=== PATIENT | female | born 1950 | race African-American/Black ===

== ENCOUNTER 2025-05-08 13:59 | Observation (INO) | payer MEDICARE, MEDICAID, SELFPAY ==
--- OUTSIDE RECORDS SUMMARY | 2025-05-04 16:00 | XMS_ITS | Encounter Summary ---
Author Organization [facility] Address [facility] [place] [address] Care Team Providers Care Supervisor Pipe Joints Name Role Phone Neymar Mari MD Unavailable Kyra Shipley MD Primary Care Provider [phone] Reason for Referral * Imaging (Urgent) - New Request Specialty Diagnoses / Procedures Referred By Contac t Referred To Contact RADIOLOGY Procedures CTA CHEST PE PROTOCOL Kenrick Suarez MD [facility] [place] [address] Phone: tel: [phone] fax: Referral ID Status Reason Start Date Expiration Date V isits Requested Visits Authorized [id number] New Request 05/06/2025 05/06/2026 1 1 * Imaging (Urgent) - New Request Specialty Diagnoses / Procedures Referred By Contac t Referred To Contact RADIOLOGY Procedures USE ECHOCARDIOGRAM W CON Peggy Swartz FNP [address] [facility] [address] [facility] [place] [address] Phone: tel: fax: Referral ID Status Reason Start Date Expiration Date V isits Requested Visits Authorized [id number] New Request 05/05/2025 05/05/2026 1 1 Reason for Visit * Reason Comments Hyperglycemia * Auth/Cert Specialty Diagnoses / Procedures Referred By Contac t Referred To Contact Diagnoses Hyperglycemia [place] [address] Phone: tel: [phone] fax: Referral ID Status Reason Start Date Expiration Date Visits Re quested Visits Authorized [id number] 1 1 Encounter Details Date Type Department Care Team (Late st Contact Info) Description 05/04/2025 4:00 PM CDT - 05/07/2025 12:52 PM CDT Hospital Encounter [facility] Telemetry [address] [place], [place] [id number] Josesito Low, ORTHOTIC PRACTITIONER [address] [place] [address] Lio Kearney MD [address] [place] [address] [phone] Mag Sloan [place], [place] [address]139 [phone] (Work) Reba Lara MD [address] [place] [address] [phone] Kenrick Suarez MD [place], [place] [phone] (Work) Hyperglycemia Discharge Disposition: Home or Self Care (Routine Discharge) Social History Tobacco Use Types Packs/Day Years Used Date Smoking Tobacco: Never Passive Smoke Exposure: Past Smokeless Tobacco: Never Alcohol Use Standard Drinks/Week Comments No 0 (1 standard drink = 0.6 oz pur e alcohol) [facility] Utilities Answer Date Recorded In the past 12 months has th e Active [employer], gas, oil, or water [employer] threatened to shut off services in your home? No 05/05/2025 Humiliation, Afraid, Rape, and Kick questionnair e Answer Date Recorded Within the last year, have y ou been afraid of your partner or ex-partner? No 05/05/2025 Within the last year, have y ou been humiliated or emotionally abused in other ways by your partner or ex-partner? No Within the last year, have y ou been kicked, hit, slapped, or otherwise physically hurt by your partner or ex-partner? No 05/05/2025 Within the last year, have y ou been raped or forced to have any kind of sexual activity by your partner or ex-partner? No 05/05/2025 Overall Financial Resource Strain (CARDIA) Answe r Date Recorded How hard is it for you to pa y for the very basics like food, housing, medical care, and heating? Somewhat hard 05/05/2025 PHQ-2 Answer Date Recorded Patient Health Questionnaire-2 Score 0 08/21/2024 Hunger Vital Sign Answer Date Recorded Within the past 12 months, y ou worried that your food would run out before you got the money to buy more. Never true 05/05/20 25 Within the past 12 months, t he food you bought just didn't last and you didn't have money to get more. Never true 05/05/2025 PRAPARE - Transportation Answer Date Re corded In the past 12 months, has l ack of transportation kept you from medical appointments or from getting medications? No 04/14 In the past 12 months, has l ack of transportation kept you from meetings, work, or from getting things needed for daily living? No 05/05/2025 Housing Stability Vital Sign Answer Kevin e Recorded In the last 12 months, was t here a time when you were not able to pay the mortgage or rent on time? No 05/05/2025 In the past 12 months, how m any times have you moved where you were living? 0 05/05/2025 At any time in the past 12 m [facility], were you homeless or living in a care home (including now)? 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 Not on file Not on file Not on file documented as of this encounter Last Filed Vital Signs Vital Sign Reading Time Taken Comments Blood Pressure 125/68 05/07/2025 11:45 AM CDT Pulse 71 05/07/2025 11:45 AM CDT Temperature 36.8 C (98.3 F) 05/07/2025 11:45 AM CDT Respiratory Rate 17 05/07/2025 11:45 AM CDT Oxygen Saturation 97% 05/07/2025 11:45 AM CDT Inhaled Oxygen Concentration - - Weight 84.4 kg (186 lb) 05/07/2025 4:38 AM CDT Height 167.6 cm (5' 6) 05/04/2025 3:35 PM CDT Body Mass Index 30.02 05/04/2025 3:35 PM CDT documented in this encounter Functional Status * Question Answer Date of Assessment Author Status Do you have serious difficulty walking or climbing stairs? No 05/05/2025 3:23 AM CDT Jose Covington RN Act jagruti * Question Answer Date of Assessment Author Status Do you have difficulty dressing or bathing? No 05/05/2025 3:23 AM YOMIT Jose Covington RN Active Because of a physical, mental, or emotional condition, do you have difficulty doing errands alone such as visiting a doctor's office or shopping? No 05/05/2025 7:18 AM CDT Petros Plasencia RN Active * Are you deaf or do you have serious difficulty hearing Answer Date of Assessment Author Status No 05/05/2025 3:23 AM YOMIT Jose Covington RN Active * Are you blind or do you have serious difficulty seeing, even when wearing glasses? Answer Date of Assessment Author Status No 05/05/2025 3:23 AM YOMIT Jose Covington RN Active * Do you have serious difficulty walking or climbing stairs? Answer Date of Assessment Author Status No 05/05/2025 3:23 AM CDT Jose Covington RN Active * Do you have difficulty dressing or bathing? Answer Date of Assessment Author Status No 05/05/2025 3:23 AM Jose Sorto RN Active * Because of a physical, mental, or emotional condition, do you have difficulty doing errands alone such as visiting a doctor's office or shopping? Answer Date of Assessment Author Status No 05/05/2025 7:18 AM YOMIT Petros Plasencia RN Active * Question Answer Date of Assessment Author Status Are you deaf or do you have serious difficulty hearing No 05/05/2025 3:23 AM Jose Sorto RN Active Are you blind or do you have serious difficulty seeing, even when wearing glasses? No 05/05/2025 3:23 AM Jose Sorto RN Acti ve * Calculated C-SSRS Risk Score (Lifetime/Recent) Answer Date of Assessment Author Status No Risk Indicated 05/04/2025 3:54 PM CDT Adele Yin RN Active * [place] Suicide Severity Rating Scale (Screener/Recent Self-Report) Question Answer Date of Assessment Author Status 1. Wish to be (Past 1 Month) No 05/04/2025 3:54 PM Adele Ratliff RN Active 2. Non-Specific Active Suicidal Thoughts (Past 1 Month) No 05/04/2025 3:54 PM Adele Ratliff RN Active 6. Suicidal Behavior (Lifetime) No 05/04/2025 3:54 PM Adele Ratliff RN Active documented as of this encounter Mental Status * Question Answer Entry Date Author Status Because of a physical, mental, or emotional condition, do you have serious difficulty concentrating, remembering, or making decisions? No 05/05/2025 7:18 AM YOMIT Petros Plasencia RN A ctive * Because of a physical, mental, or emotional condition, do you have serious difficulty concentrating, remembering, or making decisions? Answer Entry Date Author Status No 05/05/2025 7:18 AM Petros Rankin RN Active documented in this encounter Discharge Summaries * Kenrick Suarez MD - 05/07/2025 9:24 AM CDT Images from the original note were not included. Hospitalist Discharge Summary Patient ID: Natali To. female. 1950. Admit date: 05/04/2025 4:00 PM Discharge date and time: 05/07/25 Admitting Physician: Mag Sloan MD Attending Physician: Kenrick Suarez MD Primary Care Physician: KYRA SHIPLEY MD Discharge Physician: KENRICK SUAREZ MD Hospital Diagnosis: CHF (congestive heart failure) ([facility]) Hyperglycemia Procedures: None Discharged Condition: Stable Code Status: POLST Indication for Admission: Chief Complaint Patient presents with Hyperglycemia History of Present Illness: Natali To is a 74-year-old female with past medical history of CHF, IDDM, presents to the ERwith leg edema, shortness of breath, hyperglycemia. Patient stated her glucose had been high since yesterday. She has noticed increased urine output and increased thirst. She noted some chills and a dry cough and sore throat that started on the day prior to admission. She has had dyspnea on exertion and some dysuria. No chest pain, abdominal pain, nausea, vomiting, diarrhea etc. Her legs had been swollen for an unknown period of time. She has been taking all of her medications regularly. Workup in the ER showed a glucose of 653 without DKA. UA was positive for UTI. Creatinine was elevated at 2.87. Risk of Unplanned Readmission Score Predictive Model Details 12 (Medium) Factor Value Calculated 05/07/2025 08:01 9% Latest BUN in last 72 hrs 37 MG/DL Risk of Unplanned Readmission Model 8% Number of active outpatient medication orders 24 7% Number of hospitalizations in last year 0 7% Latest creatinine in last 72 hrs 1.43 MG/DL 6% Latest RDW in last 72 hrs 12.4 % 6% Kevin score 20 5% Number of appointments in last 90 days 0 5% Number of ED visits in last 90 days 1 5% Diagnosis of acute renal failure present 4% Antiasthmatics administration present 3% Financial class Medicare 3% Latest hemoglobin in last 72 hrs 10.7 G/DL 2% Diagnosis of diabetes w/o complications present 2% Active outpatient diuretic Rx present 2% BMI 30.04 2% Tobacco use status never 1% Patient age [age] years old 1% Active outpatient beta sol Rx not present 1% Latest neutrophil count in last 72 hrs not abnormal (3.77 x10'3/uL) 1% Latest RBC count in last 72 hrs not abnormal (4.26 x10'6/uL) 1% Diagnosis of renal failure not present 1% Latest lymphocyte count in last 72 hrs 1.19 x10'3/uL 1% Latest MCV in last 72 hrs 77 FL 1% Beta blockers administration not present 1% Latest albumin in last 72 hrs not abnormal (3.7 G/DL) 1% Active outpatient hematopoietic agent Rx not present 1% Alcohol use status no 1% Diagnosis of cardio-respiratory failure or shock not present 1% Latest alkaline phosphatase in last 72 hrs abnormal (157 U/L) 1% Latest glucose in last 72 hrs not abnormal (95 mg/dL) 1% Active outpatient antihypertensive Rx not present 1% Relationship status 1% Diagnosis of specified heart arrhythmias not present 1% Latest total protein in last 72 hrs 7 G/DL 1% Drug use status no 1% Latest CO2 in last 72 hrs not abnormal (26.6 MMOL/L) 1% Active outpatient anticoagulant Rx not present 1% Active outpatient vitamin Rx present 1% Latest INR in last 72 hrs not abnormal (not present) 1% Laxatives administration present 1% Ulcer drugs administration present 0% Active outpatient antihyperlimidemic Rx present 0% Latest monocyte count in last 72 hrs .65 x10'3/uL 0% Latest calcium in last 72 hrs not abnormal (8.9 MG/DL) 0% Active outpatient antidepressant Rx not present 0% Diagnosis of cancer not present 0% Active outpatient ulcer drug Rx present 0% Latest lactate in last 72 hrs not present 0% Analgesic narcotics administration not present 0% Antirheumatics administration not present 0% Latest AST in last 72 hrs 32 U/L 0% Latest basophil count in last 72 hrs .01 x10'3/uL 0% Active outpatient antidiabetic Rx present 0% Diagnosis of fluid or electrolyte disorder not present 0% Admission type urgent 0% Antihyperlipidemics administration present 0% Corticosteroids administration not present 0% Latest total bilirubin in last 72 hrs not abnormal (.4 MG/DL) 0% Active outpatient antirheumatic Rx not present 0% Diagnosis of cerebrovascular disease not present 0% Active outpatient multivitamin Rx not present 0% Latest phosphorous in last 72 hrs 2.9 MG/DL 0% Latest platelet count in last 72 hrs not abnormal (154 x10'3/uL) 0% Antipsychotics administration not present 0% Legal sex female Hospital Course: Dyspnea Cause uncertain No hypoxia with ambulation. CXR wnl. D dimer elevated, but CTA chest neg for PE, only atelectasis noted. Consider stress testing as OP. Near syncope Orthostatic hypotension Pt had near syncopal episode after using the restroom Likely orthostatic hypotension from overdiuresis. CTA chest neg for PE. Cardiac monitoring. Diuretics held. IV fluids given. Orthostatics now neg. Resume chlorthalidone on dc per cards recs. Lasix PRN. Chronic HFpEF Initial concern for acute CHF ruled out. ProBNP minimally elevated at 391 CXR wnl. Echo 10/02/2023: EF 45 to 40%, grade 1 DD Repeat echo with EF of 55-60% IV Lasix given on admission, however caused drop in BP. Further diuresis held. Per cardiology, ok to resume Lasix PRN on dc. Type II IDDM Hyperglycemia without DKA A1c 11.8 Glucose 653 in ER 1 L NS given in ER 10 units IV insulin given in ER Mid dose sliding scale Hypoglycemic protocol Monitor and adjust treatment as needed Hold oral medicines Fasting glucose well controlled on Lantus 20 units, but the rest of the values throughout the day are elevated in the 200-400 range. May need to increase premeal insulin at home, however given that patient has not had her PO medications, will defer to PCP to adjust. Instructed to monitor glucose levels ACHS at home. CORBIN on CKD stage III Creatinine 2.87 Cr was 1.19 in october 2024 Given IV fluids in ER but then had concerns for fluid overload IV Lasix given as above. Subsequently with near syncopal episode concerning for orthostatic hypotension. H IV fluids again given. Cr down to 1.43. Pyuria Asymptomatic Urine culture with polymicrobial growth c/w normal genital edgard IV Rocephin dc'd. Hypertension BP up to 135/111 in ER Improved without treatment BPs now well controlled. Chronic Microcytic anemia Hgb 10.7 This was 10.5 in october 2024 Monitor, transfuse prn Dyslipidemia Statin Code status Okay with CPR, no intubation Medical surrogates are patient's children. Findings that require further workup: Keep BP/HR log BID Monitor daily weights. Consults: cardiology Significant Diagnostic Studies: Recent Results (from the past 24 hours) D-DIMER, QUANTITATIVE Collection Time: 05/06/25 10:08 AM Result Value Ref Range D-DIMER 4,197 (HH) 0 - 500 ng[FEU]/mL POCT glucose Collection Time: 05/06/25 11:42 AM Result Value Ref Range GLUCOSE POC 402 (HH) 70 - 99 mg/dL FERRITIN Collection Time: 05/06/25 12:01 PM Result Value Ref Range FERRITIN 227.8 8.0 - 388.0 NG/ML IRON SAT PANEL (IRON,IBC,%SAT) Collection Time: 05/06/25 12:01 PM Result Value Ref Range IRON 35 (L) 50.0 - 170.0 MCG/DL IRON BINDING CAPACITY 236 (L) 250 - 450 MCG/DL IRON SATURATION 15 (L) 20 - 55 % CBC, AUTO, NO DIFF Collection Time: 05/06/25 12:01 PM Result Value Ref Range WBC 5.63 4.5 - 11.0 x10'3/uL RBC 4.26 4.20 - 5.40 x10'6/uL HGB 10.7 (L) 12.0 - 16.0 G/DL HCT 32.8 (L) 38.0 - 48.0 % MCV 77.0 (L) 81.0 - 99.0 FL MCH 25.1 (L) 27.0 - 31.0 PG MCHC 32.6 32.0 - 36.0 G/DL RDW 12.4 11.5 - 14.5 % PLT 154 130 - 400 x10'3/uL MPV 11.3 9.3 - 12.2 FL POCT glucose Collection Time: 05/06/25 12:17 PM Result Value Ref Range GLUCOSE POC 451 (HH) 70 - 99 mg/dL POCT glucose Collection Time: 05/06/25 4:33 PM Result Value Ref Range GLUCOSE POC 289 (H) 70 - 99 mg/dL POCT glucose Collection Time: 05/06/25 6:10 PM Result Value Ref Range GLUCOSE POC 313 (H) 70 - 99 mg/dL POCT glucose Collection Time: 05/06/25 7:22 PM Result Value Ref Range GLUCOSE POC 337 (H) 70 - 99 mg/dL POCT glucose Collection Time: 05/07/25 6:06 AM Result Value Ref Range GLUCOSE POC 95 70 - 99 mg/dL Radiology Reports : CTA CHEST PE PROTOCOL: 05/06/2025 1. No CTA imaging findings for pulmonary embolism. 2. Decreased lung volumes with bilateral lower lung field moderate subsegmental atelectasis. 3. Left coronary artery calcifications 4. No other convincing acute or significant cardiopulmonary finding. USE ECHOCARDIOGRAM W CON: 05/06/2025 Left ventricle is normal in size and systolic function Estimated EF of 55-60% Mild to moderate LVH Diastolic dysfunction Right ventricle is normal in size and systolic function Mild tricuspid regurgitation Normal estimated pulmonary pressures. XR CHEST PORTABLE: 05/05/2025 1. 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1950 Requested By: REBA LARA Order Number: [id number] Reading MD: Suresh Kitchen Measurements Intervals [place] Rate: 75 P: 47 [place]: 134 QRS: -23 QRSD: 83 T: -58 QT: 394 QTc: 442 Interpretive Statements SINUS RHYTHM BORDERLINE LEFT AXIS DEVIATION [QRS AXIS < -20] MODERATE T-WAVE ABNORMALITY, CONSIDER ANTERIOR ISCHEMIA [-0.1+ mV T WAVE IN V3/V4] No previous ECG available for comparison Discharge Exam: Filed Vitals: 05/07/25 0435 05/07/25 0437 05/07/25 0438 05/07/25 0730 BP: 130/72 121/71 102/48 139/73 Pulse: 79 86 93 75 Resp: 20 20 20 18 Temp: 99 ??F (37.2 ??C) 99 ??F (37.2 ??C) 99 ??F (37.2 ??C) 98.2 ??F (36.8 ??C) TempSrc: Oral Oral SpO2: 94% 96% 98% 96% Weight: 84.4 kg (186 lb) Height: Physical Exam Vitals reviewed. Cardiovascular: Rate and Rhythm: Normal rate and regular rhythm. Heart sounds: Normal heart sounds. No murmur heard. Pulmonary: Effort: Pulmonary effort is normal. Breath sounds: Normal breath sounds. Abdominal: General: There is no distension. Palpations: Abdomen is soft. Tenderness: There is no abdominal tenderness. Musculoskeletal: General: No swelling. Skin: Findings: No rash. Neurological: Mental Status: She is alert. Discharge Medications: Medication List START taking these medications Morning Around Noon Evening Bedtime As Needed aspirin EC 81 MG tablet Commonly known as: ECOTRIN Take 1 tablet (81 mg total) by mouth daily. Last time this was given: 81 mg on May 07, 2025 8:44 AM You were not taking this medication. You should start taking this medication. Last time this was given: May 07, 2025 8:44 AM 1 tablet nystatin [id number] UNIT/ML suspension Commonly known as: MYCOSTATIN Take 5 mLs by mouth 4 (four) times daily for 8 days. Last time this was given: 5 mLs on May 06, 2025 8:11 PM Signed by: Dr. Kenrick Suarez Last time this was given: May 06, 2025 8:11 PM 5 mLs 5 mLs 5 mLs 5 mLs CHANGE how you take these medications Morning Around Noon Evening Bedtime As Needed fluticasone propionate 50 MCG/ACT nasal spray Commonly known as: FLONASE 1 spray by Nasal route 2 (two) times daily. Last time this was given: 1 spray on May 07, 2025 8:45 AM You were taking this medication differently than prescribed. Signed by: Dr. Kyra Shipley Last time this was given: May 07, 2025 8:45 AM 1 spray 1 spray furosemide 20 MG tablet Commonly known as: LASIX Take 1 tablet (20 mg total) by mouth every other day as needed (swelling). Last time this was given: Ask your nurse or doctor Signed by: Dr. Kenrick Suarez Last time this was given: Ask your nurse or doctor What changed: when to take this reasons to take this 1 tablet insulin glargine 100 UNIT/ML injection (VIAL) Commonly known as: Lantus Inject 24 Units into the skin every morning. Last time this was given: 20 Units on May 06, 2025 8:12 PM Signed by: Dr. Kenrick Suarez Last time this was given: May 06, 2025 8:12 PM What changed: medication strength See the new instructions. 24 Units CONTINUE taking these medications Morning Around Noon Evening Bedtime As Needed * Accu-Chek Guide test strip 1 strip by Other route daily. Signed by: Dr. Kyra Shipley Generic drug: Glucose Blood 1 strip * BLOOD GLUCOSE TEST STRIPS [facility] Check blood glucose before all meals and 2 hours after last meal Signed by: Dr. Kyra Shipley Check blood glucose before all meals and 2 hours after last meal * Accu-Chek Guide Test test strip 1 strip by Other route as needed. Use as instructed Signed by: Dr. Kyra Shipley Generic drug: Glucose Blood 1 strip albuterol sulfate HFA 108 (90 Base) MCG/ACT inhaler TAKE 2 PUFFS BY MOUTH EVERY 6 HOURS NEEDED FOR WHEEZE OR SHORTNESS OF BREATH Signed by: Dr. Kyra Shipley TAKE 2 PUFFS BY MOUTH EVERY 6 HOURS NEEDED FOR WHEEZE OR SHORTNESS OF BREATH ammonium lactate 12 % lotion Commonly known as: LAC-HYDRIN Apply topically daily as needed for Dry skin. Blood Glucose Monitoring Suppl w/Device Kit Check blood sugars twice daily. Signed by: Dr. Kyra Shipley Check blood sugars twice daily. budesonide-formoterol 80-4.5 MCG/ACT inhaler Commonly known as: Symbicort Inhale 2 puffs into the lungs 2 (two) times daily. Inhale 2 puffs into the lungs 2 (two) times daily. Signed by: Dr. Kyra Shipley 2 puffs 2 puffs chlorthalidone 25 MG tablet Commonly known as: HYGROTEN TAKE 1 TABLET BY MOUTH DAILY Signed by: Dr. Kyra Shipley 1 tablet diclofenac sodium 1 % gel Commonly known as: VOLTAREN APPLY 2 GRAMS TOPICALLY 3 TIMES DAILY NEEDED TO SHOULDERS AND KNEES FOR PAIN. Signed by: Dr. Kyra Shipley APPLY 2 GRAMS TOPICALLY 3 TIMES DAILY NEEDED TO SHOULDERS AND KNEES FOR PAIN. docusate sodium 100 MG capsule Commonly known as: COLACE Take 1 capsule (100 mg total) by mouth nightly at bedtime. Last time this was given: 100 mg on May 07, 2025 8:44 AM Last time this was given: May 07, 2025 8:44 AM 1 capsule glimepiride 4 MG tablet Commonly known as: AMARYL TAKE 1 TABLET (4 MG TOTAL) BY MOUTH DAILY. TAKE BEFORE LARGEST MEAL Signed by: Dr. Kyra Shipley 1 tablet insulin lispro (1 Unit Dial) 100 UNIT/ML injection (PEN) Commonly known as: HUMALOG Inject 7 Units into the skin 3 (three) times daily before meals. Last time this was given: Ask your nurse or doctor Last time this was given: Ask your nurse or doctor 7 Units 7 Units 7 Units Insulin Syringe-Needle U-100 30G X 1/2 1 ML Misc 1 each by Does not apply route daily. Signed by: Dr. Kyra Shipley 1 each by Does not apply route daily. nitroglycerin 0.4 MG SL tablet Commonly known as: NITROSTAT DISSOLVE 1 TABLET UNDER THE TONGUE EVERY 5 MINUTES NEEDED FOR CHEST PAIN. MAX OF 3 TABLETS IN 15MINUTES. CALL 911 IF PAIN PERSISTS. Signed by: Sherron Mtz DISSOLVE 1 TABLET UNDER THE TONGUE EVERY 5 MINUTES NEEDED FOR CHEST PAIN. MAX OF 3 TABLETS IN 15MINUTES. CALL 911 IF PAIN PERSISTS. omeprazole 20 MG capsule Commonly known as: PriLOSEC TAKE 1 CAPSULE BY MOUTH DAILY Signed by: Dr. Kyra Shipley 1 capsule Pen [place] 31G X 8 MM Misc 1 each by Does not apply route 4 (four) times daily. Signed by: Dr. Kyra Shipley 1 each by Does not apply route 4 (four) times daily. rosuvastatin 20 MG tablet Commonly known as: CRESTOR TAKE 1 TABLET BY MOUTH DAILY Signed by: Dr. Kyra Shipley 1 tablet SOFTCLIX LANCETS [facility] [place] Inst[place] Vitamin D3 50 mcg tablet Commonly known as: cholecalciferol Take 1 tablet (50 mcg total) by mouth daily. Last time this was given: 50 mcg on May 07, 2025 8:44 AM Last time this was given: May 07, 2025 8:44 AM 1 tablet * This list has 3 medication(s) that are the same as other medications prescribed for you. Read thedirections carefully, and ask your doctor or other care provider to review them with you. Disposition: Home with self care Time Spent on Discharge: Greater than 30 minutes Signed: KENRICK SUAREZ MD documented in this encounter Discharge Instructions * Discharge Instructions* Trina Gutierrez RN - 05/07/2025 8:44 AM CDT Monitor daily weights. If weight increases by greater than 2 lbs in 24-48 hours, call web page designer. If weight increased by greater than 5 lbs in less than one week, call web page designer. Keep a BP/HR log BID * Attachments The following attachments cannot be sent through Care Everywhere. 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 200 strip 2 4 albuterol sulfate HFA 108 (90 Base) MCG/ACT inhalerIndications:Ac zabrina cough TAKE 2 PUFFS BY MOUTH EVERY 6 HOURS NEEDED FOR WHEEZE OR SHORTNESS OF BREATH 18 g 3 5 ammonium lactate (LAC-HYDRIN) 12 % lotion Apply topically daily as needed for Dry skin. aspirin EC (ASPIRIN EC) 81 MG tablet Take 1 tablet (81 mg total) by mouth daily. 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 1 kit 4 budesonide-formoterol (SYMBICORT) 80-4.5 MCG/ACT inhalerIndications:Mi ld intermittent asthma without complication ([facility]) Inhale 2 puffs into the lungs 2 (two) times daily. Inhale 2 puffs into the lungs 2 (two) times daily. 30.6 g 3 5 chlorthalidone (HYGROTEN) 25 MG tabletIndications:Ess ential hypertension TAKE 1 TABLET BY MOUTH DAILY 100 tablet 2 5 Cholecalciferol (VITAMIN D) 2000 units Tab Take 1 tablet (50 mcg total) by mouth daily. 8 diclofenac sodium (VOLTAREN) 1 % gelIndications:Arthri tis APPLY 2 GRAMS TOPICALLY 3 TIMES DAILY NEEDED TO SHOULDERS AND KNEES FOR PAIN. 300 g 4 docusate sodium 100 MG capsule Take 1 capsule (100 mg total) by mouth nightly at bedtime. 8 fluticasone propionate (FLONASE) 50 MCG/ACT nasal sprayIndications:Seas onal allergies 1 spray by Nasal route 2 (two) times daily. 16 g 5 5 furosemide (LASIX) 20 MG tablet Take 1 tablet (20 mg total) by mouth every other day as needed (swelling). 30 tablet 5 glimepiride (AMARYL) 4 MG tabletIndications:Typ e 2 diabetes mellitus with both eyes affected by severe nonproliferative retinopathy without macular edema, with long-term current use of insulin ([facility] HHS/HCC) TAKE 1 TABLET (4 MG TOTAL) BY MOUTH DAILY. 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 10 mL 5 insulin lispro, 1 Unit Dial, (HUMALOG) 100 UNIT/ML injection (PEN) Inject 7 Units into the skin 3 (three) times daily before meals. 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 90 each 3 4 nitroglycerin (NITROSTAT) 0.4 MG SL tablet DISSOLVE 1 TABLET UNDER THE TONGUE EVERY 5 MINUTES NEEDED FOR CHEST PAIN. MAX OF 3 TABLETS IN 15 MINUTES. CALL 911 IF PAIN PERSISTS. 125 tablet 1 5 nystatin (MYCOSTATIN) 957347 UNIT/ML suspension Take 5 mLs by mouth 4 (four) times daily for 8 days. 160 mL 5 05/15/20 25 omeprazole (PRILOSEC) 20 MG capsuleIndications:Ga stroesophageal reflux disease, unspecified whether esophagitis present TAKE 1 CAPSULE BY MOUTH DAILY 100 capsule 2 5 rosuvastatin (CRESTOR) 20 MG tabletIndications:Hyp erlipidemia, mixed TAKE 1 TABLET BY MOUTH DAILY 100 tablet 2 5 SOFTCLIX LANCETS Misc 3 documented as of this encounter Progress Notes * Tamica Collado RN - 05/07/2025 12:52 PM CDT 05/07/25 1253 Discharge Planning Living Arrangements Children Support Systems Children Type of Residence Private residence Assistance Needed No Patient expects to be discharged to: Home or Self care no new needs Insurance Authorization needed No Does the patient need discharge transport arranged? No DME Needed at Discharge No Patient discharged home with daughter to transport when she gets off work at 2pm. Declines home health at this time. Patient agreeable to dc plan. * MITCH Shelby - 05/07/2025 11:30 AM CDT Images from the original note were not included. [place], [place] [address] Cardiology Progress Note Primary Truck Driver Teamster: Dr. Mair Primary Air Traffic Supervisor: Cosigner:Dr. Mari Interval History Feels better today. SOB sore throat resolved. Reports mild dry cough. No dizziness. Denies CP. Edema is better. Feels ready to go home. CTA chest no PE, Left coronary artery calcification, no CHF, some atelectasis present. History Reason for consult: CHF Requested by: Hospitalist Natali To is a 74-year-old female with a past medical history significant for HFpEF/HFmrEF, IDDM, CKD, HTN, HLD, anemia, obesity. Patient presents to the ED from urgent care for hyperglycemia. She went to urgent care she had developed some chills, dry cough sore throat that started Sunday. She endorses 15 pound weight gain in the month of March as well as some increasing bilateral lower extremity edema, shortness of breath and a dry cough in the last week. She has occasional orthopnea in the last week or so. She denies anychest pain, palpitations, abdominal pain, nausea vomiting diarrhea, appetite changes. She does endorse polydipsia and polyuria no increase in appetite. She states she checks her blood pressure at home twice a day and typically gets consistent readings 120s/80s with heart rates in the 70s. She takes20 mg of Lasix every other day and chlorthalidone 25 mg daily. Workup in the ER showed a glucose of 653 without DKA. UA was positive for UTI. Creatinine was elevated at 2.87. She was given IV fluids, IV insulin and Rocephin and then lan started on lasix 40 mgBID. Cardiology was consulted for assistance in CHF management. The last weights are: Wt Readings from Last 20 Encounters: 05/07/25 84.4 kg (186 lb) 05/04/25 85.3 kg (188 lb) 11/19/24 85.3 kg (188 lb) 11/18/24 84.7 kg (186 lb 12.8 oz) 09/22/24 90.3 kg (199 lb) 08/21/24 87 kg (191 lb 12.8 oz) 07/04/24 85.3 kg (188 lb) 05/21/24 85.7 kg (188 lb 14.4 oz) 03/24/24 88 kg (194 lb) 03/19/24 88 kg (194 lb) 12/12/23 91.6 kg (202 lb) 10/17/23 94.3 kg (208 lb) 09/26/23 95.3 kg (210 lb) 09/19/23 95.2 kg (209 lb 12.8 oz) 09/05/23 97.5 kg (215 lb) 06/11/23 97.9 kg (215 lb 14.4 oz) 03/21/23 99.3 kg (219 lb) 01/15/23 99.4 kg (219 lb 3.2 oz) 12/18/22 98.2 kg (216 lb 9.6 oz) 12/11/22 98.4 kg (217 lb) . Past Medical History[1] Past Surgical History[2] Social History[3] Family History[4] aspirin EC 81 mg Oral Daily atorvastatin 40 mg Oral Daily docusate sodium 100 mg Oral Q24H ferrous sulfate EC 324 mg Oral Daily with breakfast fluticasone propionate 1 spray Each Nostril BID heparin (porcine) 5,000 Units Subcutaneous 2 times per day insulin glargine 20 Units Subcutaneous Nightly at bedtime insulin lispro 0-16 Units Subcutaneous TID AC And insulin lispro 0-8 Units Subcutaneous Nightly at bedtime mometasone-formoterol 1 puff Inhalation 2 times daily RT nystatin 5 mL Oral 4x Daily pantoprazole EC 20 mg Oral Daily Vitamin D3 50 mcg Oral Daily acetaminophen, albuterol sulfate HFA, dextrose 10 % bolus, glucagon, glucose, HYDROcodone-acetaminophen, HYDROmorphone, iopamidol, naLOXone, ondansetron, polyethylene glycol Prior to Admission medications Medication Sig Start Date End Date Taking? Authorizing Provider budesonide-formoterol (SYMBICORT) 80-4.5 MCG/ACT inhaler Inhale 2 puffs into the lungs 2 (two) times daily. Inhale 2 puffs into the lungs 2 (two) times daily. 11/19/24 Yes Kyra Shipley MD chlorthalidone (HYGROTEN) 25 MG tablet TAKE 1 TABLET BY MOUTH DAILY 08/26/24 Yes Kyra Shipley MD Cholecalciferol (VITAMIN D) 2000 units Tab Take 1 tablet (50 mcg total) by mouth daily. 09/04/17 YesDonathanael [facility] Abstract docusate sodium 100 MG capsule Take 1 capsule (100 mg total) by mouth nightly at bedtime. 10/09/17 Yes Doc [facility] Abstract fluticasone propionate (FLONASE) 50 MCG/ACT nasal spray 1 spray by Nasal route 2 (two) times daily.11/19/24 Yes Kyra Shipley MD furosemide (LASIX) 20 MG tablet Take 1 tablet (20 mg total) by mouth every other day as needed (swelling). 05/06/25 Yes Kenrick Suarez MD glimepiride (AMARYL) 4 MG tablet TAKE 1 TABLET (4 MG TOTAL) BY MOUTH DAILY. TAKE BEFORE LARGEST MEAL 11/03/24 Yes Kyra Shipley MD insulin glargine (LANTUS) 100 UNIT/ML injection (VIAL) Inject 24 Units into the skin every morning.05/06/25 Yes Kenrick Suarez MD insulin lispro, 1 Unit Dial, (HUMALOG) 100 UNIT/ML injection (PEN) Inject 7 Units into the skin 3 (three) times daily before meals. 03/30/25 Yes Default History Genericprovider nystatin (MYCOSTATIN) 828508 UNIT/ML suspension Take 5 mLs by mouth 4 (four) times daily for 8 days. 05/07/25 05/15/25 Yes Kenrick Suarez MD omeprazole (PRILOSEC) 20 MG capsule TAKE 1 CAPSULE BY MOUTH DAILY 12/15/24 Yes Kyra Shipley MD rosuvastatin (CRESTOR) 20 MG tablet TAKE 1 TABLET BY MOUTH DAILY 08/26/24 Yes Kyra Shipley MD ACCU-CHEK GUIDE test strip 1 strip by Other route daily. 02/15/24 Kyra Shipley MD albuterol sulfate HFA 108 (90 Base) MCG/ACT inhaler TAKE 2 PUFFS BY MOUTH EVERY 6 HOURS NEEDED FOR WHEEZE OR SHORTNESS OF BREATH Patient taking differently: Inhale 2 puffs into the lungs every 6 (six) hours as needed for Shortness of breath or Wheezing. 01/22/25 Kyra Shipley MD ammonium lactate (LAC-HYDRIN) 12 % lotion Apply topically daily as needed for Dry skin. Default History Genericprovider aspirin EC (ASPIRIN EC) 81 MG tablet Take 1 tablet (81 mg total) by mouth daily. 06/23/14 Doc [facility] Abstract Blood Glucose Monitoring Suppl w/Device Kit Check blood sugars twice daily. 12/12/23 Kyra Shipley MD diclofenac sodium (VOLTAREN) 1 % gel APPLY 2 GRAMS TOPICALLY 3 TIMES DAILY NEEDED TO SHOULDERS AND KNEES FOR PAIN. Patient taking differently: Apply 2 g topically 3 (three) times daily as needed (pain). Apply to shoulders and knees 10/09/23 Kyra Shipley MD Glucose Blood (ACCU-CHEK GUIDE TEST) test strip 1 strip by Other route as needed. Use as instructed04/03/25 Kyra Shipley MD Glucose Blood (BLOOD GLUCOSE TEST STRIPS) Strip Check blood glucose before all meals and 2 hours after last meal 08/21/24 Kyra Shipley MD Insulin Pen Needle (PEN NEEDLES) 31G X 8 MM Misc 1 each by Does not apply route 4 (four) times daily. 03/28/24 Kyra Shipley MD Insulin Syringe-Needle U-100 30G X 1/2 1 ML Misc 1 each by Does not apply route daily. 04/16/24 Kyra Shipley MD nitroglycerin (NITROSTAT) 0.4 MG SL tablet DISSOLVE 1 TABLET UNDER THE TONGUE EVERY 5 MINUTES NEEDED FOR CHEST PAIN. MAX OF 3 TABLETS IN 15 MINUTES. CALL 911 IF PAIN PERSISTS. Patient taking differently: Place 1 tablet (0.4 mg total) under the tongue every 5 (five) minutes as needed for Chest Pain. 11/10/24 MITCH Jade SOFTCLIX LANCETS [facility] [place] Default History Genericprovider Review of patient's allergies indicates: Allergen Reactions Dulaglutide Shortness of Breath Mounjaro [Tirzepatide] Anaphylaxis, GI Upset and Headache Pneumococcal Vaccines Shortness of Breath and Swelling Second dose brought on symptoms Metformin Rash and GI Upset Penicillins Rash Canagliflozin Other (see comment) and Unknown Pains in legs and arms and headache Eggs Unknown Aspirin Rash and Itching Lisinopril Rash Review of Systems HENT: Negative for sore throat. Respiratory: Positive for cough. Negative for sputum production and shortness of breath. Cardiovascular: Negative for chest pain, palpitations, orthopnea and leg swelling. Neurological: Negative for dizziness and headaches. see HPI Physical Exam Filed Vitals: 05/07/25 0437 05/07/25 0438 05/07/25 0730 05/07/25 1145 BP: 121/71 102/48 139/73 125/68 Pulse: 86 93 75 71 Resp: 20 18 17 Temp: 99 ??F (37.2 ??C) 99 ??F (37.2 ??C) 98.2 ??F (36.8 ??C) 98.3 ??F (36.8 ??C) TempSrc: Oral Oral SpO2: 96% 98% 96% 97% Weight: 84.4 kg (186 lb) Height: Telemetry: SR 70s occ PVC Physical Exam: Physical Exam Vitals and nursing note reviewed. Constitutional: General: She is not in acute distress. Appearance: She is obese. She is not diaphoretic. HENT: Head: Normocephalic and atraumatic. Comments: Purple hair Mouth/Throat: Mouth: Mucous membranes are moist. Eyes: Extraocular Movements: Extraocular movements intact. Neck: Vascular: No hepatojugular reflux or JVD. Cardiovascular: Rate and Rhythm: Normal rate and regular rhythm. Pulses: Radial pulses are 2+ on the right side and 2+ on the left side. Dorsalis pedis pulses are 2+ on the right side and 2+ on the left side. Heart sounds: No murmur heard. Pulmonary: Effort: Pulmonary effort is normal. No respiratory distress. Breath sounds: No wheezing or rales. Abdominal: General: Bowel sounds are normal. There is no distension. Palpations: Abdomen is soft. Tenderness: There is no abdominal tenderness. Musculoskeletal: Right lower leg: No edema. Left lower leg: No edema. Comments: Non pitting BLE edema Skin: General: Skin is warm and dry. Neurological: Mental Status: She is alert and oriented to person, place, and time. Psychiatric: Behavior: Behavior normal. Behavior is cooperative. Recent Labs Lab 05/04/25 1609 05/05/25 0640 05/06/25 1201 WBC 7.27 5.72 5.63 HGB 10.7* 9.9* 10.7* HCT 31.3* 29.9* 32.8* MCV 75.2* 75.1* 77.0* PLT 186 165 154 Recent Labs Lab 05/04/25 1609 05/05/25 0640 05/06/25 0753 NA 134* 144 141 K 3.7 3.2* 3.6 CL 100 112 110 CO2 26.1 26.5 26.6 AGAP 7.9 5.5 4.4 BUN 61* 47* 37* CR 2.87* 1.82* 1.43* BUNCREATININ 21.3 25.8 25.9 GLU 653* 79 140* CA 9.0 8.8 8.9 TP 7.0 -- -- ALB 3.7 -- -- TBIL 0.4 -- -- ALKP 157* -- -- AST 32 -- -- ALT 36 -- -- No results for input(s): APTT, INR, PTT in the last 168 hours. Recent Labs Lab 05/04/25 1609 05/05/25 0640 05/06/25 0753 05/06/25 1201 NA 134* < > 141 -- K 3.7 < > 3.6 -- CL 100 < > 110 -- CO2 26.1 < > 26.6 -- BUN 61* < > 37* -- CR 2.87* < > 1.43* -- CA 9.0 < > 8.9 -- GLU 653* < > 140* -- AGAP 7.9 < > 4.4 -- TP 7.0 -- -- -- ALB 3.7 -- -- -- ALT 36 -- -- -- WBC 7.27 < > -- 5.63 HGB 10.7* < > -- 10.7* PLT 186 < > -- 154 HGBA1C 11.8* -- -- -- < > = values in this interval not displayed. Results for orders placed or performed during the hospital encounter of 05/04/25 (from the past 52 weeks) CULTURE URINE Collection Time: 05/04/25 4:22 PM Specimen: URINE, CLEAN CATCH Result Value Ref Range SPEC DESCRIPTION URINE CLEAN CATCH SPECIAL REQUESTS NO SPECIAL REQUEST CULTURE RESULT POLYMICROBIAL GROWTH CONSISTENT WITH NORMAL GENITAL EDGARD. SUSCEPTIBILITIES NOT ROUTINELY PERFORMED. No results found for this visit on 05/04/25 (from the past 52 weeks). 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 Imaging/Testing this admission: CTA CHEST PE PROTOCOL Result Date: 05/06/[address] [address] Exam: CT angiography chest Exam Date/Time: 05/06/2025 1:01 PM Indication: 74 female. Evaluation for pulmonary embolism. Syncope. Comparison: Chest x-ray 05/05/2025 and 09/22/2024. Technique: Computed tomography angiography of the chest was performed no protocol following uneventful intravenous administration of 80 mL Isovue-370 contrast. 3-D reconstructions and postprocessing performed on a separate dedicated 3-D workstation.. A dose lowering technique was used for this procedure, which may include, but is not limited to, dose reduction technique, automated exposure control, the use of iterative reconstruction, and ALARA (As Low As Reasonably Achievable) / Image Gently techniques. CTA Findings: VASCULATURE Adequate opacification of pulmonary arterial tree. No intraluminal filling defects suggestive of pulmonary thromboembolism first identified within study limits. No findings of right heart strain. No central pulmonary arterial enlargement. Unremarkable thoracic aorta MEDIASTINUM Support tubes and lines: None. Base of neck/thyroid: Negative. Heart: Borderline cardiac size. Left coronary artery calcification. No pericardial effusion. No pericardial effusion. Lymph nodes: No supraclavicular, axillary, internal mammary, mediastinal, or hilar adenopathy. LUNGS AND PLEURALungs: Decreased lung volumes particularly right middle and lower lobes with with bilateral lower lobe both dependent and streaky moderate subsegmental atelectasis. Mild lingular and right middle lobe subsegmental atelectasis. No concerning pulmonary nodule mass or consolidation. No significant chronic airspace disease seen. Airways unremarkable. No bronchiectasis, wall thickening or mucous plugging. Pleura: No pleural effusion, thickening, or calcification. UPPER ABDOMEN Nonspecific central hepatic calcifications. Prominent splenic artery vascular wall calcification. No acute finding. BONES/SOFT TISSUES No concerning musculoskeletal finding Impression: 1. No CTA imaging findings for pulmonary embolism. 2. Decreased lung volumes with bilateral lower lung field moderate subsegmental atelectasis. 3. Left coronary artery calcifications 4. No other convincing acute or significant cardiopulmonary finding. Ordered By: KENRICK SUAREZ Interpreted By: Karlo Bland MD, 05/06/2025 3:13 PM USE ECHOCARDIOGRAM W CON Result Date: 05/06/2025 Echocardiography Report Pat.Name: NATALI TO Pat.ID: [id number] St.Date: 05/06/2025 Exam Time: 9:13:00 AM Study Type:ECHO WITH CARDIAC DOPPLER COMP Height: 66 in Weight: 188 lb BSA: 1.95 m2 Age: 1 1950,74Y Sex: F BP: 113/62 HR: 84 bpm Sonogrphr: [place] Aguirre [facility], [facility] Pat. Stat.:Inpatient Room: [facility] Reason for Study:Congestive heart failure History / Clinical:Diabetes, Dyslipidemia, Hypertension, Congestive heart failure, Family history CAD, GERD Procedures: 2D, M-mode, Doppler, Color Flow, Definity was used to enhance endocardial definition. The study quality is technically difficult . Race: B ++++++++++++++++++++++++++++++++++++ SUMMARY: ++++++++++++++++++++++++++++++++++++ Left ventricle is normal in size and systolic function Estimated EF of 55-60% Mild to moderate LVH Diastolic dysfunction Right ventricle is normal in size and systolic function Mild tricuspid regurgitation Normal estimated pulmonary pressures. ++++++++++++++++++++++++++++++++++++ FINDINGS: ++++++++++ ++++++++++++++++++++++++++ LV: The left ventricular size is normal. The left ventricular systolic function is normal. Estimated left ventricular ejection fraction is 55-60%. Mild to moderate concentric left ventricular hypertrophy. Left ventricular diastolic function is abnormal (grade 1 - impairedrelaxation). WM: Wall motion appears normal in all segments. RV: The right ventricular size is normal. Right ventricular systolic function is normal. Right ventricular systolic pressure is normal at 25-30 mmHg. IVS: No evidence of ventricular septal defect. LA: The left atrial volume is normal ( less than 34 ml/M2). RA: Right atrial size is normal. IAS: Atrial septum appears intact. CASE: No evide nce of pericardial effusion. AO: Normal aortic root. SVn: Inferior vena cava is normal. Inferior vena cava shows >50% collapse with respiration consistent with normal right atrial pressure. AV: The aortic valve is trileaflet. No evidence of aortic valve stenosis. No evidence of aortic valve regurgitation. MV: Structurally normal mitral valve. Trace mitral regurgitation. No evidence of mitral stenosis. PV: No evidence of pulmonic valve stenosis. No evidence of pulmonic regurgitation. TV: Structurally normal tricuspid valve. Mild tricuspid regurgitation. No evidence of tricuspid valve stenosis. ++++++++++++++++++++++++++++++++++++ MEASUREMENTS: ++++++++++++++++++++++++++++++++++++ DOPPLER LVOT LVOTpkPG 5 mmHg LVOTmnPG 3 mmHg LVOTpkVel 107 cm/s (70-110)+ LVOT SV 62 ml LVOT TVI 17.9 cm Pulmonary Veins PVnpkVeld 35.3 cm/s PVnVs/Vd 2.6 PVnpkVels 92.8 cm/s PVn A Dur 116 msec AV Forward Flow AV TVI 21.9 cm AV pkPG 5 mmHg AV pkVel 115 cm/s (100-170)+ Area (TVI) 2.83 cm2 (3-5)* AV mnPG 4 mmHg Area (Pete) 3.22 cm2 (3-5) MV Forward Flow MV DeTm 185 msec MV pkE 60.3 cm/s (60-130) MV E/A 0.6 MV pkA 96.9 cm/s PV Forward Flow PV pkVel 82.8 cm/s (60-90)+ PV AC 93 msec PV pkPG 3 mmHg TV Regurg Flow TV pkPG 21 mmHg TV pkVel 227 cm/s (30-70)* Lat E' Lat e 7.62 cm/s Lat E/E' Lat E/e 7.9 Med E' Med e 5.66 cm/s Med E/E' Med E/e 10.7 Aortic Valve Aortic Valve Ar 1.45 Aortic Valve Ve 0.93 AV DI Value 0.82 Lat MA LV Pk Sys Tissu 9.9 cm/s Left Ventricle LV IVRT 104 msec Mitral Valve MV A dur 0.135 sec PV A- MV A Value -0.019 sec PV Antegrade Flow Acceleration Sl 641 cm/s2 Right Atrium Luciano'sDisk 20 2D Left Ventricle LVIDd 3.79 cm (3.6-5.2) LV ESV 52.4 ml LVIDs 2.41 cm (2.3-3.9) LV ESV 39.2 ml LngAxd 7.76 cm LVESV BP 47.3 ml LngAxd 7.8 cm LV EF 48.1 % LV EDV 101 ml LV EF 69.8 % LV EDV 130 ml LV EF BP 58.5 % LVEDV BP 114 ml LV SV 48.6 ml LngAxs 6.49 cm LV SV 90.8 ml LngAxs 5.95 cm LV SV BP 66.7 ml LVPW LVPWd 1.21 cm Ventricular Septum IVSd 1.3 cm Left Atrium LA a-p 3.1 cm (2.8-3.4) LA VOLBP 54.3 ml Aorta Ao Rtd 3.6 cm (zsc 2.4)* Ao Asc 3.7 cm (zsc 4.2)* LVOT LVOT 2.1 cm LVOTArea 3.46 cm2 Ratios IVS LA Biplane LAVol I BP 27.8 ml/m2 RA Single Plane Right Atrium MO 13.6 mm Right Atrium Sy 32.1 ml Right Atrium Sy 38 mm Right Atrium Sy 16.5 ml/m2 Right Atrium Sy 12.1 cm2 MMODE TA Tri cuspid Annul 14.3 mm <Electronic Signature> 05/06/2025 11:22 AM Neymar Mari M.D. 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 : 1950 Requested By: REBA LARA Order Number: [id number] Reading MD: Suresh Kitchen Measurements Intervals [place] Rate: 75 P: 47 OH: 134 QRS: -23 QRSD: 83 T: -58 QT: 394 QTc: 442 Interpretive Statements SINUS RHYTHM BORDERLINE LEFT AXIS DEVIATION [QRS AXIS < -20] MODERATE T-WAVE ABNORMALITY, CONSIDER ANTERIOR ISCHEMIA [-0.1+ mV T WAVE IN V3/V4] No previous ECG available for comparison XR CHEST PORTABLE Result Date: 05/05/[address] [address] Examination: Chest x-ray 1 view Exam Date/Time: 05/05/2025 12:41 AM Reason For Exam: sob Hyperglycemia, shortness of breath Comparison: Chest radiograph 09/22/2024 Technique: Single AP view of the chest was obtained. Findings: Heart size within normal limits for AP technique. No large effusion. No pneumothorax. No consolidation. Degenerative changes in both shoulders. Pulmonary vascularity within normal limits. ======== IMPRESSION: ======== 1. No acute cardiopulmonary findings within limitations of exam Referred By: Interpreted By: Tre Huerta MD, 05/05/2025 12:53 AM 05/05/25 Echo: LV: The left ventricular size is normal. The left ventricular systolic function is normal. Estimated left ventricular ejection fraction is 55-60%. Mild to moderate concentric left ventricular hypertrophy. Left ventricular diastolic function is abnormal (grade 1 - impaired relaxation). WM: Wall motion appears normal in all segments. RV: The right ventricular size is normal. Right ventricular systolic function is normal. Right ventricular systolic pressure is normal at 25-30 mmHg. IVS: No evidence of ventricular septal defect. LA: The left atrial volume is normal ( less than 34 ml/M2). RA: Right atrial size is normal. IAS: Atrial septum appears intact. CASE: No evidence of pericardial effusion. AO: Normal aortic root. SVn: Inferior vena cava is normal. Inferior vena cava shows >50% collapse with respiration consistent with normal right atrial pressure. AV: The aortic valve is trileaflet. No evidence of aortic valve stenosis. No evidence of aortic valve regurgitation. MV: Structurally normal mitral valve. Trace mitral regurgitation. No evidence of mitral stenosis. PV: No evidence of pulmonic valve stenosis. No evidence of pulmonic regurgitation. TV: Structurally normal tricuspid valve. Mild tricuspid regurgitation. No evidence of tricuspid valve stenosis. Prior Diagnostic Review: Cardia cath (2006) - No coronary disease, normal heart function. Echocardiogram from 06/2014 showed normal biventricular size and function, EF 55-60% , grade I diastolic dysfunction and normal pulmonic regurgitation and aortic root mildly dilated. Stress (2017) - EF normal, normal perfusion. Stress (08/2021) - EF normal, normal perfusion Echo (09/2023) - EF 45-50%, possible bicuspid AoV. No /AI Assessment Principal Problem: CHF (congestive heart failure) ([facility]) SNOMED CT(R): CONGESTIVE HEART FAILURE Active Problems: Hyperglycemia SNOMED CT(R): HYPERGLYCEMIA SOB: proBNP minimally elevated 391 (no prior comparison) not c/w acute CHF though Lungs clear. EKG no acute ischemic findings some nonspecific STT abnormalities. Troponin normal. Getting CTA chest for elevated ddimer. If negative consider ischemic eval. No significant echo findings EF 55-60% with gr sharon I DD, normal wall motion and RVR, mild TR no other sig findings. CTA negative for PE or CHF. Left coronary artery calcification on CTA chest 05/06.. Will discuss OP stress test as symptoms resolved. Now on Aspirin as well as statin. Chronic HFmrEF: no acute cxray findings. Appears euvolemic at this time got 2 doses of IV lasix on 05/05 and was held given orthostatic dizziness. she also received 1L NS bolus on admission. She was on 20 mg lasix EOD and 25 mg chlorthalidone at home. Dizziness: improved today. Orthostatics were negative. CORBIN on CKD: Cr 2.87 on admission. Down to 1.43 yesterday. Hypokalemia: replaced and 3.6 yesterday. Uncontrolled DM/hyperglycemia: A1c 11.8% Glucose 653 on arrival then dropped to 79. Per others. UTI: on atbx, per others. HTN: BP quite labile intially, overall appears better. Holding meds for now and monitor. Orthostatics negative. Does have mild to moderate LVH on echo. Microcytic Anemia: 10.7 which is near baseline. Iron low, ferritin normal. added iron supplement. Plan Dispo per others. Will check BMP and CBC in 1 week. She will keep 05/26/[address] Mari unless otherwise needed sooner to discuss ischemic work up/stress testing. Given lack of CHF findings. Would not d/c with EOD lasix and can just use PRN. Can resume hoem chlorthalidone. She will keep BP/HR log BID and AM weight log and bring to her appt. She will call sooner with worsening symptoms or issues. Patient verbalized understanding and is agreeable to the plan of care. I have discussed with hospitalist and Dr. Mari. Thank you for allowing me to participate in the care of this patient. Please contact me with any questions/concerns. MITCH [place] [1] Past Medical History: Diagnosis Date Arthritis Chronic diastolic (congestive) heart failure (CMS/HCC HHS/HCC) Diabetes mellitus (CMS/HCC HHS/HCC) Essential hypertension Hyperlipidemia, mixed Obesity [2] Past Surgical History: Procedure Laterality Date CHOLECYSTECTOMY HYSTERECTOMY SCREENING COLONOSCOPY 2016, nl per patient, repeat 2025 [3] Social History Tobacco Use Smoking status: Never Passive exposure: Past Smokeless tobacco: Never Vaping Use Vaping status: Never Used Substance Use Topics Alcohol use: No Drug use: No [4] Family History Problem Relation Name Age of Onset Diabetes Mother Coronary artery disease Mother Coronary artery disease Father Diabetes Sister Diabetes Brother Cosigned by Neymar Mari MD at 05/07/2025 3:47 PM CDT * Tamica Collado RN - 05/07/2025 10:48 AM CDT 05/07/25 1047 Forms Reinforcement Important Message from Medicare (Subsequent IMM) Signed Copy delivered * Kenrick Suarez MD - 05/06/2025 8:11 PM CDT Hospitalist Daily Progress Note Subjective This is a 74-year-old y/o female who presents with CHF (congestive heart failure) ([facility]/HCC HHS/HCC). Patient states SOB overall better. No dizziness or lightheadedness. No other new issues. Objective Filed Vitals: 05/06/25 17305/06/25 17305/06/25173505/06/25 192 BP: 133/75 117/80 119/71 131/67 Pulse: 80 91 91 79 Resp: 18 18 18 22 Temp: 98.2 ??F (36.8 ??C) TempSrc: Oral SpO2: 99% 99% 95% 100% Weight: Height: Physical Exam: Physical Exam Vitals reviewed. Constitutional: Appearance: She is well-developed. Cardiovascular: Rate and Rhythm: Normal rate and regular rhythm. Heart sounds: No murmur heard. Pulmonary: Effort: Pulmonary effort is normal. No respiratory distress. Breath sounds: Normal breath sounds. No wheezing. Abdominal: General: There is no distension. Palpations: Abdomen is soft. Tenderness: There is no abdominal tenderness. Musculoskeletal: General: No swelling. Skin: Findings: No rash. Neurological: Mental Status: She is alert. Intake/Output 24H Total: Intake/Output Summary (Last 24 hours) at 05/06/20252010 Last data filed at 05/06/2025 1831 Gross per 24 hour Intake 440 ml Output -- Net 440 ml Medication aspirin EC 81 mg Oral Daily atorvastatin 40 mg Oral Daily docusate sodium 100 mg Oral Q24H [START ON 05/07/2025] ferrous sulfate EC 324 mg Oral Daily with breakfast fluticasone propionate 1 spray Each Nostril BID heparin (porcine) 5,000 Units Subcutaneous 2 times per day insulin glargine 20 Units Subcutaneous Nightly at bedtime insulin lispro 0-16 Units Subcutaneous TID AC And insulin lispro 0-8 Units Subcutaneous Nightly at bedtime mometasone-formoterol 1 puff Inhalation 2 times daily RT nystatin 5 mL Oral 4x Daily pantoprazole EC 20 mg Oral Daily Vitamin D3 50 mcg Oral Daily PRN Meds: acetaminophen, albuterol sulfate HFA, dextrose 10 % bolus, glucagon, glucose, HYDROcodone-acetaminophen, HYDROmorphone, iopamidol, naLOXone, ondansetron, polyethylene glycol Labs: Recent Results (from the past 24 hours) POCT glucose Collection Time: 05/05/25 8:13 PM Result Value Ref Range GLUCOSE POC 219 (H) 70 - 99 mg/dL POCT glucose Collection Time: 05/06/25 6:31 AM Result Value Ref Range GLUCOSE POC 122 (H) 70 - 99 mg/dL BASIC METABOLIC PANEL Collection Time: 05/06/25 7:53 AM Result Value Ref Range GLUCOSE 140 (H) 70 - 99 MG/DL BUN 37 (H) 7 - 18 MG/DL CREATININE S/P/B 1.43 (H) 0.55 - 1.02 MG/DL SODIUM S/P/B 141 136 - 145 MMOL/L POTASSIUM S/P/B 3.6 3.5 - 5.1 MMOL/L CHLORIDE S/P/B 110 97 - 115 MMOL/L CO2 26.6 21 - 32 MMOL/L CALCIUM S/P/B 8.9 8.5 - 10.1 MG/DL ANION GAP 4.4 2 - 10 MMOL/L BUN CREATININE RATIO 25.9 6 - 26 GFR ESTIMATE 39 (L) >90 ML/MIN/1.73 M2 D-DIMER, QUANTITATIVE Collection Time: 05/06/25 10:08 AM Result Value Ref Range D-DIMER 4,197 (HH) 0 - 500 ng[FEU]/mL POCT glucose Collection Time: 05/06/25 11:42 AM Result Value Ref Range GLUCOSE POC 402 (HH) 70 - 99 mg/dL FERRITIN Collection Time: 05/06/25 12:01 PM Result Value Ref Range FERRITIN 227.8 8.0 - 388.0 NG/ML IRON SAT PANEL (IRON,IBC,%SAT) Collection Time: 05/06/25 12:01 PM Result Value Ref Range IRON 35 (L) 50.0 - 170.0 MCG/DL IRON BINDING CAPACITY 236 (L) 250 - 450 MCG/DL IRON SATURATION 15 (L) 20 - 55 % CBC, AUTO, NO DIFF Collection Time: 05/06/25 12:01 PM Result Value Ref Range WBC 5.63 4.5 - 11.0 x10'3/uL RBC 4.26 4.20 - 5.40 x10'6/uL HGB 10.7 (L) 12.0 - 16.0 G/DL HCT 32.8 (L) 38.0 - 48.0 % MCV 77.0 (L) 81.0 - 99.0 FL MCH 25.1 (L) 27.0 - 31.0 PG MCHC 32.6 32.0 - 36.0 G/DL RDW 12.4 11.5 - 14.5 % PLT 154 130 - 400 x10'3/uL MPV 11.3 9.3 - 12.2 FL POCT glucose Collection Time: 05/06/25 12:17 PM Result Value Ref Range GLUCOSE POC 451 (HH) 70 - 99 mg/dL POCT glucose Collection Time: 05/06/25 4:33 PM Result Value Ref Range GLUCOSE POC 289 (H) 70 - 99 mg/dL POCT glucose Collection Time: 05/06/25 6:10 PM Result Value Ref Range GLUCOSE POC 313 (H) 70 - 99 mg/dL POCT glucose Collection Time: 05/06/25 7:22 PM Result Value Ref Range GLUCOSE POC 337 (H) 70 - 99 mg/dL X-Ray CTA CHEST PE PROTOCOL: 05/06/2025 1. No CTA imaging findings for pulmonary embolism. 2. Decreased lung volumes with bilateral lower lung field moderate subsegmental atelectasis. 3. Left coronary artery calcifications 4. No other convincing acute or significant cardiopulmonary finding. USE ECHOCARDIOGRAM W CON: 05/06/2025 Left ventricle is normal in size and systolic function Estimated EF of 55-60% Mild to moderate LVH Diastolic dysfunction Right ventricle is normal in size and systolic function Mild tricuspid regurgitation Normal estimated pulmonary pressures. XR CHEST PORTABLE: 05/05/2025 1. No acute cardiopulmonary findings within limitations of exam Results for orders placed or performed during the hospital encounter of 05/04/25 [address] [facility] 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 D dimer elevated, but CTA chest neg for PE, only atelectasis noted. Consider stress testing as OP. Medically stable for dc, however patient does not have a ride this evening. Plan for dc in am. Near syncope Orthostatic hypotension Pt had near syncopal episode after using the restroom Likely orthostatic hypotension from overdiuresis. CTA chest neg for PE. Cardiac monitoring. Diuretics held. IV fluids given. Orthostatics now neg. Cardiology following Chronic HFpEF Initial concern for acute CHF ruled out. ProBNP minimally elevated at 391 CXR wnl. Echo 10/02/2023: EF 45 to 40%, grade 1 DD Repeat echo with EF of 55-60% IV Lasix given on admission, however caused drop in BP. Further diuresis held. Type II IDDM Hyperglycemia without DKA A1c 11.8 Glucose 653 in ER 1 L NS given in ER 10 units IV insulin given in ER Mid dose sliding scale Hypoglycemic protocol Monitor and adjust treatment as needed Hold oral medicines Glucose labile this morning. Resume Lantus tonight. Continue SSI CORBIN on CKD stage III Creatinine 2.87 Cr was 1.19 in october 2024 Given IV fluids in ER but then had concerns for fluid overload IV Lasix given as above. Subsequently with near syncopal episode concerning for orthostatic hypotension. H IV fluids again given. Cr now down to 1.43. Pyuria Asymptomatic Urine culture with polymicrobial growth c/w normal genital edgard IV Rocephin dc'd. Hypertension BP up to 135/111 in ER Improved without treatment BPs now well controlled. Chronic Microcytic anemia Hgb 10.7 This was 10.5 in october 2024 Monitor, transfuse prn Dyslipidemia Statin DVT prophylaxis Heparin Code status Okay with CPR, no intubation Medical surrogates are patient's children. KENRICK SUAREZ MD 05/06/2025 8:11 PM * Reba Lara MD - 05/06/2025 2:22 PM CDT Request for Documentation Clarification Natali Del Real ; VISIT [id number] Query Response Sent: 05/06/25 14:22 CDT From: Reba Lara MD Query question: Based on medical judgment and consideration of these clinical indicators, the following condition was evaluated, monitored and/or treated during this episode of care Provider response: Acute on Chronic HFmrEF Original Query Sent: 05/06/25 14:21 CDT From: Jen Caicedo MBBS, CCDS To: Reba Lara MD By submitting this query, we are seeking further clarification of documentation to accurately reflect all conditions that you monitored, evaluated, treated, or that may have extended the hospitalization or utilization of additional resources for care. Chart review has indicated your clinical opinion is needed regarding the following diagnosis. Your response serves as your authenticated entry to the Legal Medical Record. The fact that a question isasked does not imply that any particular diagnosis is desired or expected. Based on medical judgment and consideration of these clinical indicators, the following condition was evaluated, monitored and/or treated during this episode of care * Acute on chronic HFpEF * Chronic HFmrEF * Acute on Chronic HFmrEF * Other Clinical Information PROGRESS by Reba Lara at 05/05/2025 08:28 CORBIN Creatinine 2.87 Cr was 1.19 in october 2024 Given IV fluids in ER but now appears fluid overloaded IV Lasix as below Monitor weight/intake/output/labs Cr improved to 1.82. Had near syncope episode with concern for orthostatic hypotension. Hold any further lasix. Encourage oral hydration. Consider gentle IVF based on PO intake Acute on chronic HFpEF Echo 10/02/2023: EF 45 to 40%, grade 1 DD With edema, dyspnea on exertion at home O2 sat stable at rest on room air Given IV lasix on admission. Does not appear overtly fluid overloaded. Hold additional lasix Echo per cardiology PROGRESS by Peggy Swartz at 05/06/2025 09:36 Chronic HFmrEF: no acute cxray findings. Appears euvolemic at this time got 2 doses of IV lasix on05/05 and was held given orthostatic dizziness. she also received 1L NS bolus on admission. She was on 20 mg lasix EOD and 25 mg chlorthalidone at home. CONSULT by Peggy Swartz at 05/05/2025 08:46 Acute on Chronic HFmrEF: no acute cxray findings. O2 [id number]% on room air on my assessment. Had some BLE edema otherwise no significant PE signs of CHF. IV lasix 40 mg BID (already received 2 doses since 2 am), will be held given orthostatic dizziness. she also received 1L NS bolus on admission. USE ECHOCARDIOGRAM W CON by Peggy Swartz at 05/06/2025 11:22 Left ventricle is normal in size and systolic function Estimated EF of 55-60% Mild to moderate LVH Diastolic dysfunction Right ventricle is normal in size and systolic function Mild tricuspid regurgitation Normal estimated pulmonary pressures. * Tamica Collado RN - 05/06/2025 1:19 PM CDT 05/06/25 1318 Interdisciplinary Group Conference Team Members Present Physician;Nursing;Case/Care management;PT/OT;Pharmacy Physician present for group conference Marian Patient Current Status Paient current status Inpatient Barriers to Discharge Inpatient Review Barriers to Discharge Inpatient Pending Labs;Pending Radiology (DC pending cardiology recs, echo and D-dimer results, continues on IV abx) Patient expects to be discharged to Patient expects to be discharged to: Home or Self care no new needs * Akosua Bermudez RN - 05/05/2025 3:00 PM CDT Problem: Reduced risk for falls/injury Goal: Reduced Risk for Falls/Injury Outcome: Progressing Goal: Reduced Risk of Confusion (Acute vs Chronic) Outcome: Progressing Goal: Reduced Risk of Symptomatic Depression Outcome: Progressing Goal: Reduced Risk of Altered Elimination Outcome: Progressing Goal: Reduced Risk of Dizziness/Vertigo/Balance Outcome: Progressing Goal: Reduced Risk of Polypharmacy Outcome: Progressing Problem: Pain Goal: Patient's pain/discomfort is manageable Description: Assess and monitor patient's pain using appropriate pain scale. Collaborate with interdisciplinary team and initiate plan and interventions as ordered. Re-assess patient's pain level 30 - 60 minutes after pain management intervention. Outcome: Progressing Problem: Safety Goal: Patient will be injury free during hospitalization Description: Assess and monitor vitals signs, neurological status including level of consciousness and orientation. Assess patient's risk for falls and implement fall prevention plan of care and interventions per hospital policy.Ensure arm band on, uncluttered walking paths in room, adequate room li ghting, call light and overbed table within reach, bed in low position, wheels locked, side rails up per policy, and non-skid footwear provided. Outcome: Progressing Problem: Daily Care Goal: Daily care needs are met Description: Assess and monitor ability to perform self care and identify potential discharge needs. Outcome: Progressing Problem: Psychosocial Needs Goal: Demonstrates ability to cope with hospitalization/illness Description: Assess and monitor patients ability to cope with his/her illness. Outcome: Progressing Goal: Collaborate with patient/family/caregiver to identify patient specific goals for this hospitalization Outcome: Progressing Problem: Discharge Barriers Goal: Patient's discharge needs are met Description: Collaborate with interdisciplinary team and initiate plans and interventions as needed. Outcome: Progressing * Natasha Fairbanks LCSW - 05/05/2025 11:50 AM CDT CM performed bedside assessment Support: shana Gonzales Home: 2nd floor apt with elevator access Ambulation: Reports independent prior to admission. DME products: none Medical Devices: none ADLs: Reports independent prior to admission. Transport Home: family/friend Skin/Bladder/Bowel: No deficits reported A/O: Patient is alert, oriented to person, place, time, and situation Communication: Patient can communicate without deficits. Home Health: not current Occupation: Retired [facility]acy: [facility] Financial Concerns: No financial concerns reported SDOH: Some financial concerns at times with resources placed in the AVS but denied the impact on return home PCP/Insurance Plan: Dr Shipley/[facility] and Medicaid Discharge needs: RNCM will follow case daily and will continuously evaluate discharge needs based on recommendations and treatment course. 05/05/25 1149 Asssesment Completed Type of Case Management assessment completed Adult Referral Data Source of Information Patient Patient Information Primary Caregiver Self Current living Situation Alone Type of Residence Private residence Support System Immediate family Are you employed? Retired Recent Hospitalization Recent Hospitalization within 30 days No Baseline ADL's Functional Status Independent Behavior Oriented;Cooperative Communication Understands Samoan;Understands speaking;Talks DC screening tool This is a screening tool it does not take the place of a physical or occupational therapy evaluation. The screening is to screen the patient for what services and destination would be beneficial for patient for next level of care Conversation with the patient/family Will the patient be returning to prior living situation with no new identified needs? Yes Based on the screening the DC plan for consideration is: Patient expects to be discharged to: Home or Self care no new needs * Reba Lara MD - 05/05/2025 8:28 AM CDT Hospitalist Daily Progress Note Subjective Pt resting in bed. Prior to entering the room when she was coming back from the commode she suddenly felt dizzy and had a near syncope episode. She states that symptoms have resolved now that she is laying down. She denies chest pain or shortness of breath. Complaining of URI symptoms Objective Filed Vitals: 05/05/25 1200 05/05/25 1230 05/05/25 1300 05/05/25 1330 BP: (!) 141/70 (!) 146/77 130/72 131/80 Pulse: 74 73 72 79 Resp: 15 16 15 16 Temp: TempSrc: SpO2: 98% 98% 98% 100% Weight: Height: Intake/Output 24H Total: Intake/Output Summary (Last 24 hours) at 05/05/2025 1446 Last data filed at 05/05/2025 0737 Gross per 24 hour Intake -- Output 100 ml Net -100 ml Physical Exam: General: No acute distress, breathing comfortably on room air Eyes: Extraocular movements intact ENT: Neck supple, Septum is midline. Lungs: Clear to auscultation bilaterally, Cardiovascular: Regular rate rhythm, S1 and S2 normal Abdomen: Soft, nondistended, Nontender Extremities: no lower extremity edema Neurological: Alert, awake, oriented x3, No gross neuro deficit Skin: Skin color, texture, turgor normal. No rashes or lesions Medications aspirin EC 81 mg Oral Daily atorvastatin 40 mg Oral Daily cefTRIAXone 1 g Intravenous Q24H docusate sodium 100 mg Oral Q24H fluticasone propionate 1 spray Each Nostril BID heparin (porcine) 5,000 Units Subcutaneous 2 times per day insulin glargine 20 Units Subcutaneous Nightly at bedtime insulin lispro 0-16 Units Subcutaneous TID AC And insulin lispro 0-8 Units Subcutaneous Nightly at bedtime mometasone-formoterol 1 puff Inhalation 2 times daily RT nystatin 5 mL Oral 4x Daily pantoprazole EC 20 mg Oral Daily Vitamin D3 50 mcg Oral Daily acetaminophen, albuterol sulfate HFA, dextrose 10 % bolus, glucagon, glucose, HYDROcodone-acetaminophen, HYDROmorphone, naLOXone, ondansetron, polyethylene glycol Labs, Imaging, Other Studies Recent Labs Lab 05/04/25 1609 05/05/25 0640 WBC 7.27 5.72 RBC 4.16* 3.98* HGB 10.7* 9.9* HCT 31.3* 29.9* MCV 75.2* 75.1* MCH 25.7* 24.9* MCHC 34.2 33.1 PLT 186 165 RDW 12.2 12.1 MPV 11.1 11.1 PERNEU 67.9 65.9 PERLYM 22.0 20.8 PERMON 8.9 11.4 NEUC 4.94 3.77 LYMC 1.60 1.19 MONOC 0.65 0.65 EOSC 0.04 0.08 BASOC 0.02 0.01 DTYPE AUTOMATED DIFFERENTIAL AUTOMATED DIFFERENTIAL Recent Labs Lab 05/04/25 1609 05/05/25 0640 NA 134* 144 K 3.7 3.2* CL 100 112 CO2 26.1 26.5 AGAP 7.9 5.5 BUN 61* 47* CR 2.87* 1.82* BUNCREATININ 21.3 25.8 GLU 653* 79 CA 9.0 8.8 TP 7.0 -- ALB 3.7 -- TBIL 0.4 -- ALKP 157* -- AST 32 -- ALT 36 -- Recent Labs Lab 05/04/25 1609 HGBA1C 11.8* No results for input(s): APTT, INR, PTT in the last 168 hours. Recent Labs Lab 05/05/25 0640 TROP 26 No results for input(s): LACTICACID, PROCT in the last 168 hours. No results for input(s): PH, PCO2, PO2, K2FVENPHLVXI, BICARBWB, BASEDEFICIT, BASEEXCESS in the last 168 hours. No results found for this or any previous visit. Imaging ECG 12 lead Result Date: 05/05/[address] [place] Test Date: 2025-05-05 Pat Name: NATALI TO Department: 41 Room: [id number] Gender: Female Dairy Grazer: YEFRI : 1950 Requested By: REBA LARA Order Number: [id number] Reading MD: Measurements Intervals [place] Rate: 75 P: 47 OH: 134 QRS: -23 QRSD: 83 T: -58 QT: 394 QTc: 442 Interpretive Statements SINUS RHYTHM BORDERLINE LEFT AXIS DEVIATION [QRS AXIS < -20] MODERATE T-WAVE ABNORMALITY, CONSIDER ANTERIOR ISCHEMIA [-0.1+ mV T WAVE IN V3/V4] No previous ECG available for comparison XR CHEST PORTABLE Result Date: 05/05/[address] [address] Examination: Chest x-ray 1 view Exam Date/Time: 05/05/2025 12:41 AM Reason For Exam: sob Hyperglycemia, shortness of breath Comparison: Chest radiograph 09/22/2024 Technique: Single AP view of the chest was obtained. Findings: Heart size within normal limits for AP technique. No large effusion. No pneumothorax. No consolidation. Degenerative changes in both shoulders. Pulmonary vascularity within normal limits. ======== IMPRESSION: ======== 1. No acute cardiopulmonary findings within limitations of exam Referred By: Interpreted By: Tre Huerta MD, 05/05/2025 12:53 AM EKG: Results for orders placed or performed during the hospital encounter of 05/04/25 ECG 12 lead Narrative [address] Test Date: 2025-05-05 Pat Name: NATALI TO Department: 41 Room: [id number] Gender: Female Dairy Grazer: YEFRI : 1950 Requested By: REBA LARA Order Number: [id number] Reading MD: Measurements Intervals [place] Rate: 75 P: 47 OH: 134 QRS: -23 QRSD: 83 T: -58 QT: 394 QTc: 442 Interpretive Statements SINUS RHYTHM BORDERLINE LEFT AXIS DEVIATION [QRS AXIS < -20] MODERATE T-WAVE ABNORMALITY, CONSIDER ANTERIOR ISCHEMIA [-0.1+ mV T WAVE IN V3/V4] No previous ECG available for comparison Assessment & Plan Type II IDDM Hyperglycemia without DKA A1c 11.8 Glucose 653 in ER 1 L NS given in ER 10 units IV insulin given in ER Mid dose sliding scale Hypoglycemic protocol Monitor and adjust treatment as needed Hold oral medicines Glucose labile this morning. Resume Lantus tonight. Continue SSI CORBIN Creatinine 2.87 Cr was 1.19 in october 2024 Given IV fluids in ER but now appears fluid overloaded IV Lasix as below Monitor weight/intake/output/labs Cr improved to 1.82. Had near syncope episode with concern for orthostatic hypotension. Hold any further lasix. Encourage oral hydration. Consider gentle IVF based on PO intake Acute on chronic HFpEF Echo 10/02/2023: EF 45 to 40%, grade 1 DD With edema, dyspnea on exertion at home O2 sat stable at rest on room air Given IV lasix on admission. Does not appear overtly fluid overloaded. Hold additional lasix Echo per cardiology Near syncope Pt had near syncopal episode after using the restroom Likely vasovagal vs orthostatic Hold further diuretics Plan for orthostatics in AM Cardiology following Pyuria Urine culture pending Rocephin Monitor labs Hypertension BP up to 135/111 in ER Improved without treatment Dyslipidemia Statin Chronic Microcytic anemia Hgb 10.7 This was 10.5 in october 2024 Monitor, transfuse prn Other changes to plan of care to be made based on progress during hospitalization. All plans discussed with RN and patient/patient's family/hopper feeder. They are agreeable with plan and voiced understanding. - DVT prophylaxis: Heparin - Diet/IVF: Carb controlled - Code status: Okay with CPR, no intubation - Disposition: Pending cardiology recs, orthostatics in AM Reba Lara MD 05/05/2025 2:46 PM documented in this encounter H&P Notes * Mag Sloan MD - 05/04/2025 9:04 PM CDT ATTENDING: MAG SLOAN MD PRIMARY CARE PROVIDER: KYRA SHIPLEY MD CC: Shortness of breath, swelling, hyperglycemia HPI: Patient seen and evaluated by this provider. History obtained via chart review, discussion with accepting physician, patient, and review of outside records from PCP notes, cardiology notes, previous labs, imaging studies etc. Natali To is a 74-year-old female with past medical history of CHF, IDDM, presents to the ERwith leg edema, shortness of breath, hyperglycemia. Patient states her glucose has been high since yesterday. She has noticed increased urine output and increased thirst. She is noted some chills and a dry cough and sore throat that started yesterday. She has had dyspnea on exertion and some dysuria. No chest pain, abdominal pain, nausea, vomiting, diarrhea etc. Her legs have been swollen for an unknown period of time. She has been taking all of her medications regularly. Workup in the ER showed a glucose of 653 without DKA. UA was positive for UTI. Creatinine was elevated at 2.87. She was given IV fluids, IV insulin and Rocephin and I was asked to admit her. Allergy Review of patient's allergies indicates: Allergen Reactions Dulaglutide Shortness of Breath Mounjaro [Tirzepatide] Anaphylaxis, GI Upset and Headache Pneumococcal Vaccines Shortness of Breath and Swelling Second dose brought on symptoms Metformin Rash and GI Upset Penicillins Rash Canagliflozin Other (see comment) and Unknown Pains in legs and arms and headache Eggs Unknown Aspirin Rash and Itching Lisinopril Rash Medication list (Not in a hospital admission) No current facility-administered medications on file prior to encounter. Current Outpatient Medications on File Prior to Encounter Medication Sig Dispense Refill budesonide-formoterol (SYMBICORT) 80-4.5 MCG/ACT inhaler Inhale 2 puffs into the lungs 2 (two) times daily. Inhale 2 puffs into the lungs 2 (two) times daily. 30.6 g 3 chlorthalidone (HYGROTEN) 25 MG tablet TAKE 1 TABLET BY MOUTH DAILY 100 tablet 2 Cholecalciferol (VITAMIN D) 2000 units Tab Take 1 tablet (50 mcg total) by mouth daily. docusate sodium 100 MG capsule Take 1 capsule (100 mg total) by mouth nightly at bedtime. fluticasone propionate (FLONASE) 50 MCG/ACT nasal spray 1 spray by Nasal route 2 (two) times daily.(Patient taking differently: 1 spray by Each Nostril route 2 (two) times daily.) 16 g 5 furosemide (LASIX) 20 MG tablet TAKE 1 TABLET BY MOUTH EVERY OTHER DAY 45 tablet 0 glimepiride (AMARYL) 4 MG tablet TAKE 1 TABLET (4 MG TOTAL) BY MOUTH DAILY. TAKE BEFORE LARGEST MEAL 90 tablet 3 insulin glargine (LANTUS) 100 UNIT/ML injection (VIAL) INJECT SUBCUTANEOUSLY 60 UNITS DAILY (Patient taking differently: Inject 24 Units into the skin every morning.) 20 mL 1 insulin lispro, 1 Unit Dial, (HUMALOG) 100 UNIT/ML injection (PEN) Inject 7 Units into the skin 3 (three) times daily before meals. omeprazole (PRILOSEC) 20 MG capsule TAKE 1 CAPSULE BY MOUTH DAILY 100 capsule 2 rosuvastatin (CRESTOR) 20 MG tablet TAKE 1 TABLET BY MOUTH DAILY 100 tablet 2 ACCU-CHEK GUIDE test strip 1 strip by Other route daily. 200 strip 2 albuterol sulfate HFA 108 (90 Base) MCG/ACT inhaler TAKE 2 PUFFS BY MOUTH EVERY 6 HOURS NEEDED FOR WHEEZE OR SHORTNESS OF BREATH (Patient taking differently: Inhale 2 puffs into the lungs every 6 (six) hours as needed for Shortness of breath or Wheezing.) 18 g 3 ammonium lactate (LAC-HYDRIN) 12 % lotion Apply topically daily as needed for Dry skin. aspirin EC (ASPIRIN EC) 81 MG tablet Take 1 tablet (81 mg total) by mouth daily. (Patient not taking: Reported on 11/19/2024) Blood Glucose Monitoring Suppl w/Device Kit Check blood sugars twice daily. 1 kit 0 diclofenac sodium (VOLTAREN) 1 % gel APPLY 2 GRAMS TOPICALLY 3 TIMES DAILY NEEDED TO SHOULDERS AND KNEES FOR PAIN. (Patient taking differently: Apply 2 g topically 3 (three) times daily as needed (pain). Apply to shoulders and knees) 300 g 0 Glucose Blood (ACCU-CHEK GUIDE TEST) test strip 1 strip by Other route as needed. Use as [id number] strip 0 Glucose Blood (BLOOD GLUCOSE TEST STRIPS) Strip Check blood glucose before all meals and 2 hours after last meal 100 strip 3 Insulin Pen Needle (PEN NEEDLES) 31G X 8 MM Misc 1 each by Does not apply route 4 (four) times daily. 400 each 3 Insulin Syringe-Needle U-100 30G X 1/2 1 ML Misc 1 each by Does not apply route daily. 90 each 3 nitroglycerin (NITROSTAT) 0.4 MG SL tablet DISSOLVE 1 TABLET UNDER THE TONGUE EVERY 5 MINUTES NEEDED FOR CHEST PAIN. MAX OF 3 TABLETS IN 15 MINUTES. CALL 911 IF PAIN PERSISTS. (Patient taking differently: Place 1 tablet (0.4 mg total) under the tongue every 5 (five) minutes as needed for Chest Pain.) 125 tablet 1 SOFTCLIX LANCETS Misc Past Medical History Past Medical History[1] Past Surgical History[2] Social History Social History[3] Family History Family History[4] ROS: A 10 point review of systems was taken and pertinent positives and negatives as per HPI. All othersnegative save as noted in HPI. PHYSICAL EXAM: No intake or output data in the 24 hours ending 05/04/25 2346 Patient Vitals for the past 24 hrs: BP Temp Temp src Pulse Resp SpO2 Height Weight 05/04/25 1535 (!) 135/111 98.1 ??F (36.7 ??C) Oral 69 18 98 % 1.676 m (5' 6) 85.9 kg (189 lb 6 oz) Intake/Output :[id number]@ Constitutional: Obese. Mildly ill-appearing. Breathing comfortably on room air at rest HENT: Normocephalic, Atraumatic, Bilateral external ears normal, Oropharynx moist, whitish coating on tongue. Nose normal. Eyes: pupils equal. EOMI, No discharge. Neck- Normal range of motion, No stridor. Respiratory: Bilateral crackles. Nonlabored at rest. Cardiovascular: S1, S2 present, regular rate and rhythm. No murmurs, rubs, or gallops. 2+ pedal edema. GI: Bowel sounds normal, Soft, mild suprapubic tenderness. No masses, No pulsatile masses. Musculoskeletal: Intact distal pulses, 2+ edema, No tenderness Integument: Warm, Dry, No erythema, No rash. Neurologic: Alert & oriented x 3, Cranial nerves II-XII grossly intact. Moves all extremities, No focal deficits noted. Psychiatric: Affect normal, Judgment normal, Mood normal Labs: Recent Labs Lab 05/04/25 1609 WBC 7.27 RBC 4.16* HGB 10.7* HCT 31.3* MCV 75.2* MCH 25.7* MCHC 34.2 PLT 186 RDW 12.2 MPV 11.1 PERNEU 67.9 PERLYM 22.0 PERMON 8.9 NEUC 4.94 LYMC 1.60 MONOC 0.65 EOSC 0.04 BASOC 0.02 DTYPE AUTOMATED DIFFERENTIAL Recent Labs Lab 05/04/25 1609 NA 134* K 3.7 CL 100 CO2 26.1 AGAP 7.9 BUN 61* CR 2.87* BUNCREATININ 21.3 GLU 653* CA 9.0 TP 7.0 ALB 3.7 TBIL 0.4 ALKP 157* AST 32 ALT 36 Recent Labs Lab 05/04/25 1609 HGBA1C 11.8* No results for input(s): APTT, INR, PTT in the last 168 hours. No results for input(s): TROP, TROPIWB, CKMB, CPK in the last 168 hours. No results for input(s): LACTICACID, PROCT in the last 168 hours. No results for input(s): PH, PCO2, PO2, [id number], BICARBWB, BASEDEFICIT, BASEEXCESS in the last 168 hours. No results found for this or any previous visit. Imagining & Other Studies See official reports for full details ~~~~~ Echo 09/21/2023 Left ventricle is normal in size with mild systolic dysfunction Estimated EF of 45-50% Right ventricle is normal in size and systolic function Aortic valve is possibly bicuspid. No clear aortic stenosis Mild tricuspid regurgitation Unable to estimate pulmonary pressures. Assessment & Plan Natali To is a 74-year-old female with PMH of diabetes, hypertension, is being admitted for hyperglycemia. I am concerned patient will clinically deteriorate without hospitalization and intervention as described below. I will admit to provide appropriate level of care and treatment to patient as well as continued evaluation. Type II IDDM Hyperglycemia without DKA Glucose 653 in ER 1 L NS given in ER 10 units IV insulin given in ER Hypoglycemic protocol Mid dose sliding scale A1c 11.8 Monitor and adjust treatment as needed Hold oral medicines Increase Lantus from 24 to 30 units every morning CORBIN Creatinine 2.87 Cr was 1.19 in october 2024 Given IV fluids in ER but now appears fluid overloaded IV Lasix as below Monitor weight/intake/output/labs Consider imaging/nephro consultation Acute on chronic HFpEF Echo 10/02/2023: EF 45 to 40%, grade 1 DD With edema, dyspnea on exertion at home O2 sat stable at rest on room air IV Lasix 40 mg twice daily Strawhat Blocking Operator weight/intake/output/labs cardiology consultation appreciated Consider repeat echo UTI No sepsis Urine culture pending Rocephin Monitor labs Hypertension BP up to 135/111 in ER Improved without treatment Hold chlorthalidone with IV Lasix Monitor on diuretics Dyslipidemia Statin Chronic Microcytic anemia Hgb 10.7 This was 10.5 in october 2024 Monitor, transfuse prn Social issues /Advanced Care plan 05/04/2025: I spent 16 minutes on advanced care plan with patient today, including but not limited to discussing goals of care, code status, POA/health proxy choice, etc. patient's kids can act as hermedical power of research attorney. She does not have formal POA papers. We discussed CODE STATUS and what this means. Patient does not want intubation even short-term. She is okay with CPR, defibrillation etc. She wishes to be a DNI. She lives home alone does not need a walker/cane/home O2. - DVT prophylaxis: sc heparin - Diet : diabetic -IVF: none - CODE:DNI, CPR/defibrillation OK -POA: kids can act as POA The above plan of care was discussed with the patient in detail. An opportunity was provided for the patient/MPoA to ask questions regarding the hospital stay and plan of care. All questions were answered. The patient/MPoA understands and agrees. The patient was informed to ask the RN to contact meif any further questions or concerns. I have seen and examined the patient independently and anticipate patient will require a 3-4 day stay This note was dictated with the use of [employer] dictation software and was proofread to the best of my ability. If you have questions or find errors, please contact me via clinical communications. Thank you. 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: 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 Tobacco Use Smoking status: Never Passive exposure: Past Smokeless tobacco: Never Vaping Use Vaping status: Never Used Substance and Sexual Activity Alcohol use: No Drug use: No Other Topics Concern Caffeine Concern Yes Comment: 1 cup of decaf coffee daily Special Diet Yes Comment: no sodium Exercise Yes Comment: walk daily [4] Family History Problem Relation Name Age of Onset Diabetes Mother Coronary artery disease Mother Coronary artery disease Father Diabetes Sister Diabetes Brother documented in this encounter Consult Notes * Linda Benitez RN - 05/06/2025 2:03 PM CDTAssociated Order(s): IP CONSULT TO HEART FAILURE NURSE Summary: Heart failure education Called patient to review heart failure education. Informed patient she will receive a heart failureeducation folder to take home. The patient has a scale at home but does not weigh daily. Instructedpatient to weigh daily and report to her doctor a weight gain of 2# overnight or 5# in one week. Instructed patient to report any shortness of breath, swelling to lower extremities, abdominal tightness, or dry cough. Patient does not add any extra salt to her food. Informed patient that salt retains fluid and could cause the above mentioned symptoms. Instructed patient to avoid any salty foods oradding extra salt. Patient monitors her blood pressure at home. Informed patient her blood pressure readings are valuable information for her doctor to determine if medications could be adjusted to treat any heart failure symptoms. Patient verbalized understanding and had no further questions. Doc halo to primary nurse, Romelia, to provide a heart failure folder to the patient. Heart failureeducation added to the patient's after visit summary. * MITCH Shelby - 05/05/2025 8:46 AM CDTAssociated Order(s): IP CONSULT TO CARDIOLOGY Images from the original note were not included. [place], [place] [address] Cardiology Consultation Note Primary Truck Driver Teamster: Dr. Mari Primary Air Traffic Supervisor: Cosigner:Dr. Mari History Reason for consult: CHF Requested by: Hospitalist Natali To is a 74-year-old female with a past medical history significant for HFpEF/HFmrEF, IDDM, CKD, HTN, HLD, anemia, obesity. Patient presents to the ED from urgent care for hyperglycemia. She went to urgent care she had developed some chills, dry cough sore throat that started Sunday. She endorses 15 pound weight gain in the month of March as well as some increasing bilateral lower extremity edema, shortness of breath and a dry cough in the last week. She has occasional orthopnea in the last week or so. She denies anychest pain, palpitations, abdominal pain, nausea vomiting diarrhea, appetite changes. She does endorse polydipsia and polyuria no increase in appetite. She states she checks her blood pressure at home twice a day and typically gets consistent readings 120s/80s with heart rates in the 70s. She takes20 mg of Lasix every other day and chlorthalidone 25 mg daily. Workup in the ER showed a glucose of 653 without DKA. UA was positive for UTI. Creatinine was elevated at 2.87. She was given IV fluids, IV insulin and Rocephin and then lan started on lasix 40 mgBID. Cardiology was consulted for assistance in CHF management. The last weights are: Wt Readings from Last 20 Encounters: 05/04/25 85.9 kg (189 lb 6 oz) 05/04/25 85.3 kg (188 lb) 11/19/24 85.3 kg (188 lb) 11/18/24 84.7 kg (186 lb 12.8 oz) 09/22/24 90.3 kg (199 lb) 08/21/24 87 kg (191 lb 12.8 oz) 07/04/24 85.3 kg (188 lb) 05/21/24 85.7 kg (188 lb 14.4 oz) 03/24/24 88 kg (194 lb) 03/19/24 88 kg (194 lb) 12/12/23 91.6 kg (202 lb) 10/17/23 94.3 kg (208 lb) 09/26/23 95.3 kg (210 lb) 09/19/23 95.2 kg (209 lb 12.8 oz) 09/05/23 97.5 kg (215 lb) 06/11/23 97.9 kg (215 lb 14.4 oz) 03/21/23 99.3 kg (219 lb) 01/15/23 99.4 kg (219 lb 3.2 oz) 12/18/22 98.2 kg (216 lb 9.6 oz) 12/11/22 98.4 kg (217 lb) . Past Medical History[1] Past Surgical History[2] Social History[3] Family History[4] aspirin EC 81 mg Oral Daily atorvastatin 40 mg Oral Daily cefTRIAXone 1 g Intravenous Q24H docusate sodium 100 mg Oral Q24H fluticasone propionate 1 spray Each Nostril BID heparin (porcine) 5,000 Units Subcutaneous 2 times per day [START ON 05/06/2025] insulin glargine 20 Units Subcutaneous QAM insulin lispro 0-16 Units Subcutaneous TID AC And insulin lispro 0-8 Units Subcutaneous Nightly at bedtime mometasone-formoterol 1 puff Inhalation 2 times daily RT nystatin 5 mL Oral 4x Daily pantoprazole EC 20 mg Oral Daily Vitamin D3 50 mcg Oral Daily acetaminophen, albuterol sulfate HFA, dextrose 10 % bolus, glucagon, glucose, HYDROcodone-acetaminophen, HYDROmorphone, naLOXone, ondansetron, polyethylene glycol Prior to Admission medications Medication Sig Start Date End Date Taking? Authorizing Provider budesonide-formoterol (SYMBICORT) 80-4.5 MCG/ACT inhaler Inhale 2 puffs into the lungs 2 (two) times daily. Inhale 2 puffs into the lungs 2 (two) times daily. 11/19/24 Yes Kyra Shipley MD chlorthalidone (HYGROTEN) 25 MG tablet TAKE 1 TABLET BY MOUTH DAILY 08/26/24 Yes Kyra Shipley MD Cholecalciferol (VITAMIN D) 2000 units Tab Take 1 tablet (50 mcg total) by mouth daily. 09/04/17 YesDoc [facility] docusate sodium 100 MG capsule Take 1 capsule (100 mg total) by mouth nightly at bedtime. 10/09/17 Yes Doc [facility] fluticasone propionate (FLONASE) 50 MCG/ACT nasal spray 1 spray by Nasal route 2 (two) times daily. Patient taking differently: 1 spray by Each Nostril route 2 (two) times daily. 11/19/24 Yes Kyra Shipley MD furosemide (LASIX) 20 MG tablet TAKE 1 TABLET BY MOUTH EVERY OTHER DAY 05/04/25 Yes MITCH Jade glimepiride (AMARYL) 4 MG tablet TAKE 1 TABLET (4 MG TOTAL) BY MOUTH DAILY. TAKE BEFORE LARGEST MEAL 11/03/24 Yes Kyra Shipley MD insulin glargine (LANTUS) 100 UNIT/ML injection (VIAL) INJECT SUBCUTANEOUSLY 60 UNITS DAILY Patient taking differently: Inject 24 Units into the skin every morning. 04/17/25 Yes Kyra Shipley MD insulin lispro, 1 Unit Dial, (HUMALOG) 100 UNIT/ML injection (PEN) Inject 7 Units into the skin 3 (three) times daily before meals. 03/30/25 Yes Default History Genericprovider omeprazole (PRILOSEC) 20 MG capsule TAKE 1 CAPSULE BY MOUTH DAILY 12/15/24 Yes Kyra Shipley MD rosuvastatin (CRESTOR) 20 MG tablet TAKE 1 TABLET BY MOUTH DAILY 08/26/24 Yes Kyra Shipley MD ACCU-CHEK GUIDE test strip 1 strip by Other route daily. 02/15/24 Kyra Shipley MD albuterol sulfate HFA 108 (90 Base) MCG/ACT inhaler TAKE 2 PUFFS BY MOUTH EVERY 6 HOURS NEEDED FOR WHEEZE OR SHORTNESS OF BREATH Patient taking differently: Inhale 2 puffs into the lungs every 6 (six) hours as needed for Shortness of breath or Wheezing. 01/22/25 Kyra Shipley MD ammonium lactate (LAC-HYDRIN) 12 % lotion Apply topically daily as needed for Dry skin. Default History Genericprovider aspirin EC (ASPIRIN EC) 81 MG tablet Take 1 tablet (81 mg total) by mouth daily. Patient not taking: Reported on 11/19/2024 06/23/14 Doc [facility] Blood Glucose Monitoring Suppl w/Device Kit Check blood sugars twice daily. 12/12/23 Kyra Shipley MD diclofenac sodium (VOLTAREN) 1 % gel APPLY 2 GRAMS TOPICALLY 3 TIMES DAILY NEEDED TO SHOULDERS AND KNEES FOR PAIN. Patient taking differently: Apply 2 g topically 3 (three) times daily as needed (pain). Apply to shoulders and knees 10/09/23 Kyra Shipley MD Glucose Blood (ACCU-CHEK GUIDE TEST) test strip 1 strip by Other route as needed. Use as instructed04/03/25 Kyra Shipley MD Glucose Blood (BLOOD GLUCOSE TEST STRIPS) Strip Check blood glucose before all meals and 2 hours after last meal 08/21/24 Kyra Shipley MD Insulin Pen Needle (PEN NEEDLES) 31G X 8 MM Misc 1 each by Does not apply route 4 (four) times daily. 03/28/24 Kyra Shipley MD Insulin Syringe-Needle U-100 30G X 1/2 1 ML Misc 1 each by Does not apply route daily. 04/16/24 Kyra Shipley MD nitroglycerin (NITROSTAT) 0.4 MG SL tablet DISSOLVE 1 TABLET UNDER THE TONGUE EVERY 5 MINUTES NEEDED FOR CHEST PAIN. MAX OF 3 TABLETS IN 15 MINUTES. CALL 911 IF PAIN PERSISTS. Patient taking differently: Place 1 tablet (0.4 mg total) under the tongue every 5 (five) minutes as needed for Chest Pain. 11/10/24 MITCH Jade SOFTCLIX LANCETS [facility] [place] Default History Genericprovider Review of patient's allergies indicates: Allergen Reactions Dulaglutide Shortness of Breath Mounjaro [Tirzepatide] Anaphylaxis, GI Upset and Headache Pneumococcal Vaccines Shortness of Breath and Swelling Second dose brought on symptoms Metformin Rash and GI Upset Penicillins Rash Canagliflozin Other (see comment) and Unknown Pains in legs and arms and headache Eggs Unknown Aspirin Rash and Itching Lisinopril Rash Review of Systems Constitutional: Positive for chills and diaphoresis (with standing today). Negative for fever. 15 lb weight gain per patient in March HENT: Positive for sore throat. Respiratory: Positive for cough (dry) and shortness of breath. Cardiovascular: Positive for orthopnea (intermittent) and leg swelling. Negative for chest pain andpalpitations. Gastrointestinal: Negative for abdominal pain, blood in stool, nausea and vomiting. Genitourinary: Positive for frequency. Negative for dysuria. Neurological: Positive for dizziness (with standing today, none prior) and headaches (yesterday). Negative for loss of consciousness. Endo/Heme/Allergies: Positive for polydipsia. see HPI Physical Exam Filed Vitals: 05/05/25 0845 05/05/25 0950 05/05/25 0955 05/05/25 1000 BP: (!) 148/88 112/65 126/73 121/71 Pulse: 89 85 73 74 Resp: 17 16 Temp: 98.3 ??F (36.8 ??C) TempSrc: SpO2: 99% 100% 99% 100% Weight: Height: Telemetry: SR 70s occ PVC Physical Exam: Physical Exam Vitals and nursing note reviewed. Exam conducted with a building coordinator present (ED RN). Constitutional: General: She is not in acute distress. Appearance: She is obese. She is not diaphoretic. HENT: Head: Normocephalic and atraumatic. Comments: Purple hair Mouth/Throat: Mouth: Mucous membranes are moist. Eyes: Extraocular Movements: Extraocular movements intact. Neck: Vascular: No hepatojugular reflux or JVD. Cardiovascular: Rate and Rhythm: Normal rate and regular rhythm. Pulses: Radial pulses are 2+ on the right side and 2+ on the left side. Dorsalis pedis pulses are 2+ on the right side and 2+ on the left side. Heart sounds: No murmur heard. Pulmonary: Effort: Pulmonary effort is normal. No respiratory distress. Breath sounds: No wheezing or rales. Abdominal: General: Bowel sounds are normal. There is no distension. Palpations: Abdomen is soft. Tenderness: There is no abdominal tenderness. Musculoskeletal: Right lower le+ Edema present. Left lower le+ Edema present. Skin: General: Skin is warm and dry. Neurological: Mental Status: She is alert and oriented to person, place, and time. Psychiatric: Behavior: Behavior normal. Behavior is cooperative. Recent Labs Lab 05/04/25 1609 05/05/25 0640 WBC 7.27 5.72 HGB 10.7* 9.9* HCT 31.3* 29.9* MCV 75.2* 75.1* PLT 186 165 Recent Labs Lab 05/04/25 1609 05/05/25 0640 NA 134* 144 K 3.7 3.2* CL 100 112 CO2 26.1 26.5 AGAP 7.9 5.5 BUN 61* 47* CR 2.87* 1.82* BUNCREATININ 21.3 25.8 GLU 653* 79 CA 9.0 8.8 TP 7.0 -- ALB 3.7 -- TBIL 0.4 -- ALKP 157* -- AST 32 -- ALT 36 -- No results for input(s): APTT, INR, PTT in the last 168 hours. Recent Labs Lab 05/04/25 1609 05/05/25 0640 NA 134* 144 K 3.7 3.2* CL 100 112 CO2 26.1 26.5 BUN 61* 47* CR 2.87* 1.82* CA 9.0 8.8 GLU 653* 79 AGAP 7.9 5.5 TP 7.0 -- ALB 3.7 -- ALT 36 -- WBC 7.27 5.72 HGB 10.7* 9.9* PLT 186 165 HGBA1C 11.8* -- Results for orders placed or performed during the hospital encounter of 05/04/25 (from the past 52 weeks) CULTURE URINE Collection Time: 05/04/25 4:22 PM Specimen: URINE, CLEAN CATCH Result Value Ref Range SPEC DESCRIPTION URINE CLEAN CATCH SPECIAL REQUESTS NO SPECIAL REQUEST CULTURE RESULT NO GROWTH 1 DAY No results found for this visit on 05/04/25 (from the past 52 weeks). No results for input(s): TROP, TROPIWB in the last 168 hours. EKG: Results for orders placed or performed during the hospital encounter of 05/04/25 ECG 12 lead Narrative [place] Test Date: 2025-05-05 Pat Name: NATALI TO Department: 41 Room: [place] [address] Gender: Female Dairy Grazer: YEFRI : 1950 Requested By: REBA LARA Order Number: [id number] Reading MD: Measurements Intervals [place] Rate: 75 P: 47 OH: 134 QRS: -23 QRSD: 83 T: -58 QT: 394 QTc: 442 Interpretive Statements SINUS RHYTHM BORDERLINE LEFT AXIS DEVIATION [QRS AXIS < -20] MODERATE T-WAVE ABNORMALITY, CONSIDER ANTERIOR ISCHEMIA [-0.1+ mV T WAVE IN V3/V4] No previous ECG available for comparison EKG personally reviewed. Imaging/Testing this admission: ECG 12 lead Result Date: 05/05/[address] Test Date: 2025-05-05 Pat Name: NATALI TO Department: 41 Room: [place] [address] Gender: Female Dairy Grazer: YEFRI : 1950 Requested By: REBA LARA Order Number: [id number] Reading MD: Measurements Intervals [place] Rate: 75 P: 47 OH: 134 QRS: -23 QRSD: 83 T: -58 QT: 394 QTc: 442 Interpretive Statements SINUS RHYTHM BORDERLINE LEFT AXIS DEVIATION [QRS AXIS < -20] MODERATE T-WAVE ABNORMALITY, CONSIDER ANTERIOR ISCHEMIA [-0.1+ mV T WAVE IN V3/V4] No previous ECG available for comparison XR CHEST PORTABLE Result Date: 05/05/[address] [address] Examination: Chest x-ray 1 view Exam Date/Time: 05/05/2025 12:41 AM Reason For Exam: sob Hyperglycemia, shortness of breath Comparison: Chest radiograph 09/22/2024 Technique: Single AP view of the chest was obtained. Findings: Heart size within normal limits for AP technique. No large effusion. No pneumothorax. No consolidation. Degenerative changes in both shoulders. Pulmonary vascularity within normal limits. ======== IMPRESSION: ======== 1. No acute cardiopulmonary findings within limitations of exam Referred By: Interpreted By: Tre Huerta MD, 05/05/2025 12:53 AM Prior Diagnostic Review: Cardia cath (2006) - No coronary disease, normal heart function. Echocardiogram from 06/2014 showed normal biventricular size and function, EF 55-60% , grade I diastolic dysfunction and normal pulmonic regurgitation and aortic root mildly dilated. Stress (2017) - EF normal, normal perfusion. Stress (08/2021) - EF normal, normal perfusion Echo (09/2023) - EF 45-50%, possible bicuspid AoV. No /AI Assessment Principal Problem: CHF (congestive heart failure) ([facility]) SNOMED CT(R): CONGESTIVE HEART FAILURE Active Problems: Hyperglycemia SNOMED CT(R): HYPERGLYCEMIA Acute on Chronic HFmrEF: no acute cxray findings. O2 xcts655% on room air on my assessment. Had some BLE edema otherwise no significant PE signs of CHF. IV lasix 40 mg BID (already received 2 doses since 2 am), will be held given orthostatic dizziness. she also received 1L NS bolus on admission. Dizziness: has significant orthostatic dizziness and diaphoresis earlier with standing. RN had to catch her from falling. No palps. SOB: proBNP minimally elevated 391 (no prior comparison) not c/w acute CHF though could Lungs clear. Recommended RVP per primary team. EKG no acute ischemic findings some nonspecific STT abnormalities. Will check troponin. CORBIN on CKD: Cr 2.87 on admission. Down to 1.82 today. Hypokalemia: K 3.2 replace. Uncontrolled DM/hyperglycemia: A1c 11.8% Glucose 653 on arrival, now 79? Per others. UTI: on atbx, per others. HTN: BP quite labile. Holding meds for now and monitor. Would check orthostatics later. Anemia: Hgb 9.9 monitor, denies bleeding.? Downtrend from IVF. Her baseline is in the 10 range. Plan Added proBNP, awaiting troponin Echo Stop IV lasix for now. Consider noncardiac causes of SOB. D/w hospitalist checking ddimer and resp viral panel. I have discussed with hospitalist. Thank you for allowing me to participate in the care of this patient. Please contact me with any questions/concerns. I personally spent a total of 65 minutes on the day of the encounter. This includes [id number] and zln-xcxz-gw-face time I provided on the day of the encounter & excludes time spent performing separately reportable services. MITCH [place] [1] Past Medical History: Diagnosis Date Arthritis Chronic diastolic (congestive) heart failure ([facility] HHS/HCC) Diabetes mellitus ([facility] HHS/HCC) Essential hypertension Hyperlipidemia, mixed Obesity [2] Past Surgical History: Procedure Laterality Date CHOLECYSTECTOMY HYSTERECTOMY SCREENING COLONOSCOPY 2015, nl per patient, repeat 2025 [3] Social History Tobacco Use Smoking status: Never Passive exposure: Past Smokeless tobacco: Never Vaping Use Vaping status: Never Used Substance Use Topics Alcohol use: No Drug use: No [4] Family History Problem Relation Name Age of Onset Diabetes Mother Coronary artery disease Mother Coronary artery disease Father Diabetes Sister Diabetes Brother Cosigned by Neymar Mari MD at 05/07/2025 2:00 PM CDT documented in this encounter ED Notes * Rosio Echols RN - 05/04/2025 6:50 PM CDT Pt. Moved into bed, positioned with HOB elevated, and provided with warm blanket. Daughter at bedside. Tolerated well. Pleasant. * Josesito Low NP - 05/04/2025 5:15 PM CDT ER/CC Encounter Chief Complaint Chief Complaint Patient presents with Hyperglycemia History of Present Illness Patient ambulatory to the emergency room with complaints of not feeling well. Reports that she has been having upper respiratory signs and symptoms. Additionally reports that she has had some generalized weakness and her blood sugar readings have been reading elevated at home. Patient was seen at urgent care prior to arrival and found to have glucose of greater than 500. Was sent to the emergencyroom for further workup. Patient denies history of DKA. No known sick contacts. Denies chest pain, shortness of breath or palpitations. Medical History ALLERGIES: Review of patient's allergies indicates: Allergen Reactions Dulaglutide Shortness of Breath Mounjaro [Tirzepatide] Anaphylaxis, GI Upset and Headache Pneumococcal Vaccines Shortness of Breath and Swelling Second dose brought on symptoms Metformin Rash and GI Upset Penicillins Rash Canagliflozin Other (see comment) and Unknown Pains in legs and arms and headache Eggs Unknown Aspirin Rash and Itching Lisinopril Rash MEDICATIONS: Prior to Admission medications Medication Sig Start Date End Date Taking? Authorizing Provider ACCU-CHEK GUIDE test strip 1 strip by Other route daily. 02/15/24 Kyra Shipley MD albuterol sulfate HFA 108 (90 Base) MCG/ACT inhaler TAKE 2 PUFFS BY MOUTH EVERY 6 HOURS NEEDED FOR WHEEZE OR SHORTNESS OF BREATH 01/22/25 Kyra Shipley MD ammonium lactate (LAC-HYDRIN) 12 % lotion Apply topically as needed for Dry skin. Default History Genericprovider aspirin EC (ASPIRIN EC) 81 MG tablet Take 1 tablet (81 mg total) by mouth daily. Patient not taking: Reported on 11/19/2024 06/23/14 [facility] Blood Glucose Monitoring Suppl w/Device Kit Check blood sugars twice daily. 12/12/23 Kyra Shipley MD budesonide-formoterol (SYMBICORT) 160-4.5 MCG/ACT inhaler Inhale 2 puffs into the lungs 2 (two) times daily. Temporary dose increase - no change to 80/4.5 script 09/22/24 Maria Teresa Rosario, budesonide-formoterol (SYMBICORT) 80-4.5 MCG/ACT inhaler Inhale 2 puffs into the lungs 2 (two) times daily. Inhale 2 puffs into the lungs 2 (two) times daily. 11/19/24 Kyra Shipley MD chlorthalidone (HYGROTEN) 25 MG tablet TAKE 1 TABLET BY MOUTH DAILY 08/26/24 Kyra Shipley MD Cholecalciferol (VITAMIN D) 2000 units Tab Take 1 tablet (50 mcg total) by mouth daily. 09/04/17 [facility] diclofenac sodium (VOLTAREN) 1 % gel APPLY 2 GRAMS TOPICALLY 3 TIMES DAILY NEEDED TO SHOULDERS AND KNEES FOR PAIN. 10/09/23 Kyra Shipley MD diphenhydrAMINE-APAP 25-500 MG Tab tablet Take 1 tablet by mouth nightly at bedtime. [facility] docusate sodium 100 MG capsule Take 1 capsule (100 mg total) by mouth daily. 10/09/17 [facility] empagliflozin (JARDIANCE) 10 MG tablet Take 1 tablet (10 mg total) by mouth daily. 11/19/24 Kyra Shipley MD fluticasone propionate (FLONASE) 50 MCG/ACT nasal spray 1 spray by Nasal route 2 (two) times daily.11/19/24 Kyra Shipley MD furosemide (LASIX) 20 MG tablet TAKE 1 TABLET BY MOUTH EVERY OTHER DAY 05/04/25 MITCH Jade glimepiride (AMARYL) 4 MG tablet TAKE 1 TABLET (4 MG TOTAL) BY MOUTH DAILY. TAKE BEFORE LARGEST MEAL 11/03/24 Kyra Shipley MD Glucose Blood (ACCU-CHEK GUIDE TEST) test strip 1 strip by Other route as needed. Use as instructed04/03/25 Kyra Shipley MD Glucose Blood (BLOOD GLUCOSE TEST STRIPS) Strip Check blood glucose before all meals and 2 hours after last meal 08/21/24 Kyra Shipley MD guaiFENesin ER (MUCINEX) 600 MG 12 hr tablet Take 2 tablets (1,200 mg total) by mouth 2 (two) timesdaily. Patient not taking: Reported on 11/19/2024 07/04/24 SILVIANO Arnett insulin glargine (LANTUS) 100 UNIT/ML injection (VIAL) INJECT SUBCUTANEOUSLY 60 UNITS DAILY 04/17/25Kyra Shipley MD Insulin Pen Needle (PEN NEEDLES) 31G X 8 MM Misc 1 each by Does not apply route 4 (four) times daily. 03/28/24 Kyra Shipley MD Insulin Syringe-Needle U-100 30G X 1/2 1 ML Misc 1 each by Does not apply route daily. 04/16/24 Kyra Shipley MD nitroglycerin (NITROSTAT) 0.4 MG SL tablet DISSOLVE 1 TABLET UNDER THE TONGUE EVERY 5 MINUTES NEEDED FOR CHEST PAIN. MAX OF 3 TABLETS IN 15 MINUTES. CALL 911 IF PAIN PERSISTS. 11/10/24 Sherron A Smith, STEM ROLLER OPERATOR omeprazole (PRILOSEC) 20 MG capsule TAKE 1 CAPSULE BY MOUTH DAILY 12/15/24 Kyra Shipley MD rosuvastatin (CRESTOR) 20 MG tablet TAKE 1 TABLET BY MOUTH DAILY 08/26/24 Kyra Shipley MD SOFTCLIX LANCETS [facility] [place] Default History Genericprovider PAST MEDICAL HISTORY: Past Medical History[1] PAST SURGICAL HISTORY: Past Surgical History[2] FAMILY HISTORY: Family History[3] SOCIAL HISTORY: Social History[4] Review of Systems Review of Systems Constitutional: Positive for fatigue. Negative for activity change, appetite change, chills, diaphoresis, fever and unexpected weight change. HENT: Positive for congestion and sore throat. Negative for dental problem, drooling, ear discharge, ear pain, facial swelling, hearing loss, mouth sores, nosebleeds, postnasal drip, rhinorrhea, sinus pressure, sinus pain, sneezing, tinnitus, trouble swallowing and voice change. Musculoskeletal: Positive for myalgias. Negative for arthralgias, back pain, gait problem, joint swelling, neck pain and neck stiffness. All other systems reviewed and are negative. Physical Exam Filed Vitals: 05/04/25 1535 BP: (!) 135/111 Pulse: 69 Resp: 18 Temp: 98.1 ??F (36.7 ??C) TempSrc: Oral SpO2: 98% Weight: 85.9 kg (189 lb 6 oz) Height: 1.676 m (5' 6) Physical Exam Vitals and nursing note reviewed. Constitutional: General: She is not in acute distress. Appearance: She is obese. She is not toxic-appearing. HENT: Head: Normocephalic and atraumatic. Right Ear: External ear normal. Left Ear: External ear normal. Nose: Nose normal. Mouth/Throat: Mouth: Mucous membranes are moist. Eyes: Extraocular Movements: Extraocular movements intact. Pupils: Pupils are equal, round, and reactive to light. Cardiovascular: Rate and Rhythm: Normal rate. Heart sounds: No murmur heard. Pulmonary: Effort: Pulmonary effort is normal. No respiratory distress. Breath sounds: Normal breath sounds. No stridor. No wheezing, rhonchi or rales. Abdominal: General: There is no distension. Palpations: Abdomen is soft. There is no mass. Musculoskeletal: General: No swelling or tenderness. Normal range of motion. Cervical back: Normal range of motion and neck supple. No rigidity. Lymphadenopathy: Cervical: No cervical adenopathy. Skin: General: Skin is warm and dry. Capillary Refill: Capillary refill takes less than 2 seconds. Neurological: General: No focal deficit present. Mental Status: She is alert and oriented to person, place, and time. Cranial Nerves: No cranial nerve deficit. Sensory: No sensory deficit. Motor: No weakness. Coordination: Coordination normal. Gait: Gait normal. Psychiatric: Mood and Affect: Mood normal. Behavior: Behavior normal. Diagnostic Studies / Procedures ELECTROCARDIOGRAMS: No results found for this visit on 05/04/25. LABORATORY STUDIES: Results for orders placed or performed during the hospital encounter of 05/04/25 CBC W/DIFF AUTOMATED Result Value Ref Range WBC 7.27 4.5 - 11.0 x10'3/uL RBC 4.16 (L) 4.20 - 5.40 x10'6/uL HGB 10.7 (L) 12.0 - 16.0 G/DL HCT 31.3 (L) 38.0 - 48.0 % MCV 75.2 (L) 81.0 - 99.0 FL MCH 25.7 (L) 27.0 - 31.0 PG MCHC 34.2 32.0 - 36.0 G/DL RDW 12.2 11.5 - 14.5 % PLT 186 130 - 400 x10'3/uL MPV 11.1 9.3 - 12.2 FL DIFFERENTIAL TYPE AUTOMATED DIFFERENTIAL NEUTROPHILS % 67.9 % LYMPHOCYTES % 22.0 % MONOCYTES % 8.9 % EOSINOPHILS 0.6 % BASOPHILS 0.3 % IMMATURE GRANS % 0.3 % ABS. NEUTROPHILS 4.94 1.80 - 7.70 x10'3/uL ABS. LYMPHOCYTES 1.60 1.00 - 4.80 x10'3/uL ABS. MONOCYTES 0.65 0.24 - 0.86 x10'3/uL ABS. EOSINOPHILS 0.04 0.04 - 0.36 x10'3/uL ABS. BASOPHILS 0.02 0.01 - 0.08 x10'3/uL ABS. IMMATURE GRANULOCYTES 0.02 0.00 - 0.49 x10'3/uL COMPREHENSIVE METABOLIC PANEL Result Value Ref Range GLUCOSE 653 (HH) 70 - 99 MG/DL BUN 61 (H) 7 - 18 MG/DL CREATININE S/P/B 2.87 (H) 0.55 - 1.02 MG/DL SODIUM S/P/B 134 (L) 136 - 145 MMOL/L POTASSIUM S/P/B 3.7 3.5 - 5.1 MMOL/L CHLORIDE S/P/B 100 97 - 115 MMOL/L CO2 26.1 21 - 32 MMOL/L CALCIUM S/P/B 9.0 8.5 - 10.1 MG/DL BILIRUBIN TOTAL S/P/B 0.4 0.2 - 1.2 MG/DL TOTAL PROTEIN S/P/B 7.0 6.4 - 8.2 G/DL ALBUMIN S/P/B 3.7 3.4 - 5.0 G/DL AST 32 15 - 37 U/L ALT 36 14 - 55 U/L ALKALINE PHOSPHATASE S/P/B 157 (H) 50 - 136 U/L ANION GAP 7.9 2 - 10 MMOL/L BUN CREATININE RATIO 21.3 6 - 26 A/G RATIO 1.1 1.0 - 2.0 RATIO GFR ESTIMATE 17 (L) >90 ML/MIN/1.73 M2 MAGNESIUM Result Value Ref Range MAGNESIUM 2.2 1.8 - 2.4 MG/DL PHOSPHORUS, INORGANIC PHOSPHATE Result Value Ref Range PHOSPHORUS 2.9 2.5 - 4.9 MG/DL BETA-HYDROXYBUTYRATE Result Value Ref Range BETA-HYDROXYBUTYRATE 0.2 0.0 - 0.5 MMOL/L URINALYSIS Result Value Ref Range SPECIMEN TYPE URINE CLEAN CATCH COLOR (U) LIGHT YELLOW TRANSPARENCY CLEAR SPECIFIC GRAVITY (U) 1.024 1.001 - 1.030 U PH 6.0 5.0 - 9.0 LEUKOCYTES (U) 250 (A) NEGATIVE NITRITES NEGATIVE NEGATIVE PROTEIN RANDOM (U) 30 (H) <30 MG/DL GLUCOSE (U) >1000 (A) NORMAL MG/DL KETONES MG/DL (U) NEGATIVE NEGATIVE MG/DL UROBILINOGEN NORMAL NORMAL MG/DL BILIRUBIN (U) NEGATIVE NEGATIVE MG/DL BLOOD (U) 2+ (A) NEGATIVE MUCUS RARE /LPF WBC/HPF 74 (H) <6 /HPF RBC/HPF 5 <6 /HPF BACTERIA (U) FEW (A) NONE /HPF SQUAMOUS EPITHELIALS RARE /HPF Blood gas, venous Result Value Ref Range PH VENOUS 7.36 7.32 - 7.43 PCO2 VENOUS 48.0 MMHG PO2 VENOUS 24.0 MM HG TOTAL CO2 VENOUS 28.6 (H) 22.0 - 26.0 MMOL/L VENOUS BASE EXCESS 1.0 MMOL/L O2 SAT VENOUS 40 % BICARB VENOUS 27.1 22.0 - 29.0 MMOL/L O2 ADMIN VENOUS 21 POCT glucose Result Value Ref Range GLUCOSE POC >500 () 70 - 99 mg/dL IMAGING STUDIES No orders to display ED Course / Medical Decision Making MDM Number of Diagnoses or Management Options CORBIN (acute kidney injury) Type 2 diabetes mellitus with hyperglycemia ([facility]) UTI (urinary tract infection) Diagnosis management comments: I have spoken to the patient about signs and symptoms. Patient awarethat I have recommended serum lab work, urinalysis, POC glucose. Patient comfortable with this planhas no questions or concerns. Patient's POC glucose reading greater than 500. Will evaluate for DKA. Have ordered VBG, beta hydroxybutyrate. Patient denies history of DKA. Vital signs reassuring. Patient mildly hypertensive, afebrile, nontachycardic, not hypoxic. No audible heart murmur. Adventitious lung sounds. Serum lab work reveals no leukocytosis. Mild anemia. Not indicative of blood transfusion. Beta hydroxybutyrate within normal limits. Patient's CMP does reveal hyperglycemia at 653. 10 units IV insulin and fluid infusion ordered. Patient also noted to have CORBIN when compared to previous labs. Will rehydrate. Magnesium within normal limits. Phos within normal limits. Patient's urinalysis does reveal UTI. Have ordered Rocephin. I have discussed findings with the patient. She is aware that her glucose levels are dangerously high. She additionally has an CORBIN and urinary tract infection. Aware that I have recommended admissionto the hospital for antibiotic, serum glucose monitoring, rehydration and evaluation of acute kidney injury. Patient is comfortable with being admitted I have reached out to the hospitalist. Agrees to admission to telemetry unit. No further requests or orders at this time. Excepted by Dr. Kearney. Amount and/or Complexity of Data Reviewed Clinical lab tests: reviewed Decide to obtain previous medical records or to obtain history from someone other than the patient:yes Risk of Complications, Morbidity, and/or Mortality Presenting problems: moderate Diagnostic procedures: moderate Management options: moderate Patient Progress Patient progress: stable Medications insulin regular (NOVOLIN R/HUMULIN R) injection 10 Units (has no administration in time range) cefTRIAXone (ROCEPHIN) 1 g in sodium chloride 0.9 % 50 mL IVPB (has no administration in time range) sodium chloride 0.9% infusion (has no administration in time range) sodium chloride 0.9% bolus infusion 1,000 mL (1,000 mLs Intravenous New Bag 05/04/25 1618) Clinical Impression UTI (urinary tract infection) (Primary) Type 2 diabetes mellitus with hyperglycemia ([facility] HHS/HCC) CORBIN (acute kidney injury) Current Discharge Medication List Disposition: Admit Follow-Up: No follow-up provider specified. Josesito Low NP 05/04/2025 [1] Past Medical History: Diagnosis Date Arthritis Chronic diastolic (congestive) heart failure ([facility] HHS/HCC) Diabetes mellitus ([facility] HHS/HCC) Essential hypertension Hyperlipidemia, mixed Obesity [2] Past Surgical History: Procedure Laterality Date CHOLECYSTECTOMY HYSTERECTOMY SCREENING COLONOSCOPY 2015, nl per patient, repeat 2025 [3] Family History Problem Relation Name Age of Onset Diabetes Mother Coronary artery disease Mother Coronary artery disease Father Diabetes Sister Diabetes Brother [4] Social History Tobacco Use Smoking status: Never Passive exposure: Past Smokeless tobacco: Never Vaping Use Vaping status: Never Used Substance Use Topics Alcohol use: No Drug use: No Josesito Low NP 05/04/25 [id number] Cosigned by Gaston Boyd MD at 05/04/2025 6:00 PM CDT * Adele Donahue RN - 05/04/2025 3:50 PM CDT Sent from for further workup. Pt reports elevated glucose reading yesterday. BS >500 in triage. Pt reports fatigue and weakness. Denies n/v. documented in this encounter Plan of Treatment Upcoming Encounters Date Type Department Care Team (Late st Contact Info) Description 05/13/2025 12:00 PM CDT Office Visit [facility] [place] [address], [address] [place] [address] Kyra Shipley MD [address] [place] [address] 05/18/2025 9:40 AM CDT Office Visit [facility] [place] [address], [address] [place] [phone] Kyra Shipley MD [address] [place] [address] 05/26/2025 12:45 PM CDT Office Visit [facility] [address] [place] [address] Neymar Mari MD [facility] [place] [address] documented as of this encounter Interventions Community Resource Recommendations Community Resource Services Recommended Domains Addressed Status Status Reason/Outcome Date/Time [facility] Financial Assistance Financial Resource Strain Recommended 05/05/2025 11:54 AM CDT [facility] - General & Community Assistance Program Financial Assistance Financial Resource Strain Recommended 05/05/2025 11:54 AM CDT [facility] Financial Assistance Financial Resource Strain Recommended 05/05/2025 11:54 AM CDT [facility] Community Action Agency Financial Assistance Financial Resource Strain Recommended 05/05/2025 11:54 AM CDT [facility] Department - Community Services [employer] [facility] Financial Assistance, Prescription Assistance Financial Resource Strain Recommended 05/05/2025 11:54 AM CDT [facility] Community Resources - Benefits Assistance Help Understanding Government Programs Financial Resource Strain Recommended 05/05/2025 11:[address] [facility] Financial Assistance Financial Resource Strain Recommended 05/05/2025 11:54 AM CDT [facility] Financial Assistance Financial Resource Strain Recommended 05/05/2025 11:54 AM CDT documented as of this encounter Procedures Procedure Name Priority Date/Time Associated Diagnosis Comments POCT GLUCOSE - DOCKED DEVICE Routine 05/07/2025 11:38 AM CDT POCT GLUCOSE - DOCKED DEVICE Routine 05/07/2025 6:06 AM CDT POCT GLUCOSE - DOCKED DEVICE Routine 05/06/2025 7:22 PM CDT POCT GLUCOSE - DOCKED DEVICE Routine 05/06/2025 6:10 PM CDT POCT GLUCOSE - DOCKED DEVICE Routine 05/06/2025 4:33 PM CDT CTA CHEST PE PROTOCOL Today 05/06/2025 1:08 PM CDT POCT GLUCOSE - DOCKED DEVICE Routine 05/06/2025 12:17 PM CDT IRON SAT PANEL (IRON,IBC,%SAT) Routine 05/06/2025 12:01 PM CDT CBC, AUTO, NO DIFF Routine 05/06/2025 12 :01 PM CDT FERRITIN Routine 05/06/2025 12:01 PM CDT POCT GLUCOSE - DOCKED DEVICE Routine 05/06/2025 11:42 AM CDT D-DIMER, QUANTITATIVE STAT 05/06/2025 10:08 AM CDT USE ECHOCARDIOGRAM W CON Today 05/06/2025 9:41 AM CDT BASIC METABOLIC PANEL Routine 05/06/2025 7:53 AM CDT POCT GLUCOSE - DOCKED DEVICE Routine 05/06/2025 6:31 AM CDT POCT GLUCOSE - DOCKED DEVICE Routine 05/05/2025 8:13 PM CDT POCT GLUCOSE - DOCKED DEVICE Routine 05/05/2025 3:30 PM CDT RESPIRATORY PCR PANEL 2 STAT 05/05/20 2:00 PM CDT ECG 12-LEAD STAT 05/05/2025 9:55 AM CDT POCT GLUCOSE - DOCKED DEVICE Routine 05/05/2025 9:52 AM CDT BASIC METABOLIC PANEL STAT 05/05/2025 6:40 AM CDT CBC W/DIFF AUTOMATED STAT 05/05/2025 6:40 AM CDT TROPONIN, QUANT Routine 05/05/2025 6:40 AM CDT POCT GLUCOSE - DOCKED DEVICE Routine 05/05/2025 6:39 AM CDT PRO-BRAIN NATRIURETIC PEPTIDE Routine 05/05/2025 6:39 AM CDT XR CHEST PORTABLE STAT 05/05/2025 12: 53 AM CDT POCT GLUCOSE - DOCKED DEVICE Routine 05/04/2025 9:15 PM CDT HC URINALYSIS AUTO W/O MICRO STAT 05/04/2025 4:22 PM CDT URINE BACTERIA CULTURE STAT 4:22 PM CDT BETA-HYDROXYBUTYRATE STAT 05/04/2025 4:09 PM CDT HEMOGLOBIN, GLYCOSYLATED STAT 05/04/2025 4:09 PM CDT COMPREHENSIVE METABOLIC PANEL STAT 05/04/2025 4:09 PM CDT CBC W/DIFF AUTOMATED STAT 05/04/2025 4:09 PM CDT PHOSPHORUS, INORGANIC PHOSPHATE STAT 05/04/2025 4:09 PM CDT MAGNESIUM STAT 05/04/2025 4:09 PM CDT BLOOD GAS, VENOUS STAT 05/04/2025 3:5 2 PM CDT POCT GLUCOSE - DOCKED DEVICE Routine 05/04/2025 3:35 PM CDT documented in this encounter Results * (ABNORMAL) POCT glucose (05/07/2025 11:38 AM CDT) GLUCOSE POC 260(H) 70 - 99 mg/dL 05/07/2025 11:[address] [facility] 05/07/2025 11:3 8 AM CDT Kenrick Suarez MD POCT ORDERABLES - DEVICE Final Result Performing Organization Address City/[facility]/ZIP Co de Phone Number [facility] [address] [place] [address], [place] [phone] * POCT glucose (05/07/2025 6:06 AM CDT) GLUCOSE POC 95 70 - 99 mg/dL 05/07/2025 6:[address] [facility] 05/07/2025 6:06 AM CDT us Kenrick Suarez MD POCT ORDERABLES - DEVICE Final Result [facility] [address] [place] [address], [place] [phone] * (ABNORMAL) POCT glucose (05/06/2025 7:22 PM CDT) GLUCOSE POC 337(H) 70 - 99 mg/dL 05/06/2025 8:[address] [facility] 05/06/2025 7:22 PM CDT us Kenrick Suarez MD POCT ORDERABLES - DEVICE Final Result [address] [address], [place] [phone] * (ABNORMAL) POCT glucose (05/06/2025 6:10 PM CDT) GLUCOSE POC 313(H) 70 - 99 mg/dL 05/06/2025 6:[address] [facility] 05/06/2025 6:10 PM CDT us Kenrick Suarez MD POCT ORDERABLES - DEVICE Final Result [facility] [address] [place] [address], [place] [phone] * (ABNORMAL) POCT glucose (05/06/2025 4:33 PM CDT) GLUCOSE POC 289(H) 70 - 99 mg/dL 05/06/2025 4:[address] [facility] 05/06/2025 4:33 PM CDT us Kenrick Suarez MD POCT ORDERABLES - DEVICE Final Result [facility] [address] [place] [address], * CTA CHEST PE PROTOCOL (05/06/2025 1:08 PM CDT) Anatomical Region Laterality Modality Chest Computed Tomogra phy 05/06/2025 3:13 PM CDT Impressions 05/06/2025 3:19 PM CDT Impression: 1. No CTA imaging findings for pulmonary embolism. 2. Decreased lung volumes with bilateral lower lung field moderate subsegmental atelectasis. 3. Left coronary artery calcifications 4. No other convincing acute or significant cardiopulmonary finding. Ordered By: KENRICK SUAREZ Interpreted By: Karlo Bland MD, 05/06/2025 3:13 PM Narrative 05/06/2025 3:19 PM CDT [facility] [address] [place], [place] [address] Exam: CT angiography chest Exam Date/Time: 05/06/2025 1:01 PM Indication: 74 female. Evaluation for pulmonary embolism. Syncope. Comparison: Chest x-ray 05/05/2025 and 09/22/2024. Technique: Computed tomography angiography of the chest was performed no protocol following uneventful intravenous administration of 80 mL Isovue-370 contrast. 3-D reconstructions and postprocessing performed on a separate dedicated 3-D workstation.. A dose lowering technique was used for this procedure, which may include, but is not limited to, dose reduction technique, automated exposure control, the use of iterative reconstruction, and ALARA (As Low As Reasonably Achievable) / Image Gently techniques. CTA Findings: VASCULATURE Adequate opacification of pulmonary arterial tree. No intraluminal filling defects suggestive of pulmonary thromboembolism first identified within study limits. No findings of right heart strain. No central pulmonary arterial enlargement. Unremarkable thoracic aorta MEDIASTINUM Support tubes and lines: None. Base of neck/thyroid: Negative. Heart: Borderline cardiac size. Left coronary artery calcification. No pericardial effusion. No pericardial effusion. Lymph nodes: No supraclavicular, axillary, internal mammary, mediastinal, or hilar adenopathy. LUNGS AND PLEURA Lungs: Decreased lung volumes particularly right middle and lower lobes with with bilateral lower lobe both dependent and streaky moderate subsegmental atelectasis. Mild lingular and right middle lobe subsegmental atelectasis. No concerning pulmonary nodule mass or consolidation. No significant chronic airspace disease seen. Airways unremarkable. No bronchiectasis, wall thickening or mucous plugging. Pleura: No pleural effusion, thickening, or calcification. UPPER ABDOMEN Nonspecific central hepatic calcifications. Prominent splenic artery vascular wall calcification. No acute finding. BONES/SOFT TISSUES No concerning musculoskeletal finding Procedure Note Karlo Bland MD - 05/06/[address] [address] Exam: CT angiography chest Exam Date/Time: 05/06/2025 1:01 PM Indication: 74 female. Evaluation for pulmonary embolism. Syncope. Comparison: Chest x-ray 05/05/2025 and 09/22/2024. Technique: Computed tomography angiography of the chest was performed noprotocol following uneventful intravenous administration of 80 mLIsovue-370 contrast. 3-D reconstructions and postprocessing performed rach separate dedicated 3-D workstation.. A dose lowering technique was usedfor this procedure, which may include, but is not limited to, dosereduction technique, automated exposure control, the use of iterativereconstruction, and ALARA (As Low As Reasonably Achievable) / Image Gentlytechniques. CTA Findings: VASCULATURE Adequate opacification of pulmonary arterial tree. No intraluminal fillingdefects suggestive of pulmonary thromboembolism first identified withinstudy limits. No findings of right heart strain. No central pulmonary arterialenlargement. Unremarkable thoracic aorta MEDIASTINUM Support tubes and lines: None. Base of neck/thyroid: Negative. Heart: Borderline cardiac size. Left coronary artery calcification. Nopericardial effusion. No pericardial effusion. Lymph nodes: No supraclavicular, axillary, internal mammary, mediastinal,or hilar adenopathy. LUNGS AND PLEURA Lungs: Decreased lung volumes particularly right middle and lower lobeswith with bilateral lower lobe both dependent and streaky moderatesubsegmental atelectasis. Mild lingular and right middle lobe subsegmentalatelectasis. No concerning pulmonary nodule mass or consolidation. Nosignificant chronic airspace disease seen. Airways unremarkable. No bronchiectasis, wall thickening or mucousplugging. Pleura: No pleural effusion, thickening, or calcification. UPPER ABDOMEN Nonspecific central hepatic calcifications. Prominent splenic arteryvascular wall calcification. No acute finding. BONES/SOFT TISSUES No concerning musculoskeletal finding Impression: 1. No CTA imaging findings for pulmonary embolism. 2. Decreased lung volumes with bilateral lower lung field moderatesubsegmental atelectasis. 3. Left coronary artery calcifications 4. No other convincing acute or significant cardiopulmonary finding. Ordered By: KENRICK SUAREZ Interpreted By: Karlo Bland MD, 05/06/2025 3:13 PM Kenrick Suarez MD CT Final Result * (ABNORMAL) POCT glucose (05/06/2025 12:17 PM CDT) [facility] GLUCOSE POC 451(HH) 70 - 99 mg/dL 05/06/2025 12:[address] [facility] 05/06/2025 12:1 7 PM CDT Kenrick Suarez MD POCT ORDERABLES - DEVICE Final Result [facility] [address] [place] [address], [place] [phone] * (ABNORMAL) CBC, AUTO, NO DIFF (05/06/2025 12:01 PM CDT) [facility] WBC 5.63 4.5 - 11.0 x10'3/uL 05/06/2025 12:[address] [facility] RBC 4.26 4.20 - 5.40 x10'6/uL 05/06/2025 12:[address] [facility] HGB 10.7(L) 12.0 - 16.0 G/DL 05/06/2025 12:[address] [facility] HCT 32.8(L) 38.0 - 48.0 % 05/06/2025 12:[address] [facility] MCV 77.0(L) 81.0 - 99.0 FL 05/06/2025 12:[address] [facility] MCH 25.1(L) 27.0 - 31.0 PG 05/06/2025 12:[address] [facility] MCHC 32.6 32.0 - 36.0 G/DL 05/06/2025 12:[address] [facility] RDW 12.4 11.5 - 14.5 % 05/06/2025 12:[address] [facility] PLT 154 130 - 400 x10'3/uL 05/06/2025 12:[address] [facility] MPV 11.3 9.3 - 12.2 FL 05/06/2025 12:[address] [facility] 05/06/2025 12:0 1 PM CDT us Peggy Swartz [facility] Final Result [facility] [address] [place] [address], [place] [phone] * (ABNORMAL) IRON SAT PANEL (IRON,IBC,%SAT) (05/06/2025 12:01 PM CDT) IRON 35(L) 50.0 - 170.0 MCG/DL 05/06/2025 12:[address] [facility] IRON BINDING CAPACITY 236(L) 250 - 450 MCG/DL 05/06/2025 12:[address] [facility] IRON SATURATION 15(L) 20 - 55 % 12:[address] [facility] 05/06/2025 12:0 1 PM CDT Peggy Swartz [facility] Final Result [facility] [address] [place] [address], [place] [phone] * FERRITIN (05/06/2025 12:01 PM CDT) Pathologist [facility] FERRITIN 227.8 8.0 - 388.0 NG/ML 05/06/2025 12:[address] [facility] 05/06/2025 12:0 1 PM CDT Peggy Swartz [facility] Final Result [facility] [address] [place] [address], [place] [phone] * (ABNORMAL) POCT glucose (05/06/2025 11:42 AM CDT) [facility] GLUCOSE POC 402(HH) 70 - 99 mg/dL 05/06/2025 11:[address] [facility] 05/06/2025 11:4 2 AM CDT Kenrick Suarez MD POCT ORDERABLES - DEVICE Final Result Performing Organization Address [facility] Co de Phone Number [facility] [address] [place] [address], * (ABNORMAL) D-DIMER, QUANTITATIVE (05/06/2025 10:08 AM CDT) D-DIMER 4,197(HH) 0 - 500 ng{FEU}/mL 05/06/2025 11:[address] [facility] Comment: D-Dimer values less than or equal to 500 ng/mL FEU have a negative predictive value of >95% for exclusion of deep vein thrombosis and pulmonary embolism. In patients over 50 (who tend to have higher normal baseline D-Dimer values), recent studies suggest age-adjusted D-Dimer cutoff values (calculated as: age [years] x 10 ng/mL) result in equivalent outcomes and no additional false negative findings. Successful Call: DDIMR called 05/06/2025 11:05 AM to [employer] ([id number]/ALESSANDRA DURANT) by [id number]. Read Back: Yes 05/06/2025 10:0 8 AM CDT Kenrick Suarez MD LABORATORY Final Result Performing Organization Address [facility] Co de Phone Number [facility] [address] [place] [address], [place] [phone] * USE ECHOCARDIOGRAM W CON (05/06/2025 9:41 AM CDT) Anatomical Region Laterality Modality NA Echocardiogram 05/06/2025 9:13 AM CDT Narrative 05/06/2025 11:22 AM CDT Echocardiography Report Pat.Name: VIDHYA TOCRISTAL Cruz.ID: [id number] .Date: 05/06/2025 Exam Time: 9:13:00 AM Study Type:ECHO WITH CARDIAC DOPPLER COMP Height: 66 in Weight: 188 lb BSA: 1.95 m2 Age: 1 1950,74Y Sex: F BP: 113/62 HR: 84 bpm Sonogrphr: Cuba Aguirre [facility], ACS Pat. Stat.:Inpatient Room: [facility] Reason for Study:Congestive heart failure History / Clinical:Diabetes, Dyslipidemia, Hypertension, Congestive heart failure, Family history CAD, GERD Procedures: 2D, M-mode, Doppler, Color Flow, Definity was used to enhance endocardial definition. The study quality is technically difficult . Race: B ++++++++++++++++++++++++++++++++++++ SUMMARY: ++++++++++++++++++++++++++++++++++++ Left ventricle is normal in size and systolic function Estimated EF of 55-60% Mild to moderate LVH Diastolic dysfunction Right ventricle is normal in size and systolic function Mild tricuspid regurgitation Normal estimated pulmonary pressures. ++++++++++++++++++++++++++++++++++++ FINDINGS: ++++++++++++++++++++++++++++++++++++ LV: The left ventricular size is normal. The left ventricular systolic function is normal. Estimated left ventricular ejection fraction is 55-60%. Mild to moderate concentric left ventricular hypertrophy. Left ventricular diastolic function is abnormal (grade 1 - impaired relaxation). WM: Wall motion appears normal in all segments. RV: The right ventricular size is normal. Right ventricular systolic function is normal. Right ventricular systolic pressure is normal at 25-30 mmHg. IVS: No evidence of ventricular septal defect. LA: The left atrial volume is normal ( less than 34 ml/M2). RA: Right atrial size is normal. IAS: Atrial septum appears intact. CASE: No evidence of pericardial effusion. AO: Normal aortic root. SVn: Inferior vena cava is normal. Inferior vena cava shows >50% collapse with respiration consistent with normal right atrial pressure. AV: The aortic valve is trileaflet. No evidence of aortic valve stenosis. No evidence of aortic valve regurgitation. MV: Structurally normal mitral valve. Trace mitral regurgitation. No evidence of mitral stenosis. PV: No evidence of pulmonic valve stenosis. No evidence of pulmonic regurgitation. TV: Structurally normal tricuspid valve. Mild tricuspid regurgitation. No evidence of tricuspid valve stenosis. ++++++++++++++++++++++++++++++++++++ MEASUREMENTS: ++++++++++++++++++++++++++++++++++++ DOPPLER LVOT LVOTpkPG 5 mmHg LVOTmnPG 3 mmHg LVOTpkVel 107 cm/s (70-110)+ LVOT SV 62 ml LVOT TVI 17.9 cm Pulmonary Veins PVnpkVeld 35.3 cm/s PVnVs/Vd 2.6 PVnpkVels 92.8 cm/s PVn A Dur 116 msec AV Forward Flow AV TVI 21.9 cm AV pkPG 5 mmHg AV pkVel 115 cm/s (100-170)+ Area (TVI) 2.83 cm2 (3-5)* AV mnPG 4 mmHg Area (Pete) 3.22 cm2 (3-5) MV Forward Flow MV DeTm 185 msec MV pkE 60.3 cm/s (60-130) MV E/A 0.6 MV pkA 96.9 cm/s PV Forward Flow PV pkVel 82.8 cm/s (60-90)+ PV AC 93 msec PV pkPG 3 mmHg TV Regurg Flow TV pkPG 21 mmHg TV pkVel 227 cm/s (30-70)* Lat E' Lat e 7.62 cm/s Lat E/E' Lat E/e 7.9 Med E' Med e 5.66 cm/s Med E/E' Med E/e 10.7 Aortic Valve Aortic Valve Ar 1.45 Aortic Valve Ve 0.93 AV DI Value 0.82 Lat MA LV Pk Sys Tissu 9.9 cm/s Left Ventricle LV IVRT 104 msec Mitral Valve MV A dur 0.135 sec PV A- MV A Value -0.019 sec PV Antegrade Flow Acceleration Sl 641 cm/s2 Right Atrium Luciano's Disk 20 2D Left Ventricle LVIDd 3.79 cm (3.6-5.2) LV ESV 52.4 ml LVIDs 2.41 cm (2.3-3.9) LV ESV 39.2 ml LngAxd 7.76 cm LVESV BP 47.3 ml LngAxd 7.8 cm LV EF 48.1 % LV EDV 101 ml LV EF 69.8 % LV EDV 130 ml LV EF BP 58.5 % LVEDV BP 114 ml LV SV 48.6 ml LngAxs 6.49 cm LV SV 90.8 ml LngAxs 5.95 cm LV SV BP 66.7 ml LVPW LVPWd 1.21 cm Ventricular Septum IVSd 1.3 cm Left Atrium LA a-p 3.1 cm (2.8-3.4) LA VOLBP 54.3 ml Aorta Ao Rtd 3.6 cm (zsc 2.4)* Ao Asc 3.7 cm (zsc 4.2)* LVOT LVOT 2.1 cm LVOTArea 3.46 cm2 Ratios IVS LA Biplane LAVol I BP 27.8 ml/m2 RA Single Plane Right Atrium MO 13.6 mm Right Atrium Sy 32.1 ml Right Atrium Sy 38 mm Right Atrium Sy 16.5 ml/m2 Right Atrium Sy 12.1 cm2 MMODE TA Tricuspid Annul 14.3 mm <Electronic Signature> 05/06/2025 11:22 AM Neymar Mari M.D. Procedure Note Neymar Mari MD - 05/06/2025 Echocardiography Report Pat.Name: NATALI TO Pat.ID: [id number] .Date: 05/06/2025 Exam Time: 9:13:00 AM Study Type:ECHO WITH CARDIAC DOPPLER COMP Height: 66 in Weight: 188 lb BSA: 1.95 m2 Age: 1 1950,74Y Sex: F BP: 113/62 HR: 84 bpm Sonogrphr: Cuba Aguirre RDCS, ACS Pat. Stat.:Inpatient Room: [facility] Reason for Study:Congestive heart failure History / Clinical:Diabetes, Dyslipidemia, Hypertension, Congestive heart failure, Family history CAD, GERD Procedures: 2D, M-mode, Doppler, Color Flow, Definity was used to enhance endocardial definition. The study quality is technically difficult . Race: B ++++++++++++++++++++++++++++++++++++ SUMMARY: ++++++++++++++++++++++++++++++++++++ Left ventricle is normal in size and systolic function Estimated EF of 55-60% Mild to moderate LVH Diastolic dysfunction Right ventricle is normal in size and systolic function Mild tricuspid regurgitation Normal estimated pulmonary pressures. ++++++++++++++++++++++++++++++++++++ FINDINGS: ++++++++++++++++++++++++++++++++++++ LV: The left ventricular size is normal. The left ventricular systolic function is normal. Estimated left ventricular ejection fraction is 55-60%. Mild to moderate concentric left ventricular hypertrophy. Left ventricular diastolic function is abnormal (grade 1 - impaired relaxation). WM: Wall motion appears normal in all segments. RV: The right ventricular size is normal. Right ventricular systolic function is normal. Right ventricular systolic pressure is normal at 25-30 mmHg. IVS: No evidence of ventricular septal defect. LA: The left atrial volume is normal ( less than 34 ml/M2). RA: Right atrial size is normal. IAS: Atrial septum appears intact. CASE: No evidence of pericardial effusion. AO: Normal aortic root. SVn: Inferior vena cava is normal. Inferior vena cava shows >50% collapse with respiration consistent with normal right atrial pressure. AV: The aortic valve is trileaflet. No evidence of aortic valve stenosis. No evidence of aortic valve regurgitation. MV: Structurally normal mitral valve. Trace mitral regurgitation. No evidence of mitral stenosis. PV: No evidence of pulmonic valve stenosis. No evidence of pulmonic regurgitation. TV: Structurally normal tricuspid valve. Mild tricuspid regurgitation. No evidence of tricuspid valve stenosis. ++++++++++++++++++++++++++++++++++++ MEASUREMENTS: ++++++++++++++++++++++++++++++++++++ DOPPLER LVOT LVOTpkPG 5 mmHg LVOTmnPG 3 mmHg LVOTpkVel 107 cm/s (70-110)+ LVOT SV 62 ml LVOT TVI 17.9 cm Pulmonary Veins PVnpkVeld 35.3 cm/s PVnVs/Vd 2.6 PVnpkVels 92.8 cm/s PVn A Dur 116 msec AV Forward Flow AV TVI 21.9 cm AV pkPG 5 mmHg AV pkVel 115 cm/s (100-170)+ Area (TVI) 2.83 cm2 (3-5)* AV mnPG 4 mmHg Area (Pete) 3.22 cm2 (3-5) MV Forward Flow MV DeTm 185 msec MV pkE 60.3 cm/s (60-130) MV E/A 0.6 MV pkA 96.9 cm/s PV Forward Flow PV pkVel 82.8 cm/s (60-90)+ PV AC 93 msec PV pkPG 3 mmHg TV Regurg Flow TV pkPG 21 mmHg TV pkVel 227 cm/s (30-70)* Lat E' Lat e 7.62 cm/s Lat E/E' Lat E/e 7.9 Med E' Med e 5.66 cm/s Med E/E' Med E/e 10.7 Aortic Valve Aortic Valve Ar 1.45 Aortic Valve Ve 0.93 AV DI Value 0.82 Lat MA LV Pk Sys Tissu 9.9 cm/s Left Ventricle LV IVRT 104 msec Mitral Valve MV A dur 0.135 sec PV A- MV A Value -0.019 sec PV Antegrade Flow Acceleration Sl 641 cm/s2 Right Atrium Luciano's Disk 20 2D Left Ventricle LVIDd 3.79 cm (3.6-5.2) LV ESV 52.4 ml LVIDs 2.41 cm (2.3-3.9) LV ESV 39.2 ml LngAxd 7.76 cm LVESV BP 47.3 ml LngAxd 7.8 cm LV EF 48.1 % LV EDV 101 ml LV EF 69.8 % LV EDV 130 ml LV EF BP 58.5 % LVEDV BP 114 ml LV SV 48.6 ml LngAxs 6.49 cm LV SV 90.8 ml LngAxs 5.95 cm LV SV BP 66.7 ml LVPW LVPWd 1.21 cm Ventricular Septum IVSd 1.3 cm Left Atrium LA a-p 3.1 cm (2.8-3.4) LA VOLBP 54.3 ml Aorta Ao Rtd 3.6 cm (zsc 2.4)* Ao Asc 3.7 cm (zsc 4.2)* LVOT LVOT 2.1 cm LVOTArea 3.46 cm2 Ratios IVS LA Biplane LAVol I BP 27.8 ml/m2 RA Single Plane Right Atrium MO 13.6 mm Right Atrium Sy 32.1 ml Right Atrium Sy 38 mm Right Atrium Sy 16.5 ml/m2 Right Atrium Sy 12.1 cm2 MMODE TA Tricuspid Annul 14.3 mm <Electronic Signature> 05/06/2025 11:22 AM Neymar Mari M.D. Peggy Swartz [facility] ECHO Final Result * (ABNORMAL) BASIC METABOLIC PANEL (05/06/2025 7:53 AM CDT) GLUCOSE 140(H) 70 - 99 MG/DL 05/06/2025 8:[address] [facility] BUN 37(H) 7 - 18 MG/DL 05/06/2025 8:[address] [facility] CREATININE S/P/B 1.43(H) 0.55 - 1.02 MG/DL 05/06/2025 8:[address] [facility] SODIUM S/P/B 141 136 - 145 MMOL/L 05/06/2025 8:[address] [facility] POTASSIUM S/P/B 3.6 3.5 - 5.1 MMOL/L 05/06/2025 8:[address] [facility] CHLORIDE S/P/B 110 97 - 115 MMOL/L 05/06/2025 8:[address] [facility] CO2 26.6 21 - 32 MMOL/L 05/06/2025 8:[address] [facility] CALCIUM S/P/B 8.9 8.5 - 10.1 MG/DL 05/06/2025 8:[address] [facility] ANION GAP 4.4 2 - 10 MMOL/L 05/06/2025 8:[address] [facility] BUN CREATININE RATIO 25.9 6 - 26 05/06/2025 8:[address] [facility] GFR ESTIMATE 39(L) >90 ML/MIN/1.7 3 M2 05/06/2025 8:[address] [facility] Comment: NOTE: eGFR is not calculated for patients <18 years of age or gender unknown. This is an estimated GFR calculation using the new CKD EPI creatinine equation without race and so does not require a correction factor for race. This estimated GFR should not be used for calculating drug doses. 05/06/2025 7:53 AM CDT Kenrick Suarez MD LABORATORY Final Result [facility] [address] [place] [address], [place] [phone] * (ABNORMAL) POCT glucose (05/06/2025 6:31 AM CDT) GLUCOSE POC 122(H) 70 - 99 mg/dL 05/06/2025 6:[address] [facility] 05/06/2025 6:31 AM CDT Kenrick Suarez MD POCT ORDERABLES - DEVICE Final Result [facility] [address] [place] [address], [place] [phone] * (ABNORMAL) POCT glucose (05/05/2025 8:13 PM CDT) GLUCOSE POC 219(H) 70 - 99 mg/dL 05/05/2025 8:[address] [facility] 05/05/2025 8:13 PM CDT us Reba Lara MD POCT ORDERABLES - DEVICE F inal Result [facility] [address] [place] [address], [place] [phone] * (ABNORMAL) POCT glucose (05/05/2025 3:30 PM CDT) [facility] GLUCOSE POC 323(H) 70 - 99 mg/dL 05/05/2025 3:[address] [facility] 05/05/2025 3:30 PM CDT Reba Lara MD POCT ORDERABLES - DEVICE F inal Result Performing Organization Address City/[facility]/ZIP Co de Phone Number [facility] [address] [place] [address], [place] [phone] * RESPIRATORY PCR PANEL 2 (05/05/2025 2:00 PM CDT) [facility] ADENOVIRUS PCR (RESP) NOT DETECTED NOT DETECTED 05/05/2025 3:[address] [facility] CORONAVIRUS 229E PCR (RESP) NOT DETECTED NOT DETECTED 05/05/2025 3:[address] [facility] CORONAVIRUS HKU1 PCR (RESP) NOT DETECTED NOT DETECTED 05/05/2025 3:[address] [facility] CORONAVIRUS NL63 PCR (RESP) NOT DETECTED NOT DETECTED 05/05/2025 3:[address] [facility] CORONAVIRUS OC43 PCR (RESP) NOT DETECTED NOT DETECTED 05/05/2025 3:[address] [facility] METAPNEUMOVIRUS PCR (RESP) NOT DETECTED NOT DETECTED 05/05/2025 3:[address] [facility] RHINOVIRUS/ENTEROV IRUS PCR (RESP) NOT DETECTED NOT DETECTED 05/05/2025 3:[address] [facility] INFLUENZA A PCR (RESP) NOT DETECTED NOT DETECTED 05/05/2025 3:[address] [facility] INFLUENZA B PCR (RESP) NOT DETECTED NOT DETECTED 05/05/2025 3:[address] [facility] PARAINFLUENZA 1 PCR (RESP) NOT DETECTED NOT DETECTED 05/05/2025 3:[address] [facility] PARAINFLUENZA 2 PCR (RESP) NOT DETECTED NOT DETECTED 05/05/2025 3:[address] [facility] PARAINFLUENZA 3 PCR (RESP) NOT DETECTED NOT DETECTED 05/05/2025 3:[address] [facility] PARAINFLUENZA 4 PCR (RESP) NOT DETECTED NOT DETECTED 05/05/2025 3:[address] [facility] RSV PCR (RESP) NOT DETECTED NOT DETECTED 05/05/2025 3:[address] [facility] B PARAPERTUSIS PCR (RESP) NOT DETECTED NOT DETECTED 05/05/2025 3:[address] [facility] BORDETELLA PERTUSSIS PCR (RESP) NOT DETECTED NOT DETECTED 05/05/2025 3:[address] [facility] CHLAMYDOPHILA PNEUMONIAE PCR (RESP) NOT DETECTED NOT DETECTED 05/05/2025 3:[address] [facility] MYCOPLASMA PNEUMONIAE PCR (RESP) NOT DETECTED NOT DETECTED 05/05/2025 3:[address] [facility] CORONAVIRUS SARS COV 2 PCR (RESP) NOT DETECTED NOT DETECTED 05/05/2025 3:[address] [facility] NASOPHARYNGEAL SWAB / Unknown 05/05/2025 2:00 PM CDT us Reba Lara MD MICROBIOLOGY - GENERAL ORD ERABLES Final Result [facility] [address] [place] [address], * ECG 12 lead (05/05/2025 9:55 AM CDT) 05/05/2025 9:55 AM CDT Narrative [facility] ([facility] - 05/05/2025 4:07 PM CDT [address] Test Date: 2025-05-05 Pat Name: NATALI TO Department: 41 Room: [facility] Gender: Female [employer]: AN : 1950 Requested By: REBA LARA Order Number: [id number] Reading MD: Suresh Kitchen Measurements Intervals [place] Rate: 75 P: 47 OH: 134 QRS: -23 QRSD: 83 T: -58 QT: 394 QTc: 442 Interpretive Statements SINUS RHYTHM BORDERLINE LEFT AXIS DEVIATION [QRS AXIS < -20] MODERATE T-WAVE ABNORMALITY, CONSIDER ANTERIOR ISCHEMIA [-0.1+ mV T WAVE IN V3/V4] No previous ECG available for comparison Procedure Note Suresh Kitchen MD - 05/05/[address] Test Date: 2025-05-05 Pat Name: NATALI TO Department: 41 Room: B4 Gender: Female D[employer]er: AN : 1950 Requested By: REBA LARA Order Number: [id number] Reading MD: Suresh Kitchen Measurements Intervals [place] Rate: 75 P: 47 [place]: 134 QRS: -23 QRSD: 83 T: -58 QT: 394 QTc: 442 Interpretive Statements SINUS RHYTHM BORDERLINE LEFT AXIS DEVIATION [QRS AXIS < -20] MODERATE T-WAVE ABNORMALITY, CONSIDER ANTERIOR ISCHEMIA [-0.1+ mV T WAVEIN V3/V4] No previous ECG available for comparison Reba Lara MD ECG ORDERABLES Final Resu lt Performing Organization Address City/[facility]/ZIP Co de Phone Number [facility] * (ABNORMAL) POCT glucose (05/05/2025 9:52 AM CDT) GLUCOSE POC 178(H) 70 - 99 mg/dL 05/05/2025 9:[address] [facility] 05/05/2025 9:52 AM CDT Reba Lara MD POCT ORDERABLES - DEVICE F inal Result Performing Organization Address [facility]/ZIP Co de Phone Number [facility] [address] [place] [id number], [place] [phone] * TROPONIN, QUANT (05/05/2025 6:40 AM CDT) TROPONIN I HIGH SENSITIVITY 26 <54 ng/L 05/05/2025 2:[address] [facility] Comment: HIGH DOSES OF BIOTIN, TROPONIN-SPECIFIC AUTOANTIBODIES, AND ANTIBODY THERAPY CONTAINING HAMA MAY INTERFERE WITH THIS TEST RESULT. CORRELATION TO CLINICAL HISTORY AND PRESENTATION RECOMMENDED. 05/05/2025 6:40 AM CDT us Peggy Swartz STEM ROLLER OPERATOR LABORATORY Final Result [facility] [address] [place] [address], * (ABNORMAL) BASIC METABOLIC PANEL (05/05/2025 6:40 AM CDT) [facility] GLUCOSE 79 70 - 99 MG/DL 05/05/2025 7:[address] [facility] BUN 47(H) 7 - 18 MG/DL 05/05/2025 7:[address] [facility] CREATININE S/P/B 1.82(H) 0.55 - 1.02 MG/DL 05/05/2025 7:[address] [facility] SODIUM S/P/B 144 136 - 145 MMOL/L 05/05/2025 7:[address] [facility] POTASSIUM S/P/B 3.2(L) 3.5 - 5.1 MMOL/L 05/05/2025 7:[address] [facility] CHLORIDE S/P/B 112 97 - 115 MMOL/L 05/05/2025 7:[address] [facility] CO2 26.5 21 - 32 MMOL/L 05/05/2025 7:[address] [facility] CALCIUM S/P/B 8.8 8.5 - 10.1 MG/DL 05/05/2025 7:[address] [facility] ANION GAP 5.5 2 - 10 MMOL/L 05/05/2025 7:[address] [facility] BUN CREATININE RATIO 25.8 6 - 26 05/05/2025 7:[address] [facility] GFR ESTIMATE 29(L) >90 ML/MIN/1.7 3 M2 05/05/2025 7:[address] [facility] Comment: NOTE: eGFR is not calculated for patients <18 years of age or gender unknown. This is an estimated GFR calculation using the new CKD EPI creatinine equation without race and so does not require a correction factor for race. This estimated GFR should not be used for calculating drug doses. 05/05/2025 6:40 AM CDT Mag Sloan MD LABORATORY Final Re sult [facility] [address] [place] [address], [place] [phone] * (ABNORMAL) CBC W/DIFF AUTOMATED (05/05/2025 6:40 AM CDT) WBC 5.72 4.5 - 11.0 x10'3/uL 05/05/2025 7:[address] [facility] RBC 3.98(L) 4.20 - 5.40 x10'6/uL 05/05/2025 7:[address] [facility] HGB 9.9(L) 12.0 - 16.0 G/DL 05/05/2025 7:[address] [facility] HCT 29.9(L) 38.0 - 48.0 % 05/05/2025 7:[address] [facility] MCV 75.1(L) 81.0 - 99.0 FL 05/05/2025 7:[address] [facility] MCH 24.9(L) 27.0 - 31.0 PG 05/05/2025 7:[address] [facility] MCHC 33.1 32.0 - 36.0 G/DL 05/05/2025 7:[address] [facility] RDW 12.1 11.5 - 14.5 % 05/05/2025 7:[address] [facility] PLT 165 130 - 400 x10'3/uL 05/05/2025 7:[address] [facility] MPV 11.1 9.3 - 12.2 FL 05/05/2025 7:[address] [facility] DIFFERENTIAL TYPE AUTOMATED DIFFERENTIAL 05/05/2025 7:[address] [facility] NEUTROPHILS % 65.9 % 05/05/2025 7:[address] [facility] LYMPHOCYTES % 20.8 % 05/05/2025 7:[address] [facility] MONOCYTES % 11.4 % 05/05/2025 7:[address] [facility] EOSINOPHILS 1.4 % 05/05/2025 7:[address] [facility] BASOPHILS 0.2 % 05/05/2025 7:[address] [facility] IMMATURE GRANS % 0.3 % 05/05/20 7:[address] [facility] ABS. NEUTROPHILS 3.77 1.80 - 7.70 x10'3/uL 05/05/2025 7:[address] [facility] ABS. LYMPHOCYTES 1.19 1.00 - 4.80 x10'3/uL 05/05/2025 7:[address] [facility] ABS. MONOCYTES 0.65 0.24 - 0.86 x10'3/uL 05/05/2025 7:[address] [facility] ABS. EOSINOPHILS 0.08 0.04 - 0.36 x10'3/uL 05/05/2025 7:[address] [facility] ABS. BASOPHILS 0.01 0.01 - 0.08 x10'3/uL 05/05/2025 7:[address] [facility] ABS. IMMATURE GRANULOCYTES 0.02 0.00 - 0.49 x10'3/uL 05/05/2025 7:[address] [facility] 05/05/2025 6:40 AM CDT Mag Sloan MD LABORATORY Final Re sult [facility] [address] [place] [address], [place] [phone] * (ABNORMAL) PRO-BRAIN NATRIURETIC PEPTIDE (05/05/2025 6:39 AM CDT) PRO-B TYPE NATRIURETIC PEPTIDE 391(H) <125 PG/ML 05/05/2025 9:[address] [facility] Comment: CUT POINTS ESTABLISHED BY [employer] ON NT PROBNP (ICON) STUDY (2006). AGE INDEPENDENT: <300 PG/ML HAS A 99% NEGATIVE PREDICTIVE VALUE FOR EXCLUDING ACUTE CHF <50 YEARS: >450 PG/ML IS CONSISTENT WITH ACUTE CHF 50-75 YEARS: >900 PG/ML IS CONSISTENT WITH ACUTE CHF >75 YEARS: >1800 PG/ML IS CONSISTENT WITH ACUTE CHF IN PATIENTS WITH RENAL INSUFFICIENCY (GFR <60), >1200 PG/ML YIELDS A DIAGNOSTIC SENSITIVITY AND SPECIFICITY OF 89% AND 72% FOR ACUTE CHF. 05/05/2025 6:39 AM CDT Peggy MEYER LABORATORY Final Result [facility] [address] [place] [address], [place] [phone] * POCT glucose (05/05/2025 6:39 AM CDT) GLUCOSE POC 93 70 - 99 mg/dL 05/05/2025 6:[address] [facility] 05/05/2025 6:39 AM CDT Reba Lara MD POCT ORDERABLES - DEVICE F inal Result [facility] [address] [place] [address], * XR CHEST PORTABLE (05/05/2025 12:53 AM CDT) Anatomical Region Laterality Modality Chest Radiographic Zina ging 05/05/2025 12:5 3 AM CDT Impressions 05/05/2025 12:53 AM CDT IMPRESSION: ======== 1. No acute cardiopulmonary findings within limitations of exam Referred By: Interpreted By: Tre Huerta MD, 05/05/2025 12:53 AM Narrative 05/05/2025 12:53 AM CDT [address] [address] Examination: Chest x-ray 1 view Exam Date/Time: 05/05/2025 12:41 AM Reason For Exam: sob Hyperglycemia, shortness of breath Comparison: Chest radiograph 09/22/2024 Technique: Single AP view of the chest was obtained. Findings: Heart size within normal limits for AP technique. No large effusion. No pneumothorax. No consolidation. Degenerative changes in both shoulders. Pulmonary vascularity within normal limits. ======== Procedure Note Tre Huerta MD - 05/05/2025 [place] [address] Examination: Chest x-ray 1 view Exam Date/Time: 05/05/2025 12:41 AM Reason For Exam: sob Hyperglycemia, shortness of breath Comparison: Chest radiograph 09/22/2024 Technique: Single AP view of the chest was obtained. Findings: Heart size within normal limits for AP technique. No largeeffusion. No pneumothorax. No consolidation. Degenerative changes inboth shoulders. Pulmonary vascularity within normal limits. ======== IMPRESSION: ======== 1. No acute cardiopulmonary findings within limitations of exam Referred By: Interpreted By: Tre Huerta MD, 05/05/2025 12:53 AM Mag Sloan MD GENERAL IMAGING Final Re sult * (ABNORMAL) POCT glucose (05/04/2025 9:15 PM CDT) GLUCOSE POC 404(HH) 70 - 99 mg/dL 05/04/2025 9:[address] [facility] 05/04/2025 9:15 PM CDT Mag Sloan MD POCT ORDERABLES - DEVICE Final Result [facility] [address] [place] [address], [place] [phone] * CULTURE URINE (05/04/2025 4:22 PM CDT) SPEC DESCRIPTION URINE CLEAN CATCH 05/04/2025 4:[address] [facility] SPECIAL REQUESTS NO SPECIAL REQUEST 05/04/2025 4:[address] [facility] CULTURE RESULT POLYMICROBIAL GROWTH CONSISTENT WITH NORMAL GENITAL EDGARD. SUSCEPTIBILITIES NOT ROUTINELY PERFORMED. 05/06/2025 7:[address] [facility] URINE SPECIMEN OBTAINED BY CLEAN CATCH PROCEDURE / Unknown 05/04/2025 4:22 PM CDT 05/04/2025 4:25 PM CDT us Josesito Low NP MICROBIOLOGY - GENERAL ORDERAB LES Final Result [facility] [address] [place] [address], * (ABNORMAL) URINALYSIS (05/04/2025 4:22 PM CDT) SPECIMEN TYPE URINE CLEAN CATCH 05/04/2025 4:[address] [facility] COLOR (U) LIGHT YELLOW 05/04/2025 4:[address] [facility] TRANSPARENCY CLEAR 05/04/2025 4:[address] [facility] SPECIFIC GRAVITY (U) 1.024 1.001 - 1.030 05/04/2025 4:[address] [facility] U PH 6.0 5.0 - 9.0 05/04/2025 4:[address] [facility] LEUKOCYTES (U) 250(A) NEGATIVE 05/04/2025 4:[address] [facility] NITRITES NEGATIVE NEGATIVE 05/04/2025 4:[address] [facility] PROTEIN RANDOM (U) 30(H) <30 MG/DL 05/04/2025 4:[address] [facility] GLUCOSE (U) >1000(A) NORMAL MG/DL 05/04/2025 4:[address] [facility] KETONES MG/DL (U) NEGATIVE NEGATIVE MG/DL 05/04/2025 4:[address] [facility] UROBILINOGEN NORMAL NORMAL MG/DL 05/04/2025 4:[address] [facility] BILIRUBIN (U) NEGATIVE NEGATIVE MG/DL 05/04/2025 4:[address] [facility] BLOOD (U) 2+(A) NEGATIVE 05/04/2025 4:[address] [facility] MUCUS RARE /LPF 05/04/2025 4:[address] [facility] WBC/HPF 74(H) <6 /HPF 05/04/2025 4:[address] [facility] RBC/HPF 5 <6 /HPF 05/04/2025 4:[address] [facility] BACTERIA (U) FEW(A) NONE /HPF 05/04/2025 4:[address] [facility] SQUAMOUS EPITHELIALS RARE /HPF 05/04/2025 4:[address] [facility] URINE SPECIMEN OBTAINED BY CLEAN CATCH PROCEDURE / Unknown 05/04/2025 4:22 PM CDT Josesito Low ORTHOTIC PRACTITIONER URINE ORDERABLES Final Result [facility] [address] [place] [address], * (ABNORMAL) HEMOGLOBIN, GLYCOSYLATED (05/04/2025 4:09 PM CDT) HGB A1C 11.8(H) <5.7 % 05/04/2025 9:[address] [facility] Comment: ADA GUIDELINES 2010 5.7 TO 6.4% INCREASED RISK OF DIABETES > OR = 6.5% CONSISTENT WITH DIABETES ESTIMATED AVG GLUCOSE 292 mg/dL 05/04/2025 9:[address] [facility] 05/04/2025 4:09 PM CDT Mag Sloan MD LABORATORY Final Re sult [facility] [address] [place] [address], [place] [phone] * BETA-HYDROXYBUTYRATE (05/04/2025 4:09 PM CDT) BETA-HYDROXYBUT YRATE 0.2 0.0 - 0.5 MMOL/L 05/04/2025 4:[address] [facility] 05/04/2025 4:09 PM CDT Josesito Low ORTHOTIC PRACTITIONER LABORATORY Final Result Performing Organization Address City/[facility]/ZIP Co de Phone Number [facility] [address] [place] [address], [place] [phone] * PHOSPHORUS, INORGANIC PHOSPHATE (05/04/2025 4:09 PM CDT) PHOSPHORUS 2.9 2.5 - 4.9 MG/DL 05/04/2025 4:[address] [facility] 05/04/2025 4:09 PM CDT Josesito Low ORTHOTIC PRACTITIONER LABORATORY Final Result [facility] [address] [place] [address], [place] [phone] * MAGNESIUM (05/04/2025 4:09 PM CDT) MAGNESIUM 2.2 1.8 - 2.4 MG/DL 05/04/2025 4:[address] [facility] 05/04/2025 4:09 PM CDT Josesito Nathanael Low NP LABORATORY Final Result [facility] [address] [place] [address], * (ABNORMAL) COMPREHENSIVE METABOLIC PANEL (05/04/2025 4:09 PM CDT) GLUCOSE 653(HH) 70 - 99 MG/DL 05/04/2025 4:[address] [facility] Comment: Critical Result(s) Called at: 16:54:31 on 05/04/2025 by: CECILE IBANEZ to and read back by:JANES LINARES BUN 61(H) 7 - 18 MG/DL 05/04/2025 4:[address] [facility] CREATININE S/P/B 2.87(H) 0.55 - 1.02 MG/DL 05/04/2025 4:[address] [facility] SODIUM S/P/B 134(L) 136 - 145 MMOL/L 05/04/2025 4:[address] [facility] POTASSIUM S/P/B 3.7 3.5 - 5.1 MMOL/L 05/04/2025 4:[address] [facility] CHLORIDE S/P/B 100 97 - 115 MMOL/L 05/04/2025 4:[address] [facility] CO2 26.1 21 - 32 MMOL/L 05/04/2025 4:[address] [facility] CALCIUM S/P/B 9.0 8.5 - 10.1 MG/DL 05/04/2025 4:[address] [facility] BILIRUBIN TOTAL S/P/B 0.4 0.2 - 1.2 MG/DL 05/04/2025 4:[address] [facility] Comment: THIS ASSAY IS NOT RECOMMENDED FOR PATIENTS UNDERGOING TREATMENT WITH ELTROMBOPAG DUE TO THE POTENTIAL FOR FALSELY ELEVATED RESULTS. TOTAL PROTEIN S/P/B 7.0 6.4 - 8.2 G/DL 05/04/2025 4:[address] [facility] ALBUMIN S/P/B 3.7 3.4 - 5.0 G/DL 05/04/2025 4:[address] [facility] AST 32 15 - 37 U/L 05/04/2025 4:[address] [facility] ALT 36 14 - 55 U/L 05/04/2025 4:[address] [facility] ALKALINE PHOSPHATASE S/P/B 157(H) 50 - 136 U/L 05/04/2025 4:[address] [facility] ANION GAP 7.9 2 - 10 MMOL/L 05/04/2025 4:[address] [facility] BUN CREATININE RATIO 21.3 6 - 26 05/04/2025 4:[address] [facility] A/G RATIO 1.1 1.0 - 2.0 RATIO 05/04/2025 4:[address] [facility] GFR ESTIMATE 17(L) >90 ML/MIN/1.7 3 M2 05/04/2025 4:[address] [facility] Comment: NOTE: eGFR is not calculated for patients <18 years of age or gender unknown. This is an estimated GFR calculation using the new CKD EPI creatinine equation without race and so does not require a correction factor for race. This estimated GFR should not be used for calculating drug doses. 05/04/2025 4:09 PM CDT us Josesito Low ORTHOTIC PRACTITIONER LABORATORY Final Result [facility] [address] [place] [address], * (ABNORMAL) CBC W/DIFF AUTOMATED (05/04/2025 4:09 PM CDT) [facility] WBC 7.27 4.5 - 11.0 x10'3/uL 05/04/2025 4:[address] [facility] RBC 4.16(L) 4.20 - 5.40 x10'6/uL 05/04/2025 4:[address] [facility] HGB 10.7(L) 12.0 - 16.0 G/DL 05/04/2025 4:[address] [facility] HCT 31.3(L) 38.0 - 48.0 % 05/04/2025 4:[address] [facility] MCV 75.2(L) 81.0 - 99.0 FL 05/04/2025 4:[address] [facility] MCH 25.7(L) 27.0 - 31.0 PG 05/04/2025 4:[address] [facility] MCHC 34.2 32.0 - 36.0 G/DL 05/04/2025 4:[address] [facility] RDW 12.2 11.5 - 14.5 % 05/04/2025 4:[address] [facility] PLT 186 130 - 400 x10'3/uL 05/04/2025 4:[address] [facility] MPV 11.1 9.3 - 12.2 FL 05/04/2025 4:[address] [facility] DIFFERENTIAL TYPE AUTOMATED DIFFERENTIAL 05/04/2025 4:[address] [facility] NEUTROPHILS % 67.9 % 05/04/2025 4:[address] [facility] LYMPHOCYTES % 22.0 % 05/04/2025 4:[address] [facility] MONOCYTES % 8.9 % 05/04/2025 4:[address] [facility] EOSINOPHILS 0.6 % 05/04/2025 4:[address] [facility] BASOPHILS 0.3 % 05/04/2025 4:[address] [facility] IMMATURE GRANS % 0.3 % 05/04/20 4:[address] [facility] ABS. NEUTROPHILS 4.94 1.80 - 7.70 x10'3/uL 05/04/2025 4:[address] [facility] ABS. LYMPHOCYTES 1.60 1.00 - 4.80 x10'3/uL 05/04/2025 4:[address] [facility] ABS. MONOCYTES 0.65 0.24 - 0.86 x10'3/uL 05/04/2025 4:[address] [facility] ABS. EOSINOPHILS 0.04 0.04 - 0.36 x10'3/uL 05/04/2025 4:[address] [facility] ABS. BASOPHILS 0.02 0.01 - 0.08 x10'3/uL 05/04/2025 4:[address] [facility] ABS. IMMATURE GRANULOCYTES 0.02 0.00 - 0.49 x10'3/uL 05/04/2025 4:[address] [facility] 05/04/2025 4:09 PM CDT us Josesito C Low ORTHOTIC PRACTITIONER LABORATORY Final Result [facility] [address] [place] [address], [place] [phone] * (ABNORMAL) Blood gas, venous (05/04/2025 3:52 PM CDT) PH VENOUS 7.36 7.32 - 7.43 05/04/2025 4:[address] [facility] PCO2 VENOUS 48.0 MMHG 05/04/2025 4:[address] [facility] Comment:NO REFERENCE RANGE H BEEN ESTABLISHED PO2 VENOUS 24.0 MM HG 05/04/2025 4:[address] [facility] Comment:NO REFERENCE RANGE H BEEN ESTABLISHED TOTAL CO2 VENOUS 28.6(H) 22.0 - 26.0 MMOL/L 05/04/2025 4:[address] [facility] VENOUS BASE EXCESS 1.0 MMOL/L 05/04/2025 4:[address] [facility] Comment:NO REFERENCE RANGE H BEEN ESTABLISHED O2 SAT VENOUS 40 % 05/04/2025 4:[address] [facility] Comment:NO REFERENCE RANGE H BEEN ESTABLISHED BICARB VENOUS 27.1 22.0 - 29.0 MMOL/L 05/04/2025 4:[address] [facility] O2 ADMIN VENOUS 21 4:[address] [facility] 05/04/2025 3:52 PM CDT Josesito Low ORTHOTIC PRACTITIONER LABORATORY Final Result [facility] [address] [place] [address], [place] [phone] * (ABNORMAL) POCT glucose (05/04/2025 3:35 PM CDT) GLUCOSE POC >500() 70 - 99 mg/dL 05/04/2025 3:[address] [facility] 05/04/2025 3:35 PM CDT us Attending Physician Emergency MD POCT ORDERABLES - DEVICE Final Result [facility] [address] [place] [address], documented in this encounter Visit Diagnoses Diagnosis CHF (congestive heart failure) ([facility])- Primary Congestive heart failure, unspecified UTI (urinary tract infection) Urinary tract infection, site not specified Type 2 diabetes mellitus with hyperglycemia ([facility]) Type II or unspecified type diabetes mellitus without mention of complication, not stated as uncontrolled CORBIN (acute kidney injury) Acute kidney failure, unspecified Acute on chronic diastolic congestive heart failure ([facility]) Acute on chronic diastolic heart failure Chronic diastolic congestive heart failure ([facility]) Chronic diastolic heart failure CHF (congestive heart failure) ([facility]) Congestive heart failure, unspecified 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, with long-term current use of insulin ([facility]) Hyperglycemia Other abnormal glucose documented in this encounter Admitting Diagnoses Diagnosis Hyperglycemia Other abnormal glucose CHF (congestive heart failure) ([facility]) Congestive heart failure, unspecified documented in this encounter Administered Medications Inactive Administered Medications - up to 3 most recent administrations Medication Order MAR Action Action Date Dose Rate Site acetaminophen (TYLENOL) tablet 650 mg 650 mg, Oral, Every 4 hours PRN, Mild pain (Scale 1 - 3), Headaches, Fever, Discomfort, Starting on 05/04/25 at 2106, Until Moraima 05/07/25 at 1452, Maximum dose of acetaminophen is 4000 mg from all sources in 24 hours. aspirin EC (ECOTRIN) tablet 81 mg 81 mg, Oral, Daily, First dose on Sun05/05/25 at 0900, Until Discontinued, Do not break, chew, or crush. Given 05/07/2025 8:44 AM CDT 81 mg Given 05/06/2025 8:50 AM CDT 81 mg Given 05/05/2025 8:44 AM CDT 81 mg atorvastatin (LIPITOR) tablet 40 mg 40 mg, Oral, Daily, First dose on Sun05/05/25 at 0900, Until Discontinued Given 05/07/2025 8:44 AM CDT 40 mg Given 05/06/2025 8:49 AM CDT 40 mg Given 05/05/2025 8:44 AM CDT 40 mg cefTRIAXone (ROCEPHIN) 1 g in sodium chloride 0.9 % 50 mL IVPB 1 g, Intravenous, at 160 mL/hr, Once, 1 dose, On Sun05/04/25 at 1730 New Bag 05/04/2025 6:42 PM CDT 1 g 160 mL/hr cefTRIAXone (ROCEPHIN) 1 g in sodium chloride 0.9 % 50 mL IVPB 1 g, Intravenous, at 160 mL/hr, Every 24 hours, 5 doses, First dose on Sun05/05/25 at 1830, Last dose on Sun05/09/25 at 1830 New Bag 05/05/2025 6:26 PM CDT 1 g 160 mL/h r dextrose 10 % bolus infusion 125-250 mL 125-250 mL, Intravenous, Administer over 15 Minutes, As needed, Low Blood Sugar, Starting on Sun05/04/25 at 2106, Until Sun05/07/25 at 1452, If patient is verbally responsive and NPO or unable to swallow: Blood glucose less than 50 mg/dL - give 250 mL (25 g) and repeat until blood glucose reaches 70 mg/dL Blood glucose 50-69 mg/dL - give 125 mL (12.5 g) and repeat until blood glucose reaches 70 mg/dL If patient is verbally Unresponsive and NPO or unable to swallow: Blood glucose less than 70 mg/dL - give 250 mL (25 g), repeat until blood glucose reaches 70 mg/dL docusate sodium (COLACE) capsule 100 mg 100 mg, Oral, Every 24 hours, First dose (after last reorder) on Sun05/05/25 at 0700, Until Discontinued Given 05/07/2025 8:44 AM CDT 100 mg Given 05/06/2025 8:50 AM CDT 100 mg Given 05/05/2025 8:44 AM CDT 100 mg ferrous sulfate EC tablet 324 mg 324 mg, Oral, Daily with breakfast, First dose on Sun05/07/25 at 0800, Until Discontinued, Give 2 hours before or 4 hours after antacids. Do not break, chew, or crush. Given 05/07/2025 8:44 AM CDT 324 mg fluticasone propionate (FLONASE) 50 MCG/ACT nasal spray 1 spray 1 spray, Each Nostril, 2 times daily, First dose (after last modification) on Sun05/05/25 at 0700, Until Discontinued Given 05/07/2025 8:45 AM CDT 1 spray Given 05/06/2025 8:11 PM CDT 1 spray Given 05/06/2025 8:54 AM CDT 1 spray furosemide (LASIX) injection 40 mg 40 mg, Intravenous, 2 times daily, First dose on Sun05/05/25 at 0000, Until Discontinued, Administer IV push 20-40mg/min. Given 05/05/2025 8:44 AM CDT 40 mg Given 05/05/2025 2:18 AM CDT 40 mg glucagon injection 1 mg 1 mg, Intramuscular, Once as needed, Other, Low blood sugar, 1 dose, Starting on Sun05/04/25 at 2106, Until Sun05/07/25 at 1452, If patient is verbally UNresponsive and no IV access with blood glucose less than 70 mg/dL. Do NOT repeat administration. glucose oral gel 32-64 mL 32-64 mL (15-30 g of dextrose), Oral, As needed, Low blood sugar, Starting on Sun05/04/25 at 2106, Until Sun05/07/25 at 1452, If patient is verbally responsive and taking thickened liquids or oral medications: Blood glucose less than 50 mg/dL - give 30 g of dextrose; repeat until blood glucose reaches 70 mg/dL Blood glucose 50-69 mg/dL - give 15 g of dextrose; repeat until blood glucose reaches 70 mg/dL 32 mL of glucose gel = 15 g of dextrose heparin (porcine) injection 5,000 Units 5,000 Units, Subcutaneous, Every 12 hours scheduled (2 times per day), First dose on Sun05/04/25 at 2115, Until Discontinued Given 05/07/2025 8:44 AM CDT 5,000 Units Left Lower Abdomen Given 05/06/2025 8:12 PM CDT 5,000 Units L eft Upper Abdomen Given 05/06/2025 8:50 AM CDT 5,000 Units L eft Upper Abdomen HYDROcodone-acetaminophen (NORCO) 5-325 MG tablet 1 tablet 1 tablet, Oral, Every 4 hours PRN, Moderate pain (Scale 4 - 7), Starting on Sun05/04/25 at 2106, Until Sun05/07/25 at 1452, Maximum dose of acetaminophen is 4000 mg from all sources in 24 hours. HYDROmorphone (DILAUDID) injection 0.2 mg 0.2 mg, Intravenous, Every 2 hours PRN, Severe pain (Scale 8 - 10), Starting on Sun05/04/25 at 2107, Until [place] 05/07/25 at 1452, Administer slowly over at least 2-3 minutes. insulin glargine (LANTUS) injection 20 Units 20 Units, Subcutaneous, Nightly at bedtime, First dose (after last modification) on Sun05/05/25 at 2100, Until Discontinued Given 05/06/2025 8:12 PM CDT 20 Units Left Upper Abdomen Given 05/05/2025 8:41 PM CDT 20 Units Le ft Upper Abdomen insulin lispro (HUMALOG/ADMELOG) injection 0-16 Units 0-16 Units, Subcutaneous, 3 times daily before meals, First dose on Sun05/05/25 at 0700, Until Discontinued, Blood Glucose (USUAL Dosing): [Less than 70: Initiate Hypoglycemia Standing Orders] [71-140: 0 units] [141-180: 4 units] [181-220: 6 units] [221-260: 8 units] [261-300: 10 units] [301-350: 12 units] [351-400: 14 units] [Greater than 400: 16 units and Call Physician] Given 05/07/2025 12:25 PM CDT 8 Units Right Lower Abdomen Given 05/06/2025 6:15 PM CDT 12 Units Le ft Upper Abdomen Given 05/06/2025 12:29 PM CDT 16 Units L eft Upper Abdomen insulin lispro (HUMALOG/ADMELOG) injection 0-8 Units 0-8 Units, Subcutaneous, Nightly at bedtime, First dose on Sun05/04/25 at 2115, Until Discontinued, Blood Glucose (USUAL Dosing): [Less than 70: Initiate Hypoglycemia Standing Orders] [71-180: 0 units] [181-220: 3 units] [221-260: 4 units] [261-300: 5 units] [301-350: 6 units] [351-400: 7 units] [Greater than 400: 8 units and Call Physician] Given 05/06/2025 8:12 PM CDT 6 Units Left Upper Abdomen Given 05/05/2025 8:41 PM CDT 3 Units Le ft Upper Abdomen Given 05/04/2025 11:14 PM CDT 8 Units L eft Lower Abdomen insulin regular (NOVOLIN R/HUMULIN R) injection 10 Units 10 Units, Intravenous, Once, 1 dose, On Sun05/04/25 at 1730, For sliding scale, activate Sliding Scale Insulin order set. Given 05/04/2025 6:53 PM CDT 10 Units iopamidol (ISOVUE-370) 76 % injection 80 mL 80 mL, Intravenous, IMG once as needed, Contrast, 1 dose, Starting on Sun05/06/25 at 1308, Until Sun05/06/25 at 1308 Given 05/06/2025 1:08 PM CDT 80 mLs iopamidol (ISOVUE-370) 76 % injection 80 mL 80 mL, Intravenous, IMG once as needed, Contrast, 1 dose, Starting on Sun05/06/25 at 1308, Until Sun05/07/25 at 1452 mometasone-formoterol (DULERA) 100-5 MCG/ACT inhaler 1 puff 1 puff, Inhalation, 2 times daily RT, First dose on Sun05/05/25 at 0000, Until Discontinued, Following administration, rinse mouth with water after use (do not swallow) to reduce risk of oral candidiasis. Given 05/06/2025 8:48 PM CDT 1 puff Given 05/06/2025 8:18 AM CDT 1 puff Given 05/05/2025 8:36 PM CDT 1 puff naLOXone (NARCAN) injection 0.4 mg 0.4 mg, Intravenous, As needed, Opioid reversal, Starting on Sun05/04/25 at 2106, Until Moraima 05/07/25 at 1452, IM administration: Anterolateral aspect of thigh nystatin (MYCOSTATIN) 914126 UNIT/ML suspension 5 mL 5 mL, Oral, 4 times daily, First dose on Sun05/05/25 at 0000, Until Discontinued, Shake Well. Swish & Swallow. Given 05/07/2025 12:27 PM CDT 5 mLs Given 05/06/2025 8:11 PM CDT 5 mLs Given 05/06/2025 2:16 PM CDT 5 mLs ondansetron (ZOFRAN) injection 4 mg 4 mg, Intravenous, Every 6 hours PRN, Nausea, Vomiting, Starting on Sun05/04/25 at 2106, Until Sun05/07/25 at 1452, IV push over 2-5 minutes. pantoprazole EC (PROTONIX) tablet 20 mg 20 mg, Oral, Daily, First dose on Sun05/05/25 at 0900, Until Discontinued, Do not break, chew, or crush. Given 05/07/2025 8:44 AM CDT 20 mg Given 05/06/2025 8:50 AM CDT 20 mg Given 05/05/2025 8:44 AM CDT 20 mg perflutren lipid microsphere (DEFINITY) injection 2 mL 2 mL, Intravenous, IMG once as needed, Contrast, 1 dose, Starting on Sun05/06/25 at 0941, Until Sun05/06/25 at 0930, Administer over 30-60 seconds. Follow with 10 mL saline flush. Given 05/06/2025 9:30 AM CDT 2 mLs polyethylene glycol (GLYCOLAX) packet 17 g 17 g, Oral, Daily as needed, Constipation, Starting on Sun05/04/25 at 2106, Until Moraima 05/07/25 at 1452 potassium chloride CR (K-TAB) tablet 40 mEq 40 mEq, Oral, Once, 1 dose, On Sun05/05/25 at 0830, Do not break, chew, or crush. Given 05/05/2025 9:07 AM CDT 40 mEq sodium chloride 0.9% bolus infusion 1,000 mL 1,000 mL, Intravenous, Administer over 60 Minutes, Once, 1 dose, On Sun05/04/25 at 1600 New Bag 05/04/2025 4:18 PM CDT 1,000 mLs 1000 mL/hr sodium chloride 0.9% infusion at 50 mL/hr, Intravenous, Once, 1 dose, On Sun05/04/25 at 1745 New Bag 05/04/2025 6:58 PM CDT 50 mL/hr vitamin D3 (cholecalciferol) tablet 50 mcg 50 mcg, Oral, Daily, First dose on Sun05/05/25 at 0900, Until Discontinued Given 05/07/2025 8:44 AM CDT 50 mcg Given 05/06/2025 8:49 AM CDT 50 mcg Given 05/05/2025 8:44 AM CDT 50 mcg documented in this encounter Active and Recently Administered Medications Times are shown in CDT. Scheduled Medication Order 05/05/2025 05/06/2025 05/07/2025 aspirin EC (ECOTRIN) tablet 81 mg 81 mg, Oral, Daily, First dose on Sun05/05/25 at 0900, Until Discontinued, Do not break, chew, or crush. 0844 (Given - Provider: Petros Plasencia RN) 0850 (Given - Provider: Logan Huitron RN) 0844 (Given - Provider: Trina Gutierrez, TYESHA) atorvastatin (LIPITOR) tablet 40 mg 40 mg, Oral, Daily, First dose on Sun05/05/25 at 0900, Until Discontinued 0844 (Given - Provider: Petros Plasencia RN) 0849 (Given - Provider: Logan Huitron, TYESHA) 0844 (Given - Provider: Trina Gutierrez, TYESHA) cefTRIAXone (ROCEPHIN) 1 g in sodium chloride 0.9 % 50 mL IVPB (CANCELED) 1 g, Intravenous, at 160 mL/hr, Every 24 hours, 5 doses, First dose on Sun05/05/25 at 1830, Last dose on Sun05/09/25 at 1830 1826 (New Bag - Provider: Akosua Bermudez, TYESHA)1910 (Infusion Stop Time - Provider: Akosua Bermudez, RN) docusate sodium (COLACE) capsule 100 mg 100 mg, Oral, Every 24 hours, First dose (after last reorder) on Sun05/05/25 at 0700, Until Discontinued 0844 (Given - Provider: Petros Plasencia RN) 0850 (Given - Provider: Logan Huitron, TYESHA) 0844 (Given - Provider: Trina Gutierrez, TYESHA) ferrous sulfate EC tablet 324 mg 324 mg, Oral, Daily with breakfast, First dose on Sun05/07/25 at 0800, Until Discontinued, Give 2 hours before or 4 hours after antacids. Do not break, chew, or crush. 0844 (Given - Provider: Trina Gutierrez RN) fluticasone propionate (FLONASE) 50 MCG/ACT nasal spray 1 spray 1 spray, Each Nostril, 2 times daily, First dose (after last modification) on Sun05/05/25 at 0700, Until Discontinued 0845 (Given - Provider: Petros Plasencia RN)2042 (Given - Provider: Balir Kearns RN) 853 (Given - Provider: Logan Huitron, TYESHA)2010 (Given - Provider: Blair Kearns RN) 0845 (Given - Provider: Trina Gutierrez RN) furosemide (LASIX) injection 40 mg (CANCELED) 40 mg, Intravenous, 2 times daily, First dose on Sun05/05/25 at 0000, Until Discontinued, Administer IV push 20-40mg/min. 0218 (Given - Provider: Jose Covington RN)0844 (Given - Provider: Petros Plasencia RN) heparin (porcine) injection 5,000 Units(Linked Group 1) 5,000 Units, Subcutaneous, Every 12 hours scheduled (2 times per day), First dose on Sun05/04/25 at 2115, Until Discontinued 0846 (Given - Provider: Petros Plasencia RN)2040 (Given - Provider: Blair Kearns RN) 0850 (Given - Provider: Logan Huitron, TYESHA)2011 (Given - Provider: Blair Kearns RN) 0844 (Given - Provider: Trina Gutierrez RN) insulin glargine (LANTUS) injection 20 Units 20 Units, Subcutaneous, Nightly at bedtime, First dose (after last modification) on Sun05/05/25 at 2100, Until Discontinued 2040 (Given - Provider: Blair Kearns RN) 2011 (Given - Provider: Blair Kearns RN) insulin lispro (HUMALOG/ADMELOG) injection 0-16 Units(Linked Group 2) 0-16 Units, Subcutaneous, 3 times daily before meals, First dose on Sun05/05/25 at 0700, Until Discontinued, Blood Glucose (USUAL Dosing): [Less than 70: Initiate Hypoglycemia Standing Orders] [71-140: 0 units] [141-180: 4 units] [181-220: 6 units] [221-260: 8 units] [261-300: 10 units] [301-350: 12 units] [351-400: 14 units] [Greater than 400: 16 units and Call Physician] 0656 (Not Given - Provider: Petros Plasencia RN - Reason: Order parameters not met)1215 (Given - Provider: Petros Plasencia RN)1747 (Given - Provider: Akosua Bermudez RN) 0635 (Not Given - Provider: Blair Kearns RN - Reason: Order parameters not met - Comment: 122)1229 (Given - Provider: Logan Huitron RN)1815 (Given - Provider: Logan Huitron RN) 0622 (Not Given - Provider: Blair Kearns RN - Reason: Order parameters not met)1225 (Given - Provider: Romelia Durant RN) insulin lispro (HUMALOG/ADMELOG) injection 0-8 Units(Linked Group 2) 0-8 Units, Subcutaneous, Nightly at bedtime, First dose on Sun05/04/25 at 2115, Until Discontinued, Blood Glucose (USUAL Dosing): [Less than 70: Initiate Hypoglycemia Standing Orders] [71-180: 0 units] [181-220: 3 units] [221-260: 4 units] [261-300: 5 units] [301-350: 6 units] [351-400: 7 units] [Greater than 400: 8 units and Call Physician] 2040 (Given - Provider: Blair Kearns RN) 2011 (Given - Provider: Blair Kearns RN) mometasone-formoterol (DULERA) 100-5 MCG/ACT inhaler 1 puff 1 puff, Inhalation, 2 times daily RT, First dose on Sun05/05/25 at 0000, Until Discontinued, Following administration, rinse mouth with water after use (do not swallow) to reduce risk of oral candidiasis. 0126 (Not Given - Provider: Suresh Lackey, CASTING MACHINE SET UP OPERATOR - Reason: Other - Comment: BID TO BEGIN IN AM)0812 (Given - Provider: Maggi Burton, CORE CHECKER)2035 (Given - Provider: Ellen Camejo, CORE CHECKER) 08 (Given - Provider: Cecile Lane, CASTING MACHINE SET UP OPERATOR)2047 (Given - Provider: Lynne Thomas, CASTING MACHINE SET UP OPERATOR) 0823 (Not Given - Provider: Mandy Caal, CASTING MACHINE SET UP OPERATOR - Reason: Not in room) nystatin (MYCOSTATIN) 023444 UNIT/ML suspension 5 mL 5 mL, Oral, 4 times daily, First dose on Sun05/05/25 at 0000, Until Discontinued, Shake Well. Swish & Swallow. 0605 (Not Given - Provider: Jose Covington RN - Reason: Other - Comment: Retime)0845 (Given - Provider: Petros Plasencia RN)1215 (Given - Provider: Petros Plasencia RN)1747 (Given - Provider: Akosua Bermudez, TYESHA)204 (Given - Provider: Blair Kearns RN) 0849 (Given - Provider: Logan Huitron RN)1416 (Given - Provider: Logan Huitron RN)1600 (Canceled Entry - Provider: Automatic Discharge Provider - Comment: Automatically canceled at discontinue of medication order)2010 (Given - Provider: Blair Kearns RN) 0844 (Not Given - Provider: Trina Gutierrez RN - Reason: Other)1227 (Given - Provider: Romelia Durant RN) pantoprazole EC (PROTONIX) tablet 20 mg 20 mg, Oral, Daily, First dose on Sun05/05/25 at 0900, Until Discontinued, Do not break, chew, or crush. 0844 (Given - Provider: Petros Plasencia RN) 0850 (Given - Provider: Logan Huitron RN) 0844 (Given - Provider: Trina Gutierrez RN) potassium chloride CR (K-TAB) tablet 40 mEq (COMPLETED) 40 mEq, Oral, Once, 1 dose, On Sun05/05/25 at 0830, Do not break, chew, or crush. 0907 (Given - Provider: Petros Plasencia RN) vitamin D3 (cholecalciferol) tablet 50 mcg 50 mcg, Oral, Daily, First dose on Sun05/05/25 at 0900, Until Discontinued 0844 (Given - Provider: Petros Plasencia RN) 0849 (Given - Provider: Logan Huitron RN) 0844 (Given - Provider: Trina Gutierrez RN) PRN Medication Order 05/05/2025 05/06/2025 05/07/2025 acetaminophen (TYLENOL) tablet 650 mg 650 mg, Oral, Every 4 hours PRN, Mild pain (Scale 1 - 3), Headaches, Fever, Discomfort, Starting on Sun05/04/25 at 2106, Until Sun05/07/25 at 1452, Maximum dose of acetaminophen is 4000 mg from all sources in 24 hours. albuterol sulfate HFA 108 (90 Base) MCG/ACT inhaler 2 puff 2 puff, Inhalation, Every 6 hours PRN, Shortness of breath, Wheezing, Starting on Sun05/04/25 at 2351, Until Moraima 05/07/25 at 1452 dextrose 10 % bolus infusion 125-250 mL 125-250 mL, Intravenous, Administer over 15 Minutes, As needed, Low Blood Sugar, Starting on Sun05/04/25 at 2106, Until Moraima 05/07/25 at 1452, If patient is verbally responsive and NPO or unable to swallow: Blood glucose less than 50 mg/dL - give 250 mL (25 g) and repeat until blood glucose reaches 70 mg/dL Blood glucose 50-69 mg/dL - give 125 mL (12.5 g) and repeat until blood glucose reaches 70 mg/dL If patient is verbally Unresponsive and NPO or unable to swallow: Blood glucose less than 70 mg/dL - give 250 mL (25 g), repeat until blood glucose reaches 70 mg/dL glucagon injection 1 mg 1 mg, Intramuscular, Once as needed, Other, Low blood sugar, 1 dose, Starting on Sun05/04/25 at 2106, Until Moraima 05/07/25 at 1452, If patient is verbally UNresponsive and no IV access with blood glucose less than 70 mg/dL. Do NOT repeat administration. glucose oral gel 32-64 mL 32-64 mL (15-30 g of dextrose), Oral, As needed, Low blood sugar, Starting on Sun05/04/25 at 2106, Until Sun05/07/25 at 1452, If patient is verbally responsive and taking thickened liquids or oral medications: Blood glucose less than 50 mg/dL - give 30 g of dextrose; repeat until blood glucose reaches 70 mg/dL Blood glucose 50-69 mg/dL - give 15 g of dextrose; repeat until blood glucose reaches 70 mg/dL 32 mL of glucose gel = 15 g of dextrose HYDROcodone-acetaminophen (NORCO) 5-325 MG tablet 1 tablet 1 tablet, Oral, Every 4 hours PRN, Moderate pain (Scale 4 - 7), Starting on Sun05/04/25 at 2106, Until Sun05/07/25 at 1452, Maximum dose of acetaminophen is 4000 mg from all sources in 24 hours. HYDROmorphone (DILAUDID) injection 0.2 mg 0.2 mg, Intravenous, Every 2 hours PRN, Severe pain (Scale 8 - 10), Starting on Sun05/04/25 at 2107, Until Sun05/07/25 at 1452, Administer slowly over at least 2-3 minutes. iopamidol (ISOVUE-370) 76 % injection 80 mL (COMPLETED) 80 mL, Intravenous, IMG once as needed, Contrast, 1 dose, Starting on Sun05/06/25 at 1308, Until Sun05/06/25 at 1308 1308 (Given - Provider: Matthew Nicholson RTR) iopamidol (ISOVUE-370) 76 % injection 80 mL 80 mL, Intravenous, IMG once as needed, Contrast, 1 dose, Starting on Sun05/06/25 at 1308, Until Sun05/07/25 at 1452 naLOXone (NARCAN) injection 0.4 mg 0.4 mg, Intravenous, As needed, Opioid reversal, Starting on Sun05/04/25 at 2106, Until Sun05/07/25 at 1452, IM administration: Anterolateral aspect of thigh ondansetron (ZOFRAN) injection 4 mg 4 mg, Intravenous, Every 6 hours PRN, Nausea, Vomiting, Starting on Sun05/04/25 at 2106, Until Sun05/07/25 at 1452, IV push over 2-5 minutes. perflutren lipid microsphere (DEFINITY) injection 2 mL (COMPLETED) 2 mL, Intravenous, IMG once as needed, Contrast, 1 dose, Starting on Sun05/06/25 at 0941, Until Sun05/06/25 at 0930, Administer over 30-60 seconds. Follow with 10 mL saline flush. 0930 (Given - Provider: Freddy Aguirre [facility]) polyethylene glycol (GLYCOLAX) packet 17 g 17 g, Oral, Daily as needed, Constipation, Starting on Sun05/04/25 at 2106, Until Sun05/07/25 at 1452 Linked Groups Order Group 1: heparin (porcine) injection 5,000 UnitsJump to med 5,000 Units, Subcutaneous, Every 12 hours scheduled (2 times per day), First dose on Sun05/04/25 at 2115, Until Discontinued And Moderate Risk for VTE (COMPLETED) Group 2: insulin lispro (HUMALOG/ADMELOG) injection 0-16 UnitsJump to med 0-16 Units, Subcutaneous, 3 times daily before meals, First dose on Sun05/05/25 at 0700, Until Discontinued, Blood Glucose (USUAL Dosing): [Less than 70: Initiate Hypoglycemia Standing Orders] [71-140: 0 units] [141-180: 4 units] [181-220: 6 units] [221-260: 8 units] [261-300: 10 units] [301-350: 12 units] [351-400: 14 units] [Greater than 400: 16 units and Call Physician] And insulin lispro (HUMALOG/ADMELOG) injection 0-8 UnitsJump to med 0-8 Units, Subcutaneous, Nightly at bedtime, First dose on Sun05/04/25 at 2115, Until Discontinued, Blood Glucose (USUAL Dosing): [Less than 70: Initiate Hypoglycemia Standing Orders] [71-180: 0 units] [181-220: 3 units] [221-260: 4 units] [261-300: 5 units] [301-350: 6 units] [351-400: 7 units] [Greater than 400: 8 units and Call Physician] documented in this encounter Additional Health Concerns Infection Onset Date Last Indicated Resolved Time Respiratory Rule Out 05/05/2025 05/05/2025 025 3:25 PM CDT Assessment Noted Time PHQ-9 Depression Total Score: 0 08/21/19 25 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
[2025-05-08] VITALS (7 sets, daily range): BP systolic 128–175; BP diastolic 63–110; PULSE 74–80; RESP 13–17; TEMP 36.7; O2SAT 98–100; BMI 29.8; BMI 31.6
[2025-05-08 14:25] LABS: Add Urine Microscopic? YES; Appearance Urine Clear (Clear); Glucose Urine UA 3+ mg/dL (Negative); Leukocyte Esterase Ur Negative LEU/UL (Negative); Nitrate Urine Negative (Negative); Non Pathogenic Casts 0-2; Specific Grav Ur 1.025 (1.001-1.035)
--- NOTE | 2025-05-08 16:35 | ED.GENADULT ---
HPI - General Adult General Chief complaint: Unspecified <Avani Looney PA-C - Last Filed: 05/11/25 10:06> Stated complaint: DM1, hyperglycemia <Avani Looney PA-C - Last Filed: 05/11/25 10:06> Time Seen by Provider: 05/08/25 16:35 <Avani Looney PA-C - Last Filed: 05/11/25 10:06> Focused HPI: This is a 74 year old female that presents to the ER for elevated blood sugar. Reports history of DM. She has been taking her diabetic medications as prescribed. Reports she was just discharged from [facility] yesterday, admitted for UTI, elevated blood sugars. Her outpatient medications were not changed upon discharge. Denies fever, abdominal pain, vomiting. GENERAL: Well-appearing, well-nourished, and in no acute distress. HEAD: Normocephalic, atraumatic. CHEST: Clear to auscultation. ?No respiratory distress. HEART: Regular rate and rhythm.? NEURO: ?Alert and oriented x3. Patient screened in triage and initial orders placed.? ?Additional care and disposition to be based upon?diagnostic testing and treatment. <Avani Looney PA-C - Last Filed: 05/11/25 10:06> Focused HPI: This is a 74 year old female that presents to the ER for elevated blood sugar. Reports history of DM. She has been taking her diabetic medications as prescribed. Reports she was just discharged from [facility] yesterday, admitted for UTI, elevated blood sugars. Her outpatient medications were not changed upon discharge. Denies fever, abdominal pain, vomiting. GENERAL: Well-appearing, well-nourished, and in no acute distress. HEAD: Normocephalic, atraumatic. CHEST: Clear to auscultation. ?No respiratory distress. HEART: Regular rate and rhythm.? NEURO: ?Alert and oriented x3. Patient screened in triage and initial orders placed.? ?Additional care and disposition to be based upon?diagnostic testing and treatment. <Nia Morrison PA-C - Last Filed: 05/08/25 20:33> Source: patient <Nia Morrison PA-C - Last Filed: 05/08/25 20:33> Mode of arrival: ambulatory <Nia Morrison PA-C - Last Filed: 05/08/25 20:33> Limitations: no limitations <Nia Morrison PA-C - Last Filed: 05/08/25 20:33> History of Present Illness HPI narrative: Agree with above HPI. Reports she takes 24 units of Lantus in the mornings, Humalog 7 units with meals, glimepiride. 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 States her blood sugar was in the 500s this morning. Reports increased thirst/hunger, frequent urination. Denies pain, fevers. <Nia Morrison PA-C - Last Filed: 05/08/25 20:33> Related Data Home medications: Home Medications ?Medication ?Instructions ?Recorded ?Confirmed ?Last Taken ?Type albuterol sulfate 90 mcg/actuation 2 puff inhalation Q6H PRN 03/27/25 Unknown History aerosol inhaler (Ventolin HFA) ammonium lactate 12 % lotion 1 applic topical DAILY 03/27/25 Unknown History cholecalciferol (vitamin D3) 50 50 mcg PO DAILY 03/27/25 Unknown History mcg (2,000 unit) capsule diclofenac sodium 1 % topical gel 2 g topical QID 03/27/25 Unknown History (Arthritis Pain (diclofenac)) nitroglycerin 0.4 mg sublingual 0.4 mg sublingual Q5M PRN 03/27/25 Unknown History tablet omeprazole 20 mg capsule,delayed 20 mg PO DAILY 03/27/25 Unknown History release albuterol sulfate 90 mcg/actuation 2 inh inhalation Q6H SOB/Wheezing 05/08/25 05/08/25 05/08/25 History aerosol inhaler ammonium lactate 12 % lotion 1 applic topical PRN Dry skin 05/08/25 05/08/25 Unknown History aspirin 81 mg tablet 81 mg PO DAILY 05/08/25 05/08/25 05/08/25 History blood sugar diagnostic (Accu-Chek 05/08/25 05/08/25 Unknown History Guide test strips) blood-glucose meter (Accu-Chek 05/08/25 05/08/25 Unknown History Guide Glucose Meter) budesonide-formoterol HFA 80 2 inh inhalation BID 05/08/25 05/08/25 05/08/25 History mcg-4.5 mcg/actuation aerosol inhaler (Symbicort) chlorthalidone 25 mg tablet 25 mg PO DAILY 05/08/25 05/08/25 05/08/25 History diclofenac sodium 1 % topical gel 2 g topical TID 05/08/25 05/08/25 Unknown History diphenhydramine 25 1 tablet PO HS 05/08/25 05/08/25 05/07/25 History mg-acetaminophen 500 mg tablet (Tylenol PM Extra Strength) docusate sodium 100 mg capsule 100 mg PO DAILY 05/08/25 05/08/25 05/08/25 History (Colace) fluticasone propionate 50 1 spray intranasal BID 05/08/25 05/08/25 05/08/25 History mcg/actuation nasal spray,suspension furosemide 20 mg tablet 20 mg PO DAILY 05/08/25 05/08/25 Unknown History glimepiride 4 mg tablet 4 mg PO DAILY 05/08/25 05/08/25 05/08/25 History glucagon 1 mg/0.2 mL subcutaneous 1 mg subcut PRN 05/08/25 05/08/25 Unknown History auto-injector (GvLK FREEMAN HypoPen 2-Pack) guaifenesin 1,200 mg tablet, 1,200 mg PO BID 05/08/25 05/08/25 Unknown History extended release 12 hr insulin lispro 100 unit/mL 6 unit subcut TID 05/08/25 05/08/25 05/08/25 History subcutaneous pen insulin syringe-needle U-100 1 mL 05/08/25 05/08/25 Unknown History 30 gauge x 1/2 (Ultra-Fine Insulin Syringe) nitroglycerin 0.4 mg sublingual 0.4 mg sublingual PRN 05/08/25 05/09/25 Unknown History tablet rosuvastatin 20 mg tablet 20 mg PO DAILY 05/08/25 05/08/25 05/08/25 History Terence Looney PA-C - Last Filed: 05/11/25 10:06> Allergies/adverse reactions: Allergies Allergy/AdvReac Type Severity Reaction Status Date / Time pneumococcal vaccine Allergy Severe Anaphylaxis Verified 05/11/25 11:27 aspirin Allergy Mild Itching Verified 05/11/25 11:27 lisinopril Allergy Mild Rash Verified 05/11/25 11:27 Penicillins Allergy Mild Rash Verified 05/11/25 11:27 tirzepatide (From Mounjaro) Allergy Mild Other Verified 05/11/25 11:27 canagliflozin Allergy Unknown Unknown Verified 05/11/25 11:27 dulaglutide Allergy Unknown shortness Verified 05/11/25 11:27 of breath metformin Allergy Unknown Rash Verified 05/11/25 11:27 eggs Allergy Intermediate Rash Uncoded 05/11/25 11:27 Pnuemococcal Allergy Intermediate Shortness Uncoded 05/11/25 11:27 of breath <Avani Looney PA-C - Last Filed: 05/11/25 10:06> Review of Systems Review of Systems: All systems reviewed & are unremarkable except as noted in HPI. <Nia Morrison PA-C - Last Filed: 05/08/25 20:33> All systems reviewed & are unremarkable except as noted in HPI and below <Nia Morrison PA-C - Last Filed: 05/08/25 20:33> [facility]LY [facility] Past Medical History Medical History: Medical History Type 2 diabetes mellitus with both eyes affected by mild nonproliferative retinopathy and macular edema, with long-term current use of insulin Precordial pain Morbid (severe) obesity due to excess calories Mild intermittent asthma Hyperlipemia, mixed GERD (gastroesophageal reflux disease) Essential (primary) hypertension Chronic diastolic (congestive) heart failure <Avani Looney PA-C - Last Filed: 05/11/25 10:06> Surgical History Surgical History: Surgical History (Updated 05/11/25 @ 11:27 by Marissa Bowser) Status post cataract extraction of both eyes with insertion of intraocular lens Hx of cholecystectomy History of total abdominal hysterectomy and bilateral salpingo-oophorectomy <Avani Looney PA-C - Last Filed: 05/11/25 10:06> Family History Family History: Family History Mother Diabetes mellitus <Avani Looney PA-C - Last Filed: 05/11/25 10:06> Social History Social History: Social History (System 05/11/25 @ 11:27 by Marissa Bowser) Smoking status: Never smoker <Avani Looney PA-C - Last Filed: 05/11/25 10:06> Exam Narrative: GENERAL: Well appearing, well-nourished, non-toxic, in no acute distress. HEAD: Normocephalic, atraumatic. RESPIRATORY: Airway patent, respirations nonlabored. Clear to auscultation bilaterally, no rales, rhonchi, wheezing. CARDIOVASCULAR: Regular rate and rhythm without murmurs, rubs, or gallops. ABDOMINAL: Soft, nontender, nondistended. Normoactive BS. MUSCULOSKELETAL: Moves all extremities. No gross deformities. SKIN: Warm, dry, normal color. NEURO: A&O X3. Speech clear. Cranial nerves II-XII grossly intact. Steady gait. No ataxic movements. PSYCHIATRIC: Appropriate mood and affect. Normal interaction. <Nia Morrison PA-C - Last Filed: 05/08/25 20:33> Course SALES MANAGER/PA Physician Supervision This visit was performed by both a physician and an APC. I performed all aspects of the MDM as documented. <Martínez Durant MD - Last Filed: 05/12/25 07:46> Vital Signs Vital signs: Vital Signs Temperature 98.0 F 05/08/25 16:42 Pulse Rate 75 05/08/25 16:42 Respiratory Rate 17 05/08/25 16:42 Blood Pressure 131/71 05/08/25 16:42 Pulse Oximetry 100 05/08/25 16:42 Temperature 97.9 F 05/11/25 06:00 Pulse Rate 70 05/11/25 08:19 Respiratory Rate 16 05/11/25 08:00 Blood Pressure 124/59 L 05/11/25 06:00 Pulse Oximetry 99 05/11/25 08:00 Oxygen Delivery Room Air 05/11/25 08:00 <Avani Looney PA-C - Last Filed: 05/11/25 10:06> Vital Signs Temperature 98.0 F 05/08/25 16:42 Pulse Rate 75 05/08/25 16:42 Respiratory Rate 17 05/08/25 16:42 Blood Pressure 131/71 05/08/25 16:42 Pulse Oximetry 100 05/08/25 16:42 Temperature 97.9 F 05/11/25 06:00 Pulse Rate 70 05/11/25 08:19 Respiratory Rate 16 05/11/25 08:00 Blood Pressure 124/59 L 05/11/25 06:00 Pulse Oximetry 99 05/11/25 08:00 Oxygen Delivery Room Air 05/11/25 08:00 <Nia Morrison PA-C - Last Filed: 05/08/25 20:33> Vital Signs Temperature 98.0 F 05/08/25 16:42 Pulse Rate 75 05/08/25 16:42 Respiratory Rate 17 05/08/25 16:42 Blood Pressure 131/71 05/08/25 16:42 Pulse Oximetry 100 05/08/25 16:42 Temperature 97.9 F 05/11/25 06:00 Pulse Rate 70 05/11/25 08:19 Respiratory Rate 16 05/11/25 08:00 Blood Pressure 124/59 L 05/11/25 06:00 Pulse Oximetry 99 05/11/25 08:00 Oxygen Delivery Room Air 05/11/25 08:00 <Martínez Durant MD - Last Filed: 05/12/25 07:46> Medical Decision Making MDM Narrative Medical decision making narrative: Patient presented to ED with concern for elevated blood sugars, recently admitted to [facility] for similar. Reports blood sugar was 500 this morning, even after taking her normal morning dose of Lantus. Vital signs stable upon arrival. Blood sugar upon arrival >500 on our glucometer. Laboratory studies without leukocytosis. Mild anemia 11.4. CMP with BG 571. Normal anion gap. Normal bicarb. No evidence of DKA. Sodium corrected to 139 based on blood sugar. [employer] 1.44 today. No records to compare to. Fluids are ongoing. Hgb A1c 11.6%. Mild transaminitis noted. Again no records to compare to. Patient without any right upper quadrant pain at this time. UA with trace, 6-10 WBC. Sent for culture. Was reportedly recently treated for UTI. Patient given 2L fluid in the ED. Will be admitted for further eval, hyperglycemic management, diabetic medication management. Discussed case with Dawn PANG hospitalist, accepted patient for admission. Agrees w/ plan to give IV insulin now. Patient given 8U IV insulin, approx 1U/kg. Patient and family are in agreement with plan and admission. <Nia Morrison PA-C - Last Filed: 05/08/25 20:33> Patient presented to ED with concern for elevated blood sugars, recently admitted to [facility] for similar. Reports blood sugar was 500 this morning, even after taking her normal morning dose of Lantus. Vital signs stable upon arrival. Blood sugar upon arrival >500 on our glucometer. Laboratory studies without leukocytosis. Mild anemia 11.4. CMP with BG 571. Normal anion gap. Normal bicarb. No evidence of DKA. Sodium corrected to 139 based on blood sugar. [employer] 1.44 today. No records to compare to. Fluids are ongoing. Hgb A1c 11.6%. Mild transaminitis noted. Again no records to compare to. Patient without any right upper quadrant pain at this time. UA with trace, 6-10 WBC. Sent for culture. Was reportedly recently treated for UTI. Patient given 2L fluid in the ED. Will be admitted for further eval, hyperglycemic management, diabetic medication management. Discussed case with Dawn PANG hospitalist, accepted patient for admission. Agrees w/ plan to give IV insulin now. Patient given 8U IV insulin, approx 1U/kg. Patient and family are in agreement with plan and admission. This visit was performed by both a physician and an APC. I performed all aspects of the MDM as documented. <Martínez Durant MD - Last Filed: 05/12/25 07:46> Medical Records Medical records reviewed: Yes I reviewed the external patient's medical records. <Nia Morrison PA-C - Last Filed: 05/08/25 20:33> Vital Signs Vital Signs: Vital Signs Temperature 98.0 F 05/08/25 16:42 Pulse Rate 75 05/08/25 16:42 Respiratory Rate 17 05/08/25 16:42 Blood Pressure 131/71 05/08/25 16:42 Pulse Oximetry 100 05/08/25 16:42 Temperature 97.9 F 05/11/25 06:00 Pulse Rate 70 05/11/25 08:19 Respiratory Rate 16 05/11/25 08:00 Blood Pressure 124/59 L 05/11/25 06:00 Pulse Oximetry 99 05/11/25 08:00 Oxygen Delivery Room Air 05/11/25 08:00 <Avani Looney PA-C - Last Filed: 05/11/25 10:06> Vital Signs Temperature 98.0 F 05/08/25 16:42 Pulse Rate 75 05/08/25 16:42 Respiratory Rate 17 05/08/25 16:42 Blood Pressure 131/71 05/08/25 16:42 Pulse Oximetry 100 05/08/25 16:42 Temperature 97.9 F 05/11/25 06:00 Pulse Rate 70 05/11/25 08:19 Respiratory Rate 16 05/11/25 08:00 Blood Pressure 124/59 L 05/11/25 06:00 Pulse Oximetry 99 05/11/25 08:00 Oxygen Delivery Room Air 05/11/25 08:00 <DILSHAD Scott Last Filed: 05/08/25 20:33> Vital Signs Temperature 98.0 F 05/08/25 16:42 Pulse Rate 75 05/08/25 16:42 Respiratory Rate 17 05/08/25 16:42 Blood Pressure 131/71 05/08/25 16:42 Pulse Oximetry 100 05/08/25 16:42 Temperature 97.9 F 05/11/25 06:00 Pulse Rate 70 05/11/25 08:19 Respiratory Rate 16 05/11/25 08:00 Blood Pressure 124/59 L 05/11/25 06:00 Pulse Oximetry 99 05/11/25 08:00 Oxygen Delivery Room Air 05/11/25 08:00 <Martínez Durant MD - Last Filed: 05/12/25 07:46> Lab Data Lab results reviewed: Yes I reviewed the patient's lab results. <DILSHAD Scott Last Filed: 05/08/25 20:33> Result diagrams: 05/11/25 08:35 05/11/25 08:35 <DILSHAD Mark Last Filed: 05/11/25 10:06> Labs: Lab Results 09/26/25 09/26/25 09/26/25 Range/Units 14:15 17:49 18:01 WBC 4.5 (4.5-10.0) K/mm3 RBC 4.53 (4.2-5.4) M/mm3 Hgb 11.4 L (12.0-15.0) g/dL Hct 35.8 L (37.0-47.0) % MCV 79.0 L (80-100) fl MCH 25.2 L (26-34) pg MCHC 31.8 L (32-36) g/dl RDW 12.4 (11.5-14.5) % Plt Count 162 (150-375) k/mm3 MPV 11.1 H (7.4-10.4) fl Immature Gran % (Auto) 0.2 (0-0.5) % Neut % (Auto) 58.3 (45.5-73.1) % Lymph % (Auto) 27.8 (18.3-44.2) % [place] % (Auto) 10.9 H (2.6-8.5) % Eos % (Auto) 2.4 (0-4.4) % Baso % (Auto) 0.4 (0.2-1.2) % Lymph # (Auto) 1.25 (0.9-3.2) K/mm3 [place] # (Auto) 0.5 (0.1-0.6) K/mm3 Eos # (Auto) 0.1 (0-0.3) K/mm3 Baso # (Auto) 0.0 (0.0-0.1) K/mm3 Abs Immat Gran (auto) 0.01 (0.00-0.031) K/mm3 Absolute Neuts (auto) 2.6 (1.3-6.7) K/mm3 Absolute Nucleated RBC 0.000 (0.0-0.012) K/mm3 Nucleated RBC % 0.0 (0.0-0.2) % Sodium 131 L (137-145) mmol/L Potassium 4.4 (3.4-5.0) mmol/L Chloride 96 L (98-107) mmol/L Carbon Dioxide 25 (22-30) mmol/L Anion Gap 10 (4-12) mmol/L BUN 34 H (7-17) mg/dL Creatinine 1.44 H (0.7-1.0) mg/dL Estim Creat Clear Calc Not Reportable Estimated GFR 36 L (59 - ) Glucose 571 H* (65-110) mg/dL POC Capillary Glucose > 500 H* (65-105) mg/dl Hemoglobin A1c 11.6 H (<5.7) % Calcium 9.0 (8.4-10.2) mg/dL Phosphorus 3.4 (2.5-4.5) mg/dL Magnesium 2.1 (1.6-2.3) mg/dL Total Bilirubin 0.8 (0.2-1.3) mg/dL AST 66 H (14-36) U/L ALT 43 H (6-35) U/L Alkaline Phosphatase 137 H (38-126) U/L Total Protein 7.1 (6.3-8.2) g/dL Albumin 4.1 (3.5-5.1) g/dL Urine Color Yellow (Yellow) Urine Appearance Clear (Clear) Urine pH 6.5 (5.0-9.0) Ur Specific [place] 1.025 (1.001-1.035) Urine Protein 1+ H (Negative) mg/dL Urine Glucose (UA) 3+ H (Negative) mg/dL Urine Ketones Trace H (Negative) mg/dL Ur Blood (Man) Negative (Negative) Urine Nitrate Negative (Negative) Urine Bilirubin Negative (Negative) Urine Urobilinogen 0.2 (<2.0) mg/dL Leukocyte Esterase Rfl Negative (Negative) ADITI/UL Urine RBC 0-2 (0-2) /hpf Urine WBC 6-10 H (0-3) /hpf Ur Squamous Epith Cells Few (Few) /hpf Urine Bacteria None seen /hpf Urine Casts 0-2 <Avani Looney PA-C - Last Filed: 05/11/25 10:06> Lab Results 05/08/25 05/08/25 05/08/25 Range/Units 14:15 17:49 18:01 WBC 4.5 (4.5-10.0) K/mm3 RBC 4.53 (4.2-5.4) M/mm3 Hgb 11.4 L (12.0-15.0) g/dL Hct 35.8 L (37.0-47.0) % MCV 79.0 L (80-100) fl MCH 25.2 L (26-34) pg MCHC 31.8 L (32-36) g/dl RDW 12.4 (11.5-14.5) % Plt Count 162 (150-375) k/mm3 MPV 11.1 H (7.4-10.4) fl Immature Gran % (Auto) 0.2 (0-0.5) % Neut % (Auto) 58.3 (45.5-73.1) % Lymph % (Auto) 27.8 (18.3-44.2) % [place] % (Auto) 10.9 H (2.6-8.5) % Eos % (Auto) 2.4 (0-4.4) % Baso % (Auto) 0.4 (0.2-1.2) % Lymph # (Auto) 1.25 (0.9-3.2) K/mm3 [place] # (Auto) 0.5 (0.1-0.6) K/mm3 Eos # (Auto) 0.1 (0-0.3) K/mm3 Baso # (Auto) 0.0 (0.0-0.1) K/mm3 Abs Immat Gran (auto) 0.01 (0.00-0.031) K/mm3 Absolute Neuts (auto) 2.6 (1.3-6.7) K/mm3 Absolute Nucleated RBC 0.000 (0.0-0.012) K/mm3 Nucleated RBC % 0.0 (0.0-0.2) % Sodium 131 L (137-145) mmol/L Potassium 4.4 (3.4-5.0) mmol/L Chloride 96 L (98-107) mmol/L Carbon Dioxide 25 (22-30) mmol/L Anion Gap 10 (4-12) mmol/L BUN 34 H (7-17) mg/dL Creatinine 1.44 H (0.7-1.0) mg/dL Estim Creat Clear Calc Not Reportable Estimated GFR 36 L (59 - ) Glucose 571 H* (65-110) mg/dL POC Capillary Glucose > 500 H* (65-105) mg/dl Hemoglobin A1c 11.6 H (<5.7) % Calcium 9.0 (8.4-10.2) mg/dL Phosphorus 3.4 (2.5-4.5) mg/dL Magnesium 2.1 (1.6-2.3) mg/dL Total Bilirubin 0.8 (0.2-1.3) mg/dL AST 66 H (14-36) U/L ALT 43 H (6-35) U/L Alkaline Phosphatase 137 H (38-126) U/L Total Protein 7.1 (6.3-8.2) g/dL Albumin 4.1 (3.5-5.1) g/dL Urine Color Yellow (Yellow) Urine Appearance Clear (Clear) Urine pH 6.5 (5.0-9.0) Ur Specific [place] 1.025 (1.001-1.035) Urine Protein 1+ H (Negative) mg/dL Urine Glucose (UA) 3+ H (Negative) mg/dL Urine Ketones Trace H (Negative) mg/dL Ur Blood (Man) Negative (Negative) Urine Nitrate Negative (Negative) Urine Bilirubin Negative (Negative) Urine Urobilinogen 0.2 (<2.0) mg/dL Leukocyte Esterase Rfl Negative (Negative) ADITI/UL Urine RBC 0-2 (0-2) /hpf Urine WBC 6-10 H (0-3) /hpf Ur Squamous Epith Cells Few (Few) /hpf Urine Bacteria None seen /hpf Urine Casts 0-2 <Nia Morrison PA-C - Last Filed: 05/08/25 20:33> Lab Results 05/08/25 05/08/25 05/08/25 Range/Units 14:15 17:49 18:01 WBC 4.5 (4.5-10.0) K/mm3 RBC 4.53 (4.2-5.4) M/mm3 Hgb 11.4 L (12.0-15.0) g/dL Hct 35.8 L (37.0-47.0) % MCV 79.0 L (80-100) fl MCH 25.2 L (26-34) pg MCHC 31.8 L (32-36) g/dl RDW 12.4 (11.5-14.5) % Plt Count 162 (150-375) k/mm3 MPV 11.1 H (7.4-10.4) fl Immature Gran % (Auto) 0.2 (0-0.5) % Neut % (Auto) 58.3 (45.5-73.1) % Lymph % (Auto) 27.8 (18.3-44.2) % [place] % (Auto) 10.9 H (2.6-8.5) % Eos % (Auto) 2.4 (0-4.4) % Baso % (Auto) 0.4 (0.2-1.2) % Lymph # (Auto) 1.25 (0.9-3.2) K/mm3 [place] # (Auto) 0.5 (0.1-0.6) K/mm3 Eos # (Auto) 0.1 (0-0.3) K/mm3 Baso # (Auto) 0.0 (0.0-0.1) K/mm3 Abs Immat Gran (auto) 0.01 (0.00-0.031) K/mm3 Absolute Neuts (auto) 2.6 (1.3-6.7) K/mm3 Absolute Nucleated RBC 0.000 (0.0-0.012) K/mm3 Nucleated RBC % 0.0 (0.0-0.2) % Sodium 131 L (137-145) mmol/L Potassium 4.4 (3.4-5.0) mmol/L Chloride 96 L (98-107) mmol/L Carbon Dioxide 25 (22-30) mmol/L Anion Gap 10 (4-12) mmol/L BUN 34 H (7-17) mg/dL Creatinine 1.44 H (0.7-1.0) mg/dL Estim Creat Clear Calc Not Reportable Estimated GFR 36 L (59 - ) Glucose 571 H* (65-110) mg/dL POC Capillary Glucose > 500 H* (65-105) mg/dl Hemoglobin A1c 11.6 H (<5.7) % Calcium 9.0 (8.4-10.2) mg/dL Phosphorus 3.4 (2.5-4.5) mg/dL Magnesium 2.1 (1.6-2.3) mg/dL Total Bilirubin 0.8 (0.2-1.3) mg/dL AST 66 H (14-36) U/L ALT 43 H (6-35) U/L Alkaline Phosphatase 137 H (38-126) U/L Total Protein 7.1 (6.3-8.2) g/dL Albumin 4.1 (3.5-5.1) g/dL Urine Color Yellow (Yellow) Urine Appearance Clear (Clear) Urine pH 6.5 (5.0-9.0) Ur Specific [place] 1.025 (1.001-1.035) Urine Protein 1+ H (Negative) mg/dL Urine Glucose (UA) 3+ H (Negative) mg/dL Urine Ketones Trace H (Negative) mg/dL Ur Blood (Man) Negative (Negative) Urine Nitrate Negative (Negative) Urine Bilirubin Negative (Negative) Urine Urobilinogen 0.2 (<2.0) mg/dL Leukocyte Esterase Rfl Negative (Negative) ADITI/UL Urine RBC 0-2 (0-2) /hpf Urine WBC 6-10 H (0-3) /hpf Ur Squamous Epith Cells Few (Few) /hpf Urine Bacteria None seen /hpf Urine Casts 0-2 <Martínez Durant MD - Last Filed: 05/12/25 07:46> Critical Care Time Critical Care Time Critical Care Time: No <Avani Looney PA-C - Last Filed: 05/11/25 10:06> Discharge Plan Discharge Clinical Impression: Hyperglycemia due to type 1 diabetes mellitus Uncontrolled diabetes mellitus Qualifiers: Diabetes mellitus type: type 1 Glycemic state: with hyperglycemia Qualified Code(s): E10.65 - Type 1 diabetes mellitus with hyperglycemia <Avani Looney PA-C - Last Filed: 05/11/25 10:06> Patient Disposition: Still a Patient <DILSHAD Mark Last Filed: 05/11/25 10:06> Condition: Stable <Avani Looney PA-C - Last Filed: 05/11/25 10:06>
--- OUTSIDE RECORDS SUMMARY | 2025-05-08 17:37 | XMS_ITS | Clinical Summary ---
Author Organization [facility] Address [address] [place] [address] Care Team Providers Care Diet Clerk Name Role Phone Maggi Clement DO Primary Care Provider [phone] Source Comments [facility],non-owned Affiliates and Associated Physician Practices is amultiple site organization consisting of ambulatory clinics and hospital sitesin [place], [place], [place] and [place]. This disclosure is being madepursuant to the Care Everywhere program and may not contain all information available regarding this patient. Last updated 18.[facility] Allergies Active Allergy Reactions Criticality Noted Date Comments Aspirin Itching Low 03/15/2017 Dulaglutide Shortness of Breath High 05/15/2017 Metformin Rash Medium 05/15/2017 Penicillins Rash Medium 03/15/2017 Medications * Be aware that medications may not be up to date on this document. Alwaysverify current medications with the patient. insulin syringe-needle (BD ULTRAFINE) 30G X 1/2 0.5 ML syringe 1 syringe DAILY. 100 syringe 2 7 Active ACCU-CHEK MULTICLIX LANCETS MISC Use. 400 Each 3 7 Active Glucose Blood (BLOOD GLUCOSE TEST STRIPS) STRP Use 1 strip. 400 strip 3 7 Active albuterol HFA (VENTOLIN HFA) 108 (90 BASE) MCG/ACT inhaler 7 Active Aspirin (ASPIRTAB MAXIMUM STRENGTH) 500 MG Take by mouth. 7 Active Cholecalciferol (VITAMIN D3) 18110 UNITS TABS Take by mouth. 7 Active fluticasone furoate (ARNUITY ELLIPTA) 100 MCG/ACT inhaler Inhale 50 mg by mouth. 7 Active budesonide-form oterol (SYMBICORT) 160-4.5 MCG/ACT inhaler Inhale by mouth. 7 Active montelukast (SINGULAIR) 10 MG tablet Take 10 mg by mouth DAILY. Active omeprazole (PRILOSEC) 20 MG capsule Take 20 mg by mouth DAILY. 7 Active losartan (COZAAR) 50 MG tablet Take 50 mg by mouth DAILY. 7 Active naproxen (NAPROSYN) 500 MG tablet Take 500 mg by mouth 2 times daily with morning and evening meal. 7 Active Loratadine 10 MG Take 10 mg by mouth DAILY. Active furosemide (LASIX) 20 MG tablet Take 20 mg by mouth BID. 7 Active nitroGLYCERIN (RECTIV) 0.4 % rectal ointment Insert into the rectum. Active rosuvastatin (CRESTOR) 20 MG tablet Take 20 mg by mouth DAILY. 7 Active SITagliptin (JANUVIA) 100 MG tablet Take by mouth DAILY. Active canagliflozin (INVOKANA) 100 MG tablet Take 1 tablet by mouth daily before breakfast 90 tablet 8 Active Active Problems Problem Noted Date Diagnosed Date Age-related osteoporosis wit hout current pathological fracture 04/07/2017 Overview (11/12/2017): reported Personal history of other di seases of the respiratory system 04/07/2017 Mixed hyperlipidemia 04/07/2017 Primary generalized (osteo)arthritis 04/07/2017 Chronic combined systolic and diastolic heart fa ilure 04/07/2017 Overview (11/12/2017): Reported Type 2 diabetes mellitus with hyperglycemia 10/2016 Secondary hypertension 03/15/2017 Type 2 diabetes mellitus with diabetic nephropat hy 03/15/2017 Mild intermittent asthma, uncomplicated 03/15/20 17 Family History Medical History Relation Name Comments Diabetes - Type 2 Brother Diabetes - Type 2 Maternal Grandmother Diabetes - Type 2 Mother Diabetes - Type 2 Sister 1 Diabetes - Type 2 Sister 2 Thyroid Disease Neg Hx Relation Name Status Comments Brother Maternal Grandmother Mother Sister 1 Sister 2 Social History Tobacco Use Types Packs/Day Years Used Date Smoking Tobacco: Never Smokeless Tobacco: Never Alcohol Use Standard Drinks/Week Comments No 0 (1 standard drink = 0.6 oz pur e alcohol) Comments Unknown Sex and Gender Information Value Date Recorded Sex Assigned at Not on file Legal Sex Female 5:22 PM [employer] Gender Identity Not on file Sexual Orientation Not on file Last Filed Vital Signs Vital Sign Reading Time Taken Comments Blood Pressure 134/80 05/15/2017 2:57 PM CDT Pulse 75 05/15/2017 2:57 PM CDT Temperature 36.3 C (97.4 F) 04/26/2017 10:36 AM CDT Respiratory Rate 14 05/15/2017 2:57 PM CDT Oxygen Saturation 66% 05/15/2017 2:57 PM CDT Inhaled Oxygen Concentration - - Weight 94.8 kg (209 lb 1.6 oz) 05/15/2017 2:57 P M CDT Height 167.6 cm (5' 6) 05/15/2017 2:57 PM CDT Body Mass Index 33.75 05/15/2017 2:57 PM CDT Plan of Treatment Health Maintenance Due Date Last Done Comments BONE DENSITY TESTING 1950 COLOGUARD (AGES 45-75) - COL ON CA SCREENING 1950 COLON MONITORING 1950 COLONOSCOPY - COLON CA SCREENING 1950 CT COLONOGRAPHY - COLON CA SCREENING 1950 Colorectal Cancer Screening 1950 FIT - COLON CA SCREENING 1950 FLEX SIG - COLON CA SCREENING 1950 MAMMOGRAM 1950 HEPATITIS C SCREENING 08/09/1969 DIABETES-SERUM CREATININE 1969 DTAP/TDAP/TD VACCINES (1 - Tdap) 1970 PNEUMOCOCCAL VACCINE 50+ (1 of 2 - PCV) 1970 ZOSTER VACCINE (1 of 2) 2001 Respiratory Syncytial Virus (RSV) Vaccine Pt: or over 60 yrs (1 - Risk 60-74 years 1-dose series) 2011 DIABETES-FOOT EXAM WITH MONOFILAMENT 11/12/2017 DIABETES-HGB A1C 11/12/2017 05/15/2017 DEPRESSION SCREENING 08/13/2024 DIABETES - URINE PROTEIN SCREENING 08/13/2024 COVID-19 VACCINE ( - 2023-2 5 season) 2025 INFLUENZA VACCINE (#1) 2025 HEPATITIS B VACCINE Aged Out No longe r eligible based on patient's age to complete this topic HIB VACCINE Aged Out No longer eligi ble based on patient's age to complete this topic HPV VACCINE Aged Out No longer eligi ble based on patient's age to complete this topic MENINGOCOCCAL (Group B) VACC INE SHARED DECISION-MAKING Aged Out No longer eligibl e based on patient's age to complete this topic MENINGOCOCCAL GROUPS A/C/Y/W VACCINE Aged Out No longer eligible b ased on patient's age to complete this topic Procedures Procedure Name Priority Date/Time Associated Diagnosis Comments HEMOGLOBIN A1C - POINT OF CARE (AMB) [facility] Routine 05/15/2017 from Last 3 Months or Most Recently Relevant to Health Maintenance Results * HEMOGLOBIN A1C - POINT OF CARE (AMB) [facility] (05/15/2017) Hemoglobin A1c POCT 12.2 [facility] Capillary blood specimen (specimen) 05/15/2017 us Sherron Sheridan [employer] SUPERVISOR LAB - POINT OF CARE O RDERABLES Final Result [address] from Last 3 Months or Most Recently Relevant to Health Maintenance Care Teams Diet Clerk Relationship Specialty Start Date End Date Maggi Clement DO [address] [place] [address] PCP - General 03/01/17
--- OUTSIDE RECORDS SUMMARY | 2025-05-08 17:37 | XMS_ITS | Encounter Summary ---
Author Organization [facility] Address [facility] [place] [address] Care Team Providers Care Practice Director Name Role Phone Bradley Chase MD Primary Care Provider [phone] Neymar Mari MD Unavailable [phone] Pat Null MD Primary Care Provider Cyndie Mccormack MD Primary Care Provider [phone] Encounter Details Date Type Department Care Team (Late st Contact Info) Description 03/09/2017 Abstract [facility] AT [address] [address] Jossy Clemens MA Social History Tobacco Use Types Packs/Day Years Used Date Smoking Tobacco: Never Smokeless Tobacco: Never Alcohol Use Standard Drinks/Week Comments No 0 (1 standard drink = 0.6 oz pur e alcohol) Comments Unknown Sex and Gender Information Value Date Recorded Sex Assigned at Female 09/22/2024 2:59 PM CHEMICAL LABORATORY TECHNICIAN Legal Sex Female 9:13 PM CDT Gender Identity Not on file Sexual Orientation Not on file 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 Labs from 5 months ago reviewed at that time ICAL LABORATORY TECHNICIAN documented in this encounter Plan of Treatment Upcoming Encounters Date Type Department Care Team (Late st Contact Info) Description 05/13/2025 12:00 PM CDT Office Visit [facility] [address] [place] [address] Cyndie Mccormack MD [address] [facility] [address] [place] [address] 05/18/2025 9:40 AM CDT Office Visit [facility] [address] [place] [address] Cyndie Mccormack MD [address] [facility] [address] [place] [address] 05/26/2025 12:45 PM CDT Office Visit [facility] [address] [place], [place] [address] Neymar Mari MD [address] [facility]. [address] [place], [place] [address] documented as of this encounter Procedures Procedure Name Priority Date/Time Associated Diagnosis Comments CBC (OUTSIDE LAB) Routine 12/18/2017 BASIC METABOLIC PANEL Routine 12/18/2017 LIPID PANEL Routine 12/18/2017 CK (CPK) Routine 12/18/2017 ALT/SGPT Routine 12/18/2017 BASIC METABOLIC PANEL Routine 04/24/2017 LIPID PANEL Routine 04/24/2017 CBC (OUTSIDE LAB) Routine 10/03/2016 COMPREHENSIVE METABOLIC PANEL Routine 10/03/2016 documented in this encounter Results * CK (CPK) (12/18/2017) CPK 174 12/18/2017 us Doc [facility]ORATORY Final Result * CBC (OUTSIDE LAB) (12/18/2017) Pathologist [facility] WBC 6.3 HGB 12.4 HCT 39.5 PLT 173 12/18/2017 us Doc [facility] Abstract LAB-OUTSIDE/ABSTRACTED Final Result * (ABNORMAL) BASIC METABOLIC PANEL (12/18/2017) Pathologist [facility] SODIUM S/P/B 144 POTASSIUM S/P/B 4.6 CO2 27 CHLORIDE S/P/B 103 GLUCOSE 119 mg/dL CALCIUM S/P/B 10.2 BUN 25 CREATININE S/P/B 1.08(A) 0.5 - 1.0 EGFR AFR. AMER. 65.3 <=90 EGFR NON-AFR. AMER. 53.9 <=90 12/18/2017 us Doc [facility]AT[facility] Final Result * ALT/SGPT (12/18/2017) ALT 15 12/18/2017 us Doc [facility] Final Result * LIPID PANEL (12/18/2017) CHOLESTEROL 138 HDL 46 TRIGLYCERIDES 89 LDL (CALCULATED) 75 12/18/2017 us Doc [facility]AT[facility] Final Result * BASIC METABOLIC PANEL (04/24/2017) SODIUM S/P/B 142 POTASSIUM S/P/B 4.6 CO2 27 CHLORIDE S/P/B 98 GLUCOSE 225 mg/dL CALCIUM S/P/B 9.6 BUN 18 CREATININE S/P/B 0.88 0.5 - 1.0 EGFR AFR. AMER. 80 <=90 EGFR NON-AFR. AMER. 69 <=90 04/24/2017 [facility]AT[facility] Final Result * LIPID PANEL (04/24/2017) Pathologist [facility] CHOLESTEROL 145 HDL 43 TRIGLYCERIDES 113 LDL (CALCULATED) 79 04/24/2017 [facility] LABORAT[facility] Edited Resul t - Final * COMPREHENSIVE METABOLIC PANEL (10/03/2016) Pathologist [facility] SODIUM S/P/B 135 POTASSIUM S/P/B 4.0 CO2 26 CHLORIDE S/P/B 98 GLUCOSE 230 CALCIUM S/P/B 9.1 BUN 12 CREATININE S/P/B 0.68 0.5 - 1.0 EGFR AFR. AMER. >60 <=90 EGFR NON-AFR. AMER. >60 <=90 ALKALINE PHOSPHATASE S/P/B 101 ALT 12 AST 14 BILIRUBIN TOTAL S/P/B 0.6 ALBUMIN S/P/B 3.7 3.5 - 5.0 TOTAL PROTEIN S/P/B 6.7 GLOBULIN 3.0 10/03/2016 us Doc [facility] LABORATORY Final Result * CBC (OUTSIDE LAB) (10/03/2016) WBC 6.8 HGB 11.5 HCT 35.3 PLT 126 10/03/2016 us Doc [facility] Abstract LAB-OUTSIDE/ABSTRACTED Edite d Result - Final documented in this encounter Visit Diagnoses Not on filedocumented in this encounter Additional Health Concerns Infection Onset Date Last Indicated Resolved Time COVID-19 Rule Out 05/28/2023 05/28/2023 05/28/2023 2:28 PM CDT COVID-19 Rule Out 07/04/2024 07/04/2024 07/04/2024 2:30 PM CHEMICAL LABORATORY TECHNICIAN COVID-19 Rule Out 09/22/2024 09/22/2024 09/22/2024 3:31 PM CHEMICAL LABORATORY TECHNICIAN COVID-19 Rule Out 05/04/2025 05/04/2025 05/04/2025 2:58 PM CDT Respiratory Rule Out 05/05/2025 05/05/2025 025 3:25 PM CDT documented as of this encounter Care Teams Practice Director Relationship Specialty Start Date End Date Bradley Chase MD [address] [place] [id number] PCP - General INTERNAL MEDICINE 01/18/16 06/03/19 Pat Null MD [address] [place] [id number] PCP - General FAMILY PRACTICE 06/04/19 11/05/22 Cyndie Mccormack MD [address] [facility] [address] [place] [address] PCP - General FAMILY PRACTICE 11/06/22 Neymar Mari MD Three [facility]. [facility] [address] [place] [address] [employer] CARDIOVASCULAR DISEASE 01/12/16 documented as of this encounter
--- OUTSIDE RECORDS SUMMARY | 2025-05-08 17:37 | XMS_ITS | Clinical Summary ---
[facility] [place] [address] Care Team Providers Care Draw Fire Operator Name Role Phone Neymar Mari MD Unavailable [phone] Kyra Shipley MD Primary Care Provider + [phone] Allergies Active Allergy Reactions Criticality Noted Date Comments Aspirin Rash,Itching Low 08/15/2016 Canagliflozin Other (see comment),Unknown 10/02/2017 Pains in legs and arms and headache Dulaglutide Shortness of Breath High 05/15/2017 Eggs Unknown 02/21/2017 Lisinopril Rash Low 08/15/2016 Metformin Rash,GI Upset Medium 02/21/2017 Tirzepatide Anaphylaxis,GI Upset,Headache High 08/21/2024 Penicillins Rash Medium 08/15/2016 Pneumococcal Vaccines Shortness of Breath,Swelling High 04/03/2018 Second dose brought on symptoms Medications aspirin EC (ASPIRIN EC) 81 MG tablet Take 1 tablet (81 mg total) by mouth daily. 014 Active Cholecalciferol (VITAMIN D) 2000 units Tab Take 1 tablet (50 mcg total) by mouth daily. 018 Active docusate sodium 100 MG capsule Take 1 capsule (100 mg total) by mouth nightly at bedtime. 018 Active SOFTCLIX LANCETS Misc 023 Active ammonium lactate (LAC-HYDRIN) 12 % lotion Apply topically daily as needed for Dry skin. Active diclofenac sodium (VOLTAREN) 1 % gelIndications:Art hritis APPLY 2 GRAMS TOPICALLY 3 TIMES DAILY NEEDED TO SHOULDERS AND KNEES FOR PAIN. 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, with long-term current use of insulin (CMS/HCC HHS/HCC) Check blood glucose before all meals and 2 hours after last meal 100 strip 3 025 Active rosuvastatin (CRESTOR) 20 MG tabletIndications: Hyperlipidemia, mixed TAKE 1 TABLET BY MOUTH DAILY 100 tablet 2 025 Active chlorthalidone (HYGROTEN) 25 MG tabletIndications: Essential hypertension TAKE 1 TABLET BY MOUTH DAILY 100 tablet 2 025 Active glimepiride (AMARYL) 4 MG tabletIndications: 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 TAKE BEFORE LARGEST MEAL 90 tablet 3 025 Active nitroglycerin (NITROSTAT) 0.4 MG SL tablet DISSOLVE 1 TABLET UNDER THE TONGUE EVERY 5 MINUTES NEEDED FOR CHEST PAIN. MAX OF 3 TABLETS IN 15 MINUTES. CALL 911 IF PAIN PERSISTS. 125 tablet 1 025 Active Additional Information Patient taking differently: 0.4 mg Sublingual Every 5 min PRN, Chest Pain, Reported on 05/04/2025 budesonide-formote rol (SYMBICORT) 80-4.5 MCG/ACT inhalerIndications :Mild intermittent asthma without complication ([facility]) Inhale 2 puffs into the lungs 2 (two) times daily. Inhale 2 puffs into the lungs 2 (two) times daily. 30.6 g 3 025 Active fluticasone propionate (FLONASE) 50 MCG/ACT nasal sprayIndications:S easonal allergies 1 spray by Nasal route 2 (two) times daily. 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 Use as instructed 100 strip Active insulin lispro, 1 Unit Dial, (HUMALOG) 100 UNIT/ML injection (PEN) Inject 7 Units into the skin 3 (three) times daily before meals. Active furosemide (LASIX) 20 MG tablet Take 1 tablet (20 mg total) by mouth every other day as needed (swelling). 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 10 mL Active nystatin (MYCOSTATIN) 110229 UNIT/ML suspension Take 5 mLs by mouth 4 (four) times daily for 8 days. 160 mL 025 05/15 Active diphenhydrAMINE-AP AP 25-500 MG Tab tablet Take 1 tablet by mouth nightly at bedtime. 05/04 Discontinued( Error) guaiFENesin ER (MUCINEX) 600 MG 12 hr tablet Take 2 tablets (1,200 mg total) by mouth 2 (two) times daily. 28 tablet 024 05/04 Discontinued( Error) budesonide-formote rol (SYMBICORT) 160-4.5 MCG/ACT inhaler Inhale 2 puffs into the lungs 2 (two) times daily. 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, with long-term current use of insulin ([facility]) INJECT SUBCUTANEOUSLY 60 UNITS DAILY 20 mL 1 025 05/06 Discontinued furosemide (LASIX) 20 MG tablet TAKE 1 TABLET BY MOUTH EVERY OTHER DAY 45 tablet 025 05/06 Discontinued Active Problems Problem Noted Date Diagnosed Date Hyperglycemia 05/04/2025 CHF (congestive heart failure) ([facility]) 05/04/2025 Mild intermittent asthma without complication (H /[facility]) 11/06/2022 Morbid (severe) obesity due to excess calories 0 11/06/2022 Gastroesophageal reflux dise ase, unspecified whether esophagitis present 11/06/2022 Type 2 diabetes mellitus wit h both eyes affected by severe nonproliferative retinopathy without macular edema, with long-term current use of insulin ([facility]) 11/13/2018 Precordial pain 04/03/2018 Chronic diastolic congestive heart failure ([facility]) Essential hypertension Hyperlipidemia, mixed Encounters Date Type Department Care Team Description 05/08/2025 Telephone [facility], [address] [address] Neymar Mari MD Lab Order 05/08/2025 Telephone [facility] [address], [address] [place] [phone] Kyra Shipley MD Hyperglycemia 05/08/2025 Telephone [facility] [address], [address] [place] [address] Kyra Shipley MD TCM 05/04/2025 4:00 PM CDT - 05/07/2025 12:52 PM CDT Hospital Encounter [facility] [place] [address] [place] [address] Josesito Low, BENCH TECHNICIAN Lio Kearney MD Malcolm, MD Zenaida Lackey Kandace C, MD McHale, Kenrick Dumont MD Hyperglycemia Discharge Disposition: Home or Self Care (Routine Discharge) 05/04/2025 2:29 PM CDT - 05/04/2025 3:08 PM CDT Hospital Encounter [facility] [address] [place] [address] Laurie Starr NP Sore Throat Discharge Disposition: Transfer to Acute Care Hospital 05/04/2025 Travel from Last 3 Months Immunizations Immunization Administration Dates Next Due Influenza (Generic) 1950 Pneumococcal (Pneumovax 23) 02/20/2022, 8 Pneumococcal (Prevnar 13) 05/20/2020,02/21/2017 Shingrix 10/17/2024 Zoster (Zostavax) [address] Unt/0.65Ml 08/13/2016 Family History Medical History Relation Comments Diabetes Brother Coronary artery disease Father Coronary artery disease Mother Diabetes Mother Diabetes Sister Relation Status Comments Brother Father (Age 80s) Mother (Age 80s) Sister Social History Tobacco Use Types Packs/Day Years Used Date Smoking Tobacco: Never Passive Smoke Exposure: Past Smokeless Tobacco: Never Tobacco Cessation:Counseling Given: No Alcohol Use Standard Drinks/Week Comments No 0 (1 standard drink = 0.6 oz pur e alcohol) [facility] Utilities Answer Date Recorded In the past 12 months has [facility] [employer], [employer], oil, or water [employer] threatened to shut off services in your [...] any time in the past 12 [facility], were you homeless or living in a detention (including now)? 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, [address] [place] [address] Kyra Shipley MD [address] [facility] [address] [place] [address] 05/18/2025 9:40 AM CDT Office Visit [facility] [address], [address] [place] [address] Kyra Shipley MD [address] [facility] [address] [place] [address] 05/26/2025 12:45 PM CDT Office Visit [facility], [facility] [address] [place], [place] [address] Neymar Mari MD [facility] [address] [place] [address] Health Maintenance Due Date Last Done Comments Hepatitis C 1969 DTaP, Tdap and Td Vaccines (1 - Tdap) 1970 RSV Immunization or 60+ Years (1 - Risk 60-74 years 1-dose series) 2011 Annual Medicare Wellness Visit 2016 Mammogram Screening 09/02/2022 09/02/2020, 0 Zoster Vaccines (3 of 3) 12/12/2024 10/17/2024, 08/2016 Diabetes: Retinopathy Eye Exam 03/31/2025 03/31/2024, 12/31/2023, 07/04/2023, Additional history exists COVID-19 Vaccine ( season) 2025 07/11/2023, 12/13/2021, 06/24/2021, Additional history exists Hemoglobin A1C 08/03/2025 05/04/2025, 10/13, 08/21/2024, Additional history exists Colorectal Cancer Screening Colonoscopy (10 Years) 08/13/2025 08/13/2015 Kidney Health Evaluation 11/10/2025 11/10/2024 Lipid Panel 11/10/2025 11/10/2024, 03/2023, 10/18/2022, Additional history exists Dexa Scan (General) Completed 11/24/2022 PHQ-2 (Physician [place]) Completed 08/21/2024 Meningococcal B Vaccine Aged Out No l onger eligible based on patient's age to complete this topic Meningococcal Vaccine Aged Out No saravanan rosina eligible based on patient's age to complete this topic RSV Immunizations Under 20 Months Aged Out No longer eligible based on patient's age to complete this topic Interventions Community Resource Recommendations Community Resource Services Recommended Domains Addressed Status Status Reason/Outcome Date/Time [facility] Financial Assistance Financial Resource Strain Recommended 05/05/2025 11:54 AM CDT [facility] Program Financial Assistance Financial Resource Strain Recommended 05/05/2025 11:54 AM CDT [facility] Community Assistance Financial Assistance Financial Resource Strain Recommended 05/05/2025 11:54 AM CDT [facility] Community Action Agency Financial Assistance Financial Resource Strain Recommended 05/05/2025 11:54 AM CDT [facility] [employer]) Financial Assistance, Prescription Assistance Financial Resource Strain Recommended 05/05/2025 11:54 AM CDT [employer] Community Resources - Benefits Assistance Help Understanding Government Programs Financial Resource Strain Recommended 05/05/2025 11:54 AM CDT [facility] Financial Assistance Financial Resource Strain Recommended 05/05/2025 11:54 AM CDT [facility] Financial Assistance Financial Resource Strain Recommended 05/05/2025 11:54 AM CDT from Last 12 Months Procedures Procedure Name Priority Date/Time Associated Diagnosis [...] DOCKED DEVICE Routine 05/06/2025 12:17 PM CDT CBC, AUTO, NO DIFF Routine 05/06/2025 12 :01 PM CDT IRON SAT PANEL (IRON,IBC,%SAT) Routine 05/06/2025 12:01 PM CDT FERRITIN Routine 05/06/2025 12:01 PM [...] PM CDT RESPIRATORY PCR PANEL 2 STAT 05/05/2025 2:00 PM CDT ECG 12-LEAD STAT 05/05/2025 9:55 AM CDT POCT GLUCOSE - DOCKED DEVICE Routine 05/05/2025 9:52 AM CDT TROPONIN, QUANT Routine 05/05/2025 6:40 AM CDT BASIC METABOLIC PANEL STAT 05/05/2025 6:40 AM CDT CBC W/DIFF AUTOMATED STAT 05/05/2025 6:40 AM CDT POCT GLUCOSE - DOCKED DEVICE Routine 05/05/2025 6:39 AM CDT PRO-BRAIN NATRIURETIC PEPTIDE Routine 05/05/2025 6:39 AM CDT XR CHEST PORTABLE STAT 05/05/2025 12: 53 AM CDT POCT GLUCOSE - DOCKED DEVICE Routine 05/04/2025 9:15 PM CDT URINE BACTERIA CULTURE STAT 05/04/2025 4:22 PM CDT HC URINALYSIS AUTO W/O MICRO STAT 05/04/2025 4:22 PM CDT HEMOGLOBIN, GLYCOSYLATED STAT 05/04/2025 4:09 PM CDT BETA-HYDROXYBUTYRATE STAT 05/04/2025 4:09 PM CDT PHOSPHORUS, INORGANIC PHOSPHATE STAT 05/04/2025 4:09 PM CDT MAGNESIUM STAT 05/04/2025 4:09 PM CDT COMPREHENSIVE METABOLIC PANEL STAT 05/04/2025 4:09 PM CDT CBC W/DIFF AUTOMATED STAT 05/04/2025 4:09 PM CDT BLOOD GAS, VENOUS STAT 05/04/2025 3:5 2 PM CDT POCT GLUCOSE - DOCKED DEVICE Routine 05/04/2025 3:35 PM CDT CORONAVIRUS (COVID 19) STAT 05/04/2025 2:41 PM CDT STREP A RAPID STAT 05/04/2025 2:39 PM CDT POCT GLUCOSE - DOCKED DEVICE Routine 05/04/2025 2:38 PM CDT LIPID PANEL Routine 11/10/2024 3:06 PM CDT 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 GLUCOSE POC 260(H) 70 - 99 mg/dL 05/07/2025 11:47 AM CDT [facility] 05/07/2025 11:3 8 AM CDT us Kenrick Suarez MD POCT ORDERABLES - DEVICE Final Result [facility] [address] [place] [address], [place] [phone] * CTA CHEST PE PROTOCOL (05/06/2025 1:08 [...] 3:13 PM Narrative 05/06/2025 3:19 PM CDT [facility] [address] [place], [place] [address] Exam: CT angiography chest Exam Date/Time: 05/06/2025 [...] Procedure Note Karlo Bland MD - 05/06/[address] [address] Exam: CT angiography chest Exam Date/Time: 05/06/2025 [...] By: Karlo Bland MD, 05/06/2025 3:13 PM us Kenrick Suarez MD CT Final Result * (ABNORMAL) IRON SAT PANEL (IRON,IBC,%SAT) (05/06/2025 12:01 PM CDT) IRON 35(L) 50.0 - 170.0 MCG/DL 05/06/2025 12:48 PM CDT [facility] IRON BINDING CAPACITY 236(L) 250 - 450 MCG/DL 05/06/2025 12:48 PM CDT [facility] IRON SATURATION 15(L) 20 - 55 % 12:48 PM CDT [facility] 05/06/2025 12:0 1 PM CDT us Peggy [facility] Final Result [facility] [address] [place] [address], [place] [phone] * (ABNORMAL) CBC, AUTO, NO DIFF (05/06/2025 12:01 PM CDT) WBC 5.63 4.5 - 11.0 x10'3/uL 05/06/2025 12:45 PM CDT [facility] RBC 4.26 4.20 - 5.40 x10'6/uL 05/06/2025 12:45 PM CDT [facility] HGB 10.7(L) 12.0 - 16.0 G/DL 05/06/2025 12:45 PM CDT [facility] HCT 32.8(L) 38.0 - 48.0 % 05/06/2025 12:45 PM CDT [facility] MCV 77.0(L) 81.0 - 99.0 FL 05/06/2025 12:45 PM CDT [facility] MCH 25.1(L) 27.0 - 31.0 PG 05/06/2025 12:45 PM CDT [facility] MCHC 32.6 32.0 - 36.0 G/DL 05/06/2025 12:45 PM CDT [facility] RDW 12.4 11.5 - 14.5 % 05/06/2025 12:45 PM CDT [facility] PLT 154 130 - 400 x10'3/uL 05/06/2025 12:45 PM CDT [facility] MPV 11.3 9.3 - 12.2 FL 05/06/2025 12:45 PM CDT [facility] 05/06/2025 12:0 1 PM CDT Peggy STRICKLANDP [facility] Final Result Performing Organization Address City/State/[facility] Co de Phone Number [facility] [address] [place] [address], [place] [phone] * FERRITIN (05/06/2025 12:01 PM CDT) FERRITIN 227.8 8.0 - 388.0 NG/ML 05/06/2025 12:51 PM CDT [facility] 05/06/2025 12:0 1 PM CDT us Peggy [facility] Final Result Performing Organization Address [facility] de Phone Number [facility] [address] [place] [address], [place] [phone] * (ABNORMAL) D-DIMER, QUANTITATIVE (05/06/2025 10:08 AM CDT) D-DIMER 4,197(HH) 0 - 500 ng{FEU}/mL 05/06/2025 11:04 AM CDT [facility] Comment: D-Dimer values less than [...] Call: DDIMR called 05/06/2025 11:05 AM to [employer] B ([id number]/ALESSANDRA HOGAN) by [id number]. Read Back: Yes 05/06/2025 10:0 8 AM CDT us Kenrick Suarez MD LABORATORY Final Result Performing Organization Address [facility]/ZIP Co de Phone Number [facility] [address] [place] [address], [place] [phone] * USE ECHOCARDIOGRAM W CON (05/06/2025 9:41 AM CDT) Anatomical Region Laterality Modality NA Echocardiogram 05/06/2025 9:13 AM CDT Narrative 05/06/2025 11:22 AM CDT Echocardiography Report Pat.Name: NATALI TO Pat.ID: [id number] .Date: 05/06/2025 Exam Time: 9:13:00 AM Study Type:ECHO WITH CARDIAC DOPPLER COMP Height: 66 in Weight: 188 lb BSA: 1.95 m2 Age: 1 1950,74Y Sex: F BP: 113/62 HR: 84 bpm Sonogrphr: Cuba Aguirre RDCS, ACS Pat. Stat.:Inpatient Room: [facility] Reason for Study:Congestive heart failure History / [...] Mari MD - 05/06/2025 Echocardiography Report Pat.Name: KARINA NATALI Pat.ID: [id number] .Date: 05/06/2025 Exam Time: 9:13:00 AM Study Type:ECHO WITH CARDIAC DOPPLER COMP Height: 66 in Weight: 188 lb BSA: 1.95 m2 Age: 1 1950,74Y Sex: F BP: 113/62 HR: 84 bpm Sonogrphr: Cuba Aguirre RD, ACS Pat. Stat.:Inpatient Room: [facility] Reason for Study:Congestive heart failure History / [...] 11:22 AM Neymar Mari M.D. Peggy Swartz [facility] Final Result * (ABNORMAL) BASIC METABOLIC PANEL (05/06/2025 7:53 AM CDT) Only the most recent of2 resultswithin the time period is included. GLUCOSE 140(H) 70 - 99 MG/DL 05/06/2025 8:41 AM CDT [facility] BUN 37(H) 7 - 18 MG/DL 05/06/2025 8:41 AM CDT [facility] CREATININE S/P/B 1.43(H) 0.55 - 1.02 MG/DL 05/06/2025 8:41 AM CDT [facility] SODIUM S/P/B 141 136 - 145 MMOL/L 05/06/2025 8:41 AM CDT [facility] POTASSIUM S/P/B 3.6 3.5 - 5.1 MMOL/L 05/06/2025 8:41 AM CDT [facility] CHLORIDE S/P/B 110 97 - 115 MMOL/L 05/06/2025 8:41 AM CDT [facility] CO2 26.6 21 - 32 MMOL/L 05/06/2025 8:41 AM CDT [facility] CALCIUM S/P/B 8.9 8.5 - 10.1 MG/DL 05/06/2025 8:41 AM CDT [facility] ANION GAP 4.4 2 - 10 MMOL/L 05/06/2025 8:41 AM CDT [facility] BUN CREATININE RATIO 25.9 6 - 26 05/06/2025 8:41 AM CDT [facility] GFR ESTIMATE 39(L) >90 ML/MIN/1.7 3 M2 05/06/2025 8:41 AM CDT [facility] Comment: NOTE: eGFR is not calculated for patients <18 years of age or gender unknown. This is an estimated GFR calculation using the new CKD EPI creatinine equation without race and so does not require a correction factor for race. This estimated GFR should not be used for calculating drug doses. 05/06/2025 7:53 AM CDT us Kenrick Suarez MD LABORATORY Final Result [facility] [address] [place] [address], [place] [phone] * RESPIRATORY PCR PANEL 2 (05/05/2025 2:00 PM CDT) ADENOVIRUS PCR (RESP) NOT DETECTED NOT DETECTED 05/05/2025 3:25 PM CDT [facility] CORONAVIRUS 229E PCR (RESP) NOT DETECTED NOT DETECTED 05/05/2025 3:25 PM CDT [facility] CORONAVIRUS HKU1 PCR (RESP) NOT DETECTED NOT DETECTED 05/05/2025 3:25 PM CDT [facility] CORONAVIRUS NL63 PCR (RESP) NOT DETECTED NOT DETECTED 05/05/2025 3:25 PM CDT [facility] CORONAVIRUS OC43 PCR (RESP) NOT DETECTED NOT DETECTED 05/05/2025 3:25 PM CDT [facility] METAPNEUMOVIRUS PCR (RESP) NOT DETECTED NOT DETECTED 05/05/2025 3:25 PM CDT [facility] RHINOVIRUS/ENTEROV IRUS PCR (RESP) NOT DETECTED NOT DETECTED 05/05/2025 3:25 PM CDT [facility] INFLUENZA A PCR (RESP) NOT DETECTED NOT DETECTED 05/05/2025 3:25 PM CDT [facility] INFLUENZA B PCR (RESP) NOT DETECTED NOT DETECTED 05/05/2025 3:25 PM CDT [facility] PARAINFLUENZA 1 PCR (RESP) NOT DETECTED NOT DETECTED 05/05/2025 3:25 PM CDT [facility] PARAINFLUENZA 2 PCR (RESP) NOT DETECTED NOT DETECTED 05/05/2025 3:25 PM CDT [facility] PARAINFLUENZA 3 PCR (RESP) NOT DETECTED NOT DETECTED 05/05/2025 3:25 PM CDT [facility] PARAINFLUENZA 4 PCR (RESP) NOT DETECTED NOT DETECTED 05/05/2025 3:25 PM CDT [facility] RSV PCR (RESP) NOT DETECTED NOT DETECTED 05/05/2025 3:25 PM CDT [facility] B PARAPERTUSIS PCR (RESP) NOT DETECTED NOT DETECTED 05/05/2025 3:25 PM CDT [facility] BORDETELLA PERTUSSIS PCR (RESP) NOT DETECTED NOT DETECTED 05/05/2025 3:25 PM CDT [facility] CHLAMYDOPHILA PNEUMONIAE PCR (RESP) NOT DETECTED NOT DETECTED 05/05/2025 3:25 PM CDT [facility] MYCOPLASMA PNEUMONIAE PCR (RESP) NOT DETECTED NOT DETECTED 05/05/2025 3:25 PM CDT [facility] CORONAVIRUS SARS COV 2 PCR (RESP) NOT DETECTED NOT DETECTED 05/05/2025 3:25 PM CDT [facility] NASOPHARYNGEAL SWAB / Unknown 05/05/2025 2:00 PM CDT Sol Lara MD MICROBIOLOGY - GENERAL ORD ERABLES Final Result Performing Organization Address City/State/[facility] Co de Phone Number [facility] [address] [place] [address], * ECG 12 lead (05/05/2025 9:55 AM CDT) 05/05/2025 9:55 AM CDT Narrative [facility] ([facility]) RAD - 05/05/2025 4:07 PM CDT [address] Test Date: 2025-05-05 Pat Name: NATALI TO Department: 41 Room: B4 Gender: Female Retarder Operator: YEFRI : 1950 Requested By: SOL LARA Order Number: [id number] Reading MD: Suresh Kitchen Measurements Intervals [place] Rate: 75 P: 47 FL: 134 QRS: -23 QRSD: 83 T: -58 QT: 394 QTc: 442 Interpretive Statements SINUS RHYTHM BORDERLINE LEFT AXIS DEVIATION [QRS AXIS < -20] MODERATE T-WAVE ABNORMALITY, CONSIDER ANTERIOR ISCHEMIA [-0.1+ mV T WAVE IN V3/V4] No previous ECG available for comparison Procedure Note Suresh Kitchen MD - 05/05/[address] Test Date: 2025-05-05 Pat Name: NATALI TO Department: 41 Room: [facility] Gender: Female Retarder Operator: YEFRI : 1950 Requested By: SOL LARA Order Number: [id number] Reading MD: Suresh Kitchen Measurements Intervals [place] Rate: 75 P: 47 FL: 134 QRS: -23 QRSD: 83 T: -58 QT: 394 QTc: 442 Interpretive Statements SINUS RHYTHM BORDERLINE LEFT AXIS DEVIATION [QRS AXIS < -20] MODERATE T-WAVE ABNORMALITY, CONSIDER ANTERIOR ISCHEMIA [-0.1+ mV T WAVEIN V3/V4] No previous ECG available for comparison us Sol Lara MD ECG ORDERABLES Final Resu lt [facility] ([facility]) RAD * (ABNORMAL) CBC W/DIFF AUTOMATED (05/05/2025 6:40 AM CDT) Only the most recent of2 resultswithin the time period is included. Pathologist [facility] WBC 5.72 4.5 - 11.0 x10'3/uL 05/05/2025 7:12 AM CDT [facility] RBC 3.98(L) 4.20 - 5.40 x10'6/uL 05/05/2025 7:12 AM CDT [facility] HGB 9.9(L) 12.0 - 16.0 G/DL 05/05/2025 7:12 AM CDT [facility] HCT 29.9(L) 38.0 - 48.0 % 05/05/2025 7:12 AM CDT [facility] MCV 75.1(L) 81.0 - 99.0 FL 05/05/2025 7:12 AM CDT [facility] MCH 24.9(L) 27.0 - 31.0 PG 05/05/2025 7:12 AM CDT [facility] MCHC 33.1 32.0 - 36.0 G/DL 05/05/2025 7:12 AM CDT [facility] RDW 12.1 11.5 - 14.5 % 05/05/2025 7:12 AM CDT [facility] PLT 165 130 - 400 x10'3/uL 05/05/2025 7:12 AM CDT [facility] MPV 11.1 9.3 - 12.2 FL 05/05/2025 7:12 AM CDT [facility] DIFFERENTIAL TYPE AUTOMATED DIFFERENTIAL 05/05/2025 7:12 AM CDT [facility] NEUTROPHILS % 65.9 % 05/05/2025 7:12 AM CDT [facility] LYMPHOCYTES % 20.8 % 05/05/2025 7:12 AM CDT [facility] MONOCYTES % 11.4 % 05/05/2025 7:12 AM CDT [facility] EOSINOPHILS 1.4 % 05/05/2025 7:12 AM CDT [facility] BASOPHILS 0.2 % 05/05/2025 7:12 AM CDT [facility] IMMATURE GRANS % 0.3 % 05/05/20 7:12 AM CDT [facility] ABS. NEUTROPHILS 3.77 1.80 - 7.70 x10'3/uL 05/05/2025 7:12 AM CDT [facility] ABS. LYMPHOCYTES 1.19 1.00 - 4.80 x10'3/uL 05/05/2025 7:12 AM CDT [facility] ABS. MONOCYTES 0.65 0.24 - 0.86 x10'3/uL 05/05/2025 7:12 AM CDT [facility] ABS. EOSINOPHILS 0.08 0.04 - 0.36 x10'3/uL 05/05/2025 7:12 AM CDT [facility] ABS. BASOPHILS 0.01 0.01 - 0.08 x10'3/uL 05/05/2025 7:12 AM CDT [facility] ABS. IMMATURE GRANULOCYTES 0.02 0.00 - 0.49 x10'3/uL 05/05/2025 7:12 AM CDT [facility] 05/05/2025 6:40 AM CDT Mag Loaiza MD LABORATORY Final Re sult [facility] [address] [place] [id number], * TROPONIN, QUANT (05/05/2025 6:40 AM CDT) TROPONIN I HIGH SENSITIVITY 26 <54 ng/L 05/05/2025 2:11 PM CDT [facility] Comment: HIGH DOSES OF BIOTIN, TROPONIN-SPECIFIC AUTOANTIBODIES, AND ANTIBODY THERAPY CONTAINING HAMA MAY INTERFERE WITH THIS TEST RESULT. CORRELATION TO CLINICAL HISTORY AND PRESENTATION RECOMMENDED. 05/05/2025 6:40 AM CDT Peggy MEYER LABORATORY Final Result [facility] [address] [place] [address], [place] [phone] * (ABNORMAL) PRO-BRAIN NATRIURETIC PEPTIDE (05/05/2025 6:39 AM CDT) PRO-B TYPE NATRIURETIC PEPTIDE 391(H) <125 PG/ML 05/05/2025 9:22 AM CDT [facility] Comment: CUT POINTS ESTABLISHED BY [...] ACUTE CHF. 05/05/2025 6:39 AM CDT Peggy Swartz [facility] Final Result [facility] [address] [place] [address], [place] [phone] * XR CHEST PORTABLE (05/05/2025 12:53 AM CDT) Anatomical Region Laterality Modality Chest Radiographic Zina ging 05/05/2025 12:5 3 AM CDT Impressions 05/05/2025 12:53 AM CDT IMPRESSION: ======== 1. No acute cardiopulmonary findings within limitations of exam Referred By: Interpreted By: Tre Huerta MD, 05/05/2025 12:53 AM Narrative 05/05/2025 12:53 AM CDT [facility] [address] Examination: Chest x-ray 1 view Exam Date/Time: [...] Procedure Note Tre Huerta MD - 05/05/[address] [place] [address] Examination: Chest x-ray 1 view Exam Date/Time: [...] By: Tre Huerta MD, 05/05/2025 12:53 AM us Mag Loaiza MD GENERAL IMAGING Final Re sult * (ABNORMAL) URINALYSIS (05/04/2025 4:22 PM CDT) SPECIMEN TYPE URINE CLEAN CATCH 05/04/2025 4:23 PM CDT [facility] COLOR (U) LIGHT YELLOW 05/04/2025 4:37 PM CDT [facility] TRANSPARENCY CLEAR 05/04/2025 4:37 PM CDT [facility] SPECIFIC GRAVITY (U) 1.024 1.001 - 1.030 05/04/2025 4:37 PM CDT [facility] U PH 6.0 5.0 - 9.0 05/04/2025 4:37 PM CDT [facility] LEUKOCYTES (U) 250(A) NEGATIVE 05/04/2025 4:37 PM CDT [facility] NITRITES NEGATIVE NEGATIVE 05/04/2025 4:37 PM CDT [facility] PROTEIN RANDOM (U) 30(H) <30 MG/DL 05/04/2025 4:37 PM CDT [facility] GLUCOSE (U) >1000(A) NORMAL MG/DL 05/04/2025 4:37 PM T [facility] KETONES MG/DL (U) NEGATIVE NEGATIVE MG/DL 05/04/2025 4:37 PM CDT [facility] UROBILINOGEN NORMAL NORMAL MG/DL 05/04/2025 4:37 PM CDT [facility] BILIRUBIN (U) NEGATIVE NEGATIVE MG/DL 05/04/2025 4:37 PM T [facility] BLOOD (U) 2+(A) NEGATIVE 05/04/2025 4:37 PM CDT [facility] MUCUS RARE /LPF 05/04/2025 4:37 PM CDT [facility] WBC/HPF 74(H) <6 /HPF 05/04/2025 4:37 PM CDT [facility] RBC/HPF 5 <6 /HPF 05/04/2025 4:37 PM CDT [facility] BACTERIA (U) FEW(A) NONE /HPF 05/04/2025 4:37 PM CDT [facility] SQUAMOUS EPITHELIALS RARE /HPF 05/04/2025 4:37 PM CDT [facility] URINE SPECIMEN OBTAINED BY CLEAN CATCH PROCEDURE / Unknown 05/04/2025 4:22 PM CDT Josesito Low BENCH TECHNICIAN URINE ORDERABLES Final Result Performing Organization Address [facility] Co de Phone Number [facility] [address] [place] [address], * CULTURE URINE (05/04/2025 4:22 PM CDT) SPEC DESCRIPTION URINE CLEAN CATCH 05/04/2025 4:23 PM CDT [facility] SPECIAL REQUESTS NO SPECIAL REQUEST 05/04/2025 4:23 PM CDT [facility] CULTURE RESULT POLYMICROBIAL GROWTH CONSISTENT WITH NORMAL GENITAL EDGARD. SUSCEPTIBILITIES NOT ROUTINELY PERFORMED. 05/06/2025 7:09 AM CDT [facility] URINE SPECIMEN OBTAINED BY CLEAN CATCH PROCEDURE / Unknown 05/04/2025 4:22 PM CDT 05/04/2025 4:25 PM CDT Josesito Low NP MICROBIOLOGY - GENERAL ORDERAB LES Final Result Performing Organization Address City/[facility]/ZIP Co de Phone Number [facility] [address] [place] [address], * BETA-HYDROXYBUTYRATE (05/04/2025 4:09 PM CDT) BETA-HYDROXYBUT YRATE 0.2 0.0 - 0.5 MMOL/L 05/04/2025 4:39 PM CDT [facility] 05/04/2025 4:09 PM CDT us Josesito Low NP LABORATORY Final Result Performing Organization Address City/[facility]/ZIP Co de Phone Number [facility] [address] [place] [address], * (ABNORMAL) HEMOGLOBIN, GLYCOSYLATED (05/04/2025 4:09 PM CDT) HGB A1C 11.8(H) <5.7 % 05/04/2025 9:36 PM CDT [facility] Comment: ADA GUIDELINES 2010 5.7 TO 6.4% INCREASED RISK OF DIABETES > OR = 6.5% CONSISTENT WITH DIABETES ESTIMATED AVG GLUCOSE 292 mg/dL 05/04/2025 9:36 PM CDT [facility] 05/04/2025 4:09 PM CDT Mag Loaiza MD LABORATORY Final Re sult Performing Organization Address [facility]/ZIP Co de Phone Number [facility] [address] [place] [address], * (ABNORMAL) COMPREHENSIVE METABOLIC PANEL (05/04/2025 4:09 PM CDT) GLUCOSE 653(HH) 70 - 99 MG/DL 05/04/2025 4:55 PM CDT [facility] Comment: Critical Result(s) Called at: 16:54:31 on 05/04/2025 by: RENATO IBANEZ to and read back by:JANES LINARES BUN 61(H) 7 - 18 MG/DL 05/04/2025 4:55 PM CDT [facility] CREATININE S/P/B 2.87(H) 0.55 - 1.02 MG/DL 05/04/2025 4:55 PM CDT [facility] SODIUM S/P/B 134(L) 136 - 145 MMOL/L 05/04/2025 4:55 PM CDT [facility] POTASSIUM S/P/B 3.7 3.5 - 5.1 MMOL/L 05/04/2025 4:55 PM CDT [facility] CHLORIDE S/P/B 100 97 - 115 MMOL/L 05/04/2025 4:55 PM CDT [facility] CO2 26.1 21 - 32 MMOL/L 05/04/2025 4:55 PM CDT [facility] CALCIUM S/P/B 9.0 8.5 - 10.1 MG/DL 05/04/2025 4:55 PM CDT [facility] BILIRUBIN TOTAL S/P/B 0.4 0.2 - 1.2 MG/DL 05/04/2025 4:55 PM CDT [facility] Comment: THIS ASSAY IS NOT RECOMMENDED FOR PATIENTS UNDERGOING TREATMENT WITH ELTROMBOPAG DUE TO THE POTENTIAL FOR FALSELY ELEVATED RESULTS. TOTAL PROTEIN S/P/B 7.0 6.4 - 8.2 G/DL 05/04/2025 4:55 PM CDT [facility] ALBUMIN S/P/B 3.7 3.4 - 5.0 G/DL 05/04/2025 4:55 PM CDT [facility] AST 32 15 - 37 U/L 05/04/2025 4:55 PM CDT [facility] ALT 36 14 - 55 U/L 05/04/2025 4:55 PM CDT [facility] ALKALINE PHOSPHATASE S/P/B 157(H) 50 - 136 U/L 05/04/2025 4:55 PM CDT [facility] ANION GAP 7.9 2 - 10 MMOL/L 05/04/2025 4:55 PM CDT [facility] BUN CREATININE RATIO 21.3 6 - 26 05/04/2025 4:55 PM CDT [facility] A/G RATIO 1.1 1.0 - 2.0 RATIO 05/04/2025 4:55 PM CDT [facility] GFR ESTIMATE 17(L) >90 ML/MIN/1.7 3 M2 05/04/2025 4:55 PM CDT [facility] Comment: NOTE: eGFR is not calculated for patients <18 years of age or gender unknown. This is an estimated GFR calculation using the new CKD EPI creatinine equation without race and so does not require a correction factor for race. This estimated GFR should not be used for calculating drug doses. 05/04/2025 4:09 PM CDT Josesito Low BENCH TECHNICIAN LABORATORY Final Result Performing Organization Address City/[facility]/ZIP Co de Phone Number [facility] [address] [place] [address], * PHOSPHORUS, INORGANIC PHOSPHATE (05/04/2025 4:09 PM CDT) PHOSPHORUS 2.9 2.5 - 4.9 MG/DL 05/04/2025 4:55 PM CDT [facility] 05/04/2025 4:09 PM CDT Josesito Low BENCH TECHNICIAN LABORATORY Final Result [facility] [address] [place] [address], [place] [phone] * MAGNESIUM (05/04/2025 4:09 PM CDT) MAGNESIUM 2.2 1.8 - 2.4 MG/DL 05/04/2025 4:55 PM CDT [facility] 05/04/2025 4:09 PM CDT us Josesito Low BENCH TECHNICIAN LABORATORY Final Result [facility] [address] [place] [address], [place] [phone] * (ABNORMAL) Blood gas, venous (05/04/2025 3:52 PM CDT) PH VENOUS 7.36 7.32 - 7.43 05/04/2025 4:13 PM CDT [facility] PCO2 VENOUS 48.0 MMHG 05/04/2025 4:13 PM CDT [facility] Comment:NO REFERENCE RANGE H BEEN ESTABLISHED PO2 VENOUS 24.0 MM HG 05/04/2025 4:13 PM CDT [facility] Comment:NO REFERENCE RANGE H BEEN ESTABLISHED TOTAL CO2 VENOUS 28.6(H) 22.0 - 26.0 MMOL/L 05/04/2025 4:13 PM CDT [facility] VENOUS BASE EXCESS 1.0 MMOL/L 05/04/2025 4:13 PM CDT [facility] Comment:NO REFERENCE RANGE H BEEN ESTABLISHED O2 SAT VENOUS 40 % 05/04/2025 4:13 PM CDT [facility] Comment:NO REFERENCE RANGE H BEEN ESTABLISHED BICARB VENOUS 27.1 22.0 - 29.0 MMOL/L 05/04/2025 4:13 PM CDT [facility] O2 ADMIN VENOUS 21 4:11 PM CDT [facility] 05/04/2025 3:52 PM CDT us Josesito Low BENCH TECHNICIAN LABORATORY Final Result [facility] [address] [place] [address], [place] [phone] * CORONAVIRUS (COVID 19) (05/04/2025 2:41 PM CDT) CORONAVIRUS SARS COV 2 RNA NEGATIVE NEGATIVE 05/04/2025 2:58 PM CDT [facility] Comment: NEGATIVE RESULTS DO NOT RULE OUT COVID 19 AND SHOULD NOT BE USED THE SOLE BASIS FOR TREATMENT OR PATIENT MANAGEMENT DECISIONS, INCLUDING INFECTION CONTROL DECISIONS. NEGATIVE RESULTS SHOULD BE CONSIDERED IN THE CONTEXT OF A PATIENT'S RECENT EXPOSURES, HISTORY AND THE PRESENCE OF CLINICAL SIGNS AND SYMPTOMS CONSISTENT WITH COVID 19. THE ID NOW COVID-19 2.0 TEST HAS BEEN AUTHORIZED BY THE FDA UNDER EAU FOR USE BY AUTHORIZED LABORATORIES. PERFORMED BY NUCLEIC ACID AMPLIFICATION FOR MOLECULAR QUALITATIVE DETECTION OF SARS-COV-2. SPECIMEN TYPE NASAL 05/04/2025 2:42 PM CDT [facility] NASAL STRUCTURE / Unknown 05/04/2025 2:41 PM CDT Laurie Starr NP MICROBIOLOGY - GENERAL OR DERABLES Final Result [address] [address], [place] * STREP A RAPID (05/04/2025 2:39 PM CDT) SPECIMEN TYPE THROAT 05/04/2025 2:39 PM CDT [facility] RAPID STREP TEST NEGATIVE NEGATIVE 05/04/2025 2:58 PM CDT [facility] STRUCTURE OF ANTERIOR REGION OF NECK / Unknown 05/04/2025 2:39 PM CDT Laurie Starr BENCH TECHNICIAN MICROBIOLOGY - GENERAL OR DERABLES Final Result [address] [place] [address], [place] * (ABNORMAL) LIPID PANEL (11/10/2024 3:06 PM CDT) CHOLESTEROL 124 <200 mg/dL [facility] HDL 45(L) > OR = 50 mg/dL [facility] TRIGLYCERIDES 114 <150 mg/dL [facility] LDL (CALCULATED) 59 mg/dL (calc) [facility] Comment: Reference range: <100 Desirable range <100 mg/dL for primary prevention; <70 mg/dL for patients with CHD or diabetic patients with > or = 2 CHD risk factors. LDL-C is now calculated using the Shelton calculation, which is a validated novel method providing better accuracy than the Friedewald equation in the estimation of LDL-C. Felice SS et al. SHARI. 2013;310(19): 1647-6253 (http://education.[employer] [facility]/faq/JEY208) CHOL/HDL RATIO 2.8 <5.0 (calc) [facility] NON HDL CHOLESTEROL 79 <130 mg/dL (calc) [facility] Comment: For patients with diabetes plus 1 major ASCVD risk factor, treating to a non-HDL-C goal of <100 mg/dL (LDL-C of <70 mg/dL) is considered a therapeutic option. 11/10/2024 3:06 PM CDT 11/10/2024 3:07 PM CDT Narrative EDILBERTO GALEANO - 11/11/2024 7:27 AM CDT FASTING:YES FASTING: YES Resulting Agency Comment Performing Organization Information: Site ID: [place] Name: [facility] Address: [address] [address] Director: Mauro Velasquez MD us Kyra Shipley MD LABORATORY Final Result EDILBERT[facility] GALEANO [facility] [address] [place] [address], [place] * DIABETIC RETINOPATHY EXAM (POSITIVE) (03/31/2024) [facility] Scanned SCANNING Final Resu lt [facility] * BONE DENSITY/DEXA (11/24/2022 2:11 PM CDT) Anatomical Region Laterality Modality Bone Mammography 11/24/2022 2:20 PM CDT Impressions 11/24/2022 2:21 PM CDT IMPRESSION: WHO Classification: osteopenia. FRAX: 1.5% chance of hip fracture and 8.5% chance of major osteoporotic fracture over the next 10 years. Referred By: KYRA SHIPLEY Interpreted By: Tre Huerta MD, 11/24/2022 2:20 PM Narrative 11/24/2022 2:21 PM CDT Examination: Bone Density Axial Exam Date/Time: 11/24/2022 1:47 PM Reason For Exam: Postmenopausal Comparison: None Findings: DEXA bone densitometry The bone mineral density (BMD) was determined by dual-energy x-ray absorptiometry, the results are as follows: AP Lumbar Spine L1 through L4 BMD Patient (GM/SQCM): 1.079 T-Score (Standard deviations from young adult peak bone density): 0.3 Right femoral neck: BMD Patient (GM/SQCM): 0.695 T-Score (Standard deviations from young adult peak bone density): -1.4 Total Right femur: BMD Patient (GM/SQCM): 0.896 T-Score (Standard deviations from young adult peak bone density): -0.4 Recommendations: All patients should ensure an adequate intake of dietary calcium and vitamin D. The NOF recommend adults under the age of 50 need 1000 mg of calcium and 400-800 IU of vitamin D daily. Effective therapy for the prevention and treatment of osteoporosis include biphosphonates. Follow-up: People with diagnosed cases of osteoporosis or at high risk for fracture should have regular bone mineral density test. For patients eligible for Medicare, routine testing is allowed once every 2 years. Testing frequency can be increased to one year for patients who have rapidly progressing disease, those who are receiving or discontinuing medical therapy to restore bone mass, or have additional risk factors. Procedure Note Tre Huerta MD - 11/24/2022 Examination: Bone Density Axial Exam Date/Time: 11/24/2022 1:47 PM Reason For Exam: Postmenopausal Comparison: None Findings: DEXA bone densitometry The bone mineral density (BMD) was determined bydual-energy x-ray absorptiometry, the results are as follows: AP Lumbar Spine L1 through L4 BMD Patient (GM/SQCM): 1.079 T-Score (Standard deviations from young adult peak bonedensity): 0.3 Right femoral neck: BMD Patient (GM/SQCM): 0.695 T-Score (Standard deviations from young adult peak bonedensity): -1.4 Total Right femur: BMD Patient (GM/SQCM): 0.896 T-Score (Standard deviations from young adult peak bonedensity): -0.4 Recommendations: All patients should ensure an adequate intake of dietary calcium andvitamin D. The NOF recommend adults under the age of 50 need 1000 mg ofcalcium and 400-800 IU of vitamin D daily. Effective therapy for theprevention and treatment of osteoporosis include biphosphonates. Follow-up: People with diagnosed cases of osteoporosis or at high risk for fractureshould have regular bone mineral density test. [facility] routine testing is allowed once every 2 years. Testing frequencycan be increased to one year for patients who have rapidly progressingdisease, those who are receiving or discontinuing medical therapy torestore bone mass, or have additional risk factors. IMPRESSION: WHO Classification: osteopenia. FRAX: 1.5% chance of hip fracture and 8.5% chance of major osteoporoticfracture over the next 10 years. Referred By: KYRA SHIPLEY Interpreted By: Tre Huerta MD, 11/24/2022 2:20 PM us Kyra Shipley MD DEXA Final Result * Colonoscopy (08/13/2015 12:00 AM BATCH TANK CONTROLLER) 08/13/2015 08/13/2015 Narrative TOUCHWORKS TO EPIC CONVERSION - 08/13/2015 12:00 AM BATCH TANK CONTROLLER Documented hx of procedure Procedure Note Jose Morrell MD - 10/31/2018 Documented hx of procedure us Generic Conversion Md [facility] PROCEDURE ORDERABLES Final Result TOUCHWORKS TO EPIC CONVERSION from Last 3 Months or Most Recently Relevant to Health Maintenance Insurance [facility] MEDICAID Advance Directives * POLST (Latest Code Status on File) Date Activated Date Inactivated Comments 05/04/2025 11:55 PM 05/07/2025 2:57 PM Question Answer Comments Cardiopulmonary Resuscitatio n (CPR) If patient has no pulse and is not breathing: ATTEMPT Resuscitation CPR Medical Interventions when N OT in Cardiopulmonary Arrest (If patient is found with a pulse and/or is breathing): Selective Treatment - Do NOT Intubate * Full Code Date Activated Date Inactivated Comments 05/04/2025 9:07 PM 05/04/2025 11:55 PM Care Teams Draw Fire Operator Relationship Specialty Start Date End Date Kyra Shipley MD [address] [address] [place] [address] PCP - General FAMILY PRACTICE 11/06/22 Neymar Mari MD [facility]. [address] [address] [place] Brand Inspector CARDIOVASCULAR DISEASE 01/12/16
--- OUTSIDE RECORDS SUMMARY | 2025-05-08 17:37 | XMS_ITS | Encounter Summary ---
Author Organization [facility] Address [facility] [place] [address] Care Team Providers Care Idea Worker Name Role Phone Neymar Mari MD Unavailable [phone] Cyndie Mccormack MD Primary Care Provider [phone] Reason for Visit * Reason Onset Date Comments TCM 05/08/2025 Encounter Details Date Type Department Care Team (Late st Contact Info) Description 05/08/2025 Telephone [facility] Family [facility] - [place] [address] [facility] [address] [place] [address] Cyndie Mccormack MD [address] [place] [address] TCM Social History Tobacco Use Types Packs/Day Years Used Date Smoking Tobacco: Never Passive Smoke Exposure: Past Smokeless Tobacco: Never Alcohol Use Standard Drinks/Week Comments No 0 (1 standard drink = 0.6 oz pur e alcohol) [facility] Utilities Answer Date Recorded In the past 12 months has e electric, gas, oil, or water company threatened to shut off services in your [...] any time in the past 12 m [facility], were you homeless or living in a fdc (including now)? 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 Answer Date of Assessment Author Status No 05/05/2025 3:23 AM Jose Sorto RN Active * Do you have serious difficulty walking or climbing stairs? Answer Date of Assessment Author Status No 05/05/2025 3:23 AM Jose Sorto RN Active * Do you have difficulty dressing or bathing? Answer Date of Assessment Author Status No 05/05/2025 3:23 AM YOMIT Jose Covington RN Active * Because of a physical, mental, or emotional condition, do you have difficulty doing errands alone such as visiting a doctor's office or shopping? Answer Date of Assessment Author Status No 05/05/2025 7:18 AM Petros Rankin RN Active documented as of this encounter Mental Status * Because of a physical, mental, or emotional condition, do you have serious difficulty concentrating, remembering, or making decisions? Answer Entry Date Author Status No 05/05/2025 7:18 AM Petros Rankin RN Active documented in this encounter Progress Notes * Mag Stephens MA - 05/08/2025 11:32 AM CDT Follow up call to patient post hospitalization Date of hospital discharge: 05/07/2025 Patient discharged from: [facility] Discharge diagnosis/diagnoses: CHF, Hyperglycemia Procedures performed while inpatient: Yes. Begin the medication reconciliation process (completed at first face to face visit) Any follow up services needed: Yes. Education on self management: Yes. Assess adherence with treatment (medication) regimen and provide support. Does patient have access to care and services (rides, etc)? Yes. Appointment scheduled for follow up in the office (7 days if high complexity or within 14 days for medium complexity) Appointment Date: 05/13/25 Time: 12:00 * Paty Dumas - 05/08/2025 10:20 AM CDT TCM Discharged from what facility [facility] Discharge date 05/07/25 Admitted for high blood sugar Talked to pt's daughter Future Appointments Date Time Provider Department Center 05/13/2025 12:00 PM Cyndie Mccormack MD [id number] GRN MNT R 05/18/2025 9:40 AM Cyndie Mccormack MD [facility] MG GRN MNT R 05/26/2025 12:45 PM Neymar Mari MD OFALPCCL PCCL O documented in this encounter Plan of Treatment Upcoming Encounters Date Type Department Care Team (Late st Contact Info) Description 05/13/2025 12:00 PM CDT Office Visit [facility] [place] [address] [place] [phone] Cyndie Mccormack MD [address] [facility] [address] [place] [address] 05/18/2025 9:40 AM CDT Office Visit [facility] [place] [address] [place] [phone] Cyndie Mccormack MD [address] [facility] [address] [place] [address] 05/26/2025 12:45 PM CDT Office Visit [facility], [facility] [address] [place], [place] [phone] Neymar Mari MD [facility]. [facility] [address] [place], [place] [phone] documented as of this encounter Visit Diagnoses Not on filedocumented in this encounter Additional Health Concerns Assessment Noted Time PHQ-9 Depression Total Score: 0 08/21/19 25 8:30 AM SODA FOUNTAIN OPERATOR documented as of this encounter Care Teams Idea Worker Relationship Specialty Start Date End Date Cyndie Mccormack MD [address] [facility] [address] [place] [phone] PCP - General FAMILY PRACTICE 11/06/22 Neymar Mari MD [address] [facility] [address] [place] [address] [place] [facility] Director Lead Teacher CARDIOVASCULAR DISEASE 01/12/16 documented as of this encounter
--- OUTSIDE RECORDS SUMMARY | 2025-05-08 17:37 | XMS_ITS | Clinical Summary ---
Author Organization [facility] Care Team Providers Care Relief Driller Name Role Phone Unavailable Primary Care Provider Unavailabl e Social History Tobacco Use Types Packs/Day Years Used Date Smoking Tobacco: Never Assessed Comments Unknown Sex and Gender Information Value Date Recorded Sex Assigned at Not on file Legal Sex Female 9:57 AM CDT Gender Identity Not on file Sexual Orientation Not on file Plan of Treatment Health Maintenance Due Date Last Done Comments Hepatitis C Virus (HCV) Screening 1950 TdaP Immunization 1950 Cologuard 1996 Colonoscopy 1996 Colorectal Cancer Screening 1996 Immunochemical Fecal Occult Blood 1996 Pneumococcal Immunization (5 0+ years) (1 of 1 - PCV) 2001 Zoster Immunization (1 of 2) 2001 SARS-COV-2 Immunization ( - 2023-25 season) 2024 Influenza Immunization (#1) 2025 Respiratory Syncytial Virus (RSV) Immunization (Adult) (1 - 1-dose 75+ series) 2026 Hepatitis B Immunization Aged Out No longer eligible based on patient's age to complete this topic Human Papillomavirus (HPV) Immunization Aged Out No longer eligible b ased on patient's age to complete this topic Meningococcal Immunization (ACWY) Aged Out No longer eligible based on patient's age to complete this topic Rotavirus Immunization Aged Out No lo nger eligible based on patient's age to complete this topic
--- OUTSIDE RECORDS SUMMARY | 2025-05-08 17:37 | XMS_ITS | Encounter Summary ---
Author Organization [facility] Address [facility] [place] [address] Care Team Providers Care Marketing Pr Intern Name Role Phone Neymar Mari MD Unavailable [phone] Cyndie Mccormack MD Primary Care Provider [phone] Reason for Visit * Reason Onset Date Comments Lab Order 05/08/2025 Encounter Details Date Type Department Care Team (Late st Contact Info) Description 05/08/2025 [facility] [phone] Neymar Mari MD [facility]. [address] [address] Lab Order Social History Tobacco Use Types Packs/Day Years Used Date Smoking Tobacco: Never Passive Smoke Exposure: Past Smokeless Tobacco: Never Alcohol Use Standard Drinks/Week Comments No 0 (1 standard drink = 0.6 oz pur e alcohol) [facility] Utilities Answer Date Recorded In the past 12 months has [employer] electric, gas, oil, or water [employer] threatened to shut off services in your [...] any time in the past 12 m [facility], were you homeless or living in a nursing home (including now)? 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 Answer Date of Assessment Author Status No 05/05/2025 7:18 AM CDT Petros Plasencia RN Active documented as of this encounter Mental Status * Because of a physical, mental, or emotional condition, do you have serious difficulty concentrating, remembering, or making decisions? Answer Entry Date Author Status No 05/05/2025 7:18 AM CDT Petros Plasencia RN Active documented in this encounter Progress Notes * CAITLIN Elizabeth - 05/08/2025 11:29 AM CDT ----- Message from Peggy Swartz sent at 05/07/2025 9:50 AM CDT ----- Regarding: Hospital d/c orders She was discharged. Can you add a BMP/CBC for Dr. Mari in 1 week. She already has f/u 05/26 she should keep. Thanks MAILED TO PT documented in this encounter Plan of Treatment Upcoming Encounters Date Type Department Care Team (Late st Contact Info) Description 05/13/2025 12:00 PM CDT Office Visit [facility] [place] [address] [place] [address] Cyndie Mccormack MD [address] [place], [place] 05/18/2025 9:40 AM CDT Office Visit [facility] Family [facility] - [place] [address] [place], [place] [phone] Cyndie Mccormack MD [address] [place], [place] 05/26/2025 12:45 PM CDT Office Visit [facility], [address] [place], [place] [phone] Neymar Mari MD Three [facility]. [address] [place], [place] [phone] Scheduled Orders Name Type Priority Associated Diagnoses Orde r Schedule BASIC METABOLIC PANEL Lab Routine Heart failure with mildly reduced ejection fraction (CMS/HCC HHS/HCC) Expected: 05/15/2025 (Approximate), Expires: 05/08/2026 CBC, AUTO, NO DIFF Lab Routine Heart failure with mildly reduced ejection fraction (CMS/HCC HHS/HCC) Expected: 05/15/2025 (Approximate), Expires: 05/08/2026 documented as of this encounter Visit Diagnoses Diagnosis Heart failure with mildly reduced ejection fraction (CMS/HCC HHS/HCC)- Primary documented in this encounter Additional Health Concerns Assessment Noted Time PHQ-9 Depression Total Score: 0 08/21/19 25 8:30 AM HEART COORDINATOR documented as of this encounter Care Teams Marketing Pr Intern Relationship Specialty Start Date End Date Cyndie Mccormack MD [address] [place], [place] PCP - General FAMILY PRACTICE 11/06/22 Neymar Mari MD Three [facility]. [address] [address] [place] Class A Regional Truck Driver CARDIOVASCULAR DISEASE 01/12/16 documented as of this encounter
--- OUTSIDE RECORDS SUMMARY | 2025-05-08 17:37 | XMS_ITS | Clinical Summary ---
Author Organization [facility] Address [address] [place] [address] Care Team Providers Care Oxygen Tank Filler Name Role Phone Eddie Quigley DO Unavailable [phone] Cyndie Mccormack MD Primary Care Provider [phone] Allergies Active Allergy Reactions Criticality Noted Date Comments Latex Rash Medium 12/30/2019 Rash Rash Other Unknown 02/21/2017 Penicillins Rash Medium 08/15/2016 Rash Rash Medications BD Alcohol Swabs pads, medicated 11/20/2019 Active Accu-Chek Mana Plus test strp strip 11/25/2019 Active chlorthalidone 25 mg tablet 11/20/2019 Active clotrimazole-be tamethasone (LOTRISONE) cream 12/10/2019 Active Jardiance 10 mg tablet 12/16/2019 Active EPINEPHrine 0.3 mg/0.3 mL auto-injection syringe 12/16/2019 Active fluconazole (DIFLUCAN) 150 mg tablet 12/16/2019 Active glimepiride (AMARYL) 2 mg tablet 11/20/2019 Active Lantus U-100 Insulin 100 unit/mL injection 12/16/2019 Active Accu-Chek Softclix Lancets lancets 11/20/2019 Act jagruti omeprazole (PriLOSEC) 20 mg capsule 11/25/2019 Active rosuvastatin (CRESTOR) 20 mg tablet 11/20/2019 Active Januvia 100 mg tablet 11/20/2019 Active Droplet Insulin Syringe 1 mL 30 gauge x 1/2 syringe 11/28/2019 Active albuterol HFA (PROVENTIL HFA,VENTOLIN HFA,PROAIR HFA) 90 mcg/actuation inhaler 12/30/2019 Active Symbicort 160-4.5 mcg/actuation inhaler 12/30/2019 Active fluticasone propionate (FLONASE) 50 mcg/actuation nasal spray 01/21/2020 Active Droplet Pen Needle 31 gauge x 3/16 needle 01/20/2020 Acti ve predniSONE (DELTASONE) 50 mg tablet 12/30/2019 Active Droplet Insulin Syringe 0.3 mL 31 gauge x 5/16 syringe 01/07/2020 Activ e aspirin 81 mg enteric coated tablet Take 81 mg by mouth daily Active furosemide (LASIX) 20 mg tablet Take 20 mg by mouth 2 (two) times a day Active loratadine (CLARITIN) 10 mg tablet Take 10 mg by mouth daily Active nitroglycerin (NITROSTAT) 0.[address] 0.4 mg under the tongue every 5 (five) minutes as needed for chest pain Active cholecalciferol (VITAMIN D-3) 2000 unit capsule 2,000 Units Active Active Problems Problem Noted Date Diagnosed Date Anemia 12/06/2021 Surgical History Surgery Date Site/Laterality Comments COLONOSCOPY NO PAST SURGERIES Medical History Medical History Date Comments Diabetes mellitus Anemia Bronchitis CHF (congestive heart failure) (HCC) Hypercholesteremia Hypertension Osteoporosis Family History Medical History Relation Name Comments Colon cancer Brother Heart attack Father No Known Problems Maternal Grandfather No Known Problems Maternal Grandmother No Known Problems Mother No Known Problems Paternal Grandfather No Known Problems Paternal Grandmother Colon cancer Sister Relation Name Status Comments Brother Father Maternal Grandfather Maternal Grandmother Mother Alive Paternal Grandfather Paternal Grandmother Sister Social History Tobacco Use Types Packs/Day Years Used Date Smoking Tobacco: Never Smokeless Tobacco: Never AUDIT-C Answer Date Recorded Q1: How often do you have a drink containing alc ohol? 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 Not on file Not on benito e Obstetrics History Last Filed Vital Signs Vital Sign Reading Time Taken Comments Blood Pressure 128/80 11/26/2022 5:15 PM CDT Pulse 78 11/26/2022 5:15 PM CDT Temperature 37.2 C (99 F) 11/26/2022 2:37 PM CDT Respiratory Rate 16 11/26/2022 5:15 PM CDT Oxygen Saturation 98% 11/26/2022 5:15 PM CDT Inhaled Oxygen Concentration - - Weight 98.4 kg (217 lb) 11/26/2022 2:37 PM CDT Height 167.6 cm (5' 6) 11/26/2022 2:37 PM CDT Body Mass Index 35.02 11/26/2022 2:37 PM CDT Plan of Treatment Health Maintenance Due Date Last Done Comments Colon Cancer Screening-Colonoscopy 1950 Depression Screening 1951 Fall Risk Assessment 1950 Hepatitis C Screening 1950 DTaP/Tdap/Td Vaccine (1 - Tdap) 1962 Hepatitis B Screening 1969 Well Visit 65+ 2016 Breast Cancer Screening-Mammogram 08/10/2021 020 Osteoporosis Screening-Bone Density Scan 11/24/2024 11/24/2022 Zoster Vaccine (3 of 3) 12/12/2024 10/17/2024, 08/13 Influenza Vaccine (#1) 2025 1950 Pneumococcal vaccine 65+ Completed 022, 05/20/2020, 02/27/2018, Additional history exists Procedures Procedure Name Priority Date/Time Associated Diagnosis Comments SCREENING MAMMOGRAM BILATERAL W JONAS 08/10/2020 9:03 AM DEPLOYMENT MANAGER from Last 3 Months or Most Recently Relevant to Health Maintenance Results * Screening Mammogram Bilateral W Jonas (08/10/2020 9:03 AM DEPLOYMENT MANAGER) Anatomical Region Laterality Modality Breast Bilateral Mammography 08/10/2020 9:20 AM DEPLOYMENT MANAGER Narrative 08/17/2020 8:08 AM DEPLOYMENT MANAGER Patient Name: NATALI COLLINS Ordering Dr: Pat Dickinson MDO.B: 1950 Exam Date: 08/10/2003 Age: 70 Sex: Female MR#: [id number] Loc: [facility]#: [id number] RADIOLOGY REPORT Order #[id number] [facility]sy Bilat Screening 3D Signed - MG BILATERAL DIGITAL SCREENING MAMMOGRAM 3D/2D WITH MEDIOLATERAL OBLIQUE CRANIOCAUDAL: 08/10/2020 The study was acquired using full field digital technology and interpreted from soft copy. 2D digital mammographic views, as well as 3D digital tomosynthesis were performed in the CC and MLO projections. CLINICAL: Routine mammogram. Patient denies any problem today. Daughter with breast cancer. No personal history of breast cancer. COMPARISONS: Comparison is made to exams dated: 01/23/2019 mammogram, 09/26/2016 mammogram, 10/15/2017 mammogram, 06/23/2015 mammogram, 12/19/2013 mammogram, and 11/21/2012 mammogram - [facility]. BREAST TISSUE: The tissue of both breasts is heterogeneously dense, which may obscure small masses. FINDINGS: No new suspicious findings are identified in the right breast on mammogram. There is a small asymmetry in the outer left breast at posterior depth on cc view without definite correlate on the MLO view. No other suspicious findings are noted in the left breast on mammogram. IMPRESSION: BI-RAD 0 ADDITIONAL IMAGING EVALUATION NEEDED 1. Small asymmetry in the outer left breast at posterior depth on cc view only. Further evaluation with left unilateral diagnostic mammogram and possible sonogram is recommended. 2. No new suspicious findings in the right breast on mammogram. Annual screening mammography recommended in 12 months. The patient has been or will be contacted. Electronically signed by: Rod Man rl/:08/17/2020 08:08:47 Parks Recreation Director: Arianna GRAVES(Keysha)(Manav), [facility] letter sent: Additional Imaging Reading location: BI-RADS: 0 Additional Imaging Evaluation Needed REPORT ELECTRONICALLY SIGNED IN OTHER VENDOR SYSTEM Resulting Agency Comment O Procedure Note Rod Prakash MD - 08/17/2020 Patient Name: Satish COLLINS Dr: Pat Dickinson MD D.O.B: 1950 Exam Date: 08/10/20902 Age: 70 Sex: Female MR#: [id number] Loc: RADIOLOGY REPORT Order #[id number] [facility] Elsy Bilat Screening 3D Signed - MG BILATERAL DIGITAL SCREENING MAMMOGRAM 3D/2D WITH MEDIOLATERAL OBLIQUE CRANIOCAUDAL: 08/10/2020 The study was acquired using full field digital technology andinterpreted from soft copy. 2D digital mammographic views, as well as 3D digital tomosynthesis were performed in the CC and MLO projections. CLINICAL: Routine mammogram. Patient denies any problem today. Daughterwith breast cancer. No personal history of breast cancer. COMPARISONS: Comparison is made to exams dated: 01/23/2019 mammogram,09/26/2016 mammogram, 10/15/2017 mammogram, 06/23/2015 mammogram, 12/19/2013 mammogram,and 11/21/2012 mammogram - [facility]. BREAST TISSUE: The tissue of both breasts is heterogeneously dense, whichmay obscure small masses. FINDINGS: No new suspicious findings are identified in the right breaston mammogram. There is a small asymmetry in the outer left breast atposterior depth on cc view without definite correlate on the MLO view. No other suspicious findings are noted in the left breast on mammogram. IMPRESSION: BI-RAD 0 ADDITIONAL IMAGING EVALUATION NEEDED 1. Small asymmetry in the outer left breast at posterior depth on ccview only. Further evaluation with left unilateral diagnostic mammogram and possible sonogram is recommended. 2. No new suspicious findings in the right breast on mammogram. Annual screening mammography recommended in 12 months. The patient has been or will be contacted. Electronically signed by: Rod Man rl/:08/17/2020 08:08:47 Parks Recreation Director: Arianna GRAVES(R)(M), [facility] letter sent: Additional Imaging Reading location: BI-RADS: 0 Additional Imaging Evaluation Needed REPORT ELECTRONICALLY SIGNED IN OTHER VENDOR SYSTEM Pat Dickinson MD IMG MAMMO PROCEDUR ES Final Result from Last 3 Months or Most Recently Relevant to Health Maintenance Insurance [facility] MEDICARE ADVANTAGE [facility] MEDICARE ADVANTAGE [employer] Care Teams Oxygen Tank Filler Relationship Specialty Start Date End Date Cyndie Mccormack MD [address] [facility] [address] [place], [place] [phone] PCP - General Family Medicine 04/07/25 Eddie Quigley DO [address] [facility], [facility] [address] [place], [place] [address] Medical Oncologist/Green Jobs Trainer Hematology and Oncology 01/06/22
--- OUTSIDE RECORDS SUMMARY | 2025-05-08 17:37 | XMS_ITS | Encounter Summary ---
Author Organization [facility] Address [facility] [place] [address] Care Team Providers Care Substance Abuse Nurse Name Role Phone Neymar Mari MD Unavailable [phone] Pat Null MD Primary Care Provider Cyndie Mccormack MD Primary Care Provider [phone] Encounter Details Date Type Department Care Team (Late Contact Info) Description 10/19/2022 Abstract [facility] [address] Jossy Clemens MA Social History Tobacco Use Types Packs/Day Years Used Date Smoking Tobacco: Never Smokeless Tobacco: Never Alcohol Use Standard Drinks/Week Comments No 0 (1 standard drink = 0.6 oz pur e alcohol) Comments No Sex and Gender Information Value Date Recorded Sex Assigned at Female 09/22/2024 2:59 PM INCIDENT COORDINATOR Legal Sex Female 9:13 PM CDT Gender Identity Not on file Sexual Orientation Not on file 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 No / Unsure 09/20/2022 1:23 PM INCIDENT COORDINATOR documented as of this encounter Plan of Treatment Upcoming Encounters Date Type Department Care Team (Late Contact Info) Description 05/13/2025 12:00 PM CDT Office Visit [facility] [address], [address] [place], [place] [phone] Cyndie Mccormack MD [address] [place] [address] 05/18/2025 9:40 AM CDT Office Visit [facility] [address], [address] [place], [place] [phone] Cyndie Mccormack MD [address] [place], [place] 05/26/2025 12:45 PM CDT Office Visit [facility] [address] [place] [address] Neymar Mari MD [address] [facility] [place], [place] [id number] documented as of this encounter Procedures Procedure Name Priority Date/Time Associated Diagnosis Comments BNP Routine 03/30/2023 COMPREHENSIVE METABOLIC PANEL Routine 03/30/2023 CBC (OUTSIDE LAB) Routine 10/18/2022 COMPREHENSIVE METABOLIC PANEL Routine 10/18/2022 LIPID PANEL Routine 10/18/2022 HEMOGLOBIN, GLYCOSYLATED Routine 10/18/2022 CK (CPK) Routine 10/18/2022 documented in this encounter Results * BNP (03/30/2023) B TYPE NATRIURETIC PEPTIDE 11 Narrative Resulting Agency Comment [facility] Genericprovider LABORATORY Edited Result - Final * (ABNORMAL) COMPREHENSIVE METABOLIC PANEL (03/30/2023) Pathologist [facility] SODIUM S/P/B 139 POTASSIUM S/P/B 4.3 CO2 31 CHLORIDE S/P/B 102 GLUCOSE 230 mg/dL CALCIUM S/P/B 9.4 BUN 24 CREATININE S/P/B 1.32(A) 0.5 - 1.0 EGFR NON-AFR. AMER. 43 <=90 ALKALINE PHOSPHATASE S/P/B 92 ALT 13 AST 17 BILIRUBIN TOTAL S/P/B 0.5 ALBUMIN S/P/B 3.8 3.5 - 5.0 TOTAL PROTEIN S/P/B 6.3 GLOBULIN 2.5 03/30/2023 [facility] LABORATORY Final Result * CBC (OUTSIDE LAB) (10/18/2022) Pathologist [facility] WBC 7.0 HGB 10.6 HCT 32.7 PLT 177 10/18/2022 Result [facility] Genericprovider LAB-OUTSIDE/ABST RACTED Final Result * CK (CPK) (10/18/2022) Pathologist [facility] CPK 122 10/18/2022 [facility] Genericprovider LABORATORY Final Result * HEMOGLOBIN, GLYCOSYLATED (10/18/2022) Pathologist [facility] HGB A1C 11.0 % 10/18/2022 [facility] Genericprovider LABORATORY Final Result * (ABNORMAL) COMPREHENSIVE METABOLIC PANEL (10/18/2022) Pathologist [facility] SODIUM S/P/B 145 POTASSIUM S/P/B 4.4 CO2 29 CHLORIDE S/P/B 109 GLUCOSE 84 mg/dL CALCIUM S/P/B 9.3 BUN 22 CREATININE S/P/B 1.08(A) 0.5 - 1.0 EGFR NON-AFR. AMER. 55 <=90 ALKALINE PHOSPHATASE S/P/B 81 ALT 11 AST 15 BILIRUBIN TOTAL S/P/B 0.5 ALBUMIN S/P/B 3.9 3.5 - 5.0 TOTAL PROTEIN S/P/B 6.3 GLOBULIN 2.4 10/18/2022 us Default History Genericprovider LABORATORY Final Result * LIPID PANEL (10/18/2022) CHOLESTEROL 137 HDL 40 TRIGLYCERIDES 104 NON HDL CHOLESTEROL 97 LDL (CALCULATED) 78 10/18/2022 us Default History Genericprovider LABORATORY Final Result documented in this encounter Visit Diagnoses Not on filedocumented in this encounter Additional Health Concerns Infection Onset Date Last Indicated Resolved Time COVID-19 Rule Out 05/28/2023 05/28/2023 05/28/2023 2:28 PM CDT COVID-19 Rule Out 07/04/2024 07/04/2024 07/04/2024 2:30 PM INCIDENT COORDINATOR COVID-19 Rule Out 09/22/2024 09/22/2024 09/22/2024 3:31 PM INCIDENT COORDINATOR COVID-19 Rule Out 05/04/2025 05/04/2025 05/04/2025 2:58 PM CDT Respiratory Rule Out 05/05/2025 05/05/2025 025 3:25 PM CDT documented as of this encounter Care Teams Substance Abuse Nurse Relationship Specialty Start Date End Date Pat Null MD [address] [place] [id number] PCP - General FAMILY PRACTICE 06/04/19 11/05/22 Cyndie Mccormack MD [address] [phone] PCP - General FAMILY PRACTICE 11/06/22 Neymar Mari MD Three [facility] [place] [address] [place] Supervisor Tumbling And Rolling CARDIOVASCULAR DISEASE 01/12/16 documented as of this encounter
--- OUTSIDE RECORDS SUMMARY | 2025-05-08 17:37 | XMS_ITS | Encounter Summary ---
Author Organization [facility] Address [facility] [place] [address] Care Team Providers Care Shoe Trimmer Name Role Phone Neymar Mari MD Unavailable [phone] Pat Null MD Primary Care Provider Cyndie Mccormack MD Primary Care Provider [phone] Encounter Details Date Type Department Care Team (Late Contact Info) Description 05/06/2020 Abstract [facility] at [address] [address] Jossy Clemens MA Social History Tobacco Use Types Packs/Day Years Used Date Smoking Tobacco: Never Smokeless Tobacco: Never Alcohol Use Standard Drinks/Week Comments No 0 (1 standard drink = 0.6 oz pur e alcohol) Comments Unknown Sex and Gender Information Value Date Recorded Sex Assigned at Female 09/22/2024 2:59 PM FACILITIES MECHANICAL DESIGN ENGINEER Legal Sex Female 9:13 PM CDT Gender Identity Not on file Sexual Orientation Not on file 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 No / Unsure 05/05/2020 9:40 AM CDT documented as of this encounter Plan of Treatment Upcoming Encounters Date Type Department Care Team (Late Contact Info) Description 05/13/2025 12:00 PM CDT Office Visit [facility] [address] [place] [address] Cyndie Mccromack MD [address] [place] [address] 05/18/2025 9:40 AM CDT Office Visit [facility] [address] [place] [address] Cyndie Mccormack MD [address] [facility] [address] [place] [address] 05/26/2025 12:45 PM CDT Office Visit [facility], [address] [place] [address] Neymar Mari MD Three [facility]. [facility] [address] [place], [place] [address] documented as of this encounter Procedures Procedure Name Priority Date/Time Associated Diagnosis Comments CBC (OUTSIDE LAB) Routine 04/29/2020 COMPREHENSIVE METABOLIC PANEL Routine 04/29/2020 documented in this encounter Results * (ABNORMAL) COMPREHENSIVE METABOLIC PANEL (04/29/2020) SODIUM S/P/B 140 POTASSIUM S/P/B 4.2 CO2 30 CHLORIDE S/P/B 101 GLUCOSE 141 mg/dL CALCIUM S/P/B 9.2 BUN 19 CREATININE S/P/B 1.13(A) 0.5 - 1.0 EGFR AFR. AMER. 58 <=90 EGFR NON-AFR. AMER. 50 <=90 ALKALINE PHOSPHATASE S/P/B 83 ALT 13 AST 14 BILIRUBIN TOTAL S/P/B 0.5 ALBUMIN S/P/B 4.0 3.5 - 5.0 TOTAL PROTEIN S/P/B 6.4 GLOBULIN 2.4 04/29/2020 [facility] Abstract LABORATORY Final Result * CBC (OUTSIDE LAB) (04/29/2020) WBC 5.5 HGB 11.3 HCT 35.4 PLT 178 04/29/2020 [facility] Abstract LAB-OUTSIDE/ABSTRACTED Final Result documented in this encounter Visit Diagnoses Not on filedocumented in this encounter Additional Health Concerns Infection Onset Date Last Indicated Resolved Time COVID-19 Rule Out 05/28/2023 05/28/2023 05/28/2023 2:28 PM CDT COVID-19 Rule Out 07/04/2024 07/04/2024 07/04/2024 2:30 PM FACILITIES MECHANICAL DESIGN ENGINEER COVID-19 Rule Out 09/22/2024 09/22/2024 09/22/2024 3:31 PM FACILITIES MECHANICAL DESIGN ENGINEER COVID-19 Rule Out 05/04/2025 05/04/2025 05/04/2025 2:58 PM CDT Respiratory Rule Out 05/05/2025 05/05/2025 025 3:25 PM CDT documented as of this encounter Care Teams Shoe Trimmer Relationship Specialty Start Date End Date Pat Null MD [address] [place] [phone] PCP - General FAMILY PRACTICE 06/04/19 11/05/22 Cyndie Mccormack MD [address] [facility] [address] [place] [address] PCP - General FAMILY PRACTICE 11/06/22 Neymar Mari MD [facility] [address] [place] [address] Augustine Bushing And Broach Operator CARDIOVASCULAR DISEASE 01/12/16 documented as of this encounter
--- OUTSIDE RECORDS SUMMARY | 2025-05-08 17:37 | XMS_ITS | Encounter Summary ---
Author Organization [facility] Address [facility] [place] [address] Care Team Providers Care Crew Dispatcher Name Role Phone Neymar Mari MD Unavailable [phone] Cyndie Mccormack MD Primary Care Provider [phone] Reason for Visit * Reason Onset Date Comments Hyperglycemia 05/08/2025 Encounter Details Date Type Department Care Team (Late st Contact Info) Description 05/08/2025 Telephone [facility] [place] [address] [place] [address] Cyndie Mccormack MD [address] [facility] [address] [place] [address] Hyperglycemia Social History Tobacco Use Types Packs/Day Years Used Date Smoking Tobacco: Never Passive Smoke Exposure: Past Smokeless Tobacco: Never Alcohol Use Standard Drinks/Week Comments No 0 (1 standard drink = 0.6 oz pur e alcohol) [facility] Utilities Answer Date Recorded In the past [...] any time in the past 12 m [facility], were you homeless or living in a correction (including now)? 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 Patient was discharged from [facility] yesterday. Per Discharge med list she is on Lantus 24 units QAM, and has Humalog 7units with meals. She reports patient's fasting glucose around 5:30am - 360. She took her Lantus 24 units at that time. She had oatmeal with a little butter, sausage, coffee with cream for breakfast, took Humalog 7units and at 8am glucose was 503. She then checked her sugar at 10:25am: glucometer reading high. Patient denies chest pain, SOB, Palpitations, N/V, Dizziness. Advised to increase hydration, avoid sugars and limit carbs. Will send message to PCP for possible dose adjustments. Advised ER for new or worsening symptoms. Daughter then states patient has another insulin scale that if her sugar is greater than 400 prior to meal, sheis supposed to take 10units of Humalog. Inquired who provided this scale and she reported the diabetes doctor. Was able to clarify that patient sees endocrinology for DM. Advised to contact Endo to notify of uncontrolled glucose and recent hospitalization. Advised to keep f/u appt for 05/13/25 with PCP as scheduled. Will send this message to PCP for any additional recommendations. ER precautions given. She VU and agrees. She will contact endo. Opportunity given for all questions to be answered,no further needs voiced at this time. documented in this encounter Plan of Treatment Upcoming Encounters Date Type Department Care Team (Late st Contact Info) Description 05/13/2025 12:00 PM CDT Office Visit [facility] [address] [place] [phone] Cyndie Mccormack MD [address] [facility] [address] [place], [place] 05/18/2025 9:40 AM CDT Office Visit [facility] [address] [place] [address] [place], [place] [phone] Cyndie Mccormack MD [address] [facility] [address] [place], [place] 05/26/2025 12:45 PM CDT Office Visit [facility], [address] [place], [place] [phone] Neymar Mari MD [facility]. [address] [place], [place] [phone] documented as of this encounter Visit Diagnoses Not on filedocumented in this encounter Additional Health Concerns Assessment Noted Time PHQ-9 Depression Total Score: 0 08/21/19 25 8:30 AM LICENSING REPRESENTATIVE documented as of this encounter Care Teams Crew Dispatcher Relationship Specialty Start Date End Date Cyndie Mccormack MD [address] [facility] [address] [place] [phone] PCP - General FAMILY PRACTICE 11/06/22 Neymar Mari MD [facility] [address] [place] [address] Augustine Fire Prevention Forester CARDIOVASCULAR DISEASE 01/12/16 documented as of this encounter
--- NOTE | 2025-05-08 17:38 | ED.GENADULT ---
HPI - General Adult General Chief complaint: Unspecified Stated complaint: DM1, hyperglycemia Time Seen by Provider: 05/08/25 16:35 Source: patient Mode of arrival: ambulatory Limitations: no limitations History of Present Illness HPI narrative: Patient is a 74-year-old female who presents the ED with report of elevated blood sugars. Course Vital Signs Vital signs: Vital Signs Temperature 98.0 F 05/08/25 16:42 Pulse Rate 75 05/08/25 16:42 Respiratory Rate 17 05/08/25 16:42 Blood Pressure 131/71 05/08/25 16:42 Pulse Oximetry 100 05/08/25 16:42 Temperature 98.0 F 05/08/25 16:42 Pulse Rate 75 05/08/25 16:42 Respiratory Rate 17 05/08/25 16:42 Blood Pressure 131/71 05/08/25 16:42 Pulse Oximetry 100 05/08/25 16:42 Medical Decision Making Vital Signs Vital Signs: Vital Signs Temperature 98.0 F 05/08/25 16:42 Pulse Rate 75 05/08/25 16:42 Respiratory Rate 17 05/08/25 16:42 Blood Pressure 131/71 05/08/25 16:42 Pulse Oximetry 100 05/08/25 16:42 Temperature 98.0 F 05/08/25 16:42 Pulse Rate 75 05/08/25 16:42 Respiratory Rate 17 05/08/25 16:42 Blood Pressure 131/71 05/08/25 16:42 Pulse Oximetry 100 05/08/25 16:42 Lab Data Labs: Lab Results 05/08/25 Range/Units 14:15 Urine Color Yellow (Yellow) Urine Appearance Clear (Clear) Urine pH 6.5 (5.0-9.0) Ur Specific [place] 1.025 (1.001-1.035) Urine Protein 1+ H (Negative) mg/dL Urine Glucose (UA) 3+ H (Negative) mg/dL Urine Ketones Trace H (Negative) mg/dL Ur Blood (Man) Negative (Negative) Urine Nitrate Negative (Negative) Urine Bilirubin Negative (Negative) Urine Urobilinogen 0.2 (<2.0) mg/dL Leukocyte Esterase Rfl Negative (Negative) ADITI/UL Urine RBC 0-2 (0-2) /hpf Urine WBC 6-10 H (0-3) /hpf Ur Squamous Epith Cells Few (Few) /hpf Urine Bacteria None seen /hpf Urine Casts 0-2 Discharge Plan Discharge Patient Language: Vietnamese Follow-up/Referrals: PHYSICIAN NOT ON STAFF,NONSTAFF [Primary Care Provider]
--- OUTSIDE RECORDS SUMMARY | 2025-05-08 17:38 | XMS_ITS | Data Portability ---
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 Diabetic foot exam performed. RTC 3 mo Not available 12/24/2024 14:11:47 Plan of Treatment Reminders Order Date Submit Date Provider Last Modified By Organization Details Last Modified Time Details Appointments ANY 15 2024 11:45A M Jim Dodd DPM Not available Not available Not available Lab None recorded. Referral None recorded. Procedures None recorded. Surgeries None recorded. Imaging None recorded. Medication Orders ammonium lactate 12 % lotion 2024 025 [facility], [address], [facility] [address], [place], [id number], 12/24/2024 12:29:32 ammonium lactate 12 % lotion 2023 024 [facility], [address] [place] [address], [address], [place], [place], [id number], 10/26/2023 14:56:18 ammonium lactate 12 % lotion 2022 023 [facility], [address] [place] [address], [address], [id number], 06/29/2023 15:20:15 ammonium lactate 12 % lotion 2022 023 [facility], [address], [facility] [address], [place], [id number], 02/05/2023 12:49:32 ammonium lactate 12 % lotion 2022 023 [facility], [address] [place] [address], [facility] [address], [place], [place], [id number], 10/25/2022 12:13:55 Patient TargetsNo targets recorded. Patient Instructions Encounter Date Encounter Id Patient Instructions Last Modified By Organization Details Last Modified Time 10/25/2022 [id number] learning about type 2 diabetes fharry Not available 10/25/2022 12:13:53 type 2 diabetes: care instructions fharry Not available 10/25/2022 12:13:53 toenail fungus: care instructions fharry Not available 10/25/2022 12:13:54 02/05/2023 [id number] learning about type 2 diabetes fharry Not available 02/05/2023 12:49:25 type 2 diabetes: care instructions fharry Not available 02/05/2023 12:49:25 toenail fungus: care instructions fharry Not available 02/05/2023 12:49:25 06/29/2023 [id number] learning about type 2 diabetes fharry Not available 06/29/2023 15:20:14 type 2 diabetes: care instructions fharry Not available 06/29/2023 15:20:14 toenail fungus: care instructions fharry Not available 06/29/2023 15:20:13 10/26/2023 [id number] learning about type 2 diabetes fharry Not available 10/26/2023 14:56:16 type 2 diabetes: care instructions fharry Not available 10/26/2023 14:56:16 toenail fungus: care instructions fharry Not available 10/26/2023 14:56:16 12/24/2024 [id number] learning about type 2 diabetes Not available 12/24/2024 12:29:27 type 2 diabetes: care instructions Not available 12/24/2024 12:29:27 toenail fungus: care instructions Not available 12/24/2024 12:29:27 Reason for Referral None Reported. Results Created Date Observation Date Name Description Value Unit Range Abnormal Flag Note LastModifiedBy Organization Detail LastModifiedTime 04/14/2004/14/2025 MICRO ALBUM CREAT ININE RATIO UR creatinine urine random 51.9 mg/dL not estab. Not Available [facility] (Lab) [address] [place], [address], 04/14/2025 20:26:35 04/14/20 25 04/14/2025 MICRO ALBUM CREAT ININE RATIO UR microalbumin urine random 31.4 mg/dL not estab. Not Available [facility] (Lab) [address] [place], [address], 04/14/2025 20:26:35 04/14/2004/14/2025 MICRO ALBUM CREAT ININE RATIO UR microalbum creatinine ratio ur 605 mg/g_ cre 0-29 Urine Micro album in-Cr eatin ine Ratio : Morena l 0-29 Moder ately Incre ased 30-30 0 Sever valery Incre ased >300 Not Available [facility] (Lab) [address] [place], [address], 04/14/2025 20:26:35 04/14/2004/14/2025 COMPL ETE BLOOD COUNT NO DIFF white blood count 4.0 x10e3 /uL 3.4-10 .8 normal Not Available [facility] (Lab) [address] [place], [address], 04/14/2025 20:47:21 04/14/2004/14/2025 COMPL ETE BLOOD COUNT NO DIFF red blood count 3.96 x10e6 /uL 3.77-5 .28 normal Not Available [facility] (Lab) [address] [place], [address], 04/14/2025 20:47:21 04/14/20 25 04/14/2025 COMPL ETE BLOOD COUNT NO DIFF hemoglobin 9.9 g/dL 11.1-1 5.9 low Not Available [facility] (Lab) [address] [place], [address], 04/14/2025 20:47:21 04/14/20 25 04/14/2025 COMPL ETE BLOOD COUNT NO DIFF hematocrit 31.1 % 34.0-4 6.6 low Not Available [facility] (Lab) [address] [place], [address], 04/14/2025 20:47:21 04/14/20 25 04/14/2025 COMPL ETE BLOOD COUNT NO DIFF mean corpuscular volume 79 fL 79-97 normal Not Available [facility] (Lab) [address] [facility], [place], [address], 04/14/2025 20:47:21 04/14/20 25 04/14/2025 COMPL ETE BLOOD COUNT NO DIFF mean corpuscular hemoglobin 25.0 pg 26.6-3 3.0 low Not Available [facility] (Lab) [address] [place], [address], 04/14/2025 20:47:21 04/14/20 25 04/14/2025 COMPL ETE BLOOD COUNT NO DIFF mean corpuscular HGB conc 31.8 g/dL 31.5-3 5.7 normal Not Available [facility] (Lab) [address] [place], [address], 04/14/2025 20:47:21 04/14/20 25 04/14/2025 COMPL ETE BLOOD COUNT NO DIFF red cell distribution width 11.8 % 11.5-1 4.5 normal Not Available [facility] (Lab) [address] [place], [address], 04/14/2025 20:47:21 04/14/20 25 04/14/2025 COMPL ETE BLOOD COUNT NO DIFF platelet count 158 x10e3 /uL 150-45 0 normal Not Available [facility] (Lab) [address] [place], [address], 04/14/2025 20:47:21 04/14/2004/14/2025 COMPL ETE BLOOD COUNT NO DIFF mean platelet volume 11.2 fL 8.9-12 .7 normal Not Available [facility] (Lab) [address] [facility] [place], [address], 04/14/2025 20:47:21 04/14/20 25 04/14/2025 COMPL ETE BLOOD COUNT NO DIFF nucleated red blood cells auto 0 % 0-0 normal Not Available [facility] (Lab) [address] [place], [address], 04/14/2025 20:47:21 04/14/20 25 04/14/2025 TSH RFX ON ABNOR MAL TO FREE T4 TSH rfx on abnormal to free T4 2.29 uIU/m L 0.450- 4.500 normal Not Available [facility] (Lab) [address] [place], [address], 04/14/2025 21:03:04 04/14/20 25 04/14/2025 COMPR EHENS LIDIA METAB OLIC PANEL sodium 142 mmol/ L 134-14 4 normal Not Available [facility] (Lab) [address] [place], [address], 04/14/2025 21:03:19 04/14/2004/14/2025 COMPR EHENS LIDIA METAB OLIC PANEL potassium 4.6 mmol/ L 3.5-5. 9 normal Not Available [facility] (Lab) [address] [place], [address], 04/14/2025 21:03:19 04/14/2004/14/2025 COMPR EHENS LIDIA METAB OLIC PANEL chloride 101 mmol/ L 96-106 normal Not Available [facility] (Lab) [address] [place], [address], 04/14/2025 21:03:19 04/14/2004/14/2025 COMPR EHENS LIDIA METAB OLIC PANEL carbon dioxide 30 mmol/ L 20-29 high Not Available [facility] (Lab) [address] [place], [address], 04/14/2025 21:03:19 04/14/2004/14/2025 COMPR EHENS LIDIA METAB OLIC PANEL anion gap 17.0 mmol/ L Not Available [facility] (Lab) [address] [place], [address], 04/14/2025 21:03:19 04/14/20 25 04/14/2025 COMPR EHENS LIDIA METAB OLIC PANEL blood urea nitrogen 26 mg/dL 8-27 normal Not Available [facility] (Lab) [address] [place], [address], 04/14/2025 21:03:19 04/14/2004/14/2025 COMPR EHENS LIDIA METAB OLIC PANEL creatinine 1.24 mg/dL 0.76-1 .27 normal Not Available [facility] (Lab) [address] [place], [address], 04/14/2025 21:03:19 04/14/2004/14/2025 COMPR EHENS LIDIA METAB OLIC PANEL eGFR 46 mL/mi n/1 >=60 low Not Available [facility] (Lab) [address] [place], [address], 04/14/2025 21:03:19 04/14/2004/14/2025 COMPR EHENS LIDIA METAB OLIC PANEL BUN creatinine ratio 21 10-28 normal Not Available [facility] (Lab) [address] [place], [address], 04/14/2025 21:03:19 04/14/2004/14/2025 COMPR EHENS LIDIA METAB OLIC PANEL glucose 180 mg/dL 70-99 high Not Available [facility] (Lab) [address] [place], [address], 04/14/2025 21:03:19 04/14/20 25 04/14/2025 COMPR EHENS LIDIA METAB OLIC PANEL osmolality calculated 292 280-30 1 normal Not Available [facility] (Lab) [address], [place], [address], 04/14/2025 21:03:19 04/14/2004/14/2025 COMPR EHENS LIDIA METAB OLIC PANEL calcium 9.6 mg/dL 8.7-10 .3 normal Not Available [facility] (Lab) [address], [place], [address], 04/14/2025 21:03:19 04/14/2004/14/2025 COMPR EHENS LIDIA METAB OLIC PANEL bilirubin total 0.4 mg/dL 0.0-1. 2 normal Not Available [facility] (Lab) [address] [place], [address], 04/14/2025 21:03:19 04/14/20 25 04/14/2025 COMPR EHENS LIDIA METAB OLIC PANEL AST aspartate aminotransfe rase 24 U/L 0-40 normal Not Available [facility] (Lab) [address], [place], [address], 04/14/2025 21:03:19 04/14/20 25 04/14/2025 COMPR EHENS LIDIA METAB OLIC PANEL ALT (alanine aminotransfe rase) 17 IU/L 0-32 normal Not Available [facility] (Lab) [address] [place], [address], 04/14/2025 21:03:19 04/14/2004/14/2025 COMPR EHENS LIDIA METAB OLIC PANEL total protein 6.1 g/dL 6.0-8. 5 normal Not Available [facility] (Lab) [address] [place], [address], 04/14/2025 21:03:19 04/14/20 25 04/14/2025 COMPR EHENS LIDIA METAB OLIC PANEL albumin level 3.9 g/dL 3.8-4. 8 normal Not Available [facility] (Lab) [address] [place], [address], 04/14/2025 21:03:19 04/14/2004/14/2025 COMPR EHENS LIDIA METAB OLIC PANEL globulin 2.2 g/dL 1.5-4. 5 normal Not Available [facility] (Lab) [address], [place], [address], 04/14/2025 21:03:19 04/14/2004/14/2025 COMPR EHENS LIDIA METAB OLIC PANEL albumin globulin ratio 2.0 1.2-2. 2 normal Not Available [facility] (Lab) [address], [place], [address], 04/14/2025 21:03:19 04/14/2004/14/2025 COMPR EHENS LIDIA METAB OLIC PANEL alkaline phosphatase 129 IU/L 44-121 high Not Available [facility] (Lab) [address] [place], [address], 04/14/2025 21:03:19 04/14/2004/14/2025 COMPR EHENS LIDIA METAB OLIC PANEL hemolysis 4 0-19 Not Available [facility] (Lab) [address] [place], [address], 04/14/2025 21:03:19 04/14/2004/14/2025 COMPR EHENS LIDIA METAB OLIC PANEL icterus 1 0.5-4. 9 Not Available [facility] (Lab) [address] [place], [address], 04/14/2025 21:03:19 04/14/2004/14/2025 COMPR EHENS LIDIA METAB OLIC PANEL lipemia 4 0-99 Not Available [facility] (Lab) [address] [place], [address], 04/14/2025 21:03:19 04/14/20 25 04/14/2025 LIPID PANEL triglyceride s 125 mg/dL 0-149 normal Not Available [facility] (Lab) [address] [place], [address], 04/14/2025 21:03:19 04/14/20 25 04/14/2025 LIPID PANEL cholesterol 139 mg/dL 100-19 9 normal Not Available [facility] (Lab) [address] [place], [address], 04/14/2025 21:03:19 04/14/20 25 04/14/2025 LIPID PANEL LDL cholesterol 69 mg/dL 0-99 normal Not Available [facility] (Lab) [address], [place], [address], 04/14/2025 21:03:19 04/14/2004/14/2025 LIPID PANEL VLDL cholesterol (calc) 25 mg/dL 5-40 normal Not Available [facility] (Lab) [address], [place], [address], 04/14/2025 21:03:19 04/14/2004/14/2025 LIPID PANEL HDL cholesterol 46 mg/dL 40-999 normal Not Available [facility] ([facility]) [address], [place], [address], 04/14/2025 21:03:19 04/14/2004/14/2025 LIPID PANEL LDL HDL ratio 1.5 0-3.2 normal Not Available [facility] (Lab) [address] [place], [address], 04/14/2025 21:03:19 04/14/2004/14/2025 LIPID PANEL chol HDL ratio 3.0 mg/dL 0-4.4 normal Not Available [facility] (Lab) [address] [place], [address], 04/14/2025 21:03:19 04/14/20 25 04/16/2025 VITAM IN D, 25-HY DROXY vitamin D, 25-hydroxy 31.8 NG/mL 30.0-1 00.0 Vitam in D defic iency has been defin ed by the Insti tute of Medic ine and an Endoc rine Socie ty pract ice guide line as a level of serum 25-OH vitam in D less than 20 ng/mL (1,2) . The Endoc rine Socie ty went on to furth er defin e vitam in D insuf ficie ncy as a level betwe en 21 and 29 ng/mL (2). 1. IOM (Inst itute of Medic ine). 2010. Dieta ry refer ence mel es for calci um and D. Dg alvarez [place]: [facility] . 2. Ina armendariz MF, Syl caldera [place], Rudolph off-F errar i MITCHELL, et al. Evalu ation , treat ment, and preve ntion of vitam in D defic iency : an Endoc rine Socie ty clini curtis pract ice guide line. JCEM. 2010; 96(7) :1911 -30. Perfo rmed at: 01 - [facility] n [address] [place] [address] Lab Direc tor: Marvel booth PhD, Phone : [phone] Not Available [facility] [address] [place], [address], 04/16/2025 09:10:51 04/14/2004/16/2025 C-PEP TIDE, SERUM C-peptide, serum <0.1 NG/mL 1.1-4. 4 abnormal C-Pep tide refer ence inter freddy is for fasti ng patie nts. Perfo rmed at: 01 - [facility] n [address] [place], [place] [address] Lab Direc tor: Marvel booth PhD, Phone : [phone] Not Available [facility] [address] [place], [address], 04/16/2025 16:14:35 04/14/20 25 04/16/2025 VITAM IN D, 25-HY DROXY vitamin D, 25-hydroxy 31.8 NG/mL 30.0-1 00.0 Vitam in D defic iency has been defin ed by the Insti tute of Medic ine and an Endoc rine Socie ty pract ice guide line as a level of serum 25-OH vitam in D less than 20 ng/mL (1,2) . The Endoc rine Socie ty went on to furth er defin e vitam in D insuf ficie ncy as a level betwe en 21 and 29 ng/mL (2). 1. IOM (Inst itute of Medic ine). 2010. Gerrya ry refer ence mel es for calci um and D. Dg alvarez [place]: [facility] . 2. Ina armendariz MF, Syl caldera [place], Rudolph off-F errar i MITCHELL, et al. Evalu ation , treat ment, and preve ntion of vitam in D defic iency : an Endoc rine Socie ty clini curtis pract ice guide line. JCEM. 2010; 96(7) :1911 -30. Perfo rmed at: 01 - [facility] [address] [place] [address] Lab Direc tor: Marvel booth PhD, Phone : [phone] Not Available [facility] (Lab) [address] [place] [address], [address], 04/16/2025 16:14:36 04/14/20 25 04/22/2025 [facility] RP MISCE LLANE OUS CODE [facility] code COMMEN T . Test Order ed: [id number] JOSE ROBERTO-6 5 Autoa ntibo dy JOSE ROBERTO-6 5 330.2 [H ] U/mL 01 Refer ence Range : 0.0-5 .0 Perfo rmed at: 01 - [facility] rp Rehan alvarez [address] [facility] , [place] [address] Lab Direc tor: Ofelia carmen MD, Phone : [phone] Perfo rmed at: 02 - [facility] n [address] [place] [address] Lab Direc tor: Marvel booth PhD, Phone : [phone] Not Available [facility] (Lab) [address] [place], [address], 04/22/2025 15:10:01 04/14/20 25 04/22/2025 [facility] RP MISCE LLANE OUS CODE [facility] code COMMEN T . Test Order ed: [id number] ZNT8 Antib odies ZNT8 Antib odies <15 U/mL 01 Refer ence Range : . Refer ence Range : All Ages: <15 Negat lidia > or =15 Posit lidia Perfo rmed at: 01 - [facility] [employer] [address] [place], [place] [address] Lab Direc tor: Violet sales MD, Phone : [phone] Perfo rmed at: 02 - [facility] [address] [place] [address] Lab Direc tor: Marvel booth PhD, Phone : [phone] Not Available [facility] (Lab) [address] [place], [address], 04/22/2025 17:12:35 Result Notes None recorded. Problems Name Problem SNOMED Code Status Onset Date Resolution Date Notes Provider Name and Address Organization Details Recorded Time Postmeno pausal bleeding 86534736 Active Arianna Leon [place], [place] - [facility] 6 12:16:48 Constipa tion 59288523 Completed 01/06/2020 Pat erazo MD Attn: Ivelisse edouard,[address] [place], [address], [facility] - [facility] 0 16:27:58 Candidia sis 87047706 Completed 01/06/2020 Pat erazo MD Attn: Ivelisse edouard,[address] [place], [address], [facility] - SI 0 16:27:48 Pain of shoulder region 99233420 Active Adan Chase MD Attn: Ivelisse silke,[address] [facility], [place], [address], [place] - [facility] 6 11:10:50 Diabetes mellitus 90368108 Active Adan Chase MD Attn: Ivelisse g,[address] [facility], [place], [address], [place] [facility] 6 11:22:50 Essentia l hyperten adalberto 59249155 Active Adan Chase MD Attn: Ivelisse silke,[address] [facility], [place], [address], [place] [facility] 6 11:22:50 Obesity 127063936 Active Adan Chase MD Attn: Ivelisse g,[address] [facility], [place], [address], [place] [facility] 6 11:22:50 Hyperlip idemia 94797546 Active Adan Chase MD Attn: Ivelisse silke,[address] [facility], [place], [address], [place] [facility] 6 11:22:50 Congesti ve heart failure 77050986 Active Adan Chase MD Attn: Ivelisse g,[address] [facility], [place], [address], [place] [facility] 6 11:22:50 Neuropat hy due to diabetes mellitus 807648873 Active Adan Chase MD Attn: Ivelisse silke,[address] 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 ACD after eval by hematolog dylon Wilkins d follow CBC serially Pat erazo MD Attn: Ivelisse g,[address] [facility], [place], [address], [place] [facility] 3 09:44:09 Thromboc ytopenic disorder 434122913 Active 2019 2015 plts 83, 12/2019 116, 10/2021 185 Pat erazo MD Attn: Ivelisse edouard,[address] [facility], [place], [address], [place] - [facility] 2 10:17:54 Asthma 828557234 Active 2019 typically well controlle d Pat erazo MD Attn: Ivelisse edouard,[address] [facility], [place], [address], [place] [facility] 0 16:32:37 Notes:chronic pain. no fall or trauma. relieved with OTC meds . colonoscopy 05/2016 TRH repeat 10 yers Some problems listed in Document: #[id number] could not be added to this patient's chart. Please review this document and add these problems to the patient's chart manually as needed. Problem Notes None recorded. Procedures Surgical History Date Name Laterality Status Provider Name and Address Organization Details Recorded Time 12/25/19 25 Routine Foot Care completed Jim Dodd DPM [address], [place], [address], [place] - [facility] 12/24/2024 14:10:26 10/26/19 24 Routine Foot Care completed ADONIS KEE DPM [address], [place], [address], [place] [facility] 10/26/2023 14:55:58 06/29/20 23 Routine Foot Care completed ADONIS KEE DPM [address], [place], [address], [place] [facility] 06/29/2023 15:05:53 02/06/20 23 Routine Foot Care completed ADONIS KEE DPM [address], [place], [address], [place] [facility] 02/05/2023 12:38:25 10/26/19 23 Routine Foot Care completed ADONIS KEE DPM [address], [place], [address], [place] [facility] 10/25/2022 12:06:02 07/26/20 22 Routine Foot Care completed ADONIS KEE DPM [address], [place], [address], [place] [facility] 07/26/2022 10:48:42 05/05/20 Routine Foot Care completed ADONIS KEE, KOURTNEY [address], [place], [address], [place] [facility] 05/05/2022 09:56:08 02/25/20 Routine Foot Care completed ADONIS KEE DPM [address], [place], [address], [place] [facility] 02/24/2022 10:08:41 12/17/19 Routine Foot Care completed ADONIS KEE DPM [address], [place], [address], [place] [facility] 12/16/2021 09:52:22 09/30/19 22 Routine Foot Care completed ADONIS KEE DPM [address], [place], [address], [place] [facility] 09/30/2021 10:45:35 07/08/20 21 Routine Foot Care completed ADONIS KEE DPM [address], [place], [address], [place] [facility] 07/08/2021 10:08:21 04/29/20 21 Routine Foot Care completed ADONIS KEE DPM [address], [place], [address], [place] [facility] 04/29/2021 09:59:58 02/19/20 21 Routine Foot Care completed ADONIS KEE DPM [address], [place], [address], [place] [facility] 02/18/2021 09:55:27 12/04/19 21 Routine Foot Care completed ADONIS KEE DPM [address], [place], [address], [place] [facility] 12/03/2020 14:48:44 09/01/19 21 Routine Foot Care completed ADONIS KEE DPM [address], [place], [address], [place] [facility] 09/01/2020 12:18:36 06/23/20 20 Routine Foot Care completed ADONIS KEE DPM [address], [place], [address], [facility] - SI 06/23/2020 11:46:35 03/22/20 20 Routine Foot Care completed ADONIS KEE DPM [address], [place], [address], [facility] - [facility] 03/22/2020 10:16:34 08/15/19 20 Routine Foot Care completed ADONIS KEE DPManav [address], [place], [address], [facility] - SI 08/15/2019 11:18:38 06/13/20 19 Routine Foot Care completed ADONIS KEE DPManav [address], [place], [address], [facility] - [facility] 06/13/2019 11:40:10 06/13/20 19 Vel Bandage - 4 completed ADONIS KEE DPM [address], [place], [address], [facility] - [facility] 06/13/2019 11:46:13 04/11/20 19 Routine Foot Care completed ADONIS KEE DPM [address], [place], [address], [facility] - SI 04/11/2019 13:26:25 01/25/20 19 Routine Foot Care completed ADONIS KEE DPManav [address], [place], [address], [facility] - [facility] 01/24/2019 11:34:40 04/24/20 17 Diabetic Foot Exam completed Danna Aguilar MA [place] - [facility] 04/24/2017 11:22:03 Hysterectomy completed Arianna Leon [place] - [facility] 11:01:11 Imaging Results None recorded. Procedure Notes None recorded. Medical Equipment None Reported. Allergies Allergen ID Allergen Name Allergen Category Reaction Reaction Severity Criticality Documentation Date Start Date Code Code System Note Provider Name and Address Organization Details Recorded Time [id number] amlodipin e medicatio n angioedem a Not available Not available 05/06/20192018 90095 RxNorm lip liyahll miesha Ceballos, PHARMD Attn: Ivelisse edouard,[address] [facility], [place], [address], [facility] - SI 9 13:36:13 813784 lisinopri l medicatio n angioedem a Not available Not available 05/06/20192018 82304 RxNorm possi ble lip kavon Ceballos, PHARMD Attn: Ivelisse edouard,[address] [facility], [place], [address], [place] - [facility] 9 13:36:33 501889 dulagluti de medicatio n Not available Not available Not available 09/30/2021 33145 91 RxNorm Caroline LongLPN null, [place] [facility] 2 10:37:23 348795 Pneumococ curtis vaccine Not available Not available Not available Not available 09/30/2021 57693 7 RxNorm Caroline LongLPN [place] [facility] 2 10:37:33 523435 canaglifl ozin medicatio n Not available Not available Not available 09/30/2021 [id number] 58 [facility] Caroline LongLPN [place] [facility] 2 10:38:02 [id number] egg extract food,medi cation Not available Not available Not available 09/30/2021 35513 15 [facility] Caroline LongLPN [place] [facility] 2 10:38:12 [id number] Product containin g penicilli n (product) medicatio n rash Not available Not available 08/26/2014 [id number] SNOMED Rainer Silvestre MA null, [place] [facility] 5 11:15:14 41788 latex environme nt,medica tion rash Not available Not available 08/26/2014 55842 91 RxNorm MAI [place], [place] - [facility] 5 11:15:14 08079 aspirin medicatio n rash Not available Not available 06/07/2015 1191 RxNorm MAI [place], [place] - [facility] 5 10:14:52 Medications Name Sig Start Date Stop Date Status Note LastModified by Organization Details LastModified Time Prescript ion - Renewal 03/12 completed [facility] Not Available Not Available Not Available sharps container 03/12 completed Not Available Not Available Not Available muscle rub 03/12 completed Not Available Not Available Not Available toothpast e - 2 pack 03/12 completed Not Available Not Available Not Available cold and hot patches 03/12 completed Not Available Not Available Not Available vitamin b12 03/12 completed Not Available Not Available Not Available medicated callus remover 03/12 completed Not Available Not Available Not Available omeprazol e 03/12 completed Not Available Not Available Not Available miconazol e 3 03/12 completed Not Available Not Available Not Available alcohol prep pads 03/12 completed Not Available Not Available Not Available clotrimaz ole 1% vaginal cream 03/12 completed Not Available Not Available Not Available anti hemorrhoi ramila ointment 03/12 completed Not Available Not Available Not Available vitamin d 1000 iu 03/12 completed Not Available Not Available Not Available miconazol e nitrate 0.02 03/12 completed Not Available Not Available Not Available gummy multi-vit bhatt 03/12 completed Not Available Not Available Not Available stool softener capsules 03/12 completed Not Available Not Available Not Available Prescript ion - Change 03/12 completed prescrip tion change Not Available Not Available Not Available Prescript ion - Clarifica tion 05/08 completed Not Available Not Available Not Available sunblock 03/12 completed Not Available Not Available Not Available Prescript ion - New 04/10 completed Not Available Not Available Not Available calamine lotion 03/12 completed Not Available Not Available Not Available accu-chek guide test strips strp active Not Available Not Available Not Available medicated chest rub 03/12 completed Not Available Not Available Not Available allergy cream itch and pain 03/12 completed Not Available Not Available Not Available diabetic skin relief foot crea 05/08 completed Not Available Not Available Not Available denture adhesive 03/12 completed Not Available Not Available Not Available loratadin e 10mg 10/07 completed Not Available Not Available Not Available daily multivita min and mineral 03/12 completed Not Available Not Available Not Available digital blood pressure monitor active Not Available Not Available Not Available accu-chek guide me w/device kit active Not Available Not Available Not Available toothbrus h - 3 pack 03/12 completed Not Available Not Available Not Available losartan 50 mg tablet Take 1 tablet every day by oral route. 03/13 completed Medicati on was recall and prescrib ed a new B/P called lisinopr il 20/hydro chloroti azide 25 mg. Not Available Not Available Not Available furosemid e 40 mg tablet 10/19 completed Not Available Not Available Not Available insulin syringe U-100 with needle 1 mL 30 gauge x /16 03/12 completed Not Available Not Available Not Available fluconazo le 100 mg tablet Take 1 tablet as needed by oral route for 1 day. 01/24 completed Not Available Not Available Not Available terconazo le 0.4 % vaginal cream 03/12 completed Not Available Not Available Not Available promethaz ine-DM 6.25 mg-15 mg/5 mL oral syrup TAKE 5 MILLILIT ERS BY MOUTH EVERY 4 HOURS NEEDED FOR COUGH 04/10 completed Not Available Not Available Not Available BD Alcohol Swabs USE TO CLEAN SKIN FOR INJECTIO N OF INSULIN AND BS CHECK 2022 active Not Available Not Available Not Avai lable Colace 100 mg capsule Take 1 capsule every day by oral route. 03/12 completed Not Available Not Available Not Available venlafaxi ne ER 37.5 mg capsule,e xtended release 24 hr Take 1 capsule every day by oral route for 7 days. 03/12 completed Not Available Not Available Not Available prednison e 10 mg tablet 11/04 completed Not Available Not Available Not Available venlafaxi ne ER 75 mg capsule,e xtended release 24 hr TAKE 1 CAPSULE EVERY DAY 10/07 completed Not Available Not Available Not Available doxycycli ne hyclate 100 mg capsule TAKE 1 CAPSULE BY MOUTH TWICE A DAY FOR 10 DAYS active Not Available Not Available No t Available clindamyc in HCl 300 mg capsule 05/29 completed Not Available Not Available Not Available ammonium lactate 12 % lotion Apply 1 applicat ion twice a day by topical route. 2024 active Not Available Not Available Not Avai lable albuterol sulfate (bulk) powder 11/19 completed Not Available Not Available Not Available polyethyl kira glycol 3350 17 gram oral powder packet Take 1 packet every day by oral route as needed. 03/12 completed Not Available Not Available Not Available cetirizin e 10 mg tablet TAKE 1 TABLET BY MOUTH EVERY DAY active Not Available Not Available No t Available azithromy danyell 250 mg tablet TAKE 2 TABLETS (500 MG) BY ORAL ROUTE ONCE DAILY FOR 1 DAY THEN 1 TABLET (250 MG) BY ORAL ROUTE ONCE DAILY FOR 4 DAYS 11/27 completed Not Available Not Available Not Available ibuprofen 800 mg tablet 05/29 completed Not Available Not Available Not Available fluconazo le 150 mg tablet TAKE 1 TABLET (150 MG TOTAL) BY MOUTH ONCE FOR 1 DOSE. active Not Available Not Available No t Available hydrocodo ne 5 mg-acetam inophen 325 mg tablet 03/12 completed Not Available Not Available Not Available prednison e 20 mg tablet TAKE 1 TABLET BY MOUTH DAILY FOR 7 DAYS 04/10 completed Not Available Not Available Not Available Lantus U-100 Insulin 100 unit/mL subcutane ous solution INJECT 60 UNITS INTO THE SKIN DAILY active Not Available Not Available No t Available clindamyc in HCl 150 mg capsule 05/29 completed Not Available Not Available Not Available Accu-Chek Softclix Lancets USE DIRECTED TO TEST BLOOD SUGAR 3 TIMES DAILY active Not Available Not Available No t Available amlodipin e 2.5 mg tablet Take 1 tablet every day by oral route. 10/07 completed Not Available Not Available Not Available potassium chloride ER 10 mEq tablet,ex tended release Take 1 tablets) by oral route for 30 days. 04/29 completed Not Available Not Available Not Available metronida zole 500 mg tablet 03/12 completed Not Available Not Available Not Available acetamino phen 300 mg-codein e 30 mg tablet 01/24 completed Not Available Not Available Not Available chlorthal idone 25 mg tablet TAKE 1 TABLET BY MOUTH DAILY active Not Available Not Available No t Available ciproflox acin 500 mg tablet Take 1 tablet every 12 hours by oral route. 05/29 completed Not Available Not Available Not Available sulfameth oxazole 800 mg-trimet hoprim 160 mg tablet TAKE 1 TABLET BY MOUTH TWICE A DAY FOR 3 DAYS 05/10 completed Not Available Not Available Not Available glimepiri de 2 mg tablet TAKE 1 TABLET BY MOUTH DAILY active Not Available Not Available No t Available ketorolac 0.5 % eye drops 11/04 completed Not Available Not Available Not Available benzonata te 100 mg capsule TAKE 1 CAPSULE BY MOUTH THREE TIMES A DAY NEEDED FOR COUGH active Not Available Not Available No t Available cephalexi n 500 mg capsule 05/29 completed Not Available Not Available Not Available clotrimajose miguel ole-betam ethasone 1 %-0.05 % topical cream APPLY TO THE ENTIRE LEFT NIPPLE TWO TO THREE TIMES PER DAY FOR 2 WEEKS 11/04 completed Not Available Not Available Not Available glimepiri de 4 mg tablet TAKE 1 TABLET (4 MG TOTAL) BY MOUTH DAILY. TAKE BEFORE LARGEST MEAL active Not Available Not Available No t Available prednison e 50 mg tablet 11/04 completed Not Available Not Available Not Available lidocaine 5 % topical patch PLACE 1 PATCH ONTO THE SKIN DAILY THEN DISCARD PATCH WITHIN 12 HOURS OR DIRECTED BY MD FOR 30 DAY 04/10 completed Not Available Not Available Not Available nitroglyc rhona 0.4 mg sublingua l tablet DISSOLVE 1 TABLET UNDER THE TONGUE EVERY 5 MINUTES NEEDED FOR CHEST PAIN. MAX OF 3 TABLETS IN 15 MINUTES. CALL 911 IF PAIN PERSISTS . active Not Available Not Available No t Available omeprazol e 20 mg capsule,d elayed release TAKE 1 CAPSULE BY MOUTH DAILY active Not Available Not Available No t Available lisinopri l 20 mg-hydroc hlorothia zide 25 mg tablet Take 1 tablet every day by oral route. 04/29 completed Not Available Not Available Not Available monteluka st 10 mg tablet Take 1 tablet every day by oral route. 02/19 completed Not Available Not Available Not Available furosemid e 20 mg tablet TAKE 1 TABLET BY MOUTH EVERY OTHER DAY active Not Available Not Available No t Available irbesarta n 150 mg tablet Take 1 tablet every day by oral route. 03/13 completed Medicati on stop d/t recall and was replaced with lisinopr il/hydro chloroth iazide Not Available Not Available Not Available epinephri ne 0.3 mg/0.3 mL injection , auto-inje ctor USE DIRECTED FOR SYMTOMS OF ALLERGIC REACTION active Not Available Not Available No t Available ibuprofen 600 mg tablet Take 1 tablet 3 times a day by oral route for 21 days. 11/04 completed Not Available Not Available Not Available polyethyl kira glycol 3350 17 gram/dose oral powder 07/31 /2019 completed Not Available Not Available Not Available levofloxa danyell 500 mg tablet 01/24 completed Not Available Not Available Not Available levofloxa danyell 750 mg tablet TAKE 1 TABLET BY MOUTH EVERY DAY FOR 7 DAYS 04/10 completed Not Available Not Available Not Available methylpre dnisolone 4 mg tablets in a dose pack TAKE 6 TABLETS ON DAY 1 DIRECTED ON PACKAGE AND DECREASE BY 1 TAB EACH DAY FOR A TOTAL OF 6 DAYS 04/10 completed Not Available Not Available Not Available albuterol sulfate HFA 90 mcg/actua tion aerosol inhaler TAKE 2 PUFFS BY MOUTH EVERY 6 HOURS NEEDED FOR WHEEZE OR SHORTNES S OF BREATH active Not Available Not Available No t Available fluticaso ne propionat e 50 mcg/actua tion nasal spray,tr[place] pension SPRAY 1 SPRAY INTO EACH NOSTRIL TWICE A DAY active Not Available Not Available No t Available loratadin e 10 mg tablet TAKE ONE TABLET BY MOUTH ONCE DAILY 11/04 completed Not Available Not Available Not Available naproxen 500 mg tablet TAKE 1 TABLET TWICE DAILY NEEDED 02/19 completed Not Available Not Available Not Available Dulcolax (bisacody l) 5 mg tablet,de layed release Take 2 tablets every day by oral route as needed. 03/12 completed Not Available Not Available Not Available Tylenol Extra Strength 500 mg tablet Take 2 tablets every 8 hours by oral route. 2022 active Not Available Not Available Not Avai lable tobramyci n 0.3 %-dexamet hasone 0.1 % eye drops,tr[place] pension INSTILL 1 DROP IN THE RIGHT EYE 4 TIMES DAILY - START DROPS AFTER SURGERY active Not Available Not Available No t Available neomycin- polymyxin -hydrocor t 3.5 mg-10,000 unit/mL-1 % ear drops,tr[place] p INSTILL 4 DROPS INTO AFFECTED EAR(S) BY OTIC ROUTE 3 TIMES PER DAY x 7 days 05/26 completed Not Available Not Available Not Available Adult Low Dose Aspirin 81 mg tablet,de layed release Take 1 tablet every day by oral route. 03/13 completed Not Available Not Available Not Available azithromy danyell 500 mg tablet 01/24 completed Not Available Not Available Not Available Novolog FlexPen U-100 Insulin aspart 100 unit/mL (3 mL) subcutane ous 8 units TID 10/07 completed Not Available Not Available Not Available rosuvasta tin 20 mg tablet TAKE 1 TABLET BY MOUTH DAILY active Not Available Not Available No t Available nitrofura ntoin monohydra te/macroc rystals 100 mg capsule TAKE 1 CAPSULE BY MOUTH TWICE A DAY FOR 5 DAYS 05/10 completed Not Available Not Available Not Available Flovent HFA 110 mcg/actua tion aerosol inhaler USE 1 INHALATI ON BY MOUTH TWICE DAILY 04/09 completed Not Available Not Available Not Available Accu-Chek Mana Control Soln solution 04/10 completed Not Available Not Available Not Available BD Insulin Syringe Ultra-Fin e 1 mL 30 gauge x 1/2 USE DIRECTED ONCE DAILY active Not Available Not Available No t Available BD Ultra-Fin e Short Pen Needle 31 gauge x 5/16 USE A NEW PEN NEEDLE FOUR TIMES DAILY. active Not Available Not Available No t Available Zostavax (PF) 19,400 unit/0.65 mL subcutane ous suspensio n 11/04 completed Not Available Not Available Not Available Apidra U-100 Insulin 100 unit/mL subcutane ous solution Inject 10 units 3 times a day by subcutan eous route after meals. 05/08 completed Not Available Not Available Not Available Januvia 100 mg tablet TAKE 1 TABLET BY MOUTH DAILY active Not Available Not Available No t Available Symbicort 80 mcg-4.5 mcg/actua tion HFA aerosol inhaler active Not Available Not Available Not Available budesonid e-formote rol HFA 160 mcg-4.5 mcg/actua tion aerosol inhaler INHALE 2 PUFFS INTO THE LUNGS 2 TIMES DAILY. TEMPORAR Y DOSE INCREASE active Not Available Not Available No t Available Humalog KwikPen (U-100) Insulin 100 unit/mL subcutane ous INJECT 8 UNITS(S) 3 TIMES A DAY SUBCUTAN IOUS ROUTE BEFORE MEALS. active Not Available Not Available No t Available diclofena c 1 % topical gel APPLY 2 GRAMS TO AFFECTED AREA(S) TOPICALL Y 4 TIMES DAILY active Not Available Not Available No t Available Accu-Chek Softclix Lancing Device+La ncets kit 04/10 completed Not Available Not Available Not Available Accu-Chek FastClix Lancing Device 04/10 completed Not Available Not Available Not Available Accu-Chek SmartView Control Solution 03/12 completed Not Available Not Available Not Available Invokana 100 mg tablet 03/12 completed not taking Not Available Not Available Not Available Jardiance 10 mg tablet TAKE 1 TABLET BY MOUTH EVERY DAY active Not Available Not Available No t Available dulagluti de 0.75 mg/0.5 mL subcutane ous pen injector Inject 0.5 mL every week by subcutan eous route. 03/13 completed Patient taking magnesiu m otc Not Available Not Available Not Available ProAir RespiClic k 90 mcg/actua tion breath activated Inhale 2 puffs every 4 hours by inhalati on route. 11/04 completed Not Available Not Available Not Available Humalog KwikPen U-200 Insulin 200 unit/mL (3 mL) subcutane ous 10/07 completed Not Available Not Available Not Available Tresiba FlexTouch U-100 insulin 100 unit/mL (3 mL) subcutane ous pen INJECT 35 UNITS INTO THE SKIN DAILY. active Not Available Not Available No t Available Droplet Pen Needle 31 gauge x 3/16 USE TO INJECT INSULIN THREE TIMES DAILY 06/06 completed Not Available Not Available Not Available Accu-Chek Guide test strips CHECK BLOOD GLUCOSE BEFORE ALL MEALS AND 2 HOURS AFTER LAST MEAL active Not Available Not Available No t Available Accu-Chek Guide Glucose Meter USE DIRECTED active Not Available Not Available No t Available BD Ultra-Fin e Micro Pen Needle 32 gauge x 1/4 04/10 completed Not Available Not Available Not Available Fiasp FlexTouch U-100 Insulin 100 unit/mL (3 mL) subcutane ous pen INJECT 5 UNITS SUBCUTAN EOUSLY THREE TIMES DAILY BEFORE MEALS 10/07 completed Not Available Not Available Not Available Toujeo Max U-300 SoloStar 300 unit/mL (3 mL) subcutane ous insulin pen active Not Available Not Available Not Available Droplet Insulin Syringe 0.3 mL 31 gauge x 5/16 USE TO INJECT INSULIN THREE TIMES DAILY DIRECTED 04/10 completed Not Available Not Available Not Available Gvoke HypoPen 2-Pack 1 mg/0.2 mL subcutane ous auto-inje ctor active Not Available Not Available Not Available Mounjaro 7.5 mg/0.5 mL subcutane ous pen injector INJECT 7.5 MG INTO THE SKIN ONCE A WEEK. INDICATI ONS: DIABETES active Not Available Not Available No t Available Mounjaro 5 mg/0.5 mL subcutane ous pen injector INJECT 5 MG SUBCUTAN EOUSLY EVERY 7 DAYS active Not Available Not Available No t Available Mounjaro 2.5 mg/0.5 mL subcutane ous pen injector INJECT 2.5 MG SUBCUTAN EOUSLY EVERY 7 DAYS active Not Available Not Available No t Available Vitals Date Recorded Body height Body temperature Pain severity - 0-10 verbal numeric rating [Score] - Reported Body mass index (BMI) Body weight Heart rate Systolic And Diastolic Provider Name and Address Organization Details Last Updated DateTime 3 167.64 cm 96.8 [degF] 0 35.1 kg/m2 91211.6 2 g 75 /min 125/64 mm[Hg] Pedro Stephens MA [facility] 3 11:37:11 Date Recorded Body height Body mass index (BMI) Body weight Heart rate Body temperature Pain severity - 0-10 verbal numeric rating [Score] - Reported Systolic And Diastolic Provider Name and Address Organization Details Last Updated DateTime 4 167.64 cm 33.7 kg/m2 29882.8 1 g 74 /min 98 [degF] 0 122/63 mm[Hg] Cezar Hoffman MA [facility] 4 14:34:36 Date Recorded Body height Body mass index (BMI) Body weight Body temperature Pain severity - 0-10 verbal numeric rating [Score] - Reported Heart rate Systolic And Diastolic Provider Name and Address Organization Details Last Updated DateTime 5 167.64 cm 31.3 kg/m2 21250.9 2 g 97.3 [degF] 0 74 /min 127/70 mm[Hg] Emerson Curran MA [facility] 5 12:21:16 Date Recorded Body height Body mass index (BMI) Body weight Body temperature Pain severity - 0-10 verbal numeric rating [Score] - Reported Heart rate Systolic And Diastolic Provider Name and Address Organization Details Last Updated DateTime 3 167.64 cm 35.5 kg/m2 69613.3 2 g 98.4 [degF] 0 80 /min 146/71 mm[Hg] Charley Moore MA [facility] 3 12:17:15 Date Recorded Body height Body mass index (BMI) Body weight Heart rate Body temperature Systolic And Diastolic Provider Name and Address Organization Details Last Updated DateTime 3 167.64 cm 34.5 kg/m2 58781.4 1 g 77 /min 97.9 [degF] 132/74 mm[Hg] Bekah Raya MA [facility] 3 14:55:30 Social History Question Answer Notes LastModified by [employer] Details LastModified Time Tobacco Smoking Status Never Smoker Rainer Silvestre MA [facility], [facility] 08/26/2014 11:16:12 Do You Have An Advance Directive? No Information n ot available 12/16/2021 In The 14 Days Before Symptom Onset, Have You Had Close Contact With A Laboratory-confirm ed COVID-19 While That Case Was Ill? No Information n ot available 02/24/2022 In The 14 Days Before Symptom Onset, Have You Had Close Contact With A Person Who Is Under Investigation For COVID-19 While That Person Was Ill? No Information not available 02/24/2022 Have You Been To An Area Known To Be High Risk For COVID-19? No Information not available 02/24/2022 Do You Have A Medical Power Of Observatory Director? No Information not available 12/16/2021 What Was The Date Of Your Most Recent Tobacco Screening? 12/24/2024 [email or web address] Information not available 12/24/2024 How Much Tobacco Do You Smoke? No [email or web address] Information not available 09/25/2017 Has Tobacco Cessation Counseling Been Provided? No Information not available 10/25/2022 Sex: Female Functional Status Question Answer Note LastModified by Organizat ion Details LastModified Time Do you use any illicit or recreational drugs? No Information not available 10/25/2022 Do you or have you ever used any other forms of tobacco or nicotine? No Information not available 10/25/2022 What is your level of alcohol consumption? None [email or web address] Information not available 12/13/2020 Do you or have you ever used smokeless tobacco? Never used smokeless tobacco Information not available 05/19/2019 Are you currently employed? No [email or web address] Information not available 06/29/2023 Do you or have you ever used e-cigarettes or vape? Never used electronic cigarettes Information not available 05/19/2019 Mental Status None recorded. Family History Relationship Description Onset Age of this Age Resolved Age Notes LastModified by Organization Details LastModified Time Father Heart disease [email or web address] Not available 2015 11:11:04 Father Hypertensive disorder [email or web address] Not available 2015 11:11:04 Mother Heart disease [email or web address] Not available 2015 11:11:04 Mother Diabetes mellitus [email or web address] Not available 2015 11:11:04 Medical History Condition Response Coronary Artery Disease N Other Y Atrial Fibrillation N High Blood Pressure Y Thyroid Problems N Kidney or Bladder Problems N GI Problems N Depression N COPD N Blood Clots N Skin Problems N Anemia N Heart Attack ([place]) N Anxiety Disorder N Diabetes Y Muscle, Joint, or Bone Problems N Seizures/Epilepsy N Acid Reflux (GERD) N Cancer N Stroke N Asthma Y Allergies N High Cholesterol Y Hepatitis N Liver Disease N Heart Disease Y Headaches N Hypertension Y Heart Failure N Osteoporosis Y Gynecological History Statement/Question Response Flow Moderate On BCP's at Conception? N STIs/STDs N Duration of Flow (days) 3 Age at Menarche 15 Current Control Method Hysterectom y Age at First Child 20 Frequency of Cycle (Q days) 28 Sexually Active? N Menses Monthly N Sexual Problems? N LMP Unknown Desired Control Method N/A Obstetrics History GPAL:G 4 P 4 0 0 4 Type Value Full Term 4 Living 4 Total 4 Immunizations Vaccine Type Date Status Note Provider Marcus freitas and Address Organization Details Recorded Time COVID-19, mRNA, LNP-S, PF, 30 mcg/0.3 mL dose 1 completed Emerson Curran [place] null, [place] - [facility] 12/03/2020 14:18:42 COVID-19, mRNA, LNP-S, PF, 30 mcg/0.3 mL dose 1 completed Emerson Curran [place] [facility] 12/03/2020 14:18:56 Pneumococcal conjugate PCV 13 0 completed Trina Sandoval [place], [place] [facility] 05/20/2020 17:33:02 COVID-19, mRNA, LNP-S, PF, 30 mcg/0.3 mL dose, lolis-sucrose 2 completed Gary Spears [place] [facility] 12/13/2021 15:01:11 pneumococcal polysaccharide PPV23 2 completed Marcela Higginbotham [place], [place] [facility] 02/20/2022 11:36:25 Past Encounters Encounter ID Performer Location Encounter Start Date Encounter Closed Date Diagnosis/Indication Diagnosis SNOMED-CT Code Diagnosis ICD10 Code Diagnosis IMO Codes Diagnosis Note [id number] Adan Chase MD [facility] (Adult/Fa m Med) [address] [place] [address] 08/26/2014 11:00:49 08/26/2014 15:57:22 Pain of shoulder region 20305923 Diabetes mellitus 18111199 Essential hypertension 64049870 Obesity 708023096 diet and exercises Hyperlipidemia 90496651 Congestive heart failure 19108714 Neuropathy due to diabetes mellitus 255915709 [id number] Adan Chase MD [facility] (Adult/Fa m Med) [address] [place] [id number] 9 01/06/2015 14:36:21 01/06/2015 17:27:38 Congestive heart failure 66723684 Diabetes mellitus 77305735 Neuropathy due to diabetes mellitus 158543867 Essential hypertension 99314059 Hyperlipidemia 64830885 Obesity 083851785 diet and exercises [id number] Katya Aguilar MD [facility] ([employer]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) [address] [place] [address] 06/07/2015 09:52:24 06/07/2015 11:04:13 Gynecologic examination 13170908 Z01.419 Screening mammography 24 685454 Z12.31 [id number] Adan Chase MD [facility] (Adult/Fa m Med) [address] [place] [address] 9 06/29/2015 09:56:57 06/29/2015 17:12:37 Congestive heart failure 15644950 I50.9 Diabetes mellitus 134054 09 E13.42 Neuropathy due to diabetes mellitus 605196876 E11.40 Essential hypertension 55409412 I10 Hyperlipidemia 83960967 E78.5 [id number] Adan Chase MD [facility] (Adult/Fa m Med) [address] [place] [address] 9 12/28/2015 10:02:25 12/28/2015 17:14:39 Diabetes mellitus 20487306 E13.42 labs today continue all meds seen by ophth needs podiatry consult Congestive heart failure 49541997 I50.[address]/ Dr. 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 increase Lantus to 50 units sq qhs / add Januvia continue all meds seen by ophth needs podiatry consult Constipation 96897596 K5 9.00 Congestive heart failure 70175322 I50.[address]/ Dr. Zafar Hyperlipidemia 13641285 E78.5 Essential hypertension 71197020 I10 Obesity 736956793 E66.9 diet and exercises Seasonal a llergic rhinitis 190780540 J30.2 [id number] Adan Chase MD [facility] (Adult/Fa m Med) [address] [place] [address] 10/10/2016 10:54:52 10/11/2016 08:52:38 Diabetes mellitus 21204783 E13.42 much better controll than last time HgA1C is high--> repeat today increase Lantus to 55 units sq qhs Obesity [id number] E66.9 diet and exercises Congestive heart failure 02191020 I50.[address]/ Dr. Zafar Hyperlipidemia 36843896 E78.5 Essential hypertension 06442138 I10 continue meds. [id number] Adan Chase MD [facility] (Adult/Fa m Med) [address] [place] [address] 01/31/2017 11:54:29 02/02/2017 12:07:19 Diabetes mellitus 90410323 E13.42 HgA1C is high- increase Lantus to 60 units sq qhs Neuropathy due to diabetes mellitus 417066733 E11.40 Obesity 617303967 E66.9 diet and exercises Congestive heart failure 54335653 I50.[address]/ Dr. Zafar Hyperlipidemia 45455865 E78.5 Essential hypertension 91355153 I10 continue meds. Seasonal a llergic rhinitis 785636389 J30.2 [id number] Adan Chase MD [facility] (Adult/Fa m Med) [address] [place] [address] 04/24/2017 11:09:26 04/26/2017 13:16:47 Diabetes mellitus 81452302 E13.42 much better. continue meds. labs today Obesity 601269929 E66.9 diet and exercises Congestive heart failure 22430760 I50.[address]/ Dr. Zafarrefus ed Flu vaccine Hyperlipidemia 82317617 E78.5 Essential hypertension 19209458 I10 continue meds. 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 Essential hypertension 53643260 I10 continue meds. Diabetes mellitus 309754 09 E11.9 HgA1C is better Constipation 99629935 K5 9.00 Seasonal a llergic rhinitis 553230311 J30.2 [id number] Adan Chase MD [facility] (Adult/Fa m Med) [address] [place] [address] 05/29/2018 10:06:39 05/29/2018 12:27:58 Congestive heart failure 90562310 I50.9 seen by Cardiologi [facility] 63%had neg stress test Hyperlipidemia 06613016 E78.5 continue all meds. Essential hypertension 24575686 I10 continue meds. Diabetes mellitus 776570 09 E11.9 HgA1C is better Obesity 388560766 E66.9 diet and exercises Seasonal a llergic rhinitis 418269912 J30.2 [id number] Katya Aguilar MD [facility] (HOU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) [address] [place] [address] 10/02/2018 11:13:47 10/02/2018 16:40:17 Blood in urine 98125215 R31.9 Diabetes mellitus 647991 09 E11.9 Dysuria 57159692 R30.0 [id number] Adan Chase MD [facility] (Adult/Fa m Med) [address] [place] [address] 11/27/2018 11:45:52 11/27/2018 12:19:05 Neuropathy due to diabetes mellitus 524587477 E11.40 Diabetes mellitus 803690 09 E11.9 HgA1C is betterstil l taking Lantus 45 nits qhs.told to increase 5 units every week till reach 70 units. Obesity 287380569 E66.9 diet and exercises Congestive heart failure 05118717 I50.9 seen by Cardiologi Dheeraj 63%had neg stress test Hyperlipidemia 08529088 E78.5 continue all meds. Essential hypertension 83886449 I10 continue meds. Pain of [facility] 66790278 M25.519 Seasonal a llergic rhinitis 619285006 J30.2 [id number] Katya Aguilar MD [facility] (HOU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) [address] [place] [address] 01/08/2019 12:18:32 01/08/2019 13:05:12 Screening mammography 22997777 Z12.31 Eruption 861597901 R21 [id number] ADONIS KEE DPM [facility] [address] [address] 01/24/2019 10:58:48 01/31/2019 15:46:52 Disorder of nervous system due to type 2 diabetes mellitus 396917816 E11.49 Bilateral atherosclerosis of arteries of lower limbs 8054665736 4761910 I70.203 Onychomycosis 598148775 B35.1 Lockhart - lesion 962524253 L84 [id number] Adan Chase MD [facility] (Adult/Fa m Med) [address] [place] [address] 02/19/2019 09:59:41 02/19/2019 11:03:34 Neuropathy due to diabetes mellitus 755147929 E11.40 Congestive heart failure 82617270 I50.9 seen by Cardiologi Dheeraj 63%had neg stress test cane for neuropoath y Hyperlipidemia 02318724 E78.5 continue all meds. Essential hypertension 48297733 I10 D/C: Lasix/LOsa rtan/Irbes satish/KCL per pt request [id number] Pat osorio MD [facility] (Adult Med) [address] [place] [address] 03/12/2019 09:43:23 03/12/2019 10:11:43 Diabetes mellitus 60291226 E11.9 Add mealtime insulin. Ms. To is very [place]know[place] ble and aware of need to monitor BS. Recommend carry glucometer and sugar tabs or other source of sugar with her - including to [facility]. Any sx of low blood sugar should prompt testing. Hold Apidra if skip meal. Essential hypertension 66439724 I10 At goal. My nurse is reynold edouard her med list. Hyperlipidemia 36063564 E78.5 [id number] ADONIS KEE DPM [facility] ts [address] [place] [address] 04/11/2019 11:48:08 04/15/2019 10:27:11 Disorder of nervous system due to type 2 diabetes mellitus 776397137 E11.49 Bilateral atherosclerosis of arteries of lower limbs 8649230484 3754860 I70.203 Onychomycosis 730735987 B35.1 Lockhart - lesion 082236943 L84 Acquired h ammer toe of left foot 6519091003 510345 M20.42 Acquired h ammer toe of right foot 5380182380 934439 M20.41 Pain in right foot 95952 56371 25037 M79.671 Pain in left foot 188916 6275 75561 M79.028 [id number] Pat osorio MD [facility] (Adult Med) [address] [place] [address] 05/06/2019 11:10:52 05/06/2019 14:25:10 Diabetes mellitus 27716412 E11.65 Uncontroll ed to goal of A1c<7% per ADA guidelines . Currently treated with glimiperid e 2 mg daily (although patient believes she may be taking it BID) and Lantus 10 units AM 60 units PM. Not on first line metformin due to history of GI intoleranc e. Not on Apidra for an unknown reason (maybe coverage issue?) It is unlikely she is taking glimepirid e BID or she would be running out too soon. Educated patient on BG goals, complicati ons of diabetes, and symptoms and treatment of hypoglycem ia. Based on overnight and clerk checker hypoglycem ia, will decrease Lantus and divide evenly to Lantus 30 units BID and initiate Fiasp (confirmed to be covered by insurance) 5 units TID before meals. Patient to obtain A1c and BMP (to have baseline labs while not on ACEI/ARB) today and follow up in 4 weeks. Hypertensive disorder 38 786506 I10 Uncontroll ed to goal of <130/80 mm Hg per ACC/AHA hypertensi on guidelines . Currently treated with amlodipine 2.5 mg daily, first line CCB in AA patients. Since it is not clear if amlodipine contribute d to the facial swelling, will discontinu e amlodipine and initiate chlorthali done 25 mg daily. Educated patient on proper BP technique. Patient to follow up in 4 weeks. [id number] Pat osorio MD [facility] (Adult Med) [address] [place] [address] 05/08/2019 09:03:20 05/08/2019 09:46:18 Hyperlipidemia 66900658 E78.5 continue statin. Essential hypertension 64946903 I10 Relatively hypotensiv e and reportedly not on any medication . Has home cuff and 113/72 per her home cuff. No orthostati c sx. Has not started chlorthali done yet and will discuss with clinical pharm. Diabetes mellitus 510896 09 E11.9 Mealtime insulin and BID basal, A1C pending. Chronic co ngestive heart failure 86820500 I50.9 sees cardiology q 6 months [id number] MITCH [facility] [address] [place] [address] 05/19/2019 14:10:59 05/20/2019 10:12:05 Acute right otitis media 372084038 H66.91 hydration and rest encouraged along with otc analgesic. fu c pcp within 2 weeks. report to ed if s/s worsen. [id number] ADONIS KEE DPM [facility] [address] [place] [address] 06/13/2019 10:31:40 06/17/2019 16:54:17 Disorder of nervous system due to type 2 diabetes mellitus 876464894 E11.49 Bilateral atherosclerosis of arteries of lower limbs 0146859427 2636664 I70.203 Onychomycosis 439379094 B35.1 Lockhart - lesion 210525972 L84 Acquired h ammer toe of left foot 8999603613 676602 M20.42 Acquired h ammer toe of right foot 0412417512 474221 M20.41 Pain in right foot 73683 37878 30317 M79.671 Pain in left foot 138689 4310 41354 M79.672 Sprain of calcaneofibular ligament 61959689 S93.412A Ankle pain 496130334 M25 .550 [id number] Eddie Aldana PA-C [facility] (Adult Med) [address] [place] [address] 06/17/2019 10:17:41 06/17/2019 11:49:44 Diabetes mellitus 12499753 E11.65 Uncontroll ed to goal A1c <7% per 2019 ADA guidelines . Currently treated with Januvia 100 mg daily, glimepirid e 2 mg BID (patient states bottle says BID), Lantus 30 units BID, and Fiasp 5 units TID before meals which is appropriat e due to elevated A1c. Patient is not currently on first-line therapy of metformin due to GI intoleranc e. Encouraged patient to continue testing blood sugars at home and keeping a log to bring in for appointmen ts. Due to patient complaint of headaches from Fiasp, change drug and increase dose to Humalog 8 units TID before meals (if covered by insurance) . Informed patient that we would call in for Humalog to pharmacy and see if it is covered and be filled for her, but if not, increase Fiasp to 8 units TID before meals. Encouraged patient to have a bedtime snack of peanut butter crackers every night to avoid morning lows. Obtain A1c and urine microalbum in/creatin ine ratio today. Follow up in 4 weeks. Hypertensive disorder 38 356135 I10 Controlled to goal <130/80 mm Hg per 2017 ACC/AHA guidelines . Currently treated with chlorthali done 25 mg daily which is appropriat e as first-line therapy for patients with diabetes. Encouraged patient to continue taking blood pressure at home and bringing in log book to appointmen ts. Continue current therapy. Obtain BMP today after visit. Follow up in 4 weeks. Dyslipidemia 101813773 E 78.5 Per 2018 ACC/AHA Blood Cholestero l guidelines , patient is in statin benefit group of age 40-75, DM, and LDL 70-189 mg/dl. Due to multiple ASCVD RF, advanced age, race, history of hypertensi on, and hyperglyce srinivasa, patient qualifies for high-inten sity statin. Patient is currently on rosuvastat in 20 mg daily, high intensity statin. Continue current therapy. Millie Esquivel, PharmD Candidate 2019 [id number] ADONIS KEE DPM [facility] [address] [place] [address] 08/15/2019 10:18:17 08/29/2019 13:57:02 Disorder of nervous system due to type 2 diabetes mellitus 697196623 E11.49 Bilateral atherosclerosis of arteries of lower limbs 8466351821 4898505 I70.203 Onychomycosis 691894647 B35.1 Lockhart - lesion 798597218 L84 Acquired h ammer toe of left foot 4044014484 933208 M20.42 Acquired h ammer toe of right foot 2544718852 327828 M20.41 Pain in right foot 64901 48005 31822 M79.671 Pain in left foot 616350 1856 51708 M79.672 Sprain of calcaneofibular ligament 25849372 S93.412A Xerosis du e to atopic dermatitis 894677412 L85.3 Anhidrosis 25255221 L74. 4 [id number] Arianna Leon RN-[facility] (HOU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) [address] [place] [address] 09/18/2019 10:51:11 09/18/2019 12:50:19 Rash of genitalia 304150025 R21 [id number] Pat osorio MD [facility] (Adult Med) [address] [place] [address] 10/07/2019 11:01:05 10/07/2019 12:58:26 Diabetes mellitus 45982530 E11.65 Uncontroll ed to goal A1c <7% per 2019 ADA guidelines . Currently treated with Januvia 100 mg daily, glimepirid e 2 mg BID (patient states bottle says BID), Lantus 30 units BID, and Novolog 5 units TID before meals (although patient self D/C'ed this on 09/27). Patient is not currently on first-line therapy of metformin due to GI intoleranc e. Educated patient on treatment of hypoglycem ia to only consume 4 ounces of juice for BG in the 60s. Discontinu e Novolog and will decrease Lantus by 10% to 27 units daily due to morning hypoglycem ia. Based on patient's heart failure and uncontroll ed A1c, will initiate Jardiance 10 mg 1 tab PO daily, as recommende d per guidelines . Patient to follow up in 6 weeks. Per EHR records, patient has a history of taking Invokana (canaglifl ozin) from approximat valery 05/2017-. There was no documentat ion of any issues regarding this medication . Per EHR patient also has a history of filling Trulicity (03/2017) once. It is unclear who initially prescribed that medication or why it was discontinu ed. Hypertensive disorder 38 734569 I10 Controlled to goal <130/80 mm Hg per 2017 ACC/AHA guidelines . Currently treated with chlorthali done 25 mg daily (although patient reports possible allergy to drug and discontinu ed it 4 days ago). Patient reports possible allergy to lisinopril , and amlodipine . It is also documented she stopped irbesartan due to a rash (01/27/19) but per documentat ion 03/12/19 it says she was discontinu ed from the drug due to recall. Patient has HFpEF so she would be recommende d to be treated with an ACEI/ARB, if possible. Based on controlled BP and initiation of Jardiance, which is recommende d in patients with HF and can reduce BP, will not initiation any therapy at this time. Patient to follow up in 6 weeks. [id number] Pat osorio MD [facility] (Adult Med) [address] [place] [address] 10/07/2019 12:03:17 10/07/2019 12:57:28 Angioedema of lips 110550462 T78.3XXS Recurrent angioedema and resp sx, with rash - suspect idiopathic or unrecogniz ed trigger. Refer to sheet metal duct worker supervisor, keep epi pen on hand and seek emergent medical care with these episodes as they seem to be occuring more frequently in recent week. [id number] Pat osorio MD [facility] (Adult Med) [address] [place] [address] 10/17/2019 10:34:01 10/17/2019 11:05:15 [id number] Pat osorio MD [facility] (Adult Med) [address] [place] [address] 01/06/2020 09:20:18 01/06/2020 12:42:03 Diabetes mellitus 84582773 E11.9 Uncontroll ed. Reportedly compliant with insulin, Jardiance, Januvia and sulfonylur ea. Congestive heart failure 16790202 I50.9 NYHA Class 1, diatolic failure, HFpEF. COntinue with cards q 6 months. Consider restart ARB after seen in person and in office BP check. Essential hypertension 14621710 I10 At goal. Off VEL and ARB. If angioedema due to VEL, not a contraindi cation to restart ARB Asthma 833581295 J45.90 9 chronic with acute flare, now resolved continue with maint med. Thrombocyt openic disorder 806267741 D69.6 Chronic apparently , on review of labs. Plan add Hep C, HIV to labs with next draw, consider refer to hematology . [id number] ADONIS KEE DPM [facility] [address] [place] [address] 03/22/2020 09:43:38 03/23/2020 12:39:28 Disorder of nervous system due to type 2 diabetes mellitus 901532005 E11.49 Bilateral atherosclerosis of arteries of lower limbs 9549187319 6732450 I70.203 Onychomycosis 207562788 B35.1 Lockhart - lesion 992866152 L84 Acquired h ammer toe of left foot 1436073039 352200 M20.42 Acquired h ammer toe of right foot 7832156415 714896 M20.41 Pain in right foot 70039 79160 67320 M79.671 Pain in left foot 967155 1882 61891 M79.672 Sprain of calcaneofibular ligament 41655248 S93.412A Xerosis du e to atopic dermatitis 810363982 L85.3 Anhidrosis 02480025 L74. 4 [id number] Pat osorio MD [facility] (Peds) [address] [place] [address] 04/20/2020 09:58:39 04/21/2020 21:23:24 Diabetes mellitus 34861143 E11.9 Uncontroll ed. Reportedly compliant with insulin, Jardiance, Januvia and sulfonylur ea. FU with Johnny Ceballos recomendd. NO change today in meds. Await A1C Thrombocyt openic disorder 912219588 D69.6 Chronic apparently , on review of labs. Plan add Hep C, HIV to labs with next draw, consider refer to hematology . Screening for disorder 446251786 Z13.9 Congestive heart failure 32638341 I50.9 NYHA Class 1, diatolic failure, HFpEF. COntinue with cards q 6 months. Consider restart ARB after seen in person and in office BP check. Essential hypertension 91783358 I10 At goal. Off VEL and ARB. If angioedema due to VEL, not a contraindi cation to restart ARB Asthma 857251169 J45.90 9 chronic with acute flare x 2 this summer. Not clear using meds correctly and reviewed. PFTs ordered. Keep cards fu in person this month. [id number] aPt osorio MD [facility] (Adult Med) [address] [place] [address] 05/20/2020 12:39:53 05/26/2020 09:22:28 Active or passive immunization 516661656 Z23 Congestive heart failure 56483362 I50.9 NYHA Class 1, diatolic failure, HFpEF. COntinue with cards q 6 months. Consider restart ARB after seen by sheet metal duct worker supervisor Essential hypertension 62564297 I10 At goal. Off VEL and ARB. Allergy referral placed due to angioedema on VEL. Not clear when will be able to keep appt. Obesity 678988535 E66.9 Encouraged dietary moderation , exercise. Diabetes mellitus 390894 09 E11.9 Uncontroll ed. A1C 11 and home measures discordant . Reportedly compliant with insulin, Jardiance, Januvia and sulfonylur ea. FU with Johnny Ceballos recommende d. No change today in meds given discordanc e ? compliance Moderate p ersistent asthma 934436289 J45.40 Compliant with ICS/LABA but persistent , intermitte nt sx. PFT's with restrictiv e pattern. Refer to pulm. for recs regarding sx. Avoid triggers. [id number] [facility] [address] [place] [address] 06/23/2020 11:14:03 06/28/2020 16:08:07 Disorder of nervous system due to type 2 diabetes mellitus 001169287 E11.42 Bilateral atherosclerosis of arteries of lower limbs 5969153940 4108283 I70.203 Onychomycosis 243065012 B35.1 Lockhart - lesion 273419677 L84 Acquired h ammer toe of left foot 3794802203 336094 M20.42 Acquired h ammer toe of right foot 6127428930 604005 M20.41 Pain in right foot 98878 19686 89805 M79.671 Pain in left foot 652196 6271 51213 M79.672 Sprain of calcaneofibular ligament 37414646 S93.412S Xerosis du e to atopic dermatitis 048590151 L85.3 Anhidrosis 92284863 L74. 4 [id number] [facility] [address] [place] [address] 09/01/2020 11:50:28 09/02/2020 12:12:26 Disorder of nervous system due to type 2 diabetes mellitus 704640239 E11.42 Bilateral atherosclerosis of arteries of lower limbs 1493124504 4711387 I70.203 Onychomycosis 863317876 B35.1 Lockhart - lesion 147384331 L84 Acquired h ammer toe of left foot 6077983681 022248 M20.42 Acquired h ammer toe of right foot 4970753521 462451 M20.41 Pain in right foot 92723 79417 48401 M79.671 Pain in left foot 456128 6695 54517 M79.672 Sprain of calcaneofibular ligament 69938618 S93.412S Xerosis du e to atopic dermatitis 058870022 L85.3 Anhidrosis 68360206 L74. 4 Lesion of left plantar nerve 1645923391 10869 G57.62 [id number] [facility] [address] [place] [address] 09/20/2020 12:07:58 09/21/2020 11:47:47 Disorder of nervous system due to type 2 diabetes mellitus 436208279 E11.42 Bilateral atherosclerosis of arteries of lower limbs 1945646396 8212675 I70.203 Onychomycosis 013371138 B35.1 Lockhart - lesion 674416666 L84 Acquired h ammer toe of left foot 5521863993 523459 M20.42 Acquired h ammer toe of right foot 7632540037 998252 M20.41 Pain in right foot 51712 80706 33906 M79.671 Pain in left foot 706413 8215 86001 M79.672 Sprain of calcaneofibular ligament 09591191 S93.412S Xerosis du e to atopic dermatitis 864843923 L85.3 Anhidrosis 59522263 L74. 4 Lesion of left plantar nerve 6257142637 00651 G57.62 [id number] ADONIS KEE DPM [facility] [address] [address] 10/04/2020 11:35:28 10/04/2020 16:10:06 Disorder of nervous system due to type 2 diabetes mellitus 053986767 E11.42 Bilateral atherosclerosis of arteries of lower limbs 5704530229 8710252 I70.203 Onychomycosis 974911717 B35.1 Lockhart - lesion 830632153 L84 Acquired h ammer toe of left foot 2274961347 154536 M20.42 Acquired h ammer toe of right foot 3172489034 292176 M20.41 Pain in right foot 91641 60332 28905 M79.671 Pain in left foot 373208 6472 46105 M79.672 Sprain of calcaneofibular ligament 66436869 S93.412S Xerosis du e to atopic dermatitis 994787255 L85.3 Anhidrosis 82130450 L74. 4 Lesion of left plantar nerve 4060767613 14252 G57.62 [id number] Pat osorio MD [facility] (Adult Med) [address] [place] [address] 11/04/2020 10:37:22 11/05/2020 10:23:22 Diabetes mellitus 44500337 E11.9 Uncontroll ed. A1C 10 and home measures discordant . Reportedly compliant with insulin, Januvia and sulfonylur ea. Not clear taking Jardiance. FU with Johnny Ceballos recommendfortino d. Increase Lantus to 30 untis BID. Check BS regularly due to discordanc e btwn home measures and a1c Microalbuminuria 9676787 06 R80.9 Would benefit from ARB. Current recommenda tion is to consider prescribe arb in context of vel angioedema . Low risk of cross reactivity but should use caution and certified credit counselor pt regarding any signs/sx recurrence . Defer to next visit. Recheck today. Pain of bi lateral hands 5707300976 1055105 M79.641 M79.642 Suspect OA - trial tylenol. [id number] Katya Aguilar MD [facility] (HOU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) [address] [place] [address] 11/09/2020 11:04:22 11/09/2020 15:14:08 Abnormal urine odor 4944050 R82.90 [id number] ADONIS KEE DPM [facility] [address] [address] 12/03/2020 14:10:01 12/03/2020 16:20:29 Disorder of nervous system due to type 2 diabetes mellitus 996591357 E11.42 Bilateral atherosclerosis of arteries of lower limbs 1979487606 4922497 I70.203 Onychomycosis 436031714 B35.1 Lockhart - lesion 996339200 L84 Acquired h ammer toe of left foot 3833371318 367050 M20.42 Acquired h ammer toe of right foot 4107024155 697016 M20.41 Pain in right foot 39074 44676 88733 M79.671 Pain in left foot 054017 2237 75750 M79.672 Sprain of calcaneofibular ligament 25286829 S93.412S Xerosis du e to atopic dermatitis 780226509 L85.3 Lesion of left plantar nerve 7512623756 88705 G57.62 Ankle pain 375246343 M25 .160 [id number] Pat osorio MD [facility] (Adult Med) [address] [place] [address] 12/13/2020 12:32:52 12/16/2020 03:46:46 Diabetes mellitus 45469246 E11.65 Uncontroll ed to goal A1c <7% per ADA guidelines . Patient has historical ly reported a discrepanc y between the A1c and her BG readings. In the future may consider increasing frequency of testing and possibly a CGM to further evaluate control. Currently treated with Januvia 100 mg daily, glimepirid e 2 mg BID (patient states bottle says BID), Lantus 30 units BID. Patient is not currently on first-line therapy of metformin due to GI intoleranc e. Based on CHF, patient is recommende d to be on an SGLT2-I with evidence in heart failure although she refuses this medication . Advised patient resume testing and will determine need for therapy modificati on at a future encounter. Patient will likely be recommende d for a bolus insulin or GLP1-RA due to her likely elevated PPG readings. Patient to follow up in 4 weeks. Thank you for this referral! [id number] ADOINS KEE DPM [facility] [address] [place] [address] 02/18/2021 09:13:26 03/02/2021 13:53:16 Disorder of nervous system due to type 2 diabetes mellitus 894311644 E11.42 Bilateral atherosclerosis of arteries of lower limbs 9282655508 8815559 I70.203 Onychomycosis 680166266 B35.1 Lockhart - lesion 650017017 L84 Acquired h ammer toe of left foot 4870243977 860772 M20.42 Acquired h ammer toe of right foot 2324200164 130524 M20.41 Pain in right foot 85916 43705 16452 M79.671 Pain in left foot 401745 3758 28249 M79.672 Sprain of calcaneofibular ligament 06622607 S93.412S Xerosis du e to atopic dermatitis 291014313 L85.3 Lesion of left plantar nerve 6090014194 39388 G57.62 Type 2 rene betes mellitus 24030994 E11.42 [id number] ADONIS KEE DPM [facility] [address] [place] [address] 04/29/2021 09:38:16 06/03/2021 15:26:58 Disorder of nervous system due to type 2 diabetes mellitus 663218406 E11.42 Bilateral atherosclerosis of arteries of lower limbs 2755667192 4386796 I70.203 Onychomycosis 906549901 B35.1 Lockhart - lesion 322066686 L84 Acquired h ammer toe of left foot 0986667997 036885 M20.42 Acquired h ammer toe of right foot 7402275579 690915 M20.41 Pain in right foot 84561 49858 01038 M79.671 Pain in left foot 153416 5617 79855 M79.672 Sprain of calcaneofibular ligament 14848163 S93.412S Xerosis du e to atopic dermatitis 283576139 L85.3 Lesion of left plantar nerve 4021515135 91809 G57.62 Type 2 rene betes mellitus 72418298 E11.42 [id number] Pat osorio MD [facility] (Adult Med) [address] [place] [address] 05/05/2021 09:28:12 05/11/2021 09:16:06 Asthma 445009055 J45.909 Chronic, stable at this time. Congestive heart failure 04578456 I50.9 NYHA Class 1, diatolic failure, HFpEF. Continue with cards q 6 months. Consider start ARB after seen by sheet metal duct worker supervisor Diabetes mellitus 203790 09 E11.65 Uncontroll ed. A1C 10 last visit. Prev visit Lantus incr to 30 u bid and reportely cards told her to increase to 45 bid. Reportedly compliant with insulin, Januvia and sulfonylur ea. FU with Johnny Ceballos recommende d. Check BS regularly and FU in person for labs Essential hypertension 35059712 I10 At goal. Off VEL and ARB. Allergy referral placed due to angioedema on VEL. At goal. [id number] ADONIS KEE DPM [facility] [address] [place] [address] 07/08/2021 09:32:57 07/11/2021 12:59:56 Neuropathy due to diabetes mellitus 431623299 E11.40 Bilateral atherosclerosis of arteries of lower limbs 0855580930 3482106 I70.203 Onychomycosis 461787678 B35.1 Lockhart - lesion 891803258 L84 Acquired h ammer toe of left foot 2622388512 767773 M20.42 Acquired h ammer toe of right foot 8340041792 423127 M20.41 Pain in right foot 73369 17613 01386 M79.671 Pain in left foot 972571 2381 98089 M79.672 Sprain of calcaneofibular ligament 34603580 S93.412S Xerosis du e to atopic dermatitis 533535016 L85.3 Lesion of left plantar nerve 2932366879 45092 G57.62 Type 2 rene betes mellitus 12232866 E11.42 [id number] ADONIS KEE DPM [address] [address] 09/30/2021 10:22:43 10/04/2021 14:27:08 Neuropathy due to diabetes mellitus 633571053 E11.40 Bilateral atherosclerosis of arteries of lower limbs 3398726335 0655903 I70.203 Onychomycosis 848151764 B35.1 Lockhart - lesion 392943183 L84 Acquired h ammer toe of left foot 3497799739 617072 M20.42 Acquired h ammer toe of right foot 2054002721 141391 M20.41 Pain in right foot 95968 85917 50620 M79.671 Pain in left foot 905355 1933 74601 M79.672 Sprain of calcaneofibular ligament 84708759 S93.412S Xerosis du e to atopic dermatitis 517314198 L85.3 Lesion of left plantar nerve 0819065041 93890 G57.62 Type 2 rene betes mellitus 96932841 E11.42 [id number] Pat osorio MD [facility] (Adult Med) [address] [place] [address] 10/19/2021 16:00:14 10/24/2021 13:08:31 Screening mammography 05805965 Z12.31 Essential hypertension 62484701 I10 At goal. Off VEL and ARB. Allergy referral placed due to angioedema on VEL. At goal. Diabetes mellitus 372730 09 E11.65 Last A1C:10Goal A1C less than:8.0%C urrent Therapy:lo ng-acting insulin sulfonylur ea DDP-4Stati n:yesACE/A RB:no due to negative nephropath y screening, hx angioedema Foot Exam:compl eted in the past 12 months-neg ativeNephr opathy Screening: completed in the past 12 months- negativePn eumovax 23:due but not available todayEye Exam:compl eted per patient reportPati ent Education: healthy diet:exerc ise:weight loss:foot care:compl ications of uncontroll ed diabetes:m edication compliance :Next Visit: 4 Annaome BS don't correlate with A1C. She has declined to return to clinical pharmacist . Refer to endo - CBG may be helpful. Thrombocyt openic disorder 975129782 D69.6 Chronic apparently , on review of labs. Plan add Hep C, HIV to labs with next draw, consider refer to hematology . Foot callus 783608756 L8 4 Pre ulcerative . Pulses intact [id number] Cuba Gonzalez MD [facility] [address] [place] [address] 12/13/2021 11:30:22 12/17/2021 10:56:01 Administration of SARS-CoV-2 mRNA vaccine 6286848698 Z23 [id number] ADONIS KEE DPM [facility] [address] [place] [address] 12/16/2021 09:26:28 12/19/2021 14:05:21 Neuropathy due to diabetes mellitus 929917360 E11.40 Bilateral atherosclerosis of arteries of lower limbs 4376855851 9666964 I70.203 Onychomycosis 372911101 B35.1 Lockhart - lesion 449882145 L84 Acquired h ammer toe of left foot 5548257392 392951 M20.42 Acquired h ammer toe of right foot 8339505274 306250 M20.41 Pain in right foot 34050 98443 18756 M79.671 Pain in left foot 972768 3568 83939 M79.672 Sprain of calcaneofibular ligament 57188936 S93.412S Xerosis du e to atopic dermatitis 152017552 L85.3 Lesion of left plantar nerve 8482165730 22571 G57.62 Type 2 rene betes mellitus 57620676 E11.42 [id number] Pat osorio MD [facility] (Adult Med) [address] [place] [address] 02/16/2022 14:53:02 02/17/2022 09:08:54 Diabetes mellitus 24723868 E11.65 Last A1C:10Goal A1C less than:8.0%C urrent Therapy:lo ng-acting insulin sulfonylur ea DDP-4Stati n:yesACE/A RB:no due to negative nephropath y screening, hx angioedema Foot Exam:compl eted in the past 12 months-neg ativeNephr opathy Screening: completed in the past 12 months- negativePn eumovax 23:due but not available todayEye Exam:compl eted per patient reportPati ent Education: healthy diet:exerc ise:weight loss:foot care:compl ications of uncontroll ed diabetes:m edication compliance :Next Visit: 4 moHome BS don't correlate with A1C. Refer to endo again. If she doesn't hear from endo within two weeks she should contact my office. AM BS symptomati c freq. Decrease insulin to 42 units BID and small snack at HS Asthma 804262992 J45.90 9 Chronic - not clear what sx she is treating with scheduled albuterol. Trial flovent scheduled, limit albuterol and address at fu. Active or passive immunization 937902385 Z23 Obesity 305138705 E66.9 Encouraged dietary moderation , exercise. [id number] ADONIS KEE DPM [facility] [address] [place] [address] 02/24/2022 09:28:01 02/27/2022 08:05:04 Neuropathy due to diabetes mellitus 893232979 E11.40 Bilateral atherosclerosis of arteries of lower limbs 7429139514 7442461 I70.203 Onychomycosis 725733146 B35.1 Lockhart - lesion 726241795 L84 Acquired h ammer toe of left foot 5780401656 150022 M20.42 Acquired h ammer toe of right foot 7404138071 180775 M20.41 Pain in right foot 93076 75466 74209 M79.671 Pain in left foot 952687 1191 60841 M79.672 Sprain of calcaneofibular ligament 50449117 S93.412S Xerosis du e to atopic dermatitis 750650441 L85.3 Lesion of left plantar nerve 7084626450 05653 G57.62 Type 2 rene betes mellitus 88605445 E11.42 [id number] ADONIS KEE DPM [facility] [address] [place] [address] 05/05/2022 09:22:17 05/05/2022 13:31:19 Bilateral atherosclerosis of arteries of lower limbs 1365530216 7119895 I70.203 Onychomycosis 470577294 B35.1 Lockhart - lesion 015730433 L84 Acquired h ammer toe of left foot 3503441503 918979 M20.42 Acquired h ammer toe of right foot 4516166999 441913 M20.41 Pain in right foot 86173 01502 46103 M79.671 Pain in left foot 933105 2826 78281 M79.672 Sprain of calcaneofibular ligament 83508136 S93.412S Xerosis du e to atopic dermatitis 644369588 L85.3 Lesion of left plantar nerve 4776883439 06385 G57.62 Type 2 rnee betes mellitus 65082112 E11.42 [id number] ADONIS KEE DPM [facility] [address] [place] [address] 07/26/2022 10:04:44 07/26/2022 15:12:13 Neuropathy due to diabetes mellitus 310536338 E11.40 Onychomycosis 787867083 B35.1 Xerosis du e to atopic dermatitis 601076809 L85.3 Type 2 rene betes mellitus 10275604 E11.42 Bilateral atherosclerosis of arteries of lower limbs 2354380352 6500460 I70.203 Lockhart - lesion 804918068 L84 Acquired h ammer toe of left foot 5560103412 506649 M20.42 Acquired h ammer toe of right foot 4716821606 707924 M20.41 Pain in right foot 26336 07033 68069 M79.671 Pain in left foot 351068 9519 34352 M79.672 Sprain of calcaneofibular ligament 72332170 S93.412S Lesion of left plantar nerve 1089924416 24779 G57.62 [id number] Pat osorio MD [facility] (Adult Med) [address] [place] [address] 09/13/2022 10:23:25 10/12/2022 10:49:45 Obesity 391939284 E66.9 Encouraged dietary moderation , exercise. Diabetes mellitus 804536 09 E11.65 Last A1C:greate r than 9% > 11Goal A1C less than:8.0%C urrent Therapy:lo ng-acting insulin sulfonylur ea DDP-4Stati n:yesACE/A RB:no due to negative nephropath y screening, hx angioedema Foot Exam:compl eted in the past 12 months-neg ativeNephr opathy Screening: completed in the past 12 months- negativePn eumovax 23:UTDEye Exam:compl eted in the last 12 months- negativePa tient Education: healthy diet:exerc ise:weight loss:foot care:compl ications of uncontroll ed diabetes:m edication compliance :Next Visit: 3 moHome BS difficult to correlate with A1C and reportedly AM low. May benefit from CGM. Refer to endo again (multiple prev referrals has not been able to schedule/k eep appts for different reasons). Congestive heart failure 97783727 I50.9 NYHA Class 1, diastolic failure, HFpEF. Continue with cards q 6 months. 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 Off VEL and ARB. Hyperlipidemia 46408789 E78.5 continue statin. Pain of bi lateral knee joints 2148306960 67980 M25.561 M25.562 Chronic - trial APAP and topical [id number] ADONIS KEE DPM [facility] [address] [address] 10/25/2022 10:56:29 10/26/2022 10:05:58 Onychomycosis 391642988 B35.1 Xerosis du e to atopic dermatitis 526613262 L85.3 Type 2 rene betes mellitus 63104153 E11.42 Bilateral atherosclerosis of arteries of lower limbs 0155400483 2242030 I70.203 Lockhart - lesion 537485331 L84 Acquired h ammer toe of left foot 7519378702 374283 M20.42 Acquired h ammer toe of right foot 6358399008 596329 M20.41 Pain in right foot 81851 09673 86866 M79.671 Pain in left foot 712571 0716 05214 M79.672 Sprain of calcaneofibular ligament 54098104 S93.412S Lesion of left plantar nerve 6563466623 69378 G57.62 [id number] ADONIS KEE DPM [facility] [address] [place] [address] 02/05/2023 11:40:40 02/06/2023 09:16:10 Onychomycosis 193761799 B35.1 Xerosis du e to atopic dermatitis 589276487 L85.3 Type 2 rene betes mellitus 43080653 E11.42 Bilateral atherosclerosis of arteries of lower limbs 8369748178 2016967 I70.203 Lockhart - lesion 250828306 L84 Acquired h ammer toe of left foot 7608515654 047065 M20.42 Acquired h ammer toe of right foot 1449938623 482500 M20.41 Pain in right foot 97229 02826 89634 M79.671 Pain in left foot 960447 8948 35401 M79.672 Sprain of calcaneofibular ligament 77549242 S93.412S Lesion of left plantar nerve 6825329328 87129 G57.62 [id number] ADONIS KEE DPM [facility] [address] [place] [address] 06/29/2023 14:25:57 07/02/2023 08:53:33 Onychomycosis 335093413 B35.1 Xerosis du e to atopic dermatitis 665241259 L85.3 Type 2 rene betes mellitus 64750172 E11.42 Bilateral atherosclerosis of arteries of lower limbs 6804178329 4778451 I70.203 Lockhart - lesion 375714847 L84 Acquired h ammer toe of left foot 6802086549 767133 M20.42 Acquired h ammer toe of right foot 4114069727 732582 M20.41 Pain in right foot 24520 06715 05041 M79.671 Pain in left foot 061240 6711 59702 M79.672 Sprain of calcaneofibular ligament 85724194 S93.412S Lesion of left plantar nerve 1949455235 10264 G57.62 [id number] ADONIS KEE DPM [facility] [address] [place] [address] 10/26/2023 14:16:26 10/30/2023 10:05:43 Onychomycosis 098931804 B35.1 Xerosis du e to atopic dermatitis 567892772 L85.3 Type 2 rene betes mellitus 40501129 E11.42 Bilateral atherosclerosis of arteries of lower limbs 8400612268 5899802 I70.203 Lockhart - lesion 205870336 L84 Acquired h ammer toe of left foot 4242311504 358835 M20.42 Acquired h ammer toe of right foot 4559579970 949227 M20.41 Pain in right foot 79098 23917 47049 M79.671 Pain in left foot 594223 4955 63348 M79.672 Sprain of calcaneofibular ligament 96229415 S93.412S Lesion of left plantar nerve 7252575626 46977 G57.62 [id number] Jim Dodd Manav [facility] [address] [place] [address] 12/24/2024 12:12:11 12/24/2024 12:31:27 Diabetes mellitus 08282802 E11.65 Onychomycosis 628394748 B35.1 Xerosis du e to atopic dermatitis 398101081 L85.3 cont daily applicatio n of amlactin qd jesus LE Type 2 rene betes mellitus 27287155 E11.42 Bilateral atherosclerosis of arteries of lower limbs 9476003294 2146350 I70.203 Lockhart - lesion 238023387 L84 Acquired h ammer toe of left foot 7908582208 479452 M20.42 Acquired h ammer toe of right foot 1397850090 203520 M20.41 Health Concerns Section Related Observation LastModified by Organization Detai ls LastModified Time None Recorded Concern Status LastModified by Organization Details LastModified Time None Recorded Advance Directives Directive N: Payers Insurance Date Sequence Insurance Name Policy Number Policy Landin Covered Member ID Landin Member ID Guarantor Name 04/06/2023 1 [facility] (MEDICARE REPLACEMENT/A DVANTAGE - HMO) [id number] Natali To [id number] Natali To 10/24/2021 3 [place] MED[place]ARE OR MEDICARE REPLACEMENT PRIMARY) Natali To [id number] Natali To 11/04/2020 1 [employer] (MEDICARE REPLACEMENT/A DVANTAGE - PPO) Natali To [id number] Natali To 03/03/2020 [employer] (MEDICARE REPLACEMENT/A DVANTAGE - PPO) Natali To [id number] Natali To 02/19/2019 SLIDING FEE SCHEDULE - DISCOUNT Natali To 10/24/2021 2 [place]IC[place] REPLACEMENT PRIMARY) Natali To [id number] Natali To 03/03/2020 2 [facility] PRIOR TO 02/10/2021 (MEDICAID REPLACEMENT - HMO) Natali To [id number] Natali To 02/17/2022 2 [facility] ON OR AFTER 02/10/21 (MEDICAID REPLACEMENT - HMO) Natali To [id number] Natali To 01/03/2023 2 [place] OR MEDIC[place] REPLACEMENT PRIMARY) Natali To [id number] Natali To 03/03/2020 1 [place] [facility] Natali To [id number] Natali To 03/03/2020 1 [place] Naatli To [id number] Natali To 03/03/2020 1 [employer] (MEDICARE REPLACEMENT/A DVANTAGE - PPO) Natali To [id number] Natali To 03/03/2020 1 [place] OR MEDICARE REPLACEMENT PRIMARY) Natali To [id number] Natali To 10/24/2021 2 [facility] ON OR AFTER 02/10/21 (MEDICAID REPLACEMENT - HMO) Natali To [id number] Natali To 02/19/2019 SLIDING FEE SCHEDULE - DISCOUNT Natali To 10/12/2016 1 *SELF PAY* Bhavna To 04/06/2023 2 [facility] ON OR AFTER 02/10/21 (MEDICAID REPLACEMENT - HMO) Natali To [id number] Natali To 09/25/2017 1 *SELF PAY* Bhavna To 06/20/2021 2 [facility] PRIOR TO 02/10/2021 (MEDICAID REPLACEMENT - HMO) Natali To [id number] Natali To 03/03/2020 1 [employer] Natali To [id number] Natali To 10/24/2021 [employer] (MEDICARE REPLACEMENT/A DVANTAGE - PFFS) Natali To [id number] Natali To 03/03/2020 2 [place] [facility] [place] Natali To [id number] Natali To 12/31/2022 [facility] ON OR AFTER 21 (MEDICAID REPLACEMENT - HMO) Natali To [id number] Natali To Notes Date Note Type Note Provider Name and Address Organization Details Recorded Time 10/25/2022 text/html ROS as noted in the HPI Patient presents today for evaluation and treatment of nail deformities as well as generalized foot care. The patient states their nails are uncomfortable. The patient has been unable to provide self care due to the severe nature of the deformity and their medical condition(s). The patient is receiving medically necessary foot care in order to prevent further problems as well as to relieve irritation and discomfort. Patient relates a history of diabetes and cannot recall last blood glucose. Patient presents f/u sharp pain in the ball of her left foot when walking graded 0-1/10 today with pain starting early Aug 2020. patient states walking with the diabetic shoes which helps her feet with pain greatest when walking and relieved by rest. Patient states attending physical therapy as directed and obtained the prescriptions prescribed at last visit that have greatly helped her feet. ADONIS KEE DPM [address] [place], [address], [facility] 10/25/2022 12:14:37 02/05/2023 text/html ROS as noted in the HPI Patient presents today for evaluation and treatment of nail deformities as well as generalized foot care. The patient states their nails are uncomfortable. The patient has been unable to provide self care due to the severe nature of the deformity and their medical condition(s). The patient is receiving medically necessary foot care in order to prevent further problems as well as to relieve irritation and discomfort. Patient relates a history of diabetes and cannot recall last blood glucose. Patient presents f/u sharp pain in the ball of her left foot when walking graded 0-1/10 today with pain starting early Aug 2020. patient states walking with the diabetic shoes which helps her feet with pain greatest when walking and relieved by rest. Patient states attending physical therapy as directed and obtained the prescriptions prescribed at last visit that have greatly helped her feet. ADONIS KEE DPM [address] [place], [address], [facility] 02/05/2023 12:50:17 06/29/2023 text/html ROS as noted in the HPI Patient presents today for evaluation and treatment of nail deformities as well as generalized foot care. The patient states their nails are uncomfortable. The patient has been unable to provide self care due to the severe nature of the deformity and their medical condition(s). The patient is receiving medically necessary foot care in order to prevent further problems as well as to relieve irritation and discomfort. Patient relates a history of diabetes and cannot recall last blood glucose. Patient presents f/u sharp pain in the ball of her left foot when walking graded 0-1/10 today with pain starting early Aug 2020. patient states walking with the diabetic shoes which helps her feet with pain greatest when walking and relieved by rest. Patient states attending physical therapy as directed and obtained the prescriptions prescribed at last visit that have greatly helped her feet. ADONIS KEE DPM [address] [place], [address], [facility] 06/29/2023 15:21:03 10/26/2023 text/html ROS as noted in the HPI Patient presents today for evaluation and treatment of nail deformities as well as generalized foot care. The patient states their nails are uncomfortable. The patient has been unable to provide self care due to the severe nature of the deformity and their medical condition(s). The patient is receiving medically necessary foot care in order to prevent further problems as well as to relieve irritation and discomfort. Patient relates a history of diabetes and cannot recall last blood glucose. Patient presents f/u sharp pain in the ball of her left foot when walking graded 0-1/10 today with pain starting early Aug 2020. patient states walking with the diabetic shoes which helps her feet with pain greatest when walking and relieved by rest. Patient states attending physical therapy as directed and obtained the prescriptions prescribed at last visit that have greatly helped her feet. ADONIS KEE DPM [address] [place], [address], [facility] 10/26/2023 14:57:04 12/24/2024 text/html ROS as noted in the HPI Patient presents today for evaluation and treatment of nail deformities as well as generalized foot care. The patient states their nails are uncomfortable. The patient has been unable to provide self care due to the severe nature of the deformity and their medical condition(s). The patient is receiving medically necessary foot care in order to prevent further problems as well as to relieve irritation and discomfort. Jim Dodd DPM [address], [place], [address], [facility] 12/24/2024 14:16:50 OBGyn Episode No OBEpisode recorded.
[2025-05-08] MEDS: SODIUM CHLORIDE 0.9% IV 1,000 ML 999 ML IV CONT ×2 (18:08→19:09)
[2025-05-08 18:15] LABS: Hematocrit 35.8 % (37.0-47.0); Hemoglobin 11.4 g/dL (12.0-15.0); Immature Granulocyte Percent A 0.2 % (0-0.5); Lymphocytes Absolute Auto 1.25 K/mm3 (0.9-3.2); Mean Corpuscular HGB Conc 31.8 g/dl (32-36); Mean Corpuscular Hemoglobin 25.2 pg (26-34); Mean Corpuscular Volume 79.0 fl (80-100); Nucleated Red Blood Cells Absolute Auto 0.000 K/mm3 (0.0-0.012); Nucleated Red Blood Cells Perc 0.0 % (0.0-0.2); Platelet Count Result 162 k/mm3 (150-375); Red Blood Count 4.53 M/mm3 (4.2-5.4); White Blood Count 4.5 K/mm3 (4.5-10.0)
[2025-05-08 18:28] LABS: Hemoglobin A1C 11.6 % (<5.7)
[2025-05-08 18:34] LABS: Alanine Aminotransferase 43 U/L (6-35); Albumin Level 4.1 g/dL (3.5-5.1); Alkaline Phosphatase 137 U/L (38-126); Anion Gap 10 mmol/L (4-12); Aspartate Amino Transferase 66 U/L (14-36); Bilirubin,Total 0.8 mg/dL (0.2-1.3); Blood Urea Nitrogen 34 mg/dL (7-17); Calcium 9.0 mg/dL (8.4-10.2); Carbon Dioxide 25 mmol/L (22-30); Chloride 96 mmol/L (98-107); Estimated Glomerular Filt Rate 36; Glucose 571 mg/dL (65-110); Magnesium 2.1 mg/dL (1.6-2.3); Potassium 4.4 mmol/L (3.4-5.0); Sodium 131 mmol/L (137-145); Total Protein 7.1 g/dL (6.3-8.2)
[2025-05-08] MEDS: INSULIN HUMAN REGULAR (*BKC) 100 UNITS/ML 8 UNITS IV PUSH (19:13)
--- NOTE | 2025-05-08 21:49 | ADMGEN ---
This patient, Natali To, was admitted to [facility] Surg Room 331-02. Patient/family oriented to hospital policies and general routines including ID bracelet, bed and alarms, visiting hours, pain management, procedures, bathroom and other care routines, personal items, smoking policy, room service/diet, and visiting hours. Information on how to activate the Rapid Response Team has been discussed. Patient/Family are encouraged to report perceived risks to care and to ask questions if they do not understand what they are told or what they should do.
--- NOTE | 2025-05-09 02:45 | PM.IMHP ---
H&P: HPI History of Present Illness Date/Time: 05/09/25 02:45 Chief Complaint: High blood sugar Narrative: 74-year-old female with a past medical history of uncontrolled diabetes mellitus with associated neuropathy, nephropathy and retinopathy, COPD, CHF, combined urge and stress urinary incontinence along at with other comorbidities who presented to the ER from home due to hyperglycemia. The patient reports that she usually gets her care at [facility]. She was just hospitalized at [facility] the through the for UTI and hyperglycemia. She is a poor historian regarding her medications. She provided a list of medications from the her prior hospitalization in November of 2024 but could not given updated list of medications from her most recent hospitalization. She states that they discharged her from the hospital despite knowing that she ?still had a UTI?. Her UA in our ER was not indicative of a urinary tract infection. She reports that she has chronic urinary frequency and urgency. She denies any dysuria or hematuria. She has not been having any fevers or chills. She states that she is supposed to have a continuous glucose monitor but she has not made it ?back to get it put back on? so she has been checking her Accu-Cheks and her glucometer read high. She stated that she wanted to go back to [facility] but her daughter insisted on bringing her to our facility because her instrumental music teacher is located in [facility]. Patient is never been evaluated at our facility and we do not have any prior records. The patient's external medications from pharmacy record indicate that she is post be on Lantus 60 units subQ daily. The patient is adamant that she is only taking 24 units of Lantus daily. She states that she is 7 units of the insulin with meals. In she states that she was told to stop her glimepiride. But I suspect she was actually told to stop her Jardiance cassette soundly she may have a history of somewhat frequent UTIs. She has come into that she is allergic to Lantus because ?any time I take that medication my blood sugars go up.? She does not take any sliding scale insulin. She is commence that if we switch her back to insulin that comes in vials instead of in pens that her blood sugars will get better. Review of Systems Review of Systems: 12 systems were reviewed with pertinent positives and negatives per HPI. Except as documented in the HPI, all other systems were reviewed and are negative. [facility] Past Medical History Medical History (Updated 05/09/25 @ 08:19 by Evelyn Ramirez DO) Chronic kidney disease Urinary incontinence, mixed Glaucoma Rheumatoid arthritis Osteoporosis CHF (congestive heart failure) Coronary artery disease COPD with asthma Kidney stones Retinal detachment Diabetic nephropathy Diabetic peripheral neuropathy Diabetic retinopathy Uncontrolled diabetes mellitus Hemoglobin A1c greater than 11 05/08/2025 Type 2 diabetes mellitus treated with insulin Surgical History Surgical History (Updated 05/09/25 @ 08:05 by Evelyn Ramirez DO) Status post cataract extraction of both eyes with insertion of intraocular lens Hx of cholecystectomy History of total abdominal hysterectomy and bilateral salpingo-oophorectomy Family History Family History Daughter Diabetes mellitus Sibling Diabetes mellitus Social History Social History (Updated 05/09/25 @ 08:08 by Evelyn Ramirez DO) Social History: The patient has been since proximally 2010. She lives alone. She has 1 daughter and 2 sons. She is a lifelong nonsmoker and denies any history of heavy alcohol use. She has not had any alcohol consumption in at least 30 years. She denies illicit substance use. Code status: DNR/DNI (per patient request) Surrogate decision maker: Chery Nunes (daughter) Smoking status: Never smoker Second hand tobacco smoke exposure: Yes Alcohol intake: never Substance use: never Lack of Transportation: No Lack of Food: Never True Current Housing: I Have Housing Concerned About Future Housing: No Difficulty Paying Gas/Electric Bills: No Difficulty Paying for Meds: No Currently Unemployed: No Education: Decline to Answer Difficulty w/ Childcare or Family Care: No Living arrangements: alone Occupation/Education: retired Gender identity (if verbalized by the patient): Female Sexual Orientation (if Verbalized by the Patient): Straight or Heterosexual Spiritual care concerns: Yes Agree to blood products: Yes Meds Home Medications and Allergies Home Medications ?Medication ?Instructions ?Recorded ?Confirmed ?Type albuterol sulfate 90 mcg/actuation 2 inh inhalation Q6H SOB/Wheezing 05/08/25 05/08/25 History aerosol inhaler ammonium lactate 12 % lotion 1 applic topical PRN Dry skin 05/08/25 05/08/25 History aspirin 81 mg tablet 81 mg PO DAILY 05/08/25 05/08/25 History blood sugar diagnostic (Accu-Chek 05/08/25 05/08/25 History Guide test strips) blood-glucose meter (Accu-Chek 05/08/25 05/08/25 History Guide Glucose Meter) budesonide-formoterol HFA 80 2 inh inhalation BID 05/08/25 05/08/25 History mcg-4.5 mcg/actuation aerosol inhaler (Symbicort) chlorthalidone 25 mg tablet 25 mg PO DAILY 05/08/25 05/08/25 History diclofenac sodium 1 % topical gel 2 g topical TID 05/08/25 05/08/25 History diphenhydramine 25 1 tablet PO HS 05/08/25 05/08/25 History mg-acetaminophen 500 mg tablet (Tylenol PM Extra Strength) docusate sodium 100 mg capsule 100 mg PO DAILY 05/08/25 05/08/25 History (Colace) fluticasone propionate 50 1 spray intranasal BID 05/08/25 05/08/25 History mcg/actuation nasal spray,suspension furosemide 20 mg tablet 20 mg PO DAILY 05/08/25 05/08/25 History glimepiride 4 mg tablet 4 mg PO DAILY 05/08/25 05/08/25 History glucagon 1 mg/0.2 mL subcutaneous 1 mg subcut PRN 05/08/25 05/08/25 History auto-injector (Gvoke HypoPen 2-Pack) guaifenesin 1,200 mg tablet, 1,200 mg PO BID 05/08/25 05/08/25 History extended release 12 hr insulin glargine 100 unit/mL (3 60 unit subcut DAILY 05/08/25 05/09/25 History mL) subcutaneous pen (Lantus Solostar U-100 Insulin) insulin lispro 100 unit/mL 6 unit subcut TID 05/08/25 05/08/25 History subcutaneous pen insulin syringe-needle U-100 1 mL 05/08/25 05/08/25 History 30 gauge x 1/2 (Ultra-Fine Insulin Syringe) nitroglycerin 0.4 mg sublingual 0.4 mg sublingual PRN 05/08/25 05/09/25 History tablet rosuvastatin 20 mg tablet 20 mg PO DAILY 05/08/25 05/08/25 History Allergies Allergy/AdvReac Type Severity Reaction Status Date / Time dulaglutide Allergy Severe shortness Verified 05/08/25 19:19 of breath [facility] Allergy Severe Anaphylaxis Verified 05/08/25 19:19 aspirin Allergy Intermediate Wheezing Verified 05/08/25 18:11 canagliflozin Allergy Intermediate Pain in Verified 05/08/25 19:19 arms and legs lisinopril Allergy Intermediate Rash Verified 05/08/25 19:19 metformin Allergy Intermediate Rash Verified 05/08/25 19:19 Penicillins Allergy Intermediate Rash Verified 05/08/25 18:06 eggs Allergy Intermediate Rash Uncoded 05/08/25 19:19 Pnuemococcal Allergy Intermediate Shortness Uncoded 05/08/25 19:19 of breath Vital Signs Vital Signs - 24 hr 05/08/25 16:42 05/08/25 17:30 05/08/25 18:00 Temperature 98.0 F Pulse Rate 75 74 79 Respiratory Rate 17 16 16 Blood Pressure 131/71 139/63 128/63 Pulse Oximetry 100 98 100 05/08/25 19:00 05/08/25 20:00 05/08/25 21:18 Temperature Pulse Rate 74 80 78 Respiratory Rate 13 16 16 Blood Pressure 137/69 175/110 H 143/71 H Pulse Oximetry 100 100 100 05/08/25 22:05 Temperature 98.0 F Pulse Rate 77 Respiratory Rate 16 Blood Pressure 142/72 H Pulse Oximetry 100 Exam Narrative: Weight 88.9 kg BMI 31.6 H&P: Results Labs Labs: Laboratory Tests 05/08/25 18:01 05/08/25 18:01 05/08/25 05/08/25 05/08/25 14:15 17:49 18:01 WBC 4.5 RBC 4.53 Hgb 11.4 L Hct 35.8 L MCV 79.0 L MCH 25.2 L MCHC 31.8 L RDW 12.4 Plt Count 162 MPV 11.1 H Immature Gran % (Auto) 0.2 Neut % (Auto) 58.3 Lymph % (Auto) 27.8 [place] % (Auto) 10.9 H Eos % (Auto) 2.4 Baso % (Auto) 0.4 Lymph # (Auto) 1.25 [place] # (Auto) 0.5 Eos # (Auto) 0.1 Baso # (Auto) 0.0 Abs Immat Gran (auto) 0.01 Absolute Neuts (auto) 2.6 Absolute Nucleated RBC 0.000 Nucleated RBC % 0.0 Sodium 131 L Potassium 4.4 Chloride 96 L Carbon Dioxide 25 Anion Gap 10 BUN 34 H Creatinine 1.44 H Estim Creat Clear Calc Not Reportable Estimated GFR 36 L Glucose 571 H* POC Capillary Glucose > 500 H* Hemoglobin A1c 11.6 H Calcium 9.0 Phosphorus 3.4 Magnesium 2.1 Total Bilirubin 0.8 AST 66 H ALT 43 H Alkaline Phosphatase 137 H Total Protein 7.1 Albumin 4.1 Urine Color Yellow Urine Appearance Clear Urine pH 6.5 Ur Specific [place] 1.025 Urine Protein 1+ H Urine Glucose (UA) 3+ H Urine Ketones Trace H Ur Blood (Man) Negative Urine Nitrate Negative Urine Bilirubin Negative Urine Urobilinogen 0.2 Leukocyte Esterase Rfl Negative Urine RBC 0-2 Urine WBC 6-10 H Ur Squamous Epith Cells Few Urine Bacteria None seen Urine Casts 0-2 05/08/25 05/08/25 05/09/25 20:01 21:44 02:08 WBC RBC Hgb Hct MCV MCH MCHC RDW Plt Count MPV Immature Gran % (Auto) Neut % (Auto) Lymph % (Auto) [place] % (Auto) Eos % (Auto) Baso % (Auto) Lymph # (Auto) [place] # (Auto) Eos # (Auto) Baso # (Auto) Abs Immat Gran (auto) Absolute Neuts (auto) Absolute Nucleated RBC Nucleated RBC % Sodium Potassium Chloride Carbon Dioxide Anion Gap BUN Creatinine Estim Creat Clear Calc Estimated GFR Glucose POC Capillary Glucose 395 H 425 H 399 H Hemoglobin A1c Calcium Phosphorus Magnesium Total Bilirubin AST ALT Alkaline Phosphatase Total Protein Albumin Urine Color Urine Appearance Urine pH Ur Specific [place] Urine Protein Urine Glucose (UA) Urine Ketones Ur Blood (Man) Urine Nitrate Urine Bilirubin Urine Urobilinogen Leukocyte Esterase Rfl Urine RBC Urine WBC Ur Squamous Epith Cells Urine Bacteria Urine Casts Assessment and Plan Assessment and plan (1) Type 2 diabetes mellitus with hyperglycemia, with long-term current use of insulin: Code(s): E11.65 - Type 2 diabetes mellitus with hyperglycemia; Z79.4 - care home (current) use of insulin Status: Acute (2) Uncontrolled diabetes mellitus: Qualifiers: Diabetes mellitus type: type 1 Glycemic state: with hyperglycemia Qualified Code(s): E10.65 - Type 1 diabetes mellitus with hyperglycemia Status: Acute (3) Chronic kidney disease: Qualifiers: Chronic kidney disease stage: unspecified stage Qualified Code(s): N18.9 - Chronic kidney disease, unspecified Code(s): N18.9 - Chronic kidney disease, unspecified Status: Acute Plan Patient has chronically uncontrolled type 2 diabetes mellitus on chronic insulin therapy. I suspect there is a large component of noncompliance with medication therapy due to lack of understanding. Patient's glucoses have ranged between 300 to almost 500 since admission. She climbs of taken her Lantus 24 units yesterday a.m.. Again I think the patient technically should be taking closer to the 60 units that is ordered as prescribed. However I am reluctant to increase her dose that much in the acute setting without seeing the trend. At this time will increase the patient's Lantus to 40 units subQ daily. Will continue patient's home mealtime insulin and will add high-dose sliding scale correction as well. Patient reports she has a follow-up with her instrumental music teacher on May 13. Patient does not have any evidence of acute infection, exposure to steroids or new medications that would explain hyperglycemia. Given her markedly elevated A1c I suspect the entirety of the patient's uncontrolled hyperglycemia is due to compliance as discussed. Otherwise will resume the remainder the patient's home medications. Patient does have evidence of renal failure on her labs. Her baseline renal function is unknown as we do not have access to prior records. She did have some ketones in her urine received 2 L normal saline in the ER. Will hold off on any further IV fluid administration given her history of heart failure. Will encourage oral hydration. Will repeat electrolyte panel in a.m. and monitor I&O's. Will request medical records from [facility] but unfortunately will will probably not receive these records given that is the weekend. It looks like the patient was prescribed nystatin at discharge from [facility] according to the external pharmacy records. Patient denies any vulvar itching or discomfort will hold off on starting this at this time. Otherwise will resume the remainder the patient's home medications as appropriate. Patient has been admitted as observation status. MEDICAL DECISION MAKING NARRATIVE -Spoke with the ED provider in detail regarding patient's evaluation, workup and management -Patient seen and examined at bedside -Collaborated with patient's nurse at the bedside in detail and addressed all concerns -Labs, electrolytes, radiology, investigations and test results personally reviewed and interpreted unless otherwise specified -ED/Consult/Nursing/Ancilliary notes on the chart reviewed and appreciated -Spoke with patient at bedside and diagnosis and plan of care was discussed. All questions answered. Quality VTE Prophylaxis VTE prophylaxis: pharmacologic ordered (Lovenox 40 mg subQ daily.) Hospitalist MIPS Advance Care Plan I have confirmed that the patient's Advanced Care Plan is present, code status is documented, or surrogate decision maker is listed in patient medical record.: Yes Medication Reconciliation I have utilized all available resources to obtain, update and review the patients current medications (includes all prescriptions, OTC, herbals, cannabis, and nutritional supplements).: Yes
[2025-05-09 04:40] VITALS: BP 124/56; PULSE 75; RESP 17; TEMP 36.4; O2SAT 98
[2025-05-09 07:17] LABS: Anion Gap 10 mmol/L (4-12); Blood Urea Nitrogen 27 mg/dL (7-17); Calcium 8.6 mg/dL (8.4-10.2); Carbon Dioxide 20 mmol/L (22-30); Chloride 105 mmol/L (98-107); Estimated CRCL calculation 41 ml/min; Estimated Glomerular Filt Rate 42; Glucose 400 mg/dL (65-110); Potassium 4.2 mmol/L (3.4-5.0); Sodium 135 mmol/L (137-145)
[2025-05-09] MEDS: guaiFENesin 12 HR 600 MG TABCR 1200 MG PO ×2 (08:41→20:24)
[2025-05-09] MEDS: INSULIN ASPART (*BKC) 100 UNITS/ML 6 UNITS SUB-Q ×3 (08:41→17:22)
[2025-05-09] MEDS: INSULIN ASPART (*BKC) 100 UNITS/ML SUB-Q ×3 (08:41→20:27)
[2025-05-09] MEDS: CHLORTHALIDONE 25 MG TABLET PO (08:42)
[2025-05-09] MEDS: FUROSEMIDE 20 MG TABLET PO (08:42)
[2025-05-09] MEDS: DOCUSATE SODIUM 100 MG CAPSULE PO (08:42)
[2025-05-09] MEDS: ASPIRIN 81 MG ENTERIC TABLET PO (08:42)
[2025-05-09] MEDS: GLIMEPIRIDE 2 MG TABLET 4 MG PO (08:42)
[2025-05-09] MEDS: ROSUVASTATIN 20 MG TABLET PO (08:42)
[2025-05-09] MEDS: ENOXAPARIN 40 MG/0.4 ML SYRINGE SUB-Q (08:45)
[2025-05-09] MEDS: INSULIN GLARGINE (*BKC) 100 UNITS/ML 40 UNITS SUB-Q (08:45)
[2025-05-09] MEDS: FLUTICASONE PROPIONATE 0.05% NA SPR 16 GM BTL (*BKC) 1 SPRAY NASAL ×2 (08:46→20:25)
--- NOTE | 2025-05-09 11:23 | P.PNIM_ITS ---
Progress Note: A&P Assessment and Plan (1) Type 2 diabetes mellitus with hyperglycemia, with long-term current use of insulin: Code(s): E11.65 - Type 2 diabetes mellitus with hyperglycemia; Z79.4 - watermelon inspector (current) use of insulin Status: Acute (2) Uncontrolled diabetes mellitus: Qualifiers: Diabetes mellitus type: type 1 Glycemic state: with hyperglycemia Qualified Code(s): E10.65 - Type 1 diabetes mellitus with hyperglycemia Status: Acute (3) Chronic kidney disease: Qualifiers: Chronic kidney disease stage: unspecified stage Qualified Code(s): N18.9 - Chronic kidney disease, unspecified Code(s): N18.9 - Chronic kidney disease, unspecified Status: Acute Plan Patient has chronically uncontrolled type 2 diabetes mellitus on chronic insulin therapy. I suspect there is a large component of noncompliance with medication therapy due to lack of understanding. Patient's glucoses have ranged between 300 to almost 500 since admission. She climbs of taken her Lantus 24 units yesterday a.m.. Again I think the patient technically should be taking closer to the 60 units that is ordered as prescribed. However I am reluctant to increase her dose that much in the acute setting without seeing the trend. At this time will increase the patient's Lantus to 40 units subQ daily. Will continue patient's home mealtime insulin and will add high-dose sliding scale correction as well. Patient reports she has a follow-up with her endocrinolo gist on May 13. Patient does not have any evidence of acute infection, exposure to steroids or new medications that would explain hyperglycemia. Given her markedly elevated A1c I suspect the entirety of the patient's uncontrolled hyperglycemia is due to compliance as discussed. Otherwise will resume the remainder the patient's home medications. Patient does have evidence of renal failure on her labs. Her baseline renal function is unknown as we do not have access to prior records. She did have some ketones in her urine received 2 L normal saline in the ER. Will hold off on any further IV fluid administration given her history of heart failure. Will encourage oral hydration. Will repeat electrolyte panel in a.m. and monitor I&O's. Will request medical records from [facility] but unfortunately will will probably not receive these records given that is the weekend. she will have to go home with vial instead of pen as it is not easy for her to use pen will continue ss and lantus to optimize her diabetic regimen Time Spent With Patient Time with patient: Greater than 35 minutes Subjective Date/time seen: 05/09/25 11:23 Interval history: 74-year-old female with a past medical history of uncontrolled diabetes mellitus with associated neuropathy, nephropathy and retinopathy, COPD, CHF, combined urge and stress urinary incontinence along at with other comorbidities who presented to the ER from home due to hyperglycemia. The patient reports that she usually gets her care at [facility]. She was just hospitalized at [facility] the through the for UTI and hyperglycemia. She is a poor historian regarding her medications. She provided a list of medications from the her prior hospitalization in November of 2024 but could not given updated list of medications from her most recent hospitalization. She states that they discharged her from the hospital despite knowing that she ?still had a UTI?. Her UA in our ER was not indicative of a urinary tract infection. She reports that she has chronic urinary frequency and urgency. She denies any dysuria or hematuria. She has not been having any fevers or chills. She states that she is supposed to have a continuous glucose monitor but she has not made it ?back to get it put back on? so she has been checking her Accu-Cheks and her glucometer read high. She stated that she wanted to go back to [facility] but her daughter insisted on bringing her to our facility because her mask layout designer is located in [facility]. Patient is never been evaluated at our facility and we do not have any prior records. The patient's external medications from pharmacy record indicate that she is post be on Lantus 60 units subQ daily. The patient is adamant that she is only taking 24 units of Lantus daily. She states that she is 7 units of the insulin with meals. In she states that she was told to stop her glimepiride. But I suspect she was actually told to stop her Jardiance cassette soundly she may have a history of somewhat frequent UTIs. She has come into that she is allergic to Lantus because ?any time I take that medication my blood sugars go up.? She does not take any sliding scale insulin. She is commence that if we switch her back to insulin that comes in vials instead of in pens that her blood sugars will get better. 05/09 PT is seen and examined. she is resting in bed and feeling better. she reports that she cannot use pen as she is not sure if it is workign correclty- so unsire if she is actullay using the proper doses. Review of Systems Review of Systems: 12 systems were reviewed with pertinent positives and negatives per HPI. Except as documented in the HPI, all other systems were reviewed and are negative. Exam Narrative: Weight 88.9 kg BMI 31.6 Objective Data Vital Signs Vital Signs: Vital Signs - 24 hr 05/08/25 16:42 05/08/25 17:30 05/08/25 18:00 Temperature 98.0 F Pulse Rate 75 74 79 Respiratory Rate 17 16 16 Blood Pressure 131/71 139/63 128/63 Pulse Oximetry 100 98 100 05/08/25 19:00 05/08/25 20:00 05/08/25 21:18 Temperature Pulse Rate 74 80 78 Respiratory Rate 13 16 16 Blood Pressure 137/69 175/110 H 143/71 H Pulse Oximetry 100 100 100 05/08/25 22:05 05/09/25 04:40 Temperature 98.0 F 97.6 F Pulse Rate 77 75 Respiratory Rate 16 17 Blood Pressure 142/72 H 124/56 L Pulse Oximetry 100 98 Intake/Output Intake/Output: Intake & Output 05/06/25 05/07/25 05/08/25 05/09/25 23:59 23:59 23:59 23:59 Intake Total 1999 360 Output Total 600 Balance 1999 Meds/Results Medications: Active Medications Generic Name Dose Route Start Last Admin Trade Name Freq PRN Reason Stop Dose Admin Acetaminophen 650 mg 05/08/25 18:43 Acetaminophen 325 Mg Tablet PO Q4H PRN Mild Pain (1-3) or Fever Albuterol 2 puff 05/09/25 02:40 Albuterol Sulfate (*Sp) Aerosol 1 Puff INHALATION Q6HRT PRN SHORTNESS OF BREATH/WHEEZING Aspirin 81 mg 05/09/25 09:00 05/09/25 08:42 Aspirin 81 Mg Enteric Tablet PO 81 mg QAM LUZMA Administration Chlorthalidone 25 mg 05/09/25 09:00 05/09/25 08:42 Chlorthalidone 25 Mg Tablet PO 25 mg DAILY LUZMA Administration Dextrose 12.5 gm 05/09/25 02:43 Dextrose 50% 25 Gm/50 Ml Syringe IV PUSH PRN PRN Hypoglycemia Protocol Diclofenac Sodium 1 applic 05/09/25 06:00 05/09/25 08:37 Diclofenac Sodium 1% 100 Gm Gel (*Bkc) TOPICAL Not Given Q8HR LUZMA Diphenhydramine HCl 25 mg 05/09/25 21:00 Diphenhydramine Hcl Cap 25 Mg Capsule PO HS LUZMA Docusate Sodium 100 mg 05/09/25 09:00 05/09/25 08:42 Docusate Sodium 100 Mg Capsule PO 100 mg DAILY LUZMA Administration Enoxaparin Sodium 40 mg 05/09/25 09:00 05/09/25 08:45 Enoxaparin 40 Mg/0.4 Ml Syringe SUB-Q 40 mg DAILY LUZMA Administration Fluticasone Propionate 1 spray 05/09/25 09:00 05/09/25 08:46 Fluticasone Propionate 0.05% Na Spr 16 Gm Btl (*Bkc) NASAL 1 spray Q12HR LUZMA Administration Furosemide 20 mg 05/09/25 09:00 05/09/25 08:42 Furosemide 20 Mg Tablet PO 20 mg DAILY LUZMA Administration Glimepiride 4 mg 05/09/25 08:00 05/09/25 08:42 Glimepiride 2 Mg Tablet PO 4 mg DAILY@0800 LUZMA Administration Glucagon 1 mg 05/09/25 02:43 Glucagon For Inj 1 Mg Vial IM PRN PRN Hypoglycemia Protocol Glucose 15 gm 05/09/25 02:43 Glucose Oral Gel 15 Gm Of Glucse In 37.5 Gm Tube PO PRN PRN Hypoglycemia Protocol Guaifenesin 1,200 mg 05/09/25 09:00 05/09/25 08:41 Guaifenesin 12 Hr 600 Mg Tabcr PO 1,200 mg Q12HR LUZMA Administration Dextrose 1,000 mls @ 100 mls/hr 05/09/25 02:43 Dextrose 5% 1,000 Ml IVPB PRN PRN Hypoglycemia Protocol Insulin Aspart 6 units 05/09/25 08:00 05/09/25 08:41 Insulin Aspart (*Bkc) 100 Units/Ml SUB-Q 6 units TIDWM LUZMA Administration Insulin Aspart 4 - 8 units 05/09/25 08:00 05/09/25 08:41 Insulin Aspart (*Bkc) 100 Units/Ml SUB-Q 8 units TIDWM LUZMA Administration Protocol Insulin Aspart 2 - 4 units 05/09/25 21:00 Insulin Aspart (*Bkc) 100 Units/Ml SUB-Q HS LUZMA Protocol Insulin Glargine 40 units 05/09/25 09:00 05/09/25 08:45 Insulin Glargine (*Bkc) 100 Units/Ml SUB-Q 40 units DAILY LUZMA Administration Lactic Acid 1 applic 05/09/25 02:55 Lactic Acid 12% Lotion 225 Btl TOPICAL DAILY PRN DRY SKIN Nitroglycerin 0.4 mg 05/09/25 07:47 Nitroglycerin Sl 0.4 Mg Tablet SUBLINGUAL Q5MIN PRN Chest pain Ondansetron HCl 4 mg 05/08/25 18:43 Ondansetron Inj 4 Mg/2 Ml Vial IV PUSH Q4H PRN Nausea Rosuvastatin Calcium 20 mg 05/09/25 09:00 05/09/25 08:42 Rosuvastatin 20 Mg Tablet PO 20 mg DAILY LUZMA Administration Fluticasone/Salmeterol 2 puff 05/09/25 20:00 Fluticasone/Salmeterol 45-21 Mcg Inhaler 1 Puff INHALATION Q12HRT [facility] Labs Labs: Laboratory Results - last 24 hr 05/08/25 05/08/25 05/08/25 14:15 17:49 18:01 WBC 4.5 RBC 4.53 Hgb 11.4 L Hct 35.8 L MCV 79.0 L MCH 25.2 L MCHC 31.8 L RDW 12.4 Plt Count 162 MPV 11.1 H Immature Gran % (Auto) 0.2 Neut % (Auto) 58.3 Lymph % (Auto) 27.8 [place] % (Auto) 10.9 H Eos % (Auto) 2.4 Baso % (Auto) 0.4 Lymph # (Auto) 1.25 [place] # (Auto) 0.5 Eos # (Auto) 0.1 Baso # (Auto) 0.0 Abs Immat Gran (auto) 0.01 Absolute Neuts (auto) 2.6 Absolute Nucleated RBC 0.000 Nucleated RBC % 0.0 Sodium 131 L Potassium 4.4 Chloride 96 L Carbon Dioxide 25 Anion Gap 10 BUN 34 H Creatinine 1.44 H Estim Creat Clear Calc Not Reportable Estimated GFR 36 L Glucose 571 H* POC Capillary Glucose > 500 H* Hemoglobin A1c 11.6 H Calcium 9.0 Phosphorus 3.4 Magnesium 2.1 Total Bilirubin 0.8 AST 66 H ALT 43 H Alkaline Phosphatase 137 H Total Protein 7.1 Albumin 4.1 Urine Color Yellow Urine Appearance Clear Urine pH 6.5 Ur Specific Walker 1.025 Urine Protein 1+ H Urine Glucose (UA) 3+ H Urine Ketones Trace H Ur Blood (Man) Negative Urine Nitrate Negative Urine Bilirubin Negative Urine Urobilinogen 0.2 Leukocyte Esterase Rfl Negative Urine RBC 0-2 Urine WBC 6-10 H Ur Squamous Epith Cells Few Urine Bacteria None seen Urine Casts 0-2 05/08/25 05/08/25 05/09/25 20:01 21:44 02:08 WBC RBC Hgb Hct MCV MCH MCHC RDW Plt Count MPV Immature Gran % (Auto) Neut % (Auto) Lymph % (Auto) [place] % (Auto) Eos % (Auto) Baso % (Auto) Lymph # (Auto) [place] # (Auto) Eos # (Auto) Baso # (Auto) Abs Immat Gran (auto) Absolute Neuts (auto) Absolute Nucleated RBC Nucleated RBC % Sodium Potassium Chloride Carbon Dioxide Anion Gap BUN Creatinine Estim Creat Clear Calc Estimated GFR Glucose POC Capillary Glucose 395 H 425 H 399 H Hemoglobin A1c Calcium Phosphorus Magnesium Total Bilirubin AST ALT Alkaline Phosphatase Total Protein Albumin Urine Color Urine Appearance Urine pH Ur Specific Walker Urine Protein Urine Glucose (UA) Urine Ketones Ur Blood (Man) Urine Nitrate Urine Bilirubin Urine Urobilinogen Leukocyte Esterase Rfl Urine RBC Urine WBC Ur Squamous Epith Cells Urine Bacteria Urine Casts 05/09/25 05/09/25 05:37 07:27 WBC RBC Hgb Hct MCV MCH MCHC RDW Plt Count MPV Immature Gran % (Auto) Neut % (Auto) Lymph % (Auto) [place] % (Auto) Eos % (Auto) Baso % (Auto) Lymph # (Auto) [place] # (Auto) Eos # (Auto) Baso # (Auto) Abs Immat Gran (auto) Absolute Neuts (auto) Absolute Nucleated RBC Nucleated RBC % Sodium 135 L Potassium 4.2 Chloride 105 Carbon Dioxide 20 L Anion Gap 10 BUN 27 H Creatinine 1.24 H Estim Creat Clear Calc 41 Estimated GFR 42 L Glucose 400 H POC Capillary Glucose 373 H Hemoglobin A1c Calcium 8.6 Phosphorus Magnesium Total Bilirubin AST ALT Alkaline Phosphatase Total Protein Albumin Urine Color Urine Appearance Urine pH Ur Specific Walker Urine Protein Urine Glucose (UA) Urine Ketones Ur Blood (Man) Urine Nitrate Urine Bilirubin Urine Urobilinogen Leukocyte Esterase Rfl Urine RBC Urine WBC Ur Squamous Epith Cells Urine Bacteria Urine Casts Quality VTE Prophylaxis VTE prophylaxis: pharmacologic ordered (Lovenox 40 mg subQ daily.)
[2025-05-09 12:52] VITALS: PULSE 69; RESP 18
[2025-05-09] MEDS: ALBUTEROL SULFATE (*SP) AEROSOL 1 PUFF 2 PUFF INHALATION (12:52)
[2025-05-09 14:00] VITALS: BP 103/53; PULSE 70; RESP 18; TEMP 36.9; O2SAT 99
[2025-05-09 20:11] VITALS: BP 117/55; PULSE 71; RESP 16; TEMP 36.7; O2SAT 100
[2025-05-09] MEDS: diphenhydrAMINE HCl CAP 25 MG CAPSULE PO (20:24)
[2025-05-10 04:48] VITALS: BP 129/56; PULSE 68; RESP 16; TEMP 36.4; O2SAT 97
[2025-05-10] MEDS: DICLOFENAC SODIUM 1% 100 GM GEL (*BKC) 1 APPLIC TOPICAL ×2 (05:58→15:05)
--- NOTE | 2025-05-10 08:00 | PM.DS ---
DS: Admitting Diagnosis Discharge Date 05/10 Admitting Diagnosis hyperglycemia DS: Discharge Diagnosis Discharge Diagnosis (1) Type 2 diabetes mellitus with hyperglycemia, with long-term current use of insulin: Code(s): E11.65 - Type 2 diabetes mellitus with hyperglycemia; Z79.4 - longterm (current) use of insulin Status: Acute (2) Uncontrolled diabetes mellitus: Qualifiers: Diabetes mellitus type: type 1 Glycemic state: with hyperglycemia Qualified Code(s): E10.65 - Type 1 diabetes mellitus with hyperglycemia Status: Acute (3) Chronic kidney disease: Qualifiers: Chronic kidney disease stage: unspecified stage Qualified Code(s): N18.9 - Chronic kidney disease, unspecified Code(s): N18.9 - Chronic kidney disease, unspecified Status: Acute Plan Patient has chronically uncontrolled type 2 diabetes mellitus on chronic insulin therapy. I suspect there is a large component of noncompliance with medication therapy due to lack of understanding. Patient's glucoses have ranged between 300 to almost 500 since admission. She climbs of taken her Lantus 24 units yesterday a.m.. Again I think the patient technically should be taking closer to the 60 units that is ordered as prescribed. However I am reluctant to increase her dose that much in the acute setting without seeing the trend. At this time will increase the patient's Lantus to 40 units subQ daily. Will continue patient's home mealtime insulin and will add high-dose sliding scale correction as well. Patient reports she has a follow-up with her duplicate maker on May 13. Patient does not have any evidence of acute infection, exposure to steroids or new medications that would explain hyperglycemia. Given her markedly elevated A1c I suspect the entirety of the patient's uncontrolled hyperglycemia is due to compliance as discussed. Otherwise will resume the remainder the patient's home medications. Patient does have evidence of renal failure on her labs. Her baseline renal function is unknown as we do not have access to prior records. She did have some ketones in her urine received 2 L normal saline in the ER. Will hold off on any further IV fluid administration given her history of heart failure. Will encourage oral hydration. Will repeat electrolyte panel in a.m. and monitor I&O's. Will request medical records from [facility] but unfortunately will will probably not receive these records given that is the weekend. she will have to go home with vial instead of pen as it is not easy for her to use pen will continue ss and lantus to optimize her diabetic regimen DS: Summary Time Spent with Patient Time attestation: Total time spent providing and/or coordinating discharge services: Exam Narrative: Weight 88.9 kg BMI 31.6 DS: Data Data Completed and Pending Labs on day of discharge: Labs from last 24 hours 05/10/25 05/09/25 05/09/25 07:30 20:14 16:37 POC Capillary Glucose 212 H 219 H 176 H 05/09/25 11:31 POC Capillary Glucose 339 H Preliminary micro results at discharge 05/08/25 14:15 - Preliminary Unspecified Urine Discharge Plan Discharge Consulting providers: Ksenia,Cyndie York Patient Instructions: Heart Failure (GEN) Patient Language: Citizen Of [place] Discharge Medications: No Action albuterol sulfate 90 mcg/actuation HFA aerosol inhaler 2 inh INHALATION Q6H ammonium lactate 12 % lotion 1 applic TOPICAL PRN aspirin 81 mg tablet 81 mg PO DAILY (DME) blood-glucose meter [Accu-Chek Guide Glucose Meter] Misc MISCELLANEOUS (DME) Accu-Chek Guide test strips Strip MISCELLANEOUS budesonide-formoterol [Symbicort] 80-4.5 mcg/actuation HFA aerosol inhaler 2 inh INHALATION BID chlorthalidone 25 mg tablet 25 mg PO DAILY fluticasone propionate 50 mcg/actuation spray,suspension 1 spray INTRANASAL BID furosemide 20 mg tablet 20 mg PO DAILY glimepiride 4 mg tablet 4 mg PO DAILY Patient Comments: Take before large meals nitroglycerin 0.4 mg tablet, sublingual 0.4 mg sublingual PRN rosuvastatin 20 mg tablet 20 mg PO DAILY Gvoke HypoPen 2-Pack 1 mg/0.2 mL auto-injector 1 mg SUBCUT PRN insulin glargine [Lantus Solostar U-100 Insulin] 100 unit/mL (3 mL) insulin pen 60 unit SUBCUT DAILY (DME) insulin syringe-needle U-100 [Ultra-Fine Insulin Syringe] 1 mL 30 gauge x 1/2 syringe MISCELLANEOUS insulin lispro 100 unit/mL insulin pen 6 unit SUBCUT TID guaifenesin 1,200 mg tablet extended release 12hr 1,200 mg PO BID docusate sodium [Colace] 100 mg capsule 100 mg PO DAILY diclofenac sodium 1 % gel 2 g topical TID Rx Instructions: apply to single elbow, wrist or hand; for hand includes palm/fingers/back of hand diphenhydramine-acetaminophen [Tylenol PM Extra Strength] 25-500 mg tablet 1 tablet PO HS Date of admission: 05/08/25 18:46 Primary Care Provider: Ksenia,Cyndie York Admitting Provider: Imtiaz Troncoso Attending physician on admission: Imtiaz Troncoso Condition: Stable
[2025-05-10] MEDS: guaiFENesin 12 HR 600 MG TABCR 1200 MG PO ×2 (08:26→21:15)
[2025-05-10] MEDS: DOCUSATE SODIUM 100 MG CAPSULE PO (08:26)
[2025-05-10] MEDS: FUROSEMIDE 20 MG TABLET PO (08:27)
[2025-05-10] MEDS: INSULIN ASPART (*BKC) 100 UNITS/ML 6 UNITS SUB-Q ×3 (08:27→17:31)
[2025-05-10] MEDS: ASPIRIN 81 MG ENTERIC TABLET PO (08:27)
[2025-05-10] MEDS: GLIMEPIRIDE 2 MG TABLET 4 MG PO (08:27)
[2025-05-10] MEDS: INSULIN ASPART (*BKC) 100 UNITS/ML SUB-Q ×2 (08:27→12:35)
[2025-05-10] MEDS: CHLORTHALIDONE 25 MG TABLET PO (08:27)
[2025-05-10] MEDS: ROSUVASTATIN 20 MG TABLET PO (08:27)
[2025-05-10] MEDS: FLUTICASONE PROPIONATE 0.05% NA SPR 16 GM BTL (*BKC) 1 SPRAY NASAL ×2 (08:28→21:17)
[2025-05-10] MEDS: INSULIN GLARGINE (*BKC) 100 UNITS/ML 40 UNITS SUB-Q (08:28)
[2025-05-10] MEDS: FLUTICASONE/SALMETEROL 45-21 MCG INHALER 1 PUFF 2 PUFF INHALATION ×2 (08:31→20:41)
[2025-05-10 08:32] VITALS: PULSE 71; RESP 15
[2025-05-10 09:17] LABS: Hematocrit 32.4 % (37.0-47.0); Hemoglobin 10.4 g/dL (12.0-15.0); Mean Corpuscular HGB Conc 32.1 g/dl (32-36); Mean Corpuscular Hemoglobin 25.2 pg (26-34); Mean Corpuscular Volume 78.6 fl (80-100); Platelet Count Result 166 k/mm3 (150-375); Red Blood Count 4.12 M/mm3 (4.2-5.4); White Blood Count 4.3 K/mm3 (4.5-10.0)
[2025-05-10 09:40] LABS: Anion Gap 7 mmol/L (4-12); Blood Urea Nitrogen 27 mg/dL (7-17); Calcium 8.7 mg/dL (8.4-10.2); Carbon Dioxide 25 mmol/L (22-30); Chloride 101 mmol/L (98-107); Estimated CRCL calculation 35 ml/min; Estimated Glomerular Filt Rate 36; Glucose 421 mg/dL (65-110); Potassium 4.1 mmol/L (3.4-5.0); Sodium 133 mmol/L (137-145)
[2025-05-10 14:00] VITALS: BP 136/71; PULSE 70; RESP 18; TEMP 36.9; O2SAT 99
--- NOTE | 2025-05-10 14:21 | PM.IMPN ---
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 I suspect there is a large component of noncompliance with medication therapy due to lack of understanding. Patient's glucoses have ranged between 300 to almost 500 since admission. She climbs of taken her Lantus 24 units yesterday a.m.. Again I think the patient technically should be taking closer to the 60 units that is ordered as prescribed. However I am reluctant to increase her dose that much in the acute setting without seeing the trend. At this time will increase the patient's Lantus to 40 units subQ daily. Will continue patient's home mealtime insulin and will add high-dose sliding scale correction as well. Patient reports she has a follow-up with her linotype machinist apprentice on May 13. Patient does not have any evidence of acute infection, exposure to steroids or new medications that would explain hyperglycemia. Given her markedly elevated A1c I suspect the entirety of the patient's uncontrolled hyperglycemia is due to compliance as discussed. Otherwise will resume the remainder the patient's home medications. Patient does have evidence of renal failure on her labs. Her baseline renal function is unknown as we do not have access to prior records. She did have some ketones in her urine received 2 L normal saline in the ER. Will hold off on any further IV fluid administration given her history of heart failure. Will encourage oral hydration. Will repeat electrolyte panel in a.m. and monitor I&O's. Will request medical records from [facility] but unfortunately will will probably not receive these records given that is the weekend. she will have to go home with vial instead of pen as it is not easy for her to use pen will continue ss and lantus to optimize her diabetic regimen 05/10 high carb/sugary breakfast this morning-so BS had been pretty high all day. Will need to ensure carb count is appropriate for dx. will consult diabtic educator for am tomorrow noted slight increase in cr-monitor closely encourage to drink water, ambulate anticipate discharge is bs better controlled dna kidney function improves. Time Spent With Patient Time with patient: Greater than 35 minutes Subjective Date/time seen: 05/10/25 14:21 Interval history: 74-year-old female with a past medical history of uncontrolled diabetes mellitus with associated neuropathy, nephropathy and retinopathy, COPD, CHF, combined urge and stress urinary incontinence along at with other comorbidities who presented to the ER from home due to hyperglycemia. The patient reports that she usually gets her care at [facility]. She was just hospitalized at [facility] the through the for UTI and hyperglycemia. She is a poor historian regarding her medications. She provided a list of medications from the her prior hospitalization in November of 2024 but could not given updated list of medications from her most recent hospitalization. She states that they discharged her from the hospital despite knowing that she ?still had a UTI?. Her UA in our ER was not indicative of a urinary tract infection. She reports that she has chronic urinary frequency and urgency. She denies any dysuria or hematuria. She has not been having any fevers or chills. She states that she is supposed to have a continuous glucose monitor but she has not made it ?back to get it put back on? so she has been checking her Accu-Cheks and her glucometer read high. She stated that she wanted to go back to [facility] but her daughter insisted on bringing her to our facility because her linotype machinist apprentice is located in [facility]. Patient is never been evaluated at our facility and we do not have any prior records. The patient's external medications from pharmacy record indicate that she is post be on Lantus 60 units subQ daily. The patient is adamant that she is only taking 24 units of Lantus daily. She states that she is 7 units of the insulin with meals. In she states that she was told to stop her glimepiride. But I suspect she was actually told to stop her Jardiance cassette soundly she may have a history of somewhat frequent UTIs. She has come into that she is allergic to Lantus because ?any time I take that medication my blood sugars go up.? She does not take any sliding scale insulin. She is commence that if we switch her back to insulin that comes in vials instead of in pens that her blood sugars will get better. 05/09 PT is seen and examined. she is resting in bed and feeling better. she reports that she cannot use pen as she is not sure if it is working correctly- so unsure if she is actually using the proper doses. 05/10 overnight bs were better but this morning pt ate frosted flakes for breakfast and bs had been high all day. she is on diabetic diet though. she is feeling well. Review of Systems Review of Systems: All systems reviewed & are unremarkable except as noted in HPI and below Exam Narrative: Weight 88.9 kg BMI 31.6 Const: General: comfortable Resp: Effort & Inspection: normal respiratory effort Auscultation: clear to auscultation bilaterally Cardio: Rate: regular rate Rhythm: regular rhythm GI: GI Palp: Yes Soft to palpation Auscultation: normal bowel sounds Neuro: Speech: normal speech Motor exam (neuro): 5/5 motor strength present throughout Objective Data Vital Signs Vital Signs: Vital Signs - 24 hr 05/09/25 20:11 05/10/25 04:48 05/10/25 08:00 Temperature 98.0 F 97.6 F Pulse Rate 71 68 Respiratory Rate 16 16 Blood Pressure 117/55 L 129/56 L Pulse Oximetry 100 97 Oxygen Delivery Room Air 05/10/25 08:32 Temperature Pulse Rate 71 Respiratory Rate 15 Blood Pressure Pulse Oximetry Oxygen Delivery Intake/Output Intake/Output: Intake & Output 05/07/25 05/08/25 05/09/25 05/10/25 23:59 23:59 23:59 23:59 Intake Total 1999 1940 480 Output Total 600 100 Balance 1999 1340 380 Meds/Results Medications: Active Medications Generic Name Dose Route Start Last Admin Trade Name Freq PRN Reason Stop Dose Admin Acetaminophen 650 mg 05/08/25 18:43 Acetaminophen 325 Mg Tablet PO Q4H PRN Mild Pain (1-3) or Fever Albuterol 2 puff 05/09/25 02:40 05/09/25 12:52 Albuterol Sulfate (*Sp) Aerosol 1 Puff INHALATION 2 puff Q6HRT PRN Administration SHORTNESS OF BREATH/WHEEZING Aspirin 81 mg 05/09/25 09:00 05/10/25 08:27 Aspirin 81 Mg Enteric Tablet PO 81 mg QAM LUZMA Administration Chlorthalidone 25 mg 05/09/25 09:00 05/10/25 08:27 Chlorthalidone 25 Mg Tablet PO 25 mg DAILY LUZMA Administration Dextrose 12.5 gm 05/09/25 02:43 Dextrose 50% 25 Gm/50 Ml Syringe IV PUSH PRN PRN Hypoglycemia Protocol Diclofenac Sodium 1 applic 05/09/25 06:00 05/10/25 05:58 Diclofenac Sodium 1% 100 Gm Gel (*Bkc) TOPICAL 1 applic Q8HR LUZMA Administration Diphenhydramine HCl 25 mg 05/09/25 21:00 05/09/25 20:24 Diphenhydramine Hcl Cap 25 Mg Capsule PO 25 mg HS LUZMA Administration Docusate Sodium 100 mg 05/09/25 09:00 05/10/25 08:26 Docusate Sodium 100 Mg Capsule PO 100 mg DAILY LUZMA Administration Enoxaparin Sodium 40 mg 05/09/25 09:00 05/10/25 08:28 Enoxaparin 40 Mg/0.4 Ml Syringe SUB-Q Not Given DAILY LUZMA Fluticasone Propionate 1 spray 05/09/25 09:00 05/10/25 08:28 Fluticasone Propionate 0.05% Na Spr 16 Gm Btl (*Bkc) NASAL 1 spray Q12HR LUZMA Administration Furosemide 20 mg 05/09/25 09:00 05/10/25 08:27 Furosemide 20 Mg Tablet PO 20 mg DAILY LUZMA Administration Glimepiride 4 mg 05/09/25 08:00 05/10/25 08:27 Glimepiride 2 Mg Tablet PO 4 mg DAILY@0800 LUZMA Administration Glucagon 1 mg 05/09/25 02:43 Glucagon For Inj 1 Mg Vial IM PRN PRN Hypoglycemia Protocol Glucose 15 gm 05/09/25 02:43 Glucose Oral Gel 15 Gm Of Glucse In 37.5 Gm Tube PO PRN PRN Hypoglycemia Protocol Guaifenesin 1,200 mg 05/09/25 09:00 05/10/25 08:26 Guaifenesin 12 Hr 600 Mg Tabcr PO 1,200 mg Q12HR LUZMA Administration Dextrose 1,000 mls @ 100 mls/hr 05/09/25 02:43 Dextrose 5% 1,000 Ml IVPB PRN PRN Hypoglycemia Protocol Insulin Aspart 6 units 05/09/25 08:00 05/10/25 12:35 Insulin Aspart (*Bkc) 100 Units/Ml SUB-Q 6 units TIDWM LUZMA Administration Insulin Aspart 4 - 8 units 05/09/25 08:00 05/10/25 12:35 Insulin Aspart (*Bkc) 100 Units/Ml SUB-Q 8 units TIDWM LUZMA Administration Protocol Insulin Aspart 2 - 4 units 05/09/25 21:00 05/09/25 20:27 Insulin Aspart (*Bkc) 100 Units/Ml SUB-Q 2 units HS LUZMA Administration Protocol Insulin Glargine 40 units 05/09/25 09:00 05/10/25 08:28 Insulin Glargine (*Bkc) 100 Units/Ml SUB-Q 40 units DAILY LUZMA Administration Lactic Acid 1 applic 05/09/25 02:55 Lactic Acid 12% Lotion 225 Btl TOPICAL DAILY PRN DRY SKIN Nitroglycerin 0.4 mg 05/09/25 07:47 Nitroglycerin Sl 0.4 Mg Tablet SUBLINGUAL Q5MIN PRN Chest pain Ondansetron HCl 4 mg 05/08/25 18:43 Ondansetron Inj 4 Mg/2 Ml Vial IV PUSH Q4H PRN Nausea Rosuvastatin Calcium 20 mg 05/09/25 09:00 05/10/25 08:27 Rosuvastatin 20 Mg Tablet PO 20 mg DAILY LUZMA Administration Fluticasone/Salmeterol 2 puff 05/09/25 20:00 05/10/25 08:31 Fluticasone/Salmeterol 45-21 Mcg Inhaler 1 Puff INHALATION 2 puff Q12HRT LUZMA Administration Labs Labs: Laboratory Results - last 24 hr 05/09/25 05/09/25 05/10/25 16:37 20:14 07:30 WBC RBC Hgb Hct MCV MCH MCHC RDW Plt Count MPV Sodium Potassium Chloride Carbon Dioxide Anion Gap BUN Creatinine Estim Creat Clear Calc Estimated GFR Glucose POC Capillary Glucose 176 H 219 H 212 H Calcium 05/10/25 05/10/25 09:08 11:14 WBC 4.3 L RBC 4.12 L Hgb 10.4 L Hct 32.4 L MCV 78.6 L MCH 25.2 L MCHC 32.1 RDW 12.4 Plt Count 166 MPV 10.9 H Sodium 133 L Potassium 4.1 Chloride 101 Carbon Dioxide 25 Anion Gap 7 BUN 27 H Creatinine 1.44 H Estim Creat Clear Calc 35 Estimated GFR 36 L Glucose 421 H POC Capillary Glucose 356 H Calcium 8.7 Quality VTE Prophylaxis VTE prophylaxis: pharmacologic ordered (Lovenox 40 mg subQ daily.)
[2025-05-10] MEDS: diphenhydrAMINE HCl CAP 25 MG CAPSULE PO (21:15)
[2025-05-10 21:52] VITALS: BP 113/67; PULSE 70; RESP 16; TEMP 36.6; O2SAT 98
[2025-05-10 22:13] VITALS: PULSE 66; RESP 16
--- NOTE | 2025-05-11 03:55 | PC.NURSE ---
patient bloodsugar at 0350 is 92. Patient given a couple grandcrackers
[2025-05-11 06:00] VITALS: BP 124/59; PULSE 74; RESP 16; TEMP 36.6; O2SAT 99
[2025-05-11 08:00] VITALS: PULSE 70; RESP 16; O2SAT 99
[2025-05-11] MEDS: FLUTICASONE/SALMETEROL 45-21 MCG INHALER 1 PUFF 2 PUFF INHALATION (08:18)
[2025-05-11 08:19] VITALS: PULSE 70
[2025-05-11] MEDS: FUROSEMIDE 20 MG TABLET PO (08:37)
[2025-05-11] MEDS: GLIMEPIRIDE 2 MG TABLET 4 MG PO (08:37)
[2025-05-11] MEDS: guaiFENesin 12 HR 600 MG TABCR 1200 MG PO (08:37)
[2025-05-11] MEDS: CHLORTHALIDONE 25 MG TABLET PO (08:37)
[2025-05-11] MEDS: DOCUSATE SODIUM 100 MG CAPSULE PO (08:37)
[2025-05-11] MEDS: ASPIRIN 81 MG ENTERIC TABLET PO (08:38)
[2025-05-11] MEDS: ENOXAPARIN 40 MG/0.4 ML SYRINGE SUB-Q (08:38)
[2025-05-11] MEDS: ROSUVASTATIN 20 MG TABLET PO (08:38)
[2025-05-11 08:40] LABS: Hematocrit 32.0 % (37.0-47.0); Hemoglobin 10.3 g/dL (12.0-15.0); Mean Corpuscular HGB Conc 32.2 g/dl (32-36); Mean Corpuscular Hemoglobin 25.2 pg (26-34); Mean Corpuscular Volume 78.4 fl (80-100); Platelet Count Result 175 k/mm3 (150-375); Red Blood Count 4.08 M/mm3 (4.2-5.4); White Blood Count 4.9 K/mm3 (4.5-10.0)
[2025-05-11 09:02] LABS: Alanine Aminotransferase 47 U/L (6-35); Albumin Level 3.3 g/dL (3.5-5.1); Alkaline Phosphatase 106 U/L (38-126); Anion Gap 6 mmol/L (4-12); Aspartate Amino Transferase 64 U/L (14-36); Bilirubin,Total 0.4 mg/dL (0.2-1.3); Blood Urea Nitrogen 23 mg/dL (7-17); Calcium 8.4 mg/dL (8.4-10.2); Carbon Dioxide 28 mmol/L (22-30); Chloride 99 mmol/L (98-107); Estimated CRCL calculation 38 ml/min; Estimated Glomerular Filt Rate 40; Glucose 307 mg/dL (65-110); Potassium 3.7 mmol/L (3.4-5.0); Sodium 133 mmol/L (137-145); Total Protein 6.0 g/dL (6.3-8.2)
[2025-05-11] MEDS: INSULIN ASPART (*BKC) 100 UNITS/ML 6 UNITS SUB-Q ×2 (09:17→11:54)
[2025-05-11] MEDS: INSULIN ASPART (*BKC) 100 UNITS/ML SUB-Q ×2 (09:17→11:58)
[2025-05-11] MEDS: INSULIN GLARGINE (*BKC) 100 UNITS/ML 40 UNITS SUB-Q (09:17)
[2025-05-11] MEDS: FLUTICASONE PROPIONATE 0.05% NA SPR 16 GM BTL (*BKC) 1 SPRAY NASAL (09:18)
--- NOTE | 2025-05-11 10:37 | PM.DS ---
DS: Admitting Diagnosis Discharge Date 05/11 Admitting Diagnosis hyperglycemia DS: Summary Hospital Course Hospital Course: Patient has chronically uncontrolled type 2 diabetes mellitus on chronic insulin therapy. I suspect there is a large component of noncompliance with medication therapy due to lack of understanding. Patient's glucoses have ranged between 300 to almost 500 since admission. She climbs of taken her Lantus 24 units yesterday a.m.. Again I think the patient technically should be taking closer to the 60 units that is ordered as prescribed. However I am reluctant to increase her dose that much in the acute setting without seeing the trend. At this time will increase the patient's Lantus to 40 units subQ daily. Will continue patient's home mealtime insulin and will add high-dose sliding scale correction as well. 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 Patient does not have any evidence of acute infection, exposure to steroids or new medications that would explain hyperglycemia. Given her markedly elevated A1c I suspect the entirety of the patient's uncontrolled hyperglycemia is due to compliance as discussed. Otherwise will resume the remainder the patient's home medications. Patient does have evidence of renal failure on her labs. Her baseline renal function is unknown as we do not have access to prior records. She did have some ketones in her urine received 2 L normal saline in the ER. Will hold off on any further IV fluid administration given her history of heart failure. Will encourage oral hydration. Will repeat electrolyte panel in a.m. and monitor I&O's. It looks like the patient was prescribed nystatin at discharge from [facility] according to the external pharmacy records. Patient denies any vulvar itching or discomfort will hold off on starting this at this time. Otherwise will resume the remainder the patient's home medications as appropriate. Pt bc had been overall improving. She was served frosted flakes with milk for breakfast on 05/10 (and that is all_ so her BS remained height rest of the day. development educator saw her this morning and teaching is completed. Her cr/bun improved. She will be discharged with vial of lantus instead of pen as it is easier for her to use. She will need to follow diabetic diet closely and have a f/u with PCP within 7-10 days after discharge. Status at Discharge Functional status at discharge: independent ambulation Overall status at discharge: patient is progressing back to baseline Time Spent with Patient Time attestation: Total time spent providing and/or coordinating discharge services: Time spent: Greater than 30 minutes Exam Narrative: Weight 88.9 kg BMI 31.6 Const: General: comfortable Resp: Effort & Inspection: normal respiratory effort Auscultation: clear to auscultation bilaterally Cardio: Rate: regular rate Rhythm: regular rhythm GI: Auscultation: normal bowel sounds Neuro: Speech: normal speech Motor exam (neuro): 5/5 motor strength present throughout Psych: Affect: normal affect DS: Data Data Completed and Pending Labs on day of discharge: Labs from last 24 hours 05/11/25 05/11/25 05/11/25 08:35 07:39 03:51 WBC 4.9 RBC 4.08 L Hgb 10.3 L Hct 32.0 L MCV 78.4 L MCH 25.2 L MCHC 32.2 RDW 12.7 Plt Count 175 MPV 10.7 H Sodium 133 L Potassium 3.7 Chloride 99 Carbon Dioxide 28 Anion Gap 6 BUN 23 H Creatinine 1.31 H Estim Creat Clear Calc 38 Estimated GFR 40 L Glucose 307 H POC Capillary Glucose 222 H 92 Calcium 8.4 Total Bilirubin 0.4 AST 64 H ALT 47 H Alkaline Phosphatase 106 Total Protein 6.0 L Albumin 3.3 L 05/10/25 05/10/25 05/10/25 21:09 16:33 11:14 WBC RBC Hgb Hct MCV MCH MCHC RDW Plt Count MPV Sodium Potassium Chloride Carbon Dioxide Anion Gap BUN Creatinine Estim Creat Clear Calc Estimated GFR Glucose POC Capillary Glucose 131 H 156 H 356 H Calcium Total Bilirubin AST ALT Alkaline Phosphatase Total Protein Albumin Preliminary micro results at discharge 05/08/25 14:15 - Preliminary Unspecified Urine Discharge Plan Discharge Attending physician on discharge: Gaby Christianson Consulting providers: KseniaCyndie Discharging Clinician: Ellie Ferraro Patient Disposition: Home Activity: may shower Diet: diabetic Discharge Instructions: I will order you a vial instead of a pen. Please check your blood sugars as directed and have a close up with oyur pcp about your diabetes, doses, diet. Patient Instructions: Antibiotic Form, Heart Failure (GEN) Patient Language: Malay Stand Alone Forms: General Discharge Information Follow-up/Referrals: Ksenia,Cyndie York MD [Primary Care Provider, Unknown] - 2 Weeks Discharge Medications: New insulin glargine-yfgn 100 unit/mL solution 40 unit subcut DAILY Qty: 10 2RF Continued nitroglycerin 0.4 mg tablet, sublingual 0.4 mg sublingual Q5M PRN Rx Instructions: do not exceed 3 doses per episode omeprazole 20 mg capsule,delayed release(DR/EC) 20 mg PO DAILY cholecalciferol (vitamin D3) 50 mcg (2,000 unit) capsule 50 mcg PO DAILY diclofenac sodium [Arthritis Pain (diclofenac)] 1 % gel 2 g topical QID Rx Instructions: apply to single elbow, wrist or hand; for hand includes palm/fingers/back of hand ammonium lactate 12 % lotion 1 applic topical DAILY albuterol sulfate [Ventolin HFA] 90 mcg/actuation HFA aerosol inhaler 2 puff inhalation Q6H PRN glucose 4 gram tablet,chewable 16 g PO Q15M PRN (Reason: hypoglycemia) Qty: 360 12RF Rx Instructions: until symptoms of low blood sugar are controlled albuterol sulfate 90 mcg/actuation HFA aerosol inhaler 2 inh INHALATION Q6H ammonium lactate 12 % lotion 1 applic TOPICAL PRN aspirin 81 mg tablet 81 mg PO DAILY (DME) blood-glucose meter [Accu-Chek Guide Glucose Meter] Misc MISCELLANEOUS (DME) Accu-Chek Guide test strips Strip MISCELLANEOUS budesonide-formoterol [Symbicort] 80-4.5 mcg/actuation HFA aerosol inhaler 2 inh INHALATION BID chlorthalidone 25 mg tablet 25 mg PO DAILY fluticasone propionate 50 mcg/actuation spray,suspension 1 spray INTRANASAL BID furosemide 20 mg tablet 20 mg PO DAILY glimepiride 4 mg tablet 4 mg PO DAILY Patient Comments: Take before large meals nitroglycerin 0.4 mg tablet, sublingual 0.4 mg sublingual PRN rosuvastatin 20 mg tablet 20 mg PO DAILY Gvoke HypoPen 2-Pack 1 mg/0.2 mL auto-injector 1 mg SUBCUT PRN (DME) insulin syringe-needle U-100 [Ultra-Fine Insulin Syringe] 1 mL 30 gauge x 1/2 syringe MISCELLANEOUS insulin lispro 100 unit/mL insulin pen 6 unit SUBCUT TID guaifenesin 1,200 mg tablet extended release 12hr 1,200 mg PO BID docusate sodium [Colace] 100 mg capsule 100 mg PO DAILY diclofenac sodium 1 % gel 2 g topical TID Rx Instructions: apply to single elbow, wrist or hand; for hand includes palm/fingers/back of hand diphenhydramine-acetaminophen [Tylenol PM Extra Strength] 25-500 mg tablet 1 tablet PO HS (DME) FreeStyle Antony 3 Plus Sensor Device See Rx Instructions .Route Qty: 6 2RF Rx Instructions: Change sensor every 15 days Discontinued rosuvastatin 20 mg tablet 20 mg PO DAILY budesonide-formoterol 80-4.5 mcg/actuation HFA aerosol inhaler 2 puff inhalation Q12H chlorthalidone 25 mg tablet 25 mg PO DAILY diphenhydramine HCl 25 mg tablet 25 mg PO QHS PRN docusate sodium 100 mg capsule 100 mg PO DAILY fluticasone propionate 50 mcg/actuation blister with device 1 inh inhalation Q12H furosemide [Lasix] 20 mg tablet 20 mg PO .QOD aspirin 81 mg tablet 81 mg PO DAILY insulin lispro [Humalog KwikPen Insulin] 100 unit/mL insulin pen 6 unit subcut .before meals MDD 40 Qty: 30 2RF Rx Instructions: 6 units before meals plus sliding scale insulin glargine [Lantus Solostar U-100 Insulin] 100 unit/mL (3 mL) insulin pen 22 unit subcut QAM Qty: 30 2RF Rx Instructions: 22 units in the morning Gvoke HypoPen 2-Pack 1 mg/0.2 mL auto-injector 1 mg subcut ONCE Qty: 0.4 0RF Rx Instructions: as a single dose; may repeat once after 15 minutes if no response insulin glargine [Lantus Solostar U-100 Insulin] 100 unit/mL (3 mL) insulin pen 60 unit SUBCUT DAILY Date of admission: 05/08/25 18:46 Primary Care Provider: Ksenia,Cyndie oYrk Admitting Provider: Imtiaz Troncoso Attending physician on admission: Imtiaz Troncoso Condition: Stable Quality VTE Prophylaxis VTE prophylaxis: pharmacologic ordered (Lovenox 40 mg subQ daily.)
[2025-05-11 11:00] VITALS: BMI 31.6
[2025-05-11] MEDS: DICLOFENAC SODIUM 1% 100 GM GEL (*BKC) 1 APPLIC TOPICAL (14:58)
--- NOTE | 2025-05-12 11:58 | PC.NURSE ---
Spoke with Natali after discharge on the phone. Patient was unsure if lasix was continued or discontinued. Instructed patient to call co teacher that prescribed lasix to clarify instructions.
--- NOTE | 2025-05-18 15:58 | PCCDE ---
05/18/26: DM Educator attempted inpatient follow up courtesy call. Message left including my direct line and Outpatient DM number to call to reschedule missed appt.
== END 2025-05-11 15:40 | disposition home or self-care (01) ==
LOC: ANHED 17:42 → ANH3MEDSUR 20:33
PROVIDERS: Emergency Medicine; Internal Medicine; Nurse Practitioner; Physician Assistant; Admitting Provider General Practice; Emergency Provider Physician Assistant; PCP Family Medicine; Visit Provider General Practice
DX: E11.65 Type 2 diabetes mellitus with hyperglycemia (principal); E11.22 Type 2 diabetes mellitus with diabetic chronic kidney disease; N18.9 Chronic kidney disease, unspecified; E11.40 Type 2 diabetes mellitus with diabetic neuropathy, unspecified; E78.2 Mixed hyperlipidemia; E11.3213 Type 2 diabetes mellitus with mild nonproliferative diabetic retinopathy with macular edema, bilateral; I50.32 Chronic diastolic (congestive) heart failure; K21.9 Gastro-esophageal reflux disease without esophagitis; I13.0 Hypertensive heart and chronic kidney disease with heart failure and stage 1 through stage 4 chronic kidney disease, or unspecified chronic kidney disease; N39.46 Mixed incontinence; R07.2 Precordial pain; J44.9 Chronic obstructive pulmonary disease, unspecified; E66.01 Morbid (severe) obesity due to excess calories; M81.0 Age-related osteoporosis without current pathological fracture; Z68.31 Body mass index [BMI] 31.0-31.9, adult; Z79.84 Long term (current) use of oral hypoglycemic drugs; Z79.4 Long term (current) use of insulin; Z96.1 Presence of intraocular lens; Z98.42 Cataract extraction status, left eye; Z98.41 Cataract extraction status, right eye; Z90.49 Acquired absence of other specified parts of digestive tract; Z79.85 Long-term (current) use of injectable non-insulin antidiabetic drugs; Z79.1 Long term (current) use of non-steroidal anti-inflammatories (NSAID); Z79.82 Long term (current) use of aspirin; Z79.51 Long term (current) use of inhaled steroids; Z83.3 Family history of diabetes mellitus
CPT/HCPCS: 36415; 80048; 80053; 81001; 82948; 83036; 83735; 84100; 85025; 85027; 87086; 87186; 94640; 96361; 96374; 99285; A9270; G0378; J1650; J1815; J7030